=== PATIENT | female | born 1940 ===

== ENCOUNTER → 2020-07-09 09:04 | Outpatient (BNVA) | payer MEDICARE, SELFPAY | PROVIDERS: PCP Family Medicine; Visit Provider Urology | DX: N13.2 Hydronephrosis with renal and ureteral calculous obstruction (principal); Z96.0 Presence of urogenital implants | CPT/HCPCS: 99214 ==

== ENCOUNTER 2020-07-14 06:40 | Day surgery (SDC) | payer MEDICARE, SELFPAY ==
[2020-07-09 19:53] VITALS: BMI 22.3
[2020-07-14 06:57] VITALS: BP 135/74; PULSE 97; RESP 16; TEMP 37.4; O2SAT 96
--- NOTE | 2020-07-14 07:28 | MHC.SHP ---
Pre-Procedural Eval Section A The patient is an INPATIENT: No The History & Physical has been completed within 30 days and I have reviewed it.: Yes Section B Chief Complaint: right renal stone Allergies: Allergies Allergy/AdvReac Type Severity Reaction Status Date / Time alendronate sodium [Fosamax] Allergy Unknown unknown Verified 07/02/20 15:46 codeine [Codeine] AdvReac Mild STOMACH Verified 07/10/20 12:27 UPSET Codeine Phosphate Allergy Unknown unknown Uncoded 07/02/20 15:46 Plan Diagnosis/Plan: Unchanged Patient has been examined and remains a candidate for the planned procedure
[2020-07-14] MEDS: levoFLOXacin/D5W 500 MG/100 ML PIGGYBACK 100 MG IV (07:44)
[2020-07-14] MEDS: Gentamicin Sulfate/NaCl 80 MG/100 ML PIGGYBACK 100 MG IV (07:44)
--- NOTE | 2020-07-14 08:15 | HO.ANESPROP2 ---
[facility] Past Medical History Medical History Asthma Atrial fibrillation Deficient knowledge of open reduction and internal (ORIF) fixation of hip Discoid lupus GERD (gastroesophageal reflux disease) IBS (irritable bowel syndrome) Kidney stone Myasthenia gravis Postural vertigo Skin cancer Status post open reduction and internal fixation (ORIF) of fracture (~01/2020) Family History Family History Mother No problems noted. Father No problems noted. Surgical History Surgical History History of cataract extraction with lens replacement (~11/2019) Social History Social History Are you a primary healthcare social worker to a significant other at home: No Smoking Status: Never smoker Smoked in Last 30 Days: No Use of substances other than those prescribed or required for medical reasons: No Advance Directives: No (UKNOWN) Meds Allergies Allergy/AdvReac Type Severity Reaction Status Date / Time alendronate sodium [Fosamax] Allergy Unknown unknown Verified 07/02/20 15:46 codeine [Codeine] AdvReac Mild STOMACH Verified 07/10/20 12:27 UPSET Codeine Phosphate Allergy Unknown unknown Uncoded 07/02/20 15:46 Home Medications Medication Instructions Recorded Confirmed Type albuterol sulfate 2 puff INHALATION Q6H 07/09/20 07/09/20 History benzonatate 100 mg capsule 100 mg PO TID PRN 07/09/20 07/09/20 History cefuroxime axetil 250 mg tablet 250 mg PO Q12H 07/09/20 07/09/20 History diltiazem HCl 180 mg capsule,24 180 mg PO DAILY 07/09/20 07/09/20 History hr,extended release nystatin 100,000 unit/gram topical TOPICAL BID 07/09/20 History powder prednisone 2 mg PO DAILY 07/09/20 07/09/20 History pyridostigmine bromide 60 mg tablet 60 mg PO TID 07/09/20 07/09/20 History warfarin 1 tab PO DAILY 07/09/20 07/09/20 History Exam Exam Date and Time: July 14, 2020 0815 Height,Weight and Vital Signs: Height 5 ft 4 in Weight 58.967 kg Last Vital Signs Temp 99.3 F 07/14/20 06:57 Pulse 97 07/14/20 06:57 Resp 16 07/14/20 06:57 BP 135/74 07/14/20 06:57 Pulse Ox 96 07/14/20 06:57 Airway Mallampati Class: II TM Dist: >3cm Neck ROM: Limited Denture: Upper and Lower Loose/Missing/Broken Teeth: No Heart: irreg Lungs: cta Assessment and Plan Assessment Anesthesia Assessment: Anesthesia Plan Discussed and Chart Reviewed Final Anesthetic Review NPO: Yes ASA Class: III Final Preanesthetic Review: No Changes in Pt Med Stat, Meds/Allgs Chart Reviewed, Consent Obtained/Reviewed, Anes Risks/Benef Reviewed and DNR Form (If Appl.) Patient Risk: Intermediate Procedure Risk: Low Assessment/Block/Sedation in SS: Assess/Block/Sedation-SS Anesthetic Plan Anesthetic Plan: GA Disposition: Standard PACU
--- NOTE | 2020-07-14 08:47 | HO.ANESPROP2 ---
[facility] Past Medical History Medical History Asthma Atrial fibrillation Deficient knowledge of open reduction and internal (ORIF) fixation of hip Discoid lupus GERD (gastroesophageal reflux disease) IBS (irritable bowel syndrome) Kidney stone Myasthenia gravis Postural vertigo Skin cancer Status post open reduction and internal fixation (ORIF) of fracture (~01/2020) Family History Family History Mother No problems noted. Father No problems noted. Surgical History Surgical History History of cataract extraction with lens replacement (~11/2019) Social History Social History Are you a primary childcare center director to a significant other at home: No Smoking Status: Never smoker Smoked in Last 30 Days: No Use of substances other than those prescribed or required for medical reasons: No Advance Directives: No (UKNOWN) Meds Allergies Allergy/AdvReac Type Severity Reaction Status Date / Time alendronate sodium [Fosamax] Allergy Unknown unknown Verified 07/02/20 15:46 codeine [Codeine] AdvReac Mild STOMACH Verified 07/10/20 12:27 UPSET Codeine Phosphate Allergy Unknown unknown Uncoded 07/02/20 15:46 Home Medications Medication Instructions Recorded Confirmed Type albuterol sulfate 2 puff INHALATION Q6H 07/09/20 07/09/20 History benzonatate 100 mg capsule 100 mg PO TID PRN 07/09/20 07/09/20 History cefuroxime axetil 250 mg tablet 250 mg PO Q12H 07/09/20 07/09/20 History diltiazem HCl 180 mg capsule,24 180 mg PO DAILY 07/09/20 07/09/20 History hr,extended release nystatin 100,000 unit/gram topical TOPICAL BID 07/09/20 History powder prednisone 2 mg PO DAILY 07/09/20 07/09/20 History pyridostigmine bromide 60 mg tablet 60 mg PO TID 07/09/20 07/09/20 History warfarin 1 tab PO DAILY 07/09/20 07/09/20 History Exam Exam Date and Time: July 14, 2020 0847 Height,Weight and Vital Signs: Height 5 ft 4 in Weight 58.967 kg Last Vital Signs Temp 99.3 F 07/14/20 06:57 Pulse 97 07/14/20 06:57 Resp 16 07/14/20 06:57 BP 135/74 07/14/20 06:57 Pulse Ox 96 07/14/20 06:57 Airway Mallampati Class: II TM Dist: >3cm Neck ROM: Limited Partial: Upper and Lower Assessment and Plan Assessment Anesthesia Assessment: Anesthesia Plan Discussed and Chart Reviewed Final Anesthetic Review NPO: Yes ASA Class: III Final Preanesthetic Review: No Changes in Pt Med Stat, Meds/Allgs Chart Reviewed, Consent Obtained/Reviewed, Anes Risks/Benef Reviewed and DNR Form (If Appl.) Patient Risk: Intermediate Procedure Risk: Low Assessment/Block/Sedation in SS: Assess/Block/Sedation-SS Anesthetic Plan Anesthetic Plan: GA Disposition: Standard PACU
--- NOTE | 2020-07-14 09:13 | OP_ITS ---
SURGEON: Ugo Franco III, MD PREOPERATIVE DIAGNOSIS: POSTOPERATIVE DIAGNOSIS: PROCEDURE PERFORMED: 1. Cystoscopy with removal of right stent. 2. Ureteroscopy rigid. 3. Placement of ureteral sheath. 4. Flexible ureteroscopy. 5. Stone and clot extraction. 6. Placement of right ureteral stent. ESTIMATED BLOOD LOSS: None. COMPLICATIONS: None. ANESTHESIA: General. ASSISTANTS: SPECIMENS: PREOPERATIVE DIAGNOSES: Retained right ureteral stent and right renal stone. POSTOPERATIVE DIAGNOSES: Retained right ureteral stent and right renal stone. COMPLICATIONS: None. DRAINS: A 6-Togolese x 24 cm double-J stent. [facility] OPERATIVE REPORT PATIENT NAME: Allan Hargrove ? DATE OF : 1940 LOCATION: [facility] DATE OF SERVICE: 07/14/2020 PCP: OPERATIVE REPORT Page 2 DESCRIPTION OF PROCEDURE: The patient was taken to the operating room. After adequate anesthesia was obtained, she was prepped and draped in usual fashion and placed in dorsal lithotomy position. The patient underwent a time-out demonstrating correct patient, correct procedure, and correct site. Following this, the patient underwent cystoscopy, which demonstrated the right stent was grasped, removed to the meatus and subsequent wire was placed through this. The patient underwent rigid ureteroscopy. No stone was seen in the ureter. Therefore, the patient had a retrograde done, demonstrated mid-renal filling defect. The patient underwent flexible ureteroscopy, that area was encountered, mostly clot, although there were stones within the clot, but these broke up with grasping with basket. Golf Instructor samples were sent to pathology. The retrograde ureteroscopy demonstrated no further stones in the patient's kidney of any significance, there were some fine gravel which is too small to black pickler with a stone basket. The patient had a 6-Togolese x 24 cm double-J stent placed in good position with fluoroscopy and cystoscopy. She tolerated the procedure well without complications. SPECIMEN: Golf Instructor samples sent to pathology. MD EDDIE Bravo III/TERRELL / [id number] RICARDO
--- NOTE | 2020-07-14 09:17 | PM.OP ---
Brief Operative Note Date of procedure: 07/14/20 Pre-op diagnosis: right renl stone and stent Post-op diagnosis: same Procedure: cysto removal right stent ureteroscpy rigis and flexible, stone extraction stent Implants: right stent Surgeon: Ugo Franco III, MD Anesthesia: GLMA Pathology: other (stone/clot) Condition: stable Disposition: same day
[2020-07-14 09:20] VITALS: BP 112/51; PULSE 84; RESP 16; TEMP 36.2; O2SAT 95
[2020-07-14 09:25] VITALS: BP 113/60; PULSE 75; RESP 16; O2SAT 94
[2020-07-14 09:30] VITALS: BP 113/56; PULSE 74; RESP 16; O2SAT 94
[2020-07-14 09:35] VITALS: BP 112/62; PULSE 79; RESP 18; O2SAT 95
[2020-07-14 09:50] VITALS: BP 110/62; PULSE 77; RESP 18; TEMP 36.2; O2SAT 95
--- NOTE | 2020-07-14 10:18 | HO.POSTANES ---
Post Anesthesia Evaluation Post Anesthesia Evaluation Vital Signs: Vital Signs Temp Pulse Resp BP Pulse Ox 07/14/20 09:50 97.2 F 77 18 110/62 95 07/14/20 09:35 79 18 112/62 95 07/14/20 09:30 74 16 113/56 L 94 07/14/20 09:25 75 16 113/60 94 07/14/20 09:20 97.1 F 84 16 112/51 L 95 07/14/20 06:57 99.3 F 97 16 135/74 96 Anesthesia: Monitored Mental Status: Awake Pain Control: Satisfactory Nausea/Vomiting: None Hydration: Adequate Anesthesia-Related Issues: No Anes. Related Issues
== END 2020-07-14 10:37 | disposition home or self-care (01) ==
PROVIDERS: PCP Family Medicine; Visit Provider Urology
PROC: (CPT 52352; principal; 2020-07-14 08:10)
DX: N13.2 Hydronephrosis with renal and ureteral calculous obstruction (principal); Z96.0 Presence of urogenital implants; J45.909 Unspecified asthma, uncomplicated; K21.9 Gastro-esophageal reflux disease without esophagitis; I48.91 Unspecified atrial fibrillation; H01.129 Discoid lupus erythematosus of unspecified eye, unspecified eyelid; G70.00 Myasthenia gravis without (acute) exacerbation; Z79.01 Long term (current) use of anticoagulants; Z79.52 Long term (current) use of systemic steroids; Z79.899 Other long term (current) drug therapy; Z85.828 Personal history of other malignant neoplasm of skin; Z88.8 Allergy status to other drugs, medicaments and biological substances
CPT/HCPCS: 52352; 52332; 88300; C1769; C1894; C2617; J1100; J1580; J1956; J2405; J3010; Q9967

== ENCOUNTER → 2020-08-06 10:50 | Outpatient (BNVA) | payer MEDICARE, SELFPAY | PROVIDERS: PCP Family Medicine; Referring Provider Family Medicine; Visit Provider Urology | DX: Z48.816 Encounter for surgical aftercare following surgery on the genitourinary system (principal); Z87.442 Personal history of urinary calculi | CPT/HCPCS: 52000; 52310; 99212 ==

== ENCOUNTER 2020-09-10 09:47 | Outpatient (REF) | payer MEDICARE, SELFPAY ==
--- NOTE | 2020-09-10 10:06 | XR_ITS ---
EXAMINATION: XR HIP, LEFT CLINICAL INFORMATION: Follow-up fracture. COMPARISON: 01/11/2020 and 04/17/2020 TECHNIQUE: Two views of the left hip. FINDINGS: 04/17/2020 XR/XR hip LT min 2V IMPRESSION: Bones are diffusely osteoporotic. The left femoral head is well-positioned within the intact acetabulum. Old, healed, nondisplaced fracture of the left inferior pubic ramus. The long femoral intramedullary nail, distal interlocking screw and dynamic femoral neck screw are in satisfactory position. There is sclerosis/healing response along fracture lines of the comminuted fracture of the intertrochanteric area of the proximal femur. Persistent fracture lucency is noted in some areas of prior cortical disruption. No new fracture or osteonecrosis. IMPRESSION: * Diffuse osteoporosis. * Incomplete healing of the comminuted fracture in the intertrochanteric region of the proximal femur. The major fragments are reduced into near-anatomic position. No fixation hardware complication. * Old, healed fracture of the left inferior pubic ramus.
--- NOTE | 2020-09-10 10:06 | XR_ITS ---
EXAMINATION: XR KNEE, RIGHT CLINICAL INFORMATION: Knee pain. COMPARISON: 03/11/2020 TECHNIQUE: AP and lateral views of the right knee. FINDINGS: Bones are diffusely osteoporotic. An old, comminuted fracture of the proximal tibia involving the medial plateau is partially obscured by the tibial fixation hardware. There has been healing of the fracture. There is chronic, mild depression of the medial plateau surface. It is difficult to determine from the radiographic projections whether any of the tibial screws through the lateral buttress plate are in the subchondral bone or are penetrating into the articular surface of the medial plateau. If deemed clinically necessary, CT imaging of the knee could provide clarification of the screw position. No loosening of hardware. Chronic ossification in the region of femoral attachment of the medial collateral ligament from old ligament injury. Chondrocalcinosis of the knee. No knee joint effusion. Atherosclerotic calcification peripheral vessels. XR/XR knee RT 2V IMPRESSION: * There is evidence of healing of the comminuted fractures of proximal tibia. * Chronic, mild pression of the medial plateau surface. Note that it is difficult to determine whether any of the proximal tibial fixation screws are penetrating into the articular surface of the medial plateau.
== END 2020-09-10 09:48 | disposition home or self-care (01) ==
LOC: HO.HOSX 09:47
PROVIDERS: PCP Nurse Practitioner Family; Visit Provider Physician Assistant
DX: S72.002A Fracture of unspecified part of neck of left femur, initial encounter for closed fracture (principal); M17.11 Unilateral primary osteoarthritis, right knee
CPT/HCPCS: 73502; 73560; 99212

== ENCOUNTER 2020-12-08 09:49 | Outpatient (REF) | payer MEDICARE, SELFPAY ==
--- NOTE | ~2020-12-08 | US_ITS ---
EXAMINATION: US ABDOMEN COMPLETE CLINICAL INFORMATION: Abdominal distention. COMPARISON: CT abdomen and pelvis without contrast dated 06/24/2020. Renal only ultrasound dated 05/20/2019. KUB dated 08/11/2014. X-ray abdomen upright decubitus dated 10/08/2012. Bilateral renal ultrasound dated 08/18/2010. TECHNIQUE: Real-time imaging of the abdominal viscera. Technically difficult study secondary to body habitus. FINDINGS: PANCREAS: Normal. ABDOMINAL AORTA: The mid and distal segments are normal in caliber. The proximal segment is not visualized. INFERIOR VENA CAVA: The IVC is not seen. LIVER: The liver is homogeneous in echotexture without any focal lesion. GALLBLADDER: The gallbladder is not well visualized and is contracted. COMMON BILE DUCT: The common bile duct is not visualized. RIGHT KIDNEY: There is an echogenic stone lower pole measuring 0.6 x 0.6 cm. No additional echogenic stones seen. No hydronephrosis or focal parenchymal lesions. The kidney measures 10.8 cm in maximum dimension. LEFT KIDNEY: The left kidney is barely visible in between the ribs. The kidney measures 8.2 cm in maximum dimension. SPLEEN: The spleen measures 6.3 cm in maximum dimension. FREE FLUID: None. US/US abdomen complete IMPRESSION: Small echogenic stone lower pole right kidney. The proximal abdominal aorta, pancreas and CBD are not well visualized due to overlying gas.
== END 2020-12-08 09:50 | disposition home or self-care (01) ==
LOC: HO.US 09:49
PROVIDERS: PCP Nurse Practitioner Family; Visit Provider Nurse Practitioner Family
DX: R14.0 Abdominal distension (gaseous) (principal)
CPT/HCPCS: 76700

== ENCOUNTER → 2021-01-12 13:51 | Outpatient (REF) | payer MEDICARE, SELFPAY ==
--- NOTE | 2021-01-12 14:00 | CA_ITS ---
Transthoracic Echocardiogram Patient (Last, First, Middle): Allan Hargrove, Gender: Female Date of : 1940 Age: 80 Procedure Date: 01/12/2021 Procedure Type: Transthoracic Echocardiogram Location: OP Height: 162.56 cm Weight: 52.16 kg BSA: 1.55 m2 Heart Rate: bpm BP: 122 / 64 mmHg Pharmacy Delivery Driver: Referring MD: Tg Cooper NP Symptoms: KALPESH SMALL EFFUSION Study Quality: Good ECG Rhythm: Atrial Fibrillation Conclusions: - The left ventricular systolic function is normal. The visually estimated ejection fraction is between 55-60%. - Moderately increased right ventricular cavity size. - Severe biatrial enlargement. - There is mild mitral valve regurgitation. - There is moderate tricuspid valve regurgitation. - Mild pulmonary hypertension is present. Findings Left Ventricle Normal left ventricular cavity size. The left ventricular systolic function is normal. The visually estimated ejection fraction is between 55-60%. There is no evidence of regional wall motion abnormalities. Diastolic function is indeterminate on the basis of available data. Focal hypertrophy of the basal septum. Right Ventricle Moderately increased right ventricular cavity size. There is normal right ventricular systolic function. Atria Severe biatrial enlargement. Aortic Valve There is a normal trileaflet aortic valve. There is no aortic valve stenosis. There is trace (trivial) aortic valve regurgitation. Mitral Valve The mitral valve appears normal. There is mild mitral valve regurgitation. There is no mitral valve stenosis. Pulmonic Valve The pulmonic valve was not well visualized. There is trace to mild pulmonic valve regurgitation. Tricuspid Valve Normal tricuspid valve structure. There is moderate tricuspid valve regurgitation. The right ventricular systolic pressure is 46 mmHg. Mild pulmonary hypertension is present. Great Vessels The aortic annulus, sinuses of valsalva, asc aorta, and aortic arch are normal in size. Venous The inferior vena cava is mildly dilated and collapses greater than 50% with inspiration. Pericardium/Pleural There is no evidence of pericardial effusion. Prior Study Comparison Changes noted compared to prior study dated: 03/05/2005. Atria enlarged. Measurements 2D Linear Measurements RVIDd: 3.43 RVIDd Index: 2.21 IVSd: 0.65 0.6-0.9/0.6-1.0 cm LVIDd: 4.40 3.9-5.3/4.2-5.9 cm LVIDd Index: 2.84 2.4-3.2/2.2-3.1 cm/m2 LVIDs: 2.82 2.0-3.6 cm LVPWd: 0.90 0.7-1.1 cm Ao Root: 3.20 2.1-3.5 cm LA Diam: 5.00 2.7-3.8/3.0-4.0 cm LAIDs Index: 3.23 1.5-2.3 cm/m2 LV Mass: 130.59 67-162/88-224 g LV Mass Index: 84.25 43-95/49-115 g/m2 LVOT Diam: 2.00 3.0+(-)1.3 cm 2D Systolic Function EF 4C: 62.30 >55% EF 2C: 54.60 >55% EF BiP: 55.90 >55% Mitral Valve E'Lateral: 9.90 MR Vol - PW Dopp: 24.00 MR VTI: 1.60 MR ERO: 15.00 MR Alias Zachary: 0.35 MR RAD: 0.60 Aortic Valve AoV Pk Zachary: 1.22 AoV Mn Zachary: 0.82 AoV VTI: 0.22 AoV Pk Grad: 6.00 Aov Mn Grad: 3.00 SURYA Cont.VTI: 1.77 AI Pk Zachary: 3.85 AI [place]: 2.09 LVOT LVOT Pk Zachary: 0.63 LVOT Mn Zachary: 0.44 LVOT VTI: 0.12 LVOT Pk Grad: 2.00 LVOT Mn Grad: 1.00 LVOT Diam: 2.00 LVOT Area: 3.14 Diastolic Function E' Laterial: 9.90 Tricuspid Valve TR Pk Zachary: 3.02 TR Pk Grad: 36.00 RA Press: 8.00 RVSP: 46.00 Great Vessels Aorta Ao Root-2D: 3.20 2.0-3.7 cm Ao Asc: 2.80 2.1-3.4 cm Ao Arch: 2.80 Updated in Other Vendor System with Status of Final Guanakito David MD electronically signed on 01/14/2021 3:56:47 PM with status of Final
== END ==
LOC: HO.CARD 13:51
PROVIDERS: Visit Provider Nurse Practitioner Family
DX: J90 Pleural effusion, not elsewhere classified (principal)
CPT/HCPCS: 93306

== ENCOUNTER 2021-01-20 10:19 | Outpatient (REF) | payer MEDICARE, SELFPAY ==
--- NOTE | ~2021-01-20 | US_ITS ---
EXAMINATION: US RETROPERITONEAL LIMITED (RENAL ONLY) CLINICAL INFORMATION: Renal calculus. COMPARISON: Ultrasound abdomen 12/08/2020. Ultrasound renal 05/20/2019. CT abdomen pelvis 06/24/2020. X-ray KUB 08/11/2014. TECHNIQUE: Real-time imaging of the kidneys. FINDINGS: RIGHT KIDNEY: 10.9 x 5.2 x 6.5 cm (SAG x AP x TRV). The kidney is normal in size, contour, and echogenicity. Renal cortical thickness is normal. No hydronephrosis. There is anechoic cyst. An upper pole cyst measures 1.2 x 0.8 x 1.0 cm and a lower pole cyst measures 0.65 x 0.45 x 0.39 cm. There is an echogenic stone in lower pole measuring 0.98 x 0.84 x 1.0 cm. There is mild hydronephrosis. There is an echogenic stone in the mid ureter with shadowing measuring 0.58 x 0.74 x 0.9 cm. LEFT KIDNEY: 11 x 5.7 x 6.7 cm (SAG x AP x TRV). The kidney is normal in size, contour, and echogenicity. Renal cortical thickness is normal. No calculi or focal parenchymal lesions. No hydronephrosis. There is a small echogenic stone in lower pole measuring 0.69 x 0.68 x 1.0 cm. BLADDER: Bladder is empty. US/US renal BI IMPRESSION: Partially obstructive stone right mid ureter measuring 0.9 cm with mild hydronephrosis. There is a nonobstructive echogenic stone lower pole right kidney. Nonobstructive echogenic stone lower pole left kidney measuring 0.69 cm. Small right renal cyst.
== END 2021-01-20 10:20 | disposition home or self-care (01) ==
LOC: HO.US 10:19
PROVIDERS: PCP Nurse Practitioner Family; Visit Provider Urology
DX: N13.2 Hydronephrosis with renal and ureteral calculous obstruction (principal)
CPT/HCPCS: 76775

== ENCOUNTER 2021-02-03 14:26 | Inpatient (IN) | payer MEDICARE, SELFPAY ==
--- NOTE | ~2021-02-03 | FL_ITS ---
EXAMINATION: Intraoperative fluoroscopy CLINICAL INFORMATION: Right kidney stone COMPARISON: CT abdomen pelvis 02/03/2021 TECHNIQUE: Intraoperative fluoroscopy was provided for use by Dr. Maier. A total of 1 image was saved to PACS. A radiologist was not present during imaging. Today's dictation is only for administrative purposes to document intraoperative fluoroscopic usage. TOTAL FLUOROSCOPIC TIME: 26 seconds FL/FL guidance in OR FINDINGS~\^^ Intraoperative fluoroscopy provided for use by Dr. Maier. Please see operative note for detailed findings.
--- NOTE | ~2021-02-03 | CT_ITS ---
EXAMINATION: CT ABDOMEN AND PELVIS WITH CONTRAST CLINICAL INFORMATION: Abdominal distention and tenderness, rectal bleed. COMPARISON: CT scan of the abdomen and pelvis dated 06/24/2020. TECHNIQUE: Multidetector volumetric images were obtained from the superior aspect of the liver through the pubic symphysis following administration 85 mL of Omnipaque 350 intravenous contrast. Sagittal and coronal reformatted images were obtained on the technologist's workstation. Oral contrast: No This CT examination was performed using dose optimization techniques as appropriate, variously including the following: *Automated exposure control *Adjustment of mA and/or kV according to patient size (this includes techniques or standardized protocols for targeted exams where dose is matched to indication/reason for exam; i.e. extremities or head) *Use of iterative reconstruction technique DLP: 709 mGy-cm FINDINGS: LUNG BASES: The visualized lung bases are unremarkable. LIVER, GALLBLADDER, AND BILIARY TREE: Tiny cysts are seen in the hepatic dome. The gallbladder contains a calcified gallstone measuring 1.3 cm (image 47, series 3). PANCREAS: Unremarkable. SPLEEN: Unremarkable. ADRENAL GLANDS: Unremarkable. KIDNEYS AND URETERS: Mild to moderate right hydroureteronephrosis is seen caused by a 0.6 cm calculus (600 HU) in the proximal one third of the right ureter (image 42, series 5). The right lower pole intrarenal calculus measures 0.6 cm (image 50, series 5). The left kidney and ureter are unremarkable. BLADDER: Mild diffuse mural thickening without focal abnormality. GASTROINTESTINAL TRACT: The stomach, small bowel and appendix are unremarkable. Mild to moderate stool seen within the colon distally to the rectum. Mild diverticulosis is seen in the descending and sigmoid colon without surrounding abnormality. ABDOMINAL WALL: No significant hernia is appreciated. LYMPH NODES: No lymphadenopathy. VASCULAR: Asymmetric mild prominence of the left gonadal vein and associated left periuterine veins. PELVIC VISCERA: Unremarkable. OSSEOUS STRUCTURES: Generalized osteopenia. Multilevel vertebral body superior endplate compression deformities are seen at all visualized levels from T11 to L5 except that L2. CT/CT abdomen pelvis w con IMPRESSION: 1. Mild to moderate right hydronephrosis caused by a 0.6 cm calculus in the proximal one third of the right ureter. Nonobstructing right lower pole intrarenal calculus. 2. Tiny hepatic cysts demonstrate benign features. 3. Cholelithiasis without evidence for acute cholecystitis. 4. Mild diffuse mural thickening in the urinary bladder may be secondary to incomplete distention. Infectious/inflammatory cystitis would be less likely. 5. Mild descending/sigmoid diverticulosis without evidence for acute diverticulitis. 6. Mild left pelvic congestion secondary to a mildly dilated left gonadal vein. 7. Multilevel degenerative changes and vertebral body compression deformities in the visualized thoracolumbar spine do not demonstrate acute features.
[2021-02-03 14:55] VITALS: BP 127/74; PULSE 80; RESP 16; TEMP 37; O2SAT 98; BMI 19.0
--- NOTE | 2021-02-03 15:21 | ED.GIBLEED ---
HPI - GI Bleed General Chief complaint: GI Bleed Stated complaint: ?gi bleed, diarrhea Time Seen by Provider: 02/03/21 14:58 Source: patient, EMS, RN notes reviewed and old records reviewed Mode of arrival: EMS Limitations: no limitations and altered mental status History of Present Illness HPI Narrative: 80-year-old female with past medical history of AFib, on Coumadin, myasthenia gravis, urethral stone with hydronephrosis, status post ureteral stenting. Patient reports that she had bowel movement x3 today with irina blood in it. Patient also has a history of IBS and has been seen by her hop weigher in [place]. Patient reports that she was on stool softeners, however she recently stopped that as her stools were too soft. Patient denies any knowledge of any rectal fissures or hemorrhoids. Reports that the blood was bright red. Patient had a CT of abdomen and pelvis done in June of 2020 that showed cholelithiasis without cholecystitis and diverticulosis without diverticulitis. Denies any fever or chills. Complains of right mid quadrant pain. Denies any nausea, vomiting, diarrhea. Denies any fever or chills. Denies any exposure to COVID. Related Data Home Medications Medication Instructions Recorded Confirmed albuterol sulfate 2 puff INHALATION Q6H 07/09/20 07/09/20 benzonatate 100 mg capsule 100 mg PO TID PRN 07/09/20 07/09/20 cefuroxime axetil 250 mg tablet 250 mg PO Q12H 07/09/20 07/09/20 diltiazem HCl 180 mg capsule,24 180 mg PO DAILY 07/09/20 07/09/20 hr,extended release nystatin 100,000 unit/gram topical TOPICAL BID 07/09/20 powder prednisone 2 mg PO DAILY 07/09/20 07/09/20 pyridostigmine bromide 60 mg tablet 60 mg PO TID 07/09/20 07/09/20 warfarin 1 tab PO DAILY 07/09/20 07/09/20 prednisone 1 mg tablet mg PO 08/06/20 08/06/20 Allergies Allergy/AdvReac Type Severity Reaction Status Date / Time alendronate sodium [Fosamax] Allergy Unknown unknown Verified 02/04/21 04:24 codeine [Codeine] AdvReac Mild STOMACH Verified 05/06/21 04:24 UPSET Codeine Phosphate Allergy Unknown unknown Uncoded 02/04/21 04:24 Review of Systems Review of Systems: Constitutional : No Weight loss, No Fever, No Chills, No Night Sweats, No Fatigue, No Malaise ENT/Mouth : No Hearing loss, No Ear Pain, No Nasal Congestion, No Sinus Pain, No Hoarseness, No sore throat, No Rhinorrhea, No Swallowing Difficulty Eyes: No Eye Pain, No Swelling, No Redness, No Foreign Body, No Discharge, No Vision Changes Cardiovascular : No Chest Pain, No SOB, No Dyspnea on Exertion, No Orthopnea, No Edema, No Palpitations Respiratory : No Cough, No Sputum, No Wheezing, No Smoke Exposure, No Dyspnea Gastrointestinal : No Nausea, No Vomiting, No Diarrhea, Constipation, right mid abdominal Pain, Hematochezia with small clots, No Melena Genitourinary : no irregular bleeding, No Dysuria, No Urinary Frequency, No Hematuria, No Urinary Incontinence, No Urgency, No Flank Pain, No Urinary Flow Changes, No Hesitancy Musculoskeletal : No joint pain, No Myalgias, No Joint Swelling Skin : No Skin Lesions, No rash Neuro : No Weakness, No Numbness, No Paresthesias, No Loss of Consciousness, No Dizziness, No Headache Psych : No Anxiety/Panic, No Depression, No SI/HI/AH/VH, No Social Issues, Heme/Lymph: No Bruising, No Bleeding,No Lymphadenopathy Endocrine : No Polyuria, No Polydipsia, No Temperature Intolerance Yes all other systems are reviewed and are negative [facility] Past Medical History Medical History (Updated 02/04/21 @ 06:10 by Nathan Gloria MD) Asthma Atrial fibrillation Deficient knowledge of open reduction and internal (ORIF) fixation of hip Discoid lupus GERD (gastroesophageal reflux disease) IBS (irritable bowel syndrome) Kidney stone Myasthenia gravis Postural vertigo Skin cancer Status post open reduction and internal fixation (ORIF) of fracture (~01/2020) Surgical History History of cataract extraction with lens replacement (~11/2019) Family History Family History Mother No problems noted. Father No problems noted. Social History Social History Alcohol intake: never Smoking Status: Never smoker Use of substances other than those prescribed or required for medical reasons: No Advance Directives: No Advance Directives Information Provided: Yes service: No Current occupational status: retired Physical Exam Vital Signs: Vital Signs: Last Vital Signs Temp 97.8 F 02/04/21 02:00 Pulse 88 02/04/21 07:13 Resp 16 02/04/21 07:13 BP 116/73 02/04/21 07:13 Pulse Ox 95 02/04/21 07:13 Body Mass Index 19.0 Const: General: healthy appearing, no acute distress and well developed Nutritional Appearance: well nourished Orientation/consciousness: patient oriented x3 Neck: Neck: Yes normal visual inspection, Yes full ROM and Yes trachea midline Thyroid: Thyroid normal Resp: Auscultation: clear to auscultation bilaterally Cardio: Rate: regular rate Rhythm: regular rhythm GI: Inspection: Yes normal to inspection and No distended Palpation (GI): Tenderness to palpation present (GI) (Right mid area) not at McBurney's point and Bob's sign negative, No hepatosplenomegaly present and no hernias Auscultation: normal bowel sounds Skin: General skin exam: elasticity normal, turgor normal and dry skin Neuro: General: patient oriented x3 Course Course Course Narrative: 80-year-old female here with history of AFib and on Coumadin, myasthenia gravis status post ureteral stenting in August that was just recently removed. Reports 3 episodes of bowel movement with bright red blood. Denies diarrhea history of IBS with mostly constipation. CT from June 2020 showed diverticulosis without diverticulitis and cholelithiasis without cholecystitis. Rectal exam shows no fissures no hemorrhoids. Bright blood in the rectum. Right mid abdomen pain and tenderness mild, 3 are a 10. Will order blood work, CBC, CMP, PT and INR and abdominal CT. Will obtain urine to check for urinary infection. Patient was diagnosed previously with hydronephrosis. Will give her mild hydration. Patient is agreeable to plan of care. Reevaluation(s) Reevaluation #1: Lab work reviewed. Patient results are negative for leukocytosis, anemia. Mild dehydration with normal kidney functions. Her INR is therapeutic at 2.4. Patient re-examined after having bowel movement. Patient had few small pebble like hard stool with fresh bright red blood. Repeated rectal examination and small internal hemorrhoid noted at 2'o clock. Patient's urine shows 2+ blood, leukocytes, wbc's. Will medicate her with Ceftin. Awaiting for abdominal CT results. Reevaluation #2: Abdominal CT scan done following are the results IMPRESSION: 1. Mild to moderate right hydronephrosis caused by a 0.6 cm calculus in the proximal one third of the right ureter. Nonobstructing right lower pole intrarenal calculus. 2. Tiny hepatic cysts demonstrate benign features. 3. Cholelithiasis without evidence for acute cholecystitis. 4. Mild diffuse mural thickening in the urinary bladder may be secondary to incomplete distention. Infectious/inflammatory cystitis would be less likely. 5. Mild descending/sigmoid diverticulosis without evidence for acute diverticulitis. 6. Mild left pelvic congestion secondary to a mildly dilated left gonadal vein. 7. Multilevel degenerative changes and vertebral body compression deformities in the visualized thoracolumbar spine do not demonstrate acute features. Patient reports that she has a 2/10- 7/10 right sided abdominal pain that is intermittent. Denies nausea or vomiting. Call placed to Dr. Fuchs who is her urologist. Will admit patient for medical management, possible worsening hydronephrosis and partially obstructing renal stone 0.6 cm. Patient is at risk for developing pyelonephritis. She lives alone. Spoke with hospitalist who admitted patient. Dr. Fuchs will see patient in the morning. Reevaluation #3: Patient does not meet sepsis criteria. Negative leukocytosis, vital signs normal afebrile. MDM - GI Bleed Lab Data Result diagrams: 02/04/21 09:49 02/04/21 05:32 Labs: Lab Results 02/03/21 02/03/21 02/03/21 Range/Units 15:40 15:40 15:40 WBC 5.7 (4.8-10.8) X10*3/uL RBC 4.96 (4.20-5.50) X10*6/uL Hgb 14.3 (12.0-16.0) g/dl Hct 44.6 (37-47) % MCV 89.9 (80-98) fL MCH 28.8 (27.0-33.0) pg MCHC 32.1 (31.0-35.0) g/dl RDW 15.1 (11.0-16.0) % Plt Count 184 (160-400) X10*3/uL MPV 11.6 (9.4-12.3) fL Immature Gran % (Auto) 0.2 (0.0-0.4) % Neut % (Auto) 67.2 (45-73) % Lymph % (Auto) 21.7 (20-40) % [place] % (Auto) 10.0 (2-11) % Eos % (Auto) 0.4 (0-4) % Baso % (Auto) 0.5 (0-2) % Lymph # (Auto) 1.2 (1.2-4.9) X10*3/uL [place] # (Auto) 0.6 (0.1-1.2) X10*3/uL Eos # (Auto) 0.0 (0.0-0.4) X10*3/uL Baso # (Auto) 0.0 (0.0-0.2) X10*3/uL Abs Immat Gran (auto) 0.01 (0.00-0.03) X10*3/uL Absolute Neuts (auto) 3.8 (2.0-8.3) X10*3/uL Absolute Nucleated RBC 0.000 (0.0-0.012) X10*3/uL Nucleated RBC % (auto) 0.0 (0.0-0.2) /100WBC PT (10.8-13.0) SEC INR (0.9-1.1) Sodium 141 Cancelled (135-145) mmol/L Potassium 4.9 Cancelled (3.3-5.1) mmol/L Chloride 102 Cancelled (96-108) mmol/L Carbon Dioxide 32 H Cancelled (22-29) mmol/L Anion Gap 12 Cancelled (12-20) BUN 28 H Cancelled (9-16) mg/dL Creatinine 0.66 Cancelled (0.5-1.4) mg/dL Estim Creat Clear Calc 52.2 Cancelled Estimated GFR > 60 Cancelled Random Glucose 106 Cancelled (60-115) mg/dL Calcium 10.0 Cancelled (8.4-10.2) mg/dL Total Bilirubin 0.7 Cancelled (0.0-1.0) mg/dL Direct Bilirubin 0.3 (0.0-0.5) mg/dL AST 25 Cancelled (5-31) U/L ALT 19 Cancelled (0-31) U/L Alkaline Phosphatase 95 Cancelled (39-117) U/L Troponin I High Sens (<3.5-17.0) ng/L Total Protein 7.5 Cancelled (6.5-8.0) g/dL Albumin 4.3 Cancelled (3.5-5.0) g/dL Lipase 12 (8-78) U/L Urine Color Urine Appearance Urine pH (5.0-8.0) Ur Specific [place] (1.005-1.025) Urine Protein (NEG-TRACE) MG/DL Urine Glucose (UA) (NEG) MG/DL Urine Ketones (NEG) MG/DL Urine Blood (NEG) Urine Nitrite (NEG) Ur Leukocyte Esterase (NEG) Urine RBC (0) /HPF Urine WBC (0-4) /HPF Ur Squamous Epith Cells /LPF Calcium Oxalate Crystal /LPF Urine Bacteria /LPF Blood Type Antibody Screen 02/03/21 02/03/21 02/03/21 Range/Units 15:40 15:40 15:40 WBC (4.8-10.8) X10*3/uL RBC (4.20-5.50) X10*6/uL Hgb (12.0-16.0) g/dl Hct (37-47) % MCV (80-98) fL MCH (27.0-33.0) pg MCHC (31.0-35.0) g/dl RDW (11.0-16.0) % Plt Count (160-400) X10*3/uL MPV (9.4-12.3) fL Immature Gran % (Auto) (0.0-0.4) % Neut % (Auto) (45-73) % Lymph % (Auto) (20-40) % [place] % (Auto) (2-11) % Eos % (Auto) (0-4) % Baso % (Auto) (0-2) % Lymph # (Auto) (1.2-4.9) X10*3/uL [place] # (Auto) (0.1-1.2) X10*3/uL Eos # (Auto) (0.0-0.4) X10*3/uL Baso # (Auto) (0.0-0.2) X10*3/uL Abs Immat Gran (auto) (0.00-0.03) X10*3/uL Absolute Neuts (auto) (2.0-8.3) X10*3/uL Absolute Nucleated RBC (0.0-0.012) X10*3/uL Nucleated RBC % (auto) (0.0-0.2) /100WBC PT 28.7 H (10.8-13.0) SEC INR 2.4 H (0.9-1.1) Sodium (135-145) mmol/L Potassium (3.3-5.1) mmol/L Chloride (96-108) mmol/L Carbon Dioxide (22-29) mmol/L Anion Gap (12-20) BUN (9-16) mg/dL Creatinine (0.5-1.4) mg/dL Estim Creat Clear Calc Estimated GFR Random Glucose (60-115) mg/dL Calcium (8.4-10.2) mg/dL Total Bilirubin (0.0-1.0) mg/dL Direct Bilirubin (0.0-0.5) mg/dL AST (5-31) U/L ALT (0-31) U/L Alkaline Phosphatase (39-117) U/L Troponin I High Sens < 3.5 (<3.5-17.0) ng/L Total Protein (6.5-8.0) g/dL Albumin (3.5-5.0) g/dL Lipase (8-78) U/L Urine Color Urine Appearance Urine pH (5.0-8.0) Ur Specific [place] (1.005-1.025) Urine Protein (NEG-TRACE) MG/DL Urine Glucose (UA) (NEG) MG/DL Urine Ketones (NEG) MG/DL Urine Blood (NEG) Urine Nitrite (NEG) Ur Leukocyte Esterase (NEG) Urine RBC (0) /HPF Urine WBC (0-4) /HPF Ur Squamous Epith Cells /LPF Calcium Oxalate Crystal /LPF Urine Bacteria /LPF Blood Type A Positive Antibody Screen NEGATIVE 02/03/21 02/03/21 Range/Units 16:47 17:26 WBC (4.8-10.8) X10*3/uL RBC (4.20-5.50) X10*6/uL Hgb (12.0-16.0) g/dl Hct (37-47) % MCV (80-98) fL MCH (27.0-33.0) pg MCHC (31.0-35.0) g/dl RDW (11.0-16.0) % Plt Count (160-400) X10*3/uL MPV (9.4-12.3) fL Immature Gran % (Auto) (0.0-0.4) % Neut % (Auto) (45-73) % Lymph % (Auto) (20-40) % [place] % (Auto) (2-11) % Eos % (Auto) (0-4) % Baso % (Auto) (0-2) % Lymph # (Auto) (1.2-4.9) X10*3/uL [place] # (Auto) (0.1-1.2) X10*3/uL Eos # (Auto) (0.0-0.4) X10*3/uL Baso # (Auto) (0.0-0.2) X10*3/uL Abs Immat Gran (auto) (0.00-0.03) X10*3/uL Absolute Neuts (auto) (2.0-8.3) X10*3/uL Absolute Nucleated RBC (0.0-0.012) X10*3/uL Nucleated RBC % (auto) (0.0-0.2) /100WBC PT (10.8-13.0) SEC INR (0.9-1.1) Sodium 141 (135-145) mmol/L Potassium 3.9 D (3.3-5.1) mmol/L Chloride 105 (96-108) mmol/L Carbon Dioxide 31 H (22-29) mmol/L Anion Gap 9 L (12-20) BUN 25 H (9-16) mg/dL Creatinine 0.56 (0.5-1.4) mg/dL Estim Creat Clear Calc 61.5 Estimated GFR > 60 Random Glucose 85 (60-115) mg/dL Calcium 8.9 D (8.4-10.2) mg/dL Total Bilirubin 0.7 (0.0-1.0) mg/dL Direct Bilirubin (0.0-0.5) mg/dL AST 21 (5-31) U/L ALT 15 (0-31) U/L Alkaline Phosphatase 79 (39-117) U/L Troponin I High Sens (<3.5-17.0) ng/L Total Protein 6.1 L (6.5-8.0) g/dL Albumin 3.6 (3.5-5.0) g/dL Lipase (8-78) U/L Urine Color YELLOW Urine Appearance CLEAR Urine pH 6.0 (5.0-8.0) Ur Specific [place] 1.020 (1.005-1.025) Urine Protein TRACE (NEG-TRACE) MG/DL Urine Glucose (UA) NEG (NEG) MG/DL Urine Ketones NEG (NEG) MG/DL Urine Blood 2+ H (NEG) Urine Nitrite NEG (NEG) Ur Leukocyte Esterase 1+ H (NEG) Urine RBC 5-9 H (0) /HPF Urine WBC 10-14 H (0-4) /HPF Ur Squamous Epith Cells 2+ /LPF Calcium Oxalate Crystal 1+ /LPF Urine Bacteria NONE /LPF Blood Type Antibody Screen Imaging Data CT scan - abdomen: Radiologist's impression: FINDINGS: LUNG BASES: The visualized lung bases are unremarkable. LIVER, GALLBLADDER, AND BILIARY TREE: Tiny cysts are seen in the hepatic dome. The gallbladder contains a calcified gallstone measuring 1.3 cm (image 47, series 3). PANCREAS: Unremarkable. SPLEEN: Unremarkable. ADRENAL GLANDS: Unremarkable. KIDNEYS AND URETERS: Mild to moderate right hydroureteronephrosis is seen caused by a 0.6 cm calculus (600 HU) in the proximal one third of the right ureter (image 42, series 5). The right lower pole intrarenal calculus measures 0.6 cm (image 50, series 5). The left kidney and ureter are unremarkable. BLADDER: Mild diffuse mural thickening without focal abnormality. GASTROINTESTINAL TRACT: The stomach, small bowel and appendix are unremarkable. Mild to moderate stool seen within the colon distally to the rectum. Mild diverticulosis is seen in the descending and sigmoid colon without surrounding abnormality. ABDOMINAL WALL: No significant hernia is appreciated. LYMPH NODES: No lymphadenopathy. VASCULAR: Asymmetric mild prominence of the left gonadal vein and associated left periuterine veins. PELVIC VISCERA: Unremarkable. OSSEOUS STRUCTURES: Generalized osteopenia. Multilevel vertebral body superior endplate compression deformities are seen at all visualized levels from T11 to L5 except that L2. CT/CT abdomen pelvis w con IMPRESSION: 1. Mild to moderate right hydronephrosis caused by a 0.6 cm calculus in the proximal one third of the right ureter. Nonobstructing right lower pole intrarenal calculus. 2. Tiny hepatic cysts demonstrate benign features. 3. Cholelithiasis without evidence for acute cholecystitis. 4. Mild diffuse mural thickening in the urinary bladder may be secondary to incomplete distention. Infectious/inflammatory cystitis would be less likely. 5. Mild descending/sigmoid diverticulosis without evidence for acute diverticulitis. 6. Mild left pelvic congestion secondary to a mildly dilated left gonadal vein. 7. Multilevel degenerative changes and vertebral body compression deformities in the visualized thoracolumbar spine do not demonstrate acute features. Discharge Plan Discharge Clinical Impression: Ureteral stone with hydronephrosis Patient Disposition: Admitted As Inpatient
--- NOTE | 2021-02-03 15:26 | ECG_ITS ---
Test Reason : GI BLEED Blood Pressure : / mmHG Vent. Rate : 079 BPM Atrial Rate : 394 BPM P-R Int : 000 ms QRS Dur : 134 ms QT Int : 398 ms P-R-T Axes : 000 111 -13 degrees QTc Int : 456 ms Atrial fibrillation Right bundle branch block Abnormal ECG When compared with ECG of 11-JAN-2020 18:08, No significant changes seen Referred By: Terra Prescott Electronically Signed By:LUPILLO LOVE
[2021-02-03 16:03] LABS: MANUAL DIFF FLAG NO
[2021-02-03 16:05] LABS: Basophils Percent Auto 0.5 % (0-2); Eosinophils Percent Auto 0.4 % (0-4); Hematocrit 44.6 % (37-47); Hemoglobin 14.3 g/dl (12.0-16.0); Imm Gran Abs Auto 0.01 X10*3/uL (0.00-0.03); Imm Gran Pct Auto 0.2 % (0.0-0.4); Lymphocytes Absolute Auto 1.2 X10*3/uL (1.2-4.9); Lymphocytes Percent Auto 21.7 % (20-40); Mean Corpuscular HGB Conc 32.1 g/dl (31.0-35.0); Mean Corpuscular Hemoglobin 28.8 pg (27.0-33.0); Mean Corpuscular Volume 89.9 fL (80-98); Mean Platelet Volume 11.6 fL (9.4-12.3); Monocytes Absolute Auto 0.6 X10*3/uL (0.1-1.2); Neutrophils Absolute Auto 3.8 X10*3/uL (2.0-8.3); Neutrophils Percent Auto 67.2 % (45-73); Platelet Count 184 X10*3/uL (160-400); Red Blood Count 4.96 X10*6/uL (4.20-5.50); Red Cell Distribution Width 15.1 % (11.0-16.0); White Blood Count 5.7 X10*3/uL (4.8-10.8)
[2021-02-03] MEDS: Pantoprazole Sodium 40 MG/10 ML VIAL IVPUSH (16:05)
[2021-02-03] MEDS: 0.9 % Sodium Chloride 500 ML IV ×2 (16:07→19:36)
[2021-02-03 16:11] LABS: INTERNATIONAL NORM RATIO 2.4 (0.9-1.1); Prothrombin Time 28.7 SEC (10.8-13.0)
[2021-02-03 16:31] LABS: Alanine Aminotransferase 19 U/L (0-31); Albumin Level 4.3 g/dL (3.5-5.0); Alkaline Phosphatase 95 U/L (39-117); Anion Gap 12 (12-20); Aspartate Amino Transferase 25 U/L (5-31); Bilirubin Direct 0.3 mg/dL (0.0-0.5); Bilirubin Total 0.7 mg/dL (0.0-1.0); Blood Urea Nitrogen 28 mg/dL (9-16); Carbon Dioxide 32 mmol/L (22-29); Chloride 102 mmol/L (96-108); Creatinine Clr Calc Pharmacy 52.2; Estimated Glomerular Filt Rate > 60; Glucose Random 106 mg/dL (60-115); Lipase 12 U/L (8-78); Potassium 4.9 mmol/L (3.3-5.1); Sodium 141 mmol/L (135-145); Total Protein 7.5 g/dL (6.5-8.0); Troponin-I High Sensitivity < 3.5 ng/L (<3.5-17.0)
[2021-02-03 16:50] VITALS: BP 124/74; PULSE 74; RESP 19; TEMP 37; O2SAT 96
[2021-02-03 17:00] LABS: Appearance Urine CLEAR; Color Urine YELLOW; Glucose Urine UA NEG (NEG); Leukocyte Esterase Urine 1+ (NEG); Nitrite Urine NEG (NEG); UACC Culture Trigger YES; Urine Blood 2+ (NEG); Urine Ketones NEG (NEG); Urine Protein TRACE MG/DL (NEG-TRACE)
[2021-02-03 17:20] LABS: Calcium Oxalate Crystals Urine 1+ /LPF; Squamous Epithelial Cell Urine 2+ /LPF
[2021-02-03 17:59] VITALS: BP 130/72; PULSE 75; RESP 17; TEMP 36.6; O2SAT 97
[2021-02-03 18:03] LABS: Alanine Aminotransferase 15 U/L (0-31); Albumin Level 3.6 g/dL (3.5-5.0); Alkaline Phosphatase 79 U/L (39-117); Anion Gap 9 (12-20); Aspartate Amino Transferase 21 U/L (5-31); Bilirubin Total 0.7 mg/dL (0.0-1.0); Blood Urea Nitrogen 25 mg/dL (9-16); Calcium 8.9 mg/dL (8.4-10.2); Carbon Dioxide 31 mmol/L (22-29); Chloride 105 mmol/L (96-108); Creatinine Clr Calc Pharmacy 61.5; Estimated Glomerular Filt Rate > 60; Glucose Random 85 mg/dL (60-115); Potassium 3.9 mmol/L (3.3-5.1); Sodium 141 mmol/L (135-145); Total Protein 6.1 g/dL (6.5-8.0)
[2021-02-03] MEDS: iohexoL 350 MG/ML 100 ML INFUS..BTL IV (18:42)
[2021-02-03 19:51] VITALS: BP 132/77; PULSE 85; RESP 18; TEMP 36.4; O2SAT 97
[2021-02-03 22:54] VITALS: BP 130/77; PULSE 79; RESP 17; TEMP 36.4; O2SAT 95
--- NOTE | 2021-02-03 23:14 | P.HPHOSP_ITS ---
History of Present Illness Date of Service: 02/03/21 Chief Complaint: Bloody BM This is an 80-year-old female with past medical history of AFib on Coumadin, IBS currently constipated, a senior gravis on prednisone who presents to the hospital with complaints of bloody bowel movements. Patient reports that she ortiz s been constipated, had 3 bowel movements that were bloody, 1 of them witnessed by her physical therapist. She is also reporting middle quadrant abdominal pain, nonradiating, 5/10, no relieving or exacerbating factors. The pain started today. She denies nausea or vomiting, no previous similar episode of bloody bowel movements. Denies any melena. Denies any weakness, headache, change in vision. No chest pain, palpitation, no cough or shortness of breath. Patient reports that she follows with urologist for history of kidney stones. On arrival to the ED no significant abnormal vitals Labs are significant for hemoglobin 14.3, hematocrit 44.6, PT of 28.7, INR of 2.4, BUN of 28, creatinine of 0.66, UA that is positive for leukocyte Estrace, and WBC, COVID-[address] of the abdomen shows [id number] right hydronephrosis caused by 0.6 cm calculus in the proximal 1/3 of the right ureter, cholelithiasis without cholecystitis, mild diffuse mural thickening in the urinary bladder secondary to incomplete distension versus infectious cystitis. Diverticulosis with no diverticulitis. Past medical history as below and confirmed with patient Review of Systems Review of Systems: Yes all other systems are reviewed and are negative [facility] Medical History (Updated 02/04/21 @ 06:10 by Nathan Gloria MD) Asthma Atrial fibrillation Deficient knowledge of open reduction and internal (ORIF) fixation of hip Discoid lupus GERD (gastroesophageal reflux disease) IBS (irritable bowel syndrome) Kidney stone Myasthenia gravis Postural vertigo Skin cancer Status post open reduction and internal fixation (ORIF) of fracture (~01/2020) Family History Mother No problems noted. Father No problems noted. Surgical History History of cataract extraction with lens replacement (~11/2019) Social History Alcohol intake: never Smoking Status: Never smoker Use of substances other than those prescribed or required for medical reasons: No Advance Directives: No Advance Directives Information Provided: Yes Meds Allergies Allergy/AdvReac Type Severity Reaction Status Date / Time alendronate sodium [Fosamax] Allergy Unknown unknown Verified 02/04/21 04:24 codeine [Codeine] AdvReac Mild STOMACH Verified 02/04/21 04:24 UPSET Codeine Phosphate Allergy Unknown unknown Uncoded 02/04/21 04:24 Home Medications Medication Instructions Recorded Confirmed Last Taken Type albuterol sulfate 2 puff INHALATION Q6H 07/09/20 07/09/20 Unknown History benzonatate 100 mg capsule 100 mg PO TID PRN 07/09/20 07/09/20 Unknown History cefuroxime axetil 250 mg tablet 250 mg PO Q12H 07/09/20 07/09/20 Unknown History diltiazem HCl 180 mg capsule,24 180 mg PO DAILY 07/09/20 07/09/20 Unknown History hr,extended release nystatin 100,000 unit/gram topical TOPICAL BID 07/09/20 Unknown History powder prednisone 2 mg PO DAILY 07/09/20 07/09/20 Unknown History pyridostigmine bromide 60 mg tablet 60 mg PO TID 07/09/20 07/09/20 Unknown History warfarin 1 tab PO DAILY 07/09/20 07/09/20 Unknown History prednisone 1 mg tablet mg PO 08/06/20 08/06/20 Unknown History Physical Exam Vital Signs and Narrative: Vital Signs: Last Vital Signs Temp 97.6 F 02/03/21 22:54 Pulse 79 02/03/21 22:54 Resp 17 02/03/21 22:54 BP 130/77 02/03/21 22:54 Pulse Ox 95 02/03/21 22:54 Body Mass Index 19.0 Const: General: cooperative and no acute distress Orientation/consciousness: patient oriented x3 Eyes: General: appearance normal, both eyes and all related structures Resp: Effort & Inspection: normal respiratory effort and able to speak in complete sentences Cardio: Rate: regular rate Rhythm: regular rhythm GI: Other: Right quadrant tenderness mild, no guarding or rebound Palpation (GI): Soft to palpation Auscultation: normal bowel sounds : Other: Right CVA tenderness Skin: General skin exam: no rashes or lesions noted Neuro: General: patient oriented x3 Cognition (Neuro): normal cognition Extrem: General: Yes normal to inspection and Yes no pedal edema Results Labs CBC and Chem 7: 02/04/21 05:32 02/03/21 17:26 Labs: Laboratory Results - last 24 hr 02/03/21 02/03/21 02/03/21 15:40 15:40 15:40 MCV 89.9 MCH 28.8 MCHC 32.1 RDW 15.1 Plt Count 184 MPV 11.6 Immature Gran % (Auto) 0.2 Neut % (Auto) 67.2 Lymph % (Auto) 21.7 [place] % (Auto) 10.0 Eos % (Auto) 0.4 Baso % (Auto) 0.5 Lymph # (Auto) 1.2 [place] # (Auto) 0.6 Eos # (Auto) 0.0 Baso # (Auto) 0.0 Abs Immat Gran (auto) 0.01 Absolute Neuts (auto) 3.8 Absolute Nucleated RBC 0.000 Nucleated RBC % (auto) 0.0 PT INR Anion Gap 12 Cancelled Estim Creat Clear Calc 52.2 Cancelled Estimated GFR > 60 Cancelled Random Glucose 106 Cancelled Calcium 10.0 Cancelled Total Bilirubin 0.7 Cancelled Direct Bilirubin 0.3 AST 25 Cancelled ALT 19 Cancelled Alkaline Phosphatase 95 Cancelled Troponin I High Sens Total Protein 7.5 Cancelled Albumin 4.3 Cancelled Lipase 12 Urine Color Urine Appearance Urine pH Ur Specific [place] Urine Protein Urine Glucose (UA) Urine Ketones Urine Blood Urine Nitrite Ur Leukocyte Esterase Urine RBC Urine WBC Ur Squamous Epith Cells Calcium Oxalate Crystal Urine Bacteria Blood Type Antibody Screen 02/03/21 02/03/21 02/03/21 15:40 15:40 15:40 MCV MCH MCHC RDW Plt Count MPV Immature Gran % (Auto) Neut % (Auto) Lymph % (Auto) [place] % (Auto) Eos % (Auto) Baso % (Auto) Lymph # (Auto) [place] # (Auto) Eos # (Auto) Baso # (Auto) Abs Immat Gran (auto) Absolute Neuts (auto) Absolute Nucleated RBC Nucleated RBC % (auto) PT 28.7 H INR 2.4 H Anion Gap Estim Creat Clear Calc Estimated GFR Random Glucose Calcium Total Bilirubin Direct Bilirubin AST ALT Alkaline Phosphatase Troponin I High Sens < 3.5 Total Protein Albumin Lipase Urine Color Urine Appearance Urine pH Ur Specific [place] Urine Protein Urine Glucose (UA) Urine Ketones Urine Blood Urine Nitrite Ur Leukocyte Esterase Urine RBC Urine WBC Ur Squamous Epith Cells Calcium Oxalate Crystal Urine Bacteria Blood Type A Positive Antibody Screen NEGATIVE 02/03/21 02/03/21 16:47 17:26 MCV MCH MCHC RDW Plt Count MPV Immature Gran % (Auto) Neut % (Auto) Lymph % (Auto) [place] % (Auto) Eos % (Auto) Baso % (Auto) Lymph # (Auto) [place] # (Auto) Eos # (Auto) Baso # (Auto) Abs Immat Gran (auto) Absolute Neuts (auto) Absolute Nucleated RBC Nucleated RBC % (auto) PT INR Anion Gap 9 L Estim Creat Clear Calc 61.5 Estimated GFR > 60 Random Glucose 85 Calcium 8.9 D Total Bilirubin 0.7 Direct Bilirubin AST 21 ALT 15 Alkaline Phosphatase 79 Troponin I High Sens Total Protein 6.1 L Albumin 3.6 Lipase Urine Color YELLOW Urine Appearance CLEAR Urine pH 6.0 Ur Specific [place] 1.020 Urine Protein TRACE Urine Glucose (UA) NEG Urine Ketones NEG Urine Blood 2+ H Urine Nitrite NEG Ur Leukocyte Esterase 1+ H Urine RBC 5-9 H Urine WBC 10-14 H Ur Squamous Epith Cells 2+ Calcium Oxalate Crystal 1+ Urine Bacteria NONE Blood Type Antibody Screen Imaging Radiologist's Impressions: Impressions Abdomen/Pelvis CT 02/03/21 15:28 IMPRESSION: 1. Mild to moderate right hydronephrosis caused by a 0.6 cm calculus in the proximal one third of the right ureter. Nonobstructing right lower pole intrarenal calculus. 2. Tiny hepatic cysts demonstrate benign features. 3. Cholelithiasis without evidence for acute cholecystitis. 4. Mild diffuse mural thickening in the urinary bladder may be secondary to incomplete distention. Infectious/inflammatory cystitis would be less likely. 5. Mild descending/sigmoid diverticulosis without evidence for acute diverticulitis. 6. Mild left pelvic congestion secondary to a mildly dilated left gonadal vein. 7. Multilevel degenerative changes and vertebral body compression deformities in the visualized thoracolumbar spine do not demonstrate acute features. Assessment and Plan (1) Ureteral stone with hydronephrosis: Status: Acute (2) Lower GI bleed: Status: Acute (3) UTI (urinary tract infection): Status: Acute This is an 80-year-old female presents to the hospital with GI bleed found to have an obstructing ureteral stone as well as UTI # lower GI bleed - most likely secondary to hemorrhoid versus diverticular - hemodynamically stable, with no drop in hemoglobin - will consult GI - keep NPO # UTI - most likely secondary to urethral stone - will treat with ceftriaxone - follow cultures # ureteral stone with hydronephrosis - urology consulted - NPO # AFib - therapeutic INR - will continue diltiazem, hold Coumadin at this time given her GI bleed - telemetry # myasthenia gravis - continue prednisone DVT prophylaxis SCDs
[2021-02-04] VITALS (12 sets, daily range): BP systolic 105–138; BP diastolic 56–78; PULSE 84–116; RESP 14–18; TEMP 36.2–37.1; O2SAT 94–99; BMI 19.0
--- NOTE | 2021-02-04 03:45 | PC.NURSE ---
Patient's IV access noted to be leaking. New dressing applied to IV access. Pt out of bed to bedside commode with 1 assist by this RN. Blood noted to stool, aware. Awaiting admission bed. Pt requesting Tylenol PO.
[2021-02-04] MEDS: 0.9 % Sodium Chloride Flush 3 ML SYRINGE IVFLUSH ×4 (05:25→23:44)
[2021-02-04] MEDS: cefTRIAXone sodium 1 GM in 0.9 % Sodium Chloride 50 ML IV (05:26)
[2021-02-04] MEDS: Acetaminophen 325 MG TABLET 650 MG PO ×2 (05:26→18:46)
[2021-02-04 05:39] LABS: MANUAL DIFF FLAG NO
[2021-02-04 05:40] LABS: Basophils Percent Auto 0.6 % (0-2); Eosinophils Absolute Auto 0.1 X10*3/uL (0.0-0.4); Eosinophils Percent Auto 1.9 % (0-4); Hematocrit 35.5 % (37-47); Hemoglobin 11.6 g/dl (12.0-16.0); Imm Gran Abs Auto 0.01 X10*3/uL (0.00-0.03); Imm Gran Pct Auto 0.2 % (0.0-0.4); Lymphocytes Absolute Auto 1.3 X10*3/uL (1.2-4.9); Lymphocytes Percent Auto 24.3 % (20-40); Mean Corpuscular HGB Conc 32.7 g/dl (31.0-35.0); Mean Corpuscular Hemoglobin 29.6 pg (27.0-33.0); Mean Corpuscular Volume 90.6 fL (80-98); Monocytes Absolute Auto 0.8 X10*3/uL (0.1-1.2); Monocytes Percent Auto 15.4 % (2-11); Neutrophils Percent Auto 57.6 % (45-73); Platelet Count 145 X10*3/uL (160-400); Red Blood Count 3.92 X10*6/uL (4.20-5.50); Red Cell Distribution Width 15.2 % (11.0-16.0); White Blood Count 5.2 X10*3/uL (4.8-10.8)
[2021-02-04 05:53] LABS: COVID-19 Test Negative (Negative); IDNOW Serial# 9DD0AD1C
[2021-02-04 06:06] LABS: Anion Gap 8 (12-20); Blood Urea Nitrogen 17 mg/dL (9-16); Carbon Dioxide 26 mmol/L (22-29); Chloride 114 mmol/L (96-108); Creatinine Clr Calc Pharmacy 73.3; Estimated Glomerular Filt Rate > 60; Glucose Random 72 mg/dL (60-115); Potassium 3.5 mmol/L (3.3-5.1); Sodium 144 mmol/L (135-145)
--- NOTE | 2021-02-04 07:25 | PC.NURSE ---
sitting up in bed eating breakfast , plan for admission.
--- NOTE | 2021-02-04 08:56 | P.CNUR_ITS ---
History of Present Illness Consult details Consult date: 02/04/21 Narrative: Allan is a very pleasant female. Admission through the emergency room for right flank pain CT scan - 6 mm right, moderate hydronephrosis Will need stone intervention procedures starting Review of Systems Constitutional: Constitutional: Denies chills and Denies fever(s) Cardiovascular: Cardiovascular: Reports no additional cardiovascular complaints and Denies syncope Respiratory: Respiratory: Denies cough Gastrointestinal: Gastrointestinal: Denies abdominal pain and Denies heartburn Genitourinary: Genitourinary: Reports as per HPI and Denies change in libido Neurologic: Denies syncope Psychiatric: Psychiatric: Denies change in libido Endocrine: Endocrine: Denies change in libido [facility] Past Medical History Medical History Asthma Atrial fibrillation Deficient knowledge of open reduction and internal (ORIF) fixation of hip Discoid lupus GERD (gastroesophageal reflux disease) IBS (irritable bowel syndrome) Kidney stone Myasthenia gravis Postural vertigo Skin cancer Status post open reduction and internal fixation (ORIF) of fracture (~01/2020) Family History Family History Mother No problems noted. Father No problems noted. Surgical History Surgical History History of cataract extraction with lens replacement (~11/2019) Social History Social History Alcohol intake: never Smoking Status: Never smoker Use of substances other than those prescribed or required for medical reasons: No Advance Directives: No Advance Directives Information Provided: Yes service: No Current occupational status: retired Meds Allergies Allergy/AdvReac Type Severity Reaction Status Date / Time alendronate sodium [Fosamax] Allergy Unknown unknown Verified 02/04/21 04:24 codeine [Codeine] AdvReac Mild STOMACH Verified 02/04/21 04:24 UPSET Codeine Phosphate Allergy Unknown unknown Uncoded 02/04/21 04:24 Active Medications: Current Medications Generic Name Dose Route Start Last Admin Trade Name Freq PRN Reason Stop Dose Admin Acetaminophen 650 mg 02/04/21 04:02 02/04/21 05:26 Acetaminophen 325 Mg Tablet PO 650 mg Q6H PRN Administration Pain, Mild (Pain Scale 1-3) Ceftriaxone Sodium 1 gm/ 50 mls @ 100 mls/hr 02/05/21 06:00 Sodium Chloride IV Q24H [facility] Magnesium Hydroxide 30 ml 02/04/21 04:02 Milk Of Magnesia 30 Ml Oral.Susp PO DAILY PRN Constipation Ondansetron HCl 4 mg 02/04/21 04:02 Ondansetron Hcl 4 Mg/2 Ml Vial IVPUSH Q8H PRN Nausea and Vomiting Sodium Chloride 3 ml 02/04/21 04:02 02/04/21 07:45 0.9 % Sodium Chloride Flush 3 Ml Syringe IVFLUSH 3 ml QSHIFT [facility] Administration Home Medications Medication Instructions Recorded Confirmed Last Taken Type albuterol sulfate 2 puff INHALATION Q6H 07/09/20 02/04/21 Unknown History pyridostigmine bromide 60 mg tablet 60 mg PO TID 07/09/20 02/04/21 Unknown History warfarin 1 tab PO DAILY 07/09/20 02/04/21 Unknown History cephalexin 1 cap PO QID 02/04/21 02/04/21 Unknown History diltiazem HCl [Tiadylt ER] 1 cap PO DAILY 02/04/21 02/04/21 Unknown History gabapentin 200 mg PO DAILY 02/04/21 02/04/21 Unknown History prednisolone acetate 1 drp OPHTHALMIC-RIGHT QID 02/04/21 02/04/21 Unknown History prednisone 2 tab PO DAILY 02/04/21 02/04/21 Unknown History Physical Exam Vital Signs: Vital Signs: Last Vital Signs Temp 97.8 F 02/04/21 02:00 Pulse 88 02/04/21 07:13 Resp 16 02/04/21 07:13 BP 116/73 02/04/21 07:13 Pulse Ox 95 02/04/21 07:13 Body Mass Index 19.0 Const: General: cooperative, healthy appearing, comfortable and no acute distress Orientation/consciousness: patient oriented x3 HENMT: Face and sinus: Yes normal facial exam Mouth: moist mucous membranes Neck: Neck: Yes normal visual inspection, Yes full ROM and Yes trachea midline Chest: Chest palpation & inspection: normal inspection of the chest Resp: Effort & Inspection: normal respiratory effort, able to speak in complete sentences and no respiratory distress GI: Inspection: Yes normal to inspection Back/Spine/Pelvis: Cervical Spine: normal cervical lordosis Thoracic/Lumbar Spine: thoracic and lumbar spine normal to inspection Skin: General skin exam: no rashes or lesions noted Neuro: General: patient oriented x3, gait normal, tone normal and moves all extremities Extrem: General: Yes normal to inspection and Yes capillary refill normal Results Labs Result diagrams: 02/04/21 09:49 02/04/21 05:32 Labs: Abnormal lab results 02/03/21 02/03/21 02/03/21 Range/Units 15:40 15:40 16:47 RBC (4.20-5.50) X10*6/uL Hgb (12.0-16.0) g/dl Hct (37-47) % Plt Count (160-400) X10*3/uL [place] % (Auto) (2-11) % PT 28.7 H (10.8-13.0) SEC INR 2.4 H (0.9-1.1) Chloride (96-108) mmol/L Carbon Dioxide 32 H (22-29) mmol/L Anion Gap (12-20) BUN 28 H (9-16) mg/dL Creatinine (0.5-1.4) mg/dL Calcium (8.4-10.2) mg/dL Total Protein (6.5-8.0) g/dL Urine Blood 2+ H (NEG) Ur Leukocyte Esterase 1+ H (NEG) Urine RBC 5-9 H (0) /HPF Urine WBC 10-14 H (0-4) /HPF 02/03/21 02/04/21 02/04/21 Range/Units 17:26 05:32 05:32 RBC 3.92 L D (4.20-5.50) X10*6/uL Hgb 11.6 L (12.0-16.0) g/dl Hct 35.5 L D (37-47) % Plt Count 145 L (160-400) X10*3/uL [place] % (Auto) 15.4 H (2-11) % PT (10.8-13.0) SEC INR (0.9-1.1) Chloride 114 H (96-108) mmol/L Carbon Dioxide 31 H (22-29) mmol/L Anion Gap 9 L 8 L (12-20) BUN 25 H 17 H (9-16) mg/dL Creatinine 0.47 L (0.5-1.4) mg/dL Calcium 7.0 L D (8.4-10.2) mg/dL Total Protein 6.1 L (6.5-8.0) g/dL Urine Blood (NEG) Ur Leukocyte Esterase (NEG) Urine RBC (0) /HPF Urine WBC (0-4) /HPF Short CBC 02/03/21 02/04/21 Range/Units 15:40 05:32 WBC 5.7 5.2 (4.8-10.8) X10*3/uL Hgb 14.3 11.6 L (12.0-16.0) g/dl Hct 44.6 35.5 L D (37-47) % Plt Count 184 145 L (160-400) X10*3/uL BMP 02/03/21 02/03/21 02/03/21 15:40 15:40 17:26 Sodium 141 Cancelled 141 Potassium 4.9 Cancelled 3.9 D Chloride 102 Cancelled 105 Carbon Dioxide 32 H Cancelled 31 H BUN 28 H Cancelled 25 H Creatinine 0.66 Cancelled 0.56 Calcium 10.0 Cancelled 8.9 D 02/04/21 05:32 Sodium 144 Potassium 3.5 Chloride 114 H Carbon Dioxide 26 BUN 17 H Creatinine 0.47 L Calcium 7.0 L D Liver Function 02/03/21 02/03/21 02/03/21 Range/Units 15:40 15:40 17:26 Total Bilirubin 0.7 Cancelled 0.7 (0.0-1.0) mg/dL Direct Bilirubin 0.3 (0.0-0.5) mg/dL AST 25 Cancelled 21 (5-31) U/L ALT 19 Cancelled 15 (0-31) U/L Alkaline Phosphatase 95 Cancelled 79 (39-117) U/L Albumin 4.3 Cancelled 3.6 (3.5-5.0) g/dL Urine 02/03/21 Range/Units 16:47 Urine Color YELLOW Urine Appearance CLEAR Urine pH 6.0 (5.0-8.0) Ur Specific [place] 1.020 (1.005-1.025) Urine Protein TRACE (NEG-TRACE) MG/DL Urine Glucose (UA) NEG (NEG) MG/DL All other labs normal. Assessment and Plan (1) Ureteral stone with hydronephrosis: Status: Acute Ureteroscopy We discussed the nature of the decision and reasonable alternatives for performing the above surgery. Interventions include chemical dissolution, ESWL, ureteroscopy with laser lithotripsy and stent placement, PCNL. Options such as medical therapy were discussed. The relative uncertainties and benefits related to each alternate procedure were adequately discussed. General surgical risks including, but not limited to, pain, bleeding, infection, myocardial infarction, pulmonary embolus, deep vein thrombosis and cerebrovascular accident which may result in further hospitalization were discussed. Full disclosure of the procedure as well as all major risks, benefits and complications were discussed including but not limited to damage to the urethra, bladder and kidney infection, damage to the ureter, stent migration or malposition, scarring to the renal pelvis, remnant stone fragments, subsequent stone passage with need for secondary procedures. The overall secondary procedure rate is approximately 10-15%. The success rate of the procedure was discussed. Success of the procedure in the short-term does not necessarily guarantee that long-term success will be maintained. Suitable follow up will need to be maintained. The patient showed understanding of discussion and wishes to proceed with - cystoscopy, retrograde, stent on the right side
--- NOTE | 2021-02-04 09:29 | MHC.CM.PN ---
Attempted to meet with patient in regards to discharge planning. Nursing care currently being provided. Attempted to speak with patient's daughterMaggie via telephone at [phone]. Left message requesting return telephone call. Will attempt to meet with patient again. Continue to monitor for d/c needs.
[2021-02-04 09:56] LABS: Hematocrit 41.6 % (37-47); Hemoglobin 13.3 g/dl (12.0-16.0)
[2021-02-04 10:03] LABS: INTERNATIONAL NORM RATIO 2.2 (0.9-1.1); Prothrombin Time 26.5 SEC (10.8-13.0)
--- NOTE | 2021-02-04 10:04 | MHC.CM.PN ---
Received return telephone call from patient's HCP, Maggie. Patient lives alone, ambulates with a walker and is active with [facility]. PCP verified as Tg Cooper. HCP verified to be on file. Maggie is requesting BLS transport at d/c because patient will not be able to get in her apartment safely independently. IMM explained and left bedside. Per Maggie, when patient had surgery in December she had hallucinations for 3 weeks after anesthesia. Continue to monitor for d/c needs.
--- NOTE | 2021-02-04 11:55 | PC.NURSE ---
pt sleeping. this rn to defer exam until patient wakes.
--- NOTE | 2021-02-04 12:57 | PC.NURSE ---
UP TO COMMODE TO URINATE. UNLABROED RESP AND STEADY BUT VERY CAREFUL ON FEET. SCANT AMOUNT OF PAGE BLOOD ON TISSUE. PT ABLE TO STATE NEEDS. IS AWARE OF NPO STATUS. DID NOT TAKE COUMADIN TODAY OR YESTREDAY. AWAITS OR.
--- NOTE | 2021-02-04 14:57 | PC.NURSE ---
rn to rn lion eid in PACU. pt to transfer around 1530.
--- NOTE | 2021-02-04 15:03 | HO.PM.IMPN ---
Subjective Subjective Date of Service: 02/04/21 Interval History: seen and examined this Am denies abdominal pain denies flank pain at this time, but did have some yesterday reports lower GI bleeding almost resolved ROS General - no fevers or chills Cardiovascular - no chest pain Respiratory - no shortness of breath or cough Abdominal- no abdominal pain, nausea, vomiting, diarrhea Physical Exam Vital Signs: Vital Signs: Last Vital Signs Temp 97.5 F 02/04/21 12:54 Pulse 94 02/04/21 12:54 Resp 18 02/04/21 12:54 BP 132/67 02/04/21 12:54 Pulse Ox 94 02/04/21 12:54 Body Mass Index 19.0 Const: Other: General - no acute distress, appears comfortable Cardiovascular - regular rate and rhythm, S1-S2 Lungs - normal respiratory effort, clear to auscultation bilaterally, no wheezing Abdomen - soft, mildly distended without TTP, no rebound or guarding; R flank TTP mild Extremities - no edema bilaterally Neuro - awake and alert, no focal deficits Objective Data Current Medications Generic Name Dose Route Start Last Admin Trade Name Freq PRN Reason Stop Dose Admin Acetaminophen 650 mg 02/04/21 04:02 02/04/21 05:26 Acetaminophen 325 Mg Tablet PO 650 mg Q6H PRN Administration Pain, Mild (Pain Scale 1-3) Ceftriaxone Sodium 1 gm/ 50 mls @ 100 mls/hr 02/05/21 06:00 Sodium Chloride IV Q24H [facility] Magnesium Hydroxide 30 ml 02/04/21 04:02 Milk Of Magnesia 30 Ml Oral.Susp PO DAILY PRN Constipation Ondansetron HCl 4 mg 02/04/21 04:02 Ondansetron Hcl 4 Mg/2 Ml Vial IVPUSH Q8H PRN Nausea and Vomiting Pharmacy Consult 1 each 02/04/21 08:56 Consult Rx Perform Med Rec MISCELLANE ONCE PRN Consult order Sodium Chloride 3 ml 02/04/21 04:02 02/04/21 07:45 0.9 % Sodium Chloride Flush 3 Ml Syringe IVFLUSH 3 ml QSHIFT [facility] Administration Labs CBC & Chem 7: 02/04/21 09:49 02/04/21 05:32 Microbiology Microbiology Results: Microbiology 02/03/21 17:01 Urine clean catch - Clean Catch Midstream Urine Culture - Preliminary No growth to date. Assessment and Plan (1) Ureteral stone with hydronephrosis: Status: Acute (2) Lower GI bleed: Status: Acute (3) UTI (urinary tract infection): Status: Acute Assessment and Plan: This is an 80-year-old female presents to the hospital with GI bleed found to have an obstructing ureteral stone as well as UTI 1. R hydro due to obstructing stone 1a. UTI plan for removal by urology empiric rocephin f/u cultures 2. lower GI bleed appears self limited at this time, ? hemorrhoidal h/h stable she is not keen on a colonoscopy -- reports last one about 10 year ago will get GI to see her 3. A. Fib rates controlled, continue baseline meds INR 2.2 - will not reverse given stability of GI bleed. will reverse if requested by urology hold coumadin tday in light of planned procedure + gi bleed 4. myasthenia gravis - continue prednisone DNR/DNI dvt pptx, mechnical and ultimately coumadin
--- NOTE | 2021-02-04 15:37 | PC.NURSE ---
rn to rn with esther on [facility].
--- NOTE | 2021-02-04 16:17 | P.CONAN_ITS ---
HPI - Anesthesia Eval Consult details Narrative: renal calculi PMFSH Active Problems Active Problems: All Active Problems (Updated 02/04/21 @ 06:10 by Nathan Gloria MD) UTI (urinary tract infection) (Acute) Atrial fibrillation (Acute) Lower GI bleed (Acute) Primary osteoarthritis of right knee (Acute) Hip fracture (Acute) Ureteral stone with hydronephrosis (Acute) Retained ureteral stent (Acute) Past Medical History Medical History Asthma Atrial fibrillation Deficient knowledge of open reduction and internal (ORIF) fixation of hip Discoid lupus GERD (gastroesophageal reflux disease) IBS (irritable bowel syndrome) Kidney stone Myasthenia gravis Postural vertigo Skin cancer Status post open reduction and internal fixation (ORIF) of fracture (~01/2020) Family History Family History Mother No problems noted. Father No problems noted. Surgical History Surgical History History of cataract extraction with lens replacement (~11/2019) Social History Social History Alcohol intake: never Smoking Status: Never smoker Use of substances other than those prescribed or required for medical reasons: No Advance Directives: No Advance Directives Information Provided: Yes service: No Current occupational status: retired [employer] Allergies Allergy/AdvReac Type Severity Reaction Status Date / Time alendronate sodium [Fosamax] Allergy Unknown unknown Verified 02/04/21 04:24 codeine [Codeine] AdvReac Mild STOMACH Verified 02/04/21 04:24 UPSET Codeine Phosphate Allergy Unknown unknown Uncoded 02/04/21 04:24 Active Medications: Current Medications Generic Name Dose Route Start Last Admin Trade Name Freq PRN Reason Stop Dose Admin Acetaminophen 650 mg 02/04/21 04:02 02/04/21 05:26 Acetaminophen 325 Mg Tablet PO 650 mg Q6H PRN Administration Pain, Mild (Pain Scale 1-3) Ceftriaxone Sodium 1 gm/ 50 mls @ 100 mls/hr 02/05/21 06:00 Sodium Chloride IV Q24H [facility] Magnesium Hydroxide 30 ml 02/04/21 04:02 Milk Of Magnesia 30 Ml Oral.Susp PO DAILY PRN Constipation Ondansetron HCl 4 mg 02/04/21 04:02 Ondansetron Hcl 4 Mg/2 Ml Vial IVPUSH Q8H PRN Nausea and Vomiting Pharmacy Consult 1 each 02/04/21 08:56 Consult Rx Perform Med Rec MISCELLANE ONCE PRN Consult order Sodium Chloride 3 ml 02/04/21 04:02 02/04/21 07:45 0.9 % Sodium Chloride Flush 3 Ml [facility] Home Medications Medication Instructions Recorded Confirmed Last Taken Type albuterol sulfate 2 puff INHALATION Q6H 07/09/20 02/04/21 Unknown History pyridostigmine bromide 60 mg tablet 60 mg PO TID 07/09/20 02/04/21 Unknown History warfarin 1 tab PO DAILY 07/09/20 02/04/21 Unknown History cephalexin 1 cap PO QID 02/04/21 02/04/21 Unknown History diltiazem HCl [Tiadylt ER] 1 cap PO DAILY 02/04/21 02/04/21 Unknown History gabapentin 200 mg PO DAILY 02/04/21 02/04/21 Unknown History prednisolone acetate 1 drp OPHTHALMIC-RIGHT QID 02/04/21 02/04/21 Unknown History prednisone 2 tab PO DAILY 02/04/21 02/04/21 Unknown History Exam Exam Date and Time: February 04, 2021 1617 Height,Weight and Vital Signs: Height 5 ft 4 in Weight 50.349 kg Last Vital Signs Temp 97.5 F 02/04/21 12:54 Pulse 104 H 02/04/21 15:17 Resp 14 02/04/21 15:17 BP 137/78 02/04/21 15:17 Pulse Ox 94 02/04/21 12:54 Pertinent Lab Results Pertinent Lab Results: Laboratory Tests 02/03/21 02/03/21 02/03/21 15:40 15:40 15:40 WBC 5.7 RBC 4.96 Hgb 14.3 Hct 44.6 MCV 89.9 MCH 28.8 MCHC 32.1 RDW 15.1 Plt Count 184 MPV 11.6 Immature Gran % (Auto) 0.2 Neut % (Auto) 67.2 Lymph % (Auto) 21.7 [place] % (Auto) 10.0 Eos % (Auto) 0.4 Baso % (Auto) 0.5 Lymph # (Auto) 1.2 [place] # (Auto) 0.6 Eos # (Auto) 0.0 Baso # (Auto) 0.0 Abs Immat Gran (auto) 0.01 Absolute Neuts (auto) 3.8 Absolute Nucleated RBC 0.000 Nucleated RBC % (auto) 0.0 PT INR Sodium 141 Cancelled Potassium 4.9 Cancelled Chloride 102 Cancelled Carbon Dioxide 32 H Cancelled Anion Gap 12 Cancelled BUN 28 H Cancelled Creatinine 0.66 Cancelled Estim Creat Clear Calc 52.2 Cancelled Estimated GFR > 60 Cancelled Random Glucose 106 Cancelled Calcium 10.0 Cancelled Total Bilirubin 0.7 Cancelled Direct Bilirubin 0.3 AST 25 Cancelled ALT 19 Cancelled Alkaline Phosphatase 95 Cancelled Troponin I High Sens Total Protein 7.5 Cancelled Albumin 4.3 Cancelled Lipase 12 Urine Color Urine Appearance Urine pH Ur Specific [place] Urine Protein Urine Glucose (UA) Urine Ketones Urine Blood Urine Nitrite Ur Leukocyte Esterase Urine RBC Urine WBC Ur Squamous Epith Cells Calcium Oxalate Crystal Urine Bacteria COVID-19 (ROC) COVID-19 [place] Blood Type Antibody Screen 02/03/21 02/03/21 02/03/21 15:40 15:40 15:40 WBC RBC Hgb Hct MCV MCH MCHC RDW Plt Count MPV Immature Gran % (Auto) Neut % (Auto) Lymph % (Auto) [place] % (Auto) Eos % (Auto) Baso % (Auto) Lymph # (Auto) [place] # (Auto) Eos # (Auto) Baso # (Auto) Abs Immat Gran (auto) Absolute Neuts (auto) Absolute Nucleated RBC Nucleated RBC % (auto) PT 28.7 H INR 2.4 H Sodium Potassium Chloride Carbon Dioxide Anion Gap BUN Creatinine Estim Creat Clear Calc Estimated GFR Random Glucose Calcium Total Bilirubin Direct Bilirubin AST ALT Alkaline Phosphatase Troponin I High Sens < 3.5 Total Protein Albumin Lipase Urine Color Urine Appearance Urine pH Ur Specific [place] Urine Protein Urine Glucose (UA) Urine Ketones Urine Blood Urine Nitrite Ur Leukocyte Esterase Urine RBC Urine WBC Ur Squamous Epith Cells Calcium Oxalate Crystal Urine Bacteria COVID-19 (ROC) COVID-[place] Blood Type A Positive Antibody Screen NEGATIVE 02/03/21 02/03/21 02/04/21 16:47 17:26 05:27 WBC RBC Hgb Hct MCV MCH MCHC RDW Plt Count MPV Immature Gran % (Auto) Neut % (Auto) Lymph % (Auto) [place] % (Auto) Eos % (Auto) Baso % (Auto) Lymph # (Auto) [place] # (Auto) Eos # (Auto) Baso # (Auto) Abs Immat Gran (auto) Absolute Neuts (auto) Absolute Nucleated RBC Nucleated RBC % (auto) PT INR Sodium 141 Potassium 3.9 D Chloride 105 Carbon Dioxide 31 H Anion Gap 9 L BUN 25 H Creatinine 0.56 Estim Creat Clear Calc 61.5 Estimated GFR > 60 Random Glucose 85 Calcium 8.9 D Total Bilirubin 0.7 Direct Bilirubin AST 21 ALT 15 Alkaline Phosphatase 79 Troponin I High Sens Total Protein 6.1 L Albumin 3.6 Lipase Urine Color YELLOW Urine Appearance CLEAR Urine pH 6.0 Ur Specific [place] 1.020 Urine Protein TRACE Urine Glucose (UA) NEG Urine Ketones NEG Urine Blood 2+ H Urine Nitrite NEG Ur Leukocyte Esterase 1+ H Urine RBC 5-9 H Urine WBC 10-14 H Ur Squamous Epith Cells 2+ Calcium Oxalate Crystal 1+ Urine Bacteria NONE COVID-19 (ROC) Negative COVID-19 Clin Com See Note Blood Type Antibody Screen 02/04/21 02/04/21 02/04/21 05:32 05:32 09:49 WBC 5.2 RBC 3.92 L D Hgb 11.6 L 13.3 Hct 35.5 L D 41.6 MCV 90.6 MCH 29.6 MCHC 32.7 RDW 15.2 Plt Count 145 L MPV 11.0 Immature Gran % (Auto) 0.2 Neut % (Auto) 57.6 Lymph % (Auto) 24.3 [place] % (Auto) 15.4 H Eos % (Auto) 1.9 Baso % (Auto) 0.6 Lymph # (Auto) 1.3 [place] # (Auto) 0.8 Eos # (Auto) 0.1 Baso # (Auto) 0.0 Abs Immat Gran (auto) 0.01 Absolute Neuts (auto) 3.0 Absolute Nucleated RBC 0.000 Nucleated RBC % (auto) 0.0 PT INR Sodium 144 Potassium 3.5 Chloride 114 H Carbon Dioxide 26 Anion Gap 8 L BUN 17 H Creatinine 0.47 L Estim Creat Clear Calc 73.3 Estimated GFR > 60 Random Glucose 72 Calcium 7.0 L D Total Bilirubin Direct Bilirubin AST ALT Alkaline Phosphatase Troponin I High Sens Total Protein Albumin Lipase Urine Color Urine Appearance Urine pH Ur Specific [place] Urine Protein Urine Glucose (UA) Urine Ketones Urine Blood Urine Nitrite Ur Leukocyte Esterase Urine RBC Urine WBC Ur Squamous Epith Cells Calcium Oxalate Crystal Urine Bacteria COVID-19 (ROC) COVID-19 [facility] Com Blood Type Antibody Screen 02/04/21 09:49 WBC RBC Hgb Hct MCV MCH MCHC RDW Plt Count MPV Immature Gran % (Auto) Neut % (Auto) Lymph % (Auto) [place] % (Auto) Eos % (Auto) Baso % (Auto) Lymph # (Auto) [place] # (Auto) Eos # (Auto) Baso # (Auto) Abs Immat Gran (auto) Absolute Neuts (auto) Absolute Nucleated RBC Nucleated RBC % (auto) PT 26.5 H INR 2.2 H Sodium Potassium Chloride Carbon Dioxide Anion Gap BUN Creatinine Estim Creat Clear Calc Estimated GFR Random Glucose Calcium Total Bilirubin Direct Bilirubin AST ALT Alkaline Phosphatase Troponin I High Sens Total Protein Albumin Lipase Urine Color Urine Appearance Urine pH Ur Specific [place] Urine Protein Urine Glucose (UA) Urine Ketones Urine Blood Urine Nitrite Ur Leukocyte Esterase Urine RBC Urine WBC Ur Squamous Epith Cells Calcium Oxalate Crystal Urine Bacteria COVID-19 (ROC) COVID-19 [facility] Com Blood Type Antibody Screen Airway Mallampati Class: III TM Dist: <=3cm Neck ROM: Limited Loose/Missing/Broken Teeth: Yes Heart: irreg ireg s1s2 Lungs: +b/s bilaterally Assessment and Plan Assessment Anesthesia Assessment: Anesthesia Plan Discussed and Chart Reviewed Final Anesthetic Review NPO: Yes ASA Class: III Final Preanesthetic Review: No Changes in Pt Med Stat, Meds/Allgs Chart Reviewed, Consent Obtained/Reviewed and Anes Risks/Benef Reviewed Patient Risk: Intermediate Procedure Risk: Low Assessment/Block/Sedation in SS: Assess/Block/Sedation-SS Anesthetic Plan Anesthetic Plan: MAC: and Agree w/ Assess. and Plan Disposition: Standard PACU
--- NOTE | 2021-02-04 16:40 | PM.EVENT ---
Event Note Date of Service: 02/04/21 Event Note: GI Consult-Full note dictated Hx via patient and EMR. Patient is currently in PACU waiting for her cysto procedure. Imp: Limited lower GI Bleed in an 80 yo female on Coumadin. Most recent colonoscopy in 2012 was nonrevealing except for diverticulosis and hemorrhoids. She had a small tubular adenoma removed in 2006. She has been stable thus far without active bleeding. She denies abdominal pain and her abdominal exam is benign. Her Hgb has been stable. Diff dx: Her bleeding is most likely from a perianal source such as hemorrhoids. Other less likely possibilities would be from diverticulosis, ischemic colitis, polyps, or neoplasm. Rec: Observe. Hold Coumadin. I did review possible colonoscopy with her to make a definitive diagnosis to R/O any of the above diagnoses, especially that of neoplasm given that her last colonoscopy was in 2012. I think that would be important given that she has to stay on anticoagulation for the Afib, as well as the need to R/O any significant pathology. However, she is not sure if she wants to go through a colonoscopy, especially in regard to the prep. I told her that I will stop by on Monday, 02/05 to review things further with her. I would plan on doing the colonoscopy on Monday, 02/08, if she is agreeable. She can have a diet as tolerated in the meantime. If she has active and significant bleeding I would recommend a stat nuclear medicine scan. D/W patient in detail. D/W Dr. Rosas as well. Thanks.
[2021-02-04] MEDS: levoFLOXacin 500 MG TABLET PO (16:47)
--- NOTE | 2021-02-04 16:58 | MHC.SHP ---
Pre-Procedural Eval Section A The patient is an INPATIENT: Yes The History & Physical has been completed within 30 days and I have reviewed it.: Yes Section B Chief Complaint: Nephrolithiasis, UTI, GI Bleed Allergies: Allergies Allergy/AdvReac Type Severity Reaction Status Date / Time alendronate sodium [Fosamax] Allergy Unknown unknown Verified 02/04/21 04:24 codeine [Codeine] AdvReac Mild STOMACH Verified 02/04/21 04:24 UPSET Codeine Phosphate Allergy Unknown unknown Uncoded 02/04/21 04:24 Plan Diagnosis/Plan: Unchanged (Cystoscopy, right retrograde, stent) I have reviewed the history and physical and performed a pertinent physical examination on my patient. No changes have occurred unless specified.
--- NOTE | 2021-02-04 17:19 | W.PM.OPN ---
Operative Note Operative Note Date of Service: 02/04/21 Narrative: PreOperative Diagnosis: Right ureteric stone Post Operative Diagnosis: Right ureteric stone Procedure: - cystoscopy, retrograde - stent placement Surgeon: Dr Rodriguez Maier Anesthesia: General Indications for procedure: Came through emergency room right upper you tract stone Procedure: After informed consent was verified patient was brought to the operating placed in supine position. Anesthesia was administered per protocol. Patient was placed in modified dorsal lithotomy position and prepped and draped in a sterile fashion. Safety pause time-out and side of surgery confirmed. Antibiotics confirmed. Twenty-two [place] cystoscope post. Bladder was examined in its entirety. Right ureteric orifice was seen. Retrograde examination was performed. Filling defect seen in the proximal portion right uterus. Sensor guidewire was placed. The open-ended catheter was then used to extract a urine sample sent for culture A 6 [place] by 22 cm stent was placed without difficulty. A CT scan had indicated that she had a large postvoid residual. The catheter was placed and will be left for 24 hours to allow adequate drainage. She tolerated the procedure well and was transferred to operating room in stable condition . Pathology: [] Drains: 6 [place] by 22 cm stent placed
--- NOTE | 2021-02-05 00:33 | CONS_ITS ---
DATE OF SERVICE: 02/04/2021 REASON FOR CONSULTATION: Lower GI bleeding. HISTORY OF PRESENT ILLNESS: The patient is an 80-year-old female, on chronic Coumadin in relation to atrial fibrillation, who presents to the ER yesterday with painless hematochezia. She was in physical therapy and had the urge to have a bowel movement. She describes a fairly normal brown stool, but mixed with bright red blood both in the toilet bowl and on the toilet paper. This led her to go to the ER for evaluation. During this time, she did not have any particular abdominal pain, nausea, vomiting, nor melena. Prior to yesterday, she had been doing well without any particular GI complaints. She had a colonoscopy with me in 2006 with removal of a small tubular adenoma. She had a negative followup colonoscopy with me in 2012 other than some diverticulosis and hemorrhoids. Since admission here, she still describes some small amounts of bright red blood on the toilet paper and occasionally in the toilet bowl. However, there has been no significant bleeding. She still denies any abdominal pain, no rectal pain. Her hemoglobin in June 2020 was 11.7. Her hemoglobin yesterday when she got to the ER was 14.3. This subsequently dropped to 11.6, but a followup hemoglobin was 13.3 this morning. Her Coumadin has been on hold and her PT was 26.5 with INR 2.2 this morning. MEDICATIONS: At home, albuterol inhaler, cephalexin, , gabapentin, eyedrops, prednisone, pyridostigmine bromide, and warfarin. Her medications here include acetaminophen, IV ceftriaxone, milk of magnesia p.r.n., Zofran p.r.n. PAST MEDICAL HISTORY: Colonoscopies in 2006 and 2012 as above with the finding of a small tubular adenoma in 2006 and just diverticulosis in 2013. She has a history of atrial fibrillation. Arthritis. Asthma. Osteoporosis. Discoid lupus. Kidney stones. Small bowel obstruction that resolved without surgery in 2013. Asymptomatic gallstones. PAST SURGICAL HISTORY: Surgeries have included cataract surgery and a broken left hip and a broken right tibia. She has also had cataract surgery. FAMILY HISTORY: Noncontributory. SOCIAL HISTORY: She is a . She is a nonsmoker and does not use any significant amounts of alcohol. REVIEW OF SYSTEMS: CONSTITUTIONAL: Prior to yesterday, she was feeling fairly well with good energy and good appetite. SKIN: No rash. No pruritus. CARDIAC: No chest pain. PULMONARY: No cough. No hemoptysis. GASTROINTESTINAL: As above. URINARY: No dysuria. No hematuria. PHYSICAL EXAMINATION: GENERAL: The patient is a pleasant, alert female, in no distress. SKIN: Warm and dry. HEENT: Anicteric sclerae. ABDOMEN: Soft, nondistended, nontender without palpable mass. LABORATORY DATA: As above. White blood cell count 5.2, platelets 145,000. Normal electrolytes. BUN 17, creatinine 0.5. LFTs were normal yesterday including an albumin of 3.6. Lipase was 12. She did have a CAT scan of her abdomen and pelvis yesterday that described a [id number] right hydroureteronephrosis with a 0.6 cm calculus in the proximal 1/3 of the right ureter. There was some diverticulosis noted, but no evidence of any colitis. There was no evidence of any diverticulitis. IMPRESSION: Given the patient's clinical history, I suspect her bleeding was most likely related to a perianal source such as a hemorrhoid. Other less likely possibilities would include that of diverticular disease with bleeding, ischemic colitis, a significant polyp, or a neoplasm. However, given the relatively minimal amount of bleeding and what appears to be a stable hemoglobin, I would think the most likely source would be that from something such as a hemorrhoid and the fact that she is on Coumadin. At this point, she appears quite stable with a benign abdomen and stable hemoglobin. She does not appear to be having any active bleeding. At this point, I would recommend continuing observation and holding her Coumadin given that her PT and INR are still therapeutic. However, I did review a possible colonoscopy with her to make a definitive diagnosis to rule out any of the above-mentioned diagnoses, especially that of a neoplasm given that her last colonoscopy was back in 2012. I think it would obviously be important to assess the situation and make a definitive diagnosis, particularly if she has a neoplasm. The fact that she has to also go back on Coumadin or other anticoagulation long-term would make it important to try to make a definitive diagnosis of the source of bleeding as well. However, at this point, she is not sure she wants to go through a colonoscopy, particularly in regard to the bowel prep the night before. At this point, she is in the PACU and is about to have a cystoscopy for the right-sided kidney stone and hydronephrosis. I advised her that I would stop by tomorrow to see her again and review the colonoscopy with her. If she is agreeable, we could then plan to do the colonoscopy on Monday, February 08. In the meantime, she can have her diet as tolerated. I would hold Coumadin until we know if she wants to go through with the colonoscopy and to be sure she does have any further bleeding. If she has active and significant bleeding, I would then recommend a stat nuclear medicine bleeding scan in the meantime. This has all been discussed with the patient in detail. MD NATIVIDAD Barger/TERRELL / [id number] MTDD
[2021-02-05 04:00] VITALS: BP 116/66; PULSE 100; RESP 18; TEMP 36.5; O2SAT 96
[2021-02-05] MEDS: cefTRIAXone sodium 1 GM in 0.9 % Sodium Chloride 50 ML IV (06:26)
[2021-02-05] MEDS: 0.9 % Sodium Chloride Flush 3 ML SYRINGE IVFLUSH ×3 (06:26→20:10)
[2021-02-05 06:50] LABS: Hematocrit 39.2 % (37-47); Hemoglobin 12.7 g/dl (12.0-16.0); INTERNATIONAL NORM RATIO 1.8 (0.9-1.1); Mean Corpuscular HGB Conc 32.4 g/dl (31.0-35.0); Mean Corpuscular Hemoglobin 29.3 pg (27.0-33.0); Mean Corpuscular Volume 90.5 fL (80-98); Mean Platelet Volume 11.7 fL (9.4-12.3); Platelet Count 155 X10*3/uL (160-400); Prothrombin Time 21.5 SEC (10.8-13.0); Red Blood Count 4.33 X10*6/uL (4.20-5.50); Red Cell Distribution Width 14.8 % (11.0-16.0); White Blood Count 6.6 X10*3/uL (4.8-10.8)
[2021-02-05 07:07] LABS: Blood Urea Nitrogen 18 mg/dL (9-16); Carbon Dioxide 25 mmol/L (22-29); Chloride 106 mmol/L (96-108); Creatinine Clr Calc Pharmacy 62.6; Estimated Glomerular Filt Rate > 60; Glucose Random 73 mg/dL (60-115); Sodium 140 mmol/L (135-145)
[2021-02-05 07:13] LABS: Anion Gap 13 (12-20); Calcium 8.8 mg/dL (8.4-10.2); Potassium 4.3 mmol/L (3.3-5.1)
[2021-02-05 08:00] VITALS: BP 116/65; PULSE 109; RESP 18; TEMP 36.3; O2SAT 97
--- NOTE | 2021-02-05 08:05 | HO.POSTANES ---
Post Anesthesia Evaluation Post Anesthesia Evaluation Vital Signs: Vital Signs Temp Pulse Resp BP Pulse Ox 02/05/21 04:00 97.7 F 100 18 116/66 96 02/04/21 23:10 97.2 F 86 16 116/56 L 98 Anesthesia: Monitored Mental Status: Awake Pain Control: Satisfactory Nausea/Vomiting: None Hydration: Adequate Anesthesia-Related Issues: No Anes. Related Issues
[2021-02-05] MEDS: Acetaminophen 325 MG TABLET 650 MG PO ×3 (08:31→20:09)
[2021-02-05] MEDS: Gabapentin 100 MG CAPSULE 200 MG PO (08:31)
[2021-02-05] MEDS: dilTIAZem HCL CD 180 MG CAP.ER.24H PO (08:32)
[2021-02-05] MEDS: predniSONE 1 MG TABLET 2 MG PO (08:32)
--- NOTE | 2021-02-05 10:09 | HO.PM.IMPN ---
Subjective Subjective Date of Service: 02/05/21 Interval History: see and examined this AM no new issues requesting telemonitor to be discontinued still unsure if she wants a colonoscopy ROS General - no fevers or chills Cardiovascular - no chest pain Respiratory - no shortness of breath or cough Abdominal- no abdominal pain, nausea, vomiting, diarrhea Physical Exam Vital Signs: Vital Signs: Last Vital Signs Temp 97.4 F 02/05/21 08:00 Pulse 109 H 02/05/21 08:00 Resp 18 02/05/21 08:00 BP 116/65 02/05/21 08:00 Pulse Ox 97 02/05/21 08:00 Body Mass Index 19.0 Const: Other: General - no acute distress, appears comfortable Cardiovascular - regular rate and rhythm, S1-S2 Lungs - normal respiratory effort, clear to auscultation bilaterally, no wheezing Abdomen - soft, mildly distended without TTP, no rebound or guarding; R flank TTP mild Extremities - no edema bilaterally Neuro - awake and alert, no focal deficits General: cooperative and no acute distress Orientation/consciousness: patient oriented x3 Eyes: General: appearance normal, both eyes and all related structures Resp: Effort & Inspection: normal respiratory effort and able to speak in complete sentences Cardio: Rate: regular rate Rhythm: regular rhythm GI: Other: Right quadrant tenderness mild, no guarding or rebound Palpation (GI): Soft to palpation Auscultation: normal bowel sounds : Other: Right CVA tenderness Skin: General skin exam: no rashes or lesions noted Neuro: General: patient oriented x3 Cognition (Neuro): normal cognition Extrem: General: Yes normal to inspection and Yes no pedal edema Objective Data Current Medications Generic Name Dose Route Start Last Admin Trade Name Bryce PRN Reason Stop Dose Admin Acetaminophen 650 mg 02/04/21 04:02 02/05/21 08:31 Acetaminophen 325 Mg Tablet PO 650 mg Q6H PRN Administration Pain, Mild (Pain Scale 1-3) Acetaminophen 650 mg 02/04/21 16:18 Acetaminophen 325 Mg Tablet PO ONCE PRN Pain, Mild (Pain Scale 1-3) Diltiazem HCl 180 mg 02/05/21 09:00 02/05/21 08:32 Diltiazem Hcl Cd 180 Mg Cap.Er.24h PO 180 mg DAILY INÉS Administration Protocol Fentanyl 25 mcg 02/04/21 16:18 Fentanyl Citrate/Pf 100 Mcg/2 Ml Vial IVPUSH Q5M PRN Pain, Moderate (Pain Scale 4-6 Gabapentin 200 mg 02/05/21 09:00 02/05/21 08:31 Gabapentin 100 Mg Capsule PO 200 mg DAILY INÉS Administration Ceftriaxone Sodium 1 gm/ 50 mls @ 100 mls/hr 02/05/21 06:00 02/05/21 08:36 Sodium Chloride IV Infused Q24H INÉS Infusion Magnesium Hydroxide 30 ml 02/04/21 04:02 Milk Of Magnesia 30 Ml Oral.Susp PO DAILY PRN Constipation Ondansetron HCl 4 mg 02/04/21 04:02 Ondansetron Hcl 4 Mg/2 Ml Vial IVPUSH Q8H PRN Nausea and Vomiting Ondansetron HCl 4 mg 02/04/21 16:18 Ondansetron Hcl 4 Mg/2 Ml Vial IVPUSH ONCE PRN Nausea and Vomiting Pharmacy Consult 1 each 02/04/21 08:56 Consult Rx Perform Med Rec MISCELLANE ONCE PRN Consult order Prednisolone Acetate 1 drop 02/05/21 09:00 Prednisolone Acetate 1 % Oph Susp 5 Ml Drpbtl EYE-RIGHT QID INÉS Prednisone 2 mg 02/05/21 09:00 02/05/21 08:32 Prednisone 1 Mg Tablet PO 2 mg DAILY INÉS Administration Sodium Chloride 3 ml 02/04/21 04:02 02/05/21 08:32 0.9 % Sodium Chloride Flush 3 Ml Syringe IVFLUSH 3 ml QSHIFT INÉS Administration Labs CBC & Chem 7: 02/05/21 06:00 02/05/21 06:00 Microbiology Microbiology Results: Microbiology 02/04/21 18:00 Urine clean catch - Clean Catch Midstream Urine Culture - Preliminary No growth to date. 02/03/21 17:01 Urine clean catch - Clean Catch Midstream Urine Culture - Final No growth. Assessment and Plan (1) Lower GI bleed: Status: Acute (2) Ureteral stone with hydronephrosis: Status: Acute (3) UTI (urinary tract infection): Status: Acute Assessment and Plan: This is an 80-year-old female presents to the hospital with GI bleed found to have an obstructing ureteral stone as well as UTI 1. R hydro due to obstructing stone 1a. UTI s/p stone removal urine cx negative x 2 -- will d/c antibiotics and observe outpatient f/u with urology jay in place, will keep for now 2. lower GI bleed appears self limited at this time, ? hemorrhoidal h/h stable she is not keen on a colonoscopy but ideally she should have a colonopscy as she needs to be on coumadin 3. A. Fib continue rate control meds coumadin on hold 4. myasthenia gravis continue prednisone pyridostigmine DNR/DNI dvt pptx, mechnical and ultimately coumadin
[2021-02-05 11:37] VITALS: BP 104/65; PULSE 113; RESP 18; TEMP 36.8; O2SAT 96
[2021-02-05] MEDS: prednisoLONE Acetate 1 % Oph Susp 5 ML DRPBTL 1 DROP EYE-RIGHT ×3 (12:45→20:12)
--- NOTE | 2021-02-05 14:10 | MHC.CM.PN ---
EMR REVIEWED, PT HAS HAD TWO NEG URINES, WILL D/C ABX AND MONITOR PT, KEEP CRUZ FOR NOW AND OUTPT FOLLOW-UP W/UROLOGY, PT RESTARTED ON CARDIZEM TODAY, COUADIN ON HOLD, PT DOES NEED COLONOSCOPY UNSURE IF THAT WILL BE INPT, NO D/C PLAN FOR TODAY.
[2021-02-05 15:12] VITALS: BP 112/60; PULSE 89; RESP 12; TEMP 37.7; O2SAT 95
[2021-02-05 19:18] VITALS: BP 118/58; PULSE 101; RESP 12; TEMP 36.7; O2SAT 93
--- NOTE | 2021-02-05 20:24 | PM.GIPN ---
Subjective Subjective Date of Service: 02/06/21 Interval History: Hx via patient, RN, and EMR Patient feels well. There has been no further obvious rectal bleeding. Tolerated her cysto and right ureteral stent placement well yesterday. Denies abdominal pain, N/V. Eating fairly well. Physical Exam Vital Signs: Vital Signs: Last Vital Signs Temp 98.0 F 02/05/21 19:18 Pulse 101 H 02/05/21 19:18 Resp 12 02/05/21 19:18 BP 118/58 L 02/05/21 19:18 Pulse Ox 93 02/05/21 19:18 Body Mass Index 19.0 Const: General: cooperative, comfortable, no acute distress and alert GI: Other: Nontender, Nondistended Inspection: Yes normal to inspection Palpation (GI): Soft to palpation Percussion: Yes normal to percussion Auscultation: normal bowel sounds Objective Data Labs CBC & Chem 7: 02/05/21 06:00 02/05/21 06:00 Labs: Laboratory Results - last 24 hr 02/05/21 02/05/21 02/05/21 06:00 06:00 06:00 WBC 6.6 RBC 4.33 Hgb 12.7 Hct 39.2 MCV 90.5 MCH 29.3 MCHC 32.4 RDW 14.8 Plt Count 155 L MPV 11.7 Absolute Nucleated RBC 0.000 Nucleated RBC % (auto) 0.0 PT 21.5 H INR 1.8 H Sodium 140 Potassium 4.3 D Chloride 106 Carbon Dioxide 25 Anion Gap 13 BUN 18 H Creatinine 0.55 Estim Creat Clear Calc 62.6 Estimated GFR > 60 Random Glucose 73 Calcium 8.8 D Microbiology Microbiology Results: Microbiology 02/04/21 18:00 Urine clean catch - Clean Catch Midstream Urine Culture - Preliminary No growth to date. 02/03/21 17:01 Urine clean catch - Clean Catch Midstream Urine Culture - Final No growth. Progress Note: A&P Assessment and plan (1) Lower GI bleed: Problem details: Imp: Rectal bleed. Presently stable. Remains off Coumadin. Most likely etiology is a perianal source, but I advised her that other processes such as colon polyps or neoplasm should be excluded given that her last colonoscopy was in 2012 and she has to go back on Coumadin. Rec: Colonoscopy with MAC on 02/08/2021. Full consent has been obtained for this, including risks of bleeding and perforation. Follow labs , including PT/INR. Please give dose of Vit K over weekend if the INR remains > 1.4 off the Coumadin. D/W patient in detail and she is comfortable with this plan. Thanks Status: Acute Fall Risk Details Current Medications: Current Medications Generic Name Dose Route Start Last Admin Trade Name Delfinoq PRN Reason Stop Dose Admin Acetaminophen 650 mg 02/04/21 04:02 02/05/21 20:09 Acetaminophen 325 Mg Tablet PO 650 mg Q6H PRN Administration Pain, Mild (Pain Scale 1-3) Albuterol Sulfate 1.25 mg 02/05/21 12:25 Albuterol Sulfate (0.042%) 1.25 Mg/3 Ml Vial.Neb INHALE RQ4H PRN Shortness of Breath/Wheezing Diltiazem HCl 180 mg 02/05/21 09:00 02/05/21 08:32 Diltiazem Hcl Cd 180 Mg Cap.Er.24h PO 180 mg DAILY INÉS Administration Protocol Gabapentin 200 mg 02/05/21 09:00 02/05/21 08:31 Gabapentin 100 Mg Capsule PO 200 mg DAILY INÉS Administration Magnesium Hydroxide 30 ml 02/04/21 04:02 Milk Of Magnesia 30 Ml Oral.Susp PO DAILY PRN Constipation Ondansetron HCl 4 mg 02/04/21 04:02 Ondansetron Hcl 4 Mg/2 Ml Vial IVPUSH Q8H PRN Nausea and Vomiting Pharmacy Consult 1 each 02/04/21 08:56 Consult Rx Perform Med Rec MISCELLANE ONCE PRN Consult order Prednisolone Acetate 1 drop 02/05/21 09:00 02/05/21 20:12 Prednisolone Acetate 1 % Oph Susp 5 Ml Drpbtl EYE-RIGHT 1 drop QID INÉS Administration Prednisone 2 mg 02/05/21 09:00 02/05/21 08:32 Prednisone 1 Mg Tablet PO 2 mg DAILY INÉS Administration Sodium Chloride 3 ml 02/04/21 04:02 02/05/21 20:10 0.9 % Sodium Chloride Flush 3 Ml Syringe IVFLUSH 3 ml QSHIFT INÉS Administration Time Spent With Patient Time: Total time spent is greater than 50% in coordination of care (as documented) at patient's floor/unit and/or counseling patient: Time with patient: 15 - 24 minutes
--- NOTE | 2021-02-05 20:38 | MHC.SHP ---
Pre-Procedural Eval Section A The patient is an INPATIENT: Yes Changes since office visit: Yes Patient answered all questions The History & Physical has been completed within 30 days and I have reviewed it.: Yes Section B Chief Complaint: Nephrolithiasis, UTI, GI Bleed Allergies: Allergies Allergy/AdvReac Type Severity Reaction Status Date / Time alendronate sodium [Fosamax] Allergy Unknown unknown Verified 02/04/21 04:24 codeine [Codeine] AdvReac Mild STOMACH Verified 02/04/21 04:24 UPSET Codeine Phosphate Allergy Unknown unknown Uncoded 02/04/21 04:24 Plan I have reviewed the history and physical and performed a pertinent physical examination on my patient. No changes have occurred unless specified.
[2021-02-06] VITALS (7 sets, daily range): BP systolic 93–119; BP diastolic 53–73; PULSE 89–102; RESP 16–18; TEMP 36.5–37.2; O2SAT 92–97
[2021-02-06 06:42] LABS: INTERNATIONAL NORM RATIO 1.4 (0.9-1.1)
[2021-02-06] MEDS: Gabapentin 100 MG CAPSULE 200 MG PO (10:06)
[2021-02-06] MEDS: dilTIAZem HCL CD 180 MG CAP.ER.24H PO (10:06)
[2021-02-06] MEDS: prednisoLONE Acetate 1 % Oph Susp 5 ML DRPBTL 1 DROP EYE-RIGHT ×4 (10:07→20:33)
[2021-02-06] MEDS: predniSONE 1 MG TABLET 2 MG PO (10:07)
--- NOTE | 2021-02-06 10:12 | MHC.CM.PN ---
[facility] UPDATED WITH PATIENT PLANS. PATIENT HAS AGREED TO COLONOSCOPY SCHEDULED Monday02/08/21. PLAN WILL BE FOR RETURN HOME WITH RESUMPTION OF [facility].
[2021-02-06] MEDS: 0.9 % Sodium Chloride Flush 3 ML SYRINGE IVFLUSH ×3 (11:48→20:41)
--- NOTE | 2021-02-06 11:58 | P.PNIM_ITS ---
Subjective Subjective Date of Service: 02/06/21 Interval History: Patient feels better this am denies rt sided abd pain ,no fever chills,concern about colon prep requesting for lemon flavored drink ,no issues overnight. ros General no headache, no dizziness ,no fever chills. CVS no chest pain, no palpitation. Respiratory no cough, no sob. Gastrointestinal no nausea, no vomiting, no abdominal pain Physical Exam Vital Signs: Vital Signs: Last Vital Signs Temp 97.7 F 02/06/21 07:56 Pulse 102 H 02/06/21 10:06 Resp 17 02/06/21 07:56 BP 116/59 L 02/06/21 10:06 Pulse Ox 95 02/06/21 07:56 Body Mass Index 19.0 General resting comfortably in no acute distress. Neck supple no JVD. CVS regular rate rhythm, Respiratory lungs clear to auscultation, no respiratory distress Gastrointestinal abdomen soft, nontender, bowel sounds audible, no guarding , no rigidity. Extremities no edema. Neuro nonfocal , speech clear. Skin no rash Objective Data Current Medications Generic Name Dose Route Start Last Admin Trade Name Freq PRN Reason Stop Dose Admin Acetaminophen 650 mg 02/04/21 04:02 02/05/21 20:09 Acetaminophen 325 Mg Tablet PO 650 mg Q6H PRN Administration Pain, Mild (Pain Scale 1-3) Albuterol Sulfate 1.25 mg 02/05/21 12:25 Albuterol Sulfate (0.042%) 1.25 Mg/3 Ml Vial.Neb INHALE RQ4H PRN Shortness of Breath/Wheezing Bisacodyl 10 mg 02/07/21 18:00 Bisacodyl 5 Mg Tablet. PO ONCE@1800 IÉNS Diltiazem HCl 180 mg 02/05/21 09:00 02/06/21 10:06 Diltiazem Hcl Cd 180 Mg Cap.Er.24h PO 180 mg DAILY INÉS Administration Protocol Gabapentin 200 mg 02/05/21 09:00 02/06/21 10:06 Gabapentin 100 Mg Capsule PO 200 mg DAILY INÉS Administration Magnesium Hydroxide 30 ml 02/04/21 04:02 Milk Of Magnesia 30 Ml Oral.Susp PO DAILY PRN Constipation Ondansetron HCl 4 mg 02/04/21 04:02 Ondansetron Hcl 4 Mg/2 Ml Vial IVPUSH Q8H PRN Nausea and Vomiting Pharmacy Consult 1 each 02/04/21 08:56 Consult Rx Perform Med Rec MISCELLANE ONCE PRN Consult order Polyethylene Glycol/Electrolytes 4,000 ml 02/06/21 15:00 Peg 3350/Na Sulf,Bicarb,Cl/Kcl 4,000 Ml Soln.Recon PO 02/06/21 15:01 ONCE@1500 INÉS Prednisolone Acetate 1 drop 02/05/21 09:00 02/06/21 10:07 Prednisolone Acetate 1 % Oph Susp 5 Ml Drpbtl EYE-RIGHT 1 drop QID INÉS Administration Prednisone 2 mg 02/05/21 09:00 02/06/21 10:07 Prednisone 1 Mg Tablet PO 2 mg DAILY IÉNS Administration Sodium Chloride 3 ml 02/04/21 04:02 02/06/21 11:48 0.9 % Sodium Chloride Flush 3 Ml Syringe IVFLUSH 3 ml QSHIFT INÉS Administration Labs CBC & Chem 7: 02/05/21 06:00 02/05/21 06:00 Microbiology Microbiology Results: Microbiology 02/04/21 18:00 Urine clean catch - Clean Catch Midstream Urine Culture - Final No growth. 02/03/21 17:01 Urine clean catch - Clean Catch Midstream Urine Culture - Final No growth. Assessment and Plan (1) Lower GI bleed: Problem details: Imp: Rectal bleed. Presently stable. Remains off Coumadin. Most likely etiology is a perianal source, but I advised her that other processes such as colon polyps or neoplasm should be excluded given that her last colonoscopy was in 2012 and she has to go back on Coumadin. Rec: Colonoscopy with MAC on 02/08/2021. Full consent has been obtained for this, including risks of bleeding and perforation. Follow labs , including PT/INR. Please give dose of Vit K over weekend if the INR remains > 1.4 off the Coumadin. D/W patient in detail and she is comfortable with this plan. Thanks Status: Acute (2) Ureteral stone with hydronephrosis: Status: Acute (3) Atrial fibrillation: Status: Acute Assessment and Plan: 80-year-old female presents to the hospital with GI bleed found to have an obstr ucting ureteral stone as well as UTI 1. R hydro due to obstructing stone Patient underwent cystoscopy and had stent placement , urine cx negative x 2 ,no antibiotics ,outpatient f/u with urology 2. lower GI bleed no further episoeds of gi bleed,scheduled for colonoscopy on monday ,hct stable ,clear liq diet tomorrow,inr 1.4 hold vit k 3. A. Fib cont.diltiazem,stable vent rate rate,coumadin on hold due to gi bleed 4. myasthenia gravis continue prednisone and resume pyridostigmine upon dc. DNR/DNI dvt pptx, mechnical
[2021-02-07] VITALS (9 sets, daily range): BP systolic 98–134; BP diastolic 55–70; PULSE 80–114; RESP 14–20; TEMP 36.2–36.8; O2SAT 93–98
[2021-02-07 07:17] LABS: INTERNATIONAL NORM RATIO 1.1 (0.9-1.1); Prothrombin Time 13.2 SEC (10.8-13.0)
[2021-02-07] MEDS: 0.9 % Sodium Chloride Flush 3 ML SYRINGE IVFLUSH ×3 (07:59→23:52)
[2021-02-07] MEDS: predniSONE 1 MG TABLET 2 MG PO (08:55)
[2021-02-07] MEDS: Gabapentin 100 MG CAPSULE 200 MG PO (08:55)
[2021-02-07] MEDS: prednisoLONE Acetate 1 % Oph Susp 5 ML DRPBTL 1 DROP EYE-RIGHT ×4 (08:56→20:15)
--- NOTE | 2021-02-07 13:01 | P.PNIM_ITS ---
Subjective Subjective Date of Service: 02/07/21 Interval History: offer no acute complaints, no gi bleed noted ,asking for pyridostigmine since feeling weakness. ROS General no headache, no dizziness ,no fever chills. CVS no chest pain, no palpitation. Respiratory no cough, no sob. Gastrointestinal no nausea, no vomiting, no abdominal pain Physical Exam Vital Signs: Vital Signs: Last Vital Signs Temp 97.3 F 02/07/21 11:10 Pulse 80 02/07/21 11:10 Resp 18 02/07/21 11:10 BP 105/55 L 02/07/21 11:10 Pulse Ox 97 02/07/21 11:10 Body Mass Index 19.0 General resting comfortably in no acute distress. Neck supple no JVD. CVS regular rate rhythm, Respiratory lungs clear to auscultation, no respiratory distress Gastrointestinal abdomen soft, nontender, bowel sounds audible, no guarding , no rigidity. Extremities no edema. Neuro nonfocal , speech clear. Skin no rash Objective Data Current Medications Generic Name Dose Route Start Last Admin Trade Name Freq PRN Reason Stop Dose Admin Acetaminophen 650 mg 02/04/21 04:02 02/05/21 20:09 Acetaminophen 325 Mg Tablet PO 650 mg Q6H PRN Administration Pain, Mild (Pain Scale 1-3) Albuterol Sulfate 1.25 mg 02/05/21 12:25 Albuterol Sulfate (0.042%) 1.25 Mg/3 Ml Vial.Neb INHALE RQ4H PRN Shortness of Breath/Wheezing Albuterol Sulfate 2 puff 02/07/21 13:00 Albuterol Sulfate 90 Mcg 8 Gm Inhaler INHALE Q6H [facility] Bisacodyl 10 mg 02/07/21 18:00 Bisacodyl 5 Mg Tablet. PO ONCE@1800 INÉS Diltiazem HCl 180 mg 02/05/21 09:00 02/07/21 08:56 Diltiazem Hcl Cd 180 Mg Cap.Er.24h PO Not Given DAILY [facility] Protocol Gabapentin 200 mg 02/05/21 09:00 02/07/21 08:55 Gabapentin 100 Mg Capsule PO 200 mg DAILY INÉS Administration Magnesium Hydroxide 30 ml 02/04/21 04:02 Milk Of Magnesia 30 Ml Oral.Susp PO DAILY PRN Constipation Ondansetron HCl 4 mg 02/04/21 04:02 Ondansetron Hcl 4 Mg/2 Ml Vial IVPUSH Q8H PRN Nausea and Vomiting Pharmacy Consult 1 each 02/04/21 08:56 Consult Rx Perform Med Rec MISCELLANE ONCE PRN Consult order Polyethylene Glycol/Electrolytes 4,000 ml 02/07/21 15:00 Peg 3350/Na Sulf,Bicarb,Cl/Kcl 4,000 Ml Soln.Recon PO 02/07/21 15:01 ONCE@1500 INÉS Prednisolone Acetate 1 drop 02/05/21 09:00 02/07/21 12:47 Prednisolone Acetate 1 % Oph Susp 5 Ml Drpbtl EYE-RIGHT 1 drop QID INÉS Administration Prednisone 2 mg 02/05/21 09:00 02/07/21 08:55 Prednisone 1 Mg Tablet PO 2 mg DAILY INÉS Administration Pyridostigmine Daykin 60 mg 02/07/21 15:00 Pyridostigmine Daykin 60 Mg Tablet PO TID [facility] Sodium Chloride 3 ml 02/04/21 04:02 02/07/21 07:59 0.9 % Sodium Chloride Flush 3 Ml Syringe IVFLUSH 3 ml QSHIFT INÉS Administration Labs CBC & Chem 7: 02/05/21 06:00 02/05/21 06:00 Microbiology Microbiology Results: Microbiology 02/04/21 18:00 Urine clean catch - Clean Catch Midstream Urine Culture - Final No growth. 02/03/21 17:01 Urine clean catch - Clean Catch Midstream Urine Culture - Final No growth. Assessment and Plan (1) Ureteral stone with hydronephrosis: Status: Acute (2) UTI (urinary tract infection): Status: Acute (3) Atrial fibrillation: Status: Acute (4) Lower GI bleed: Problem details: Imp: Rectal bleed. Presently stable. Remains off Coumadin. Most likely etiology is a perianal source, but I advised her that other processes such as colon polyps or neoplasm should be excluded given that her last colonoscopy was in 2012 and she has to go back on Coumadin. Rec: Colonoscopy with MAC on 02/08/2021. Full consent has been obtained for this, including risks of bleeding and perforation. Follow labs , including PT/INR. Please give dose of Vit K over weekend if the INR remains > 1.4 off the Coumadin. D/W patient in detail and she is comfortable with this plan. Thanks Status: Acute (5) Primary osteoarthritis of right knee: Status: Acute Assessment and Plan: 80-year-old female presents to the hospital with GI bleed found to have an obstructing ureteral stone as well as UTI 1. R. hydro due to obstructing stone Patient underwent cystoscopy and had stent placement , urine cx negative x 2 ,no antibiotics ,outpatient f/u with urology 2. lower GI bleed no further episodes of gi bleed,scheduled for colonoscopy on monday ,hct stable ,clear liq diet today,inr 1.4 hold vit k 3. A. Fib noted to have low blood pressures, will reduce dose of diltiazem to 120 mg,stable vent rate rate,coumadin on hold due to gi bleed, resume Coumadin depending on GI workup. 4. myasthenia gravis continue prednisone and resume pyridostigmine today. DNR/DNI dvt pptx, mechnical
[2021-02-07] MEDS: PEG 3350/Na Sulf,Bicarb,Cl/KCL 4,000 ML SOLN.RECON 4000 ML PO (15:25)
[2021-02-07] MEDS: Albuterol Sulfate 90 MCG 8 GM INHALER 2 PUFF INHALE ×2 (17:09→23:28)
[2021-02-07] MEDS: bisacodyL 5 MG TABLET.DR 10 MG PO (18:09)
[2021-02-07] MEDS: Acetaminophen 325 MG TABLET 650 MG PO (21:48)
[2021-02-08] VITALS (9 sets, daily range): BP systolic 92–126; BP diastolic 43–71; PULSE 92–114; RESP 16–20; TEMP 36.7–37.1; O2SAT 94–100
[2021-02-08 06:22] LABS: MANUAL DIFF FLAG NO
[2021-02-08 06:51] LABS: Basophils Percent Auto 0.3 % (0-2); Eosinophils Absolute Auto 0.2 X10*3/uL (0.0-0.4); Eosinophils Percent Auto 3.5 % (0-4); Hematocrit 36.9 % (37-47); Imm Gran Abs Auto 0.02 X10*3/uL (0.00-0.03); Imm Gran Pct Auto 0.3 % (0.0-0.4); Lymphocytes Percent Auto 13.8 % (20-40); Mean Corpuscular HGB Conc 32.5 g/dl (31.0-35.0); Mean Corpuscular Hemoglobin 29.4 pg (27.0-33.0); Mean Corpuscular Volume 90.4 fL (80-98); Mean Platelet Volume 11.3 fL (9.4-12.3); Monocytes Absolute Auto 1.1 X10*3/uL (0.1-1.2); Monocytes Percent Auto 16.4 % (2-11); Neutrophils Absolute Auto 4.5 X10*3/uL (2.0-8.3); Neutrophils Percent Auto 65.7 % (45-73); Platelet Count 175 X10*3/uL (160-400); Red Blood Count 4.08 X10*6/uL (4.20-5.50); Red Cell Distribution Width 14.4 % (11.0-16.0); White Blood Count 6.9 X10*3/uL (4.8-10.8)
[2021-02-08 06:52] LABS: Anion Gap 13 (12-20); Blood Urea Nitrogen 9 mg/dL (9-16); Carbon Dioxide 31 mmol/L (22-29); Chloride 101 mmol/L (96-108); Creatinine Clr Calc Pharmacy 61.5; Estimated Glomerular Filt Rate > 60; Glucose Fasting 90 mg/dL (60-99); Potassium 3.9 mmol/L (3.3-5.1); Sodium 141 mmol/L (135-145)
[2021-02-08 07:05] LABS: INTERNATIONAL NORM RATIO 1.1 (0.9-1.1); Prothrombin Time 13.2 SEC (10.8-13.0)
[2021-02-08] MEDS: 0.9 % Sodium Chloride Flush 3 ML SYRINGE IVFLUSH ×2 (09:04→17:19)
[2021-02-08] MEDS: prednisoLONE Acetate 1 % Oph Susp 5 ML DRPBTL 1 DROP EYE-RIGHT ×4 (09:04→22:27)
[2021-02-08] MEDS: Gabapentin 100 MG CAPSULE 200 MG PO (09:06)
[2021-02-08] MEDS: predniSONE 1 MG TABLET 2 MG PO (09:07)
--- NOTE | 2021-02-08 10:35 | HO.ANESPROP2 ---
[facility] Active Problems Active Problems: All Active Problems (Updated 02/05/21 @ 20:32 by Dexter Sadler) UTI (urinary tract infection) (Acute) Atrial fibrillation (Acute) Lower GI bleed (Acute) Primary osteoarthritis of right knee (Acute) Hip fracture (Acute) Ureteral stone with hydronephrosis (Acute) Retained ureteral stent (Acute) Past Medical History Medical History Asthma Atrial fibrillation Deficient knowledge of open reduction and internal (ORIF) fixation of hip Discoid lupus GERD (gastroesophageal reflux disease) IBS (irritable bowel syndrome) Kidney stone Myasthenia gravis Postural vertigo Skin cancer Status post open reduction and internal fixation (ORIF) of fracture (~01/2020) Family History Family History Mother No problems noted. Father No problems noted. Surgical History Surgical History History of cataract extraction with lens replacement (~11/2019) Social History Social History Household Members: None Housing: Assisted Living Facility Do you presently have visiting nurse or other home services: Yes Alcohol intake: never Smoking Status: Former smoker Smoked in Last 30 Days: No Patient Interested in Nicotine Replacement: No Patient Given Instructions on How to Stop Smoking: No Second Hand Smoke Exposure: No Use of substances other than those prescribed or required for medical reasons: No Currently Displaying Signs/Symptoms of Drug Intoxication Withdrawal: No Have you been hit, kicked, punched, or otherwise hurt by someone within the past year? If so, by whom?: No Do you feel safe in your current relationship?: No Current Relationship Is there a partner from a previous relationship who is making you feel unsafe now?: No Are you made to feel afraid or neglected: No Advance Directives: No Advance Directives Information Provided: Yes Do you have thoughts of harming others: None Do you have a plan to hurt others: No Plan Recently lost weight without trying: No Nutrition Risks: No Nutritional Risk Patient : No : No Poor oral hygiene: No service: No Current occupational status: retired Meds Allergies Allergy/AdvReac Type Severity Reaction Status Date / Time alendronate sodium [Fosamax] Allergy Unknown unknown Verified 02/04/21 04:24 codeine [Codeine] AdvReac Mild STOMACH Verified 02/04/21 04:24 UPSET Codeine Phosphate Allergy Unknown unknown Uncoded 02/04/21 04:24 Active Medications: Current Medications Generic Name Dose Route Start Last Admin Trade Name Delfinoq PRN Reason Stop Dose Admin Acetaminophen 650 mg 02/04/21 04:02 02/07/21 21:48 Acetaminophen 325 Mg Tablet PO 650 mg Q6H PRN Administration Pain, Mild (Pain Scale 1-3) Albuterol Sulfate 1.25 mg 02/05/21 12:25 Albuterol Sulfate (0.042%) 1.25 Mg/3 Ml Vial.Neb INHALE RQ4H PRN Shortness of Breath/Wheezing Albuterol Sulfate 2 puff 02/07/21 13:00 02/08/21 05:36 Albuterol Sulfate 90 Mcg 8 Gm Inhaler INHALE Not Given RQ6H INÉS Bisacodyl 10 mg 02/07/21 18:00 02/07/21 18:09 Bisacodyl 5 Mg Tablet.Dr PO 10 mg ONCE@1800 INÉS Administration Diltiazem HCl 120 mg 02/08/21 09:00 02/08/21 09:15 Diltiazem Hcl Cd 120 Mg Cap.Er.Deg PO Not Given DAILY [facility] Protocol Gabapentin 200 mg 02/05/21 09:00 02/08/21 09:06 Gabapentin 100 Mg Capsule PO 200 mg DAILY INÉS Administration Magnesium Hydroxide 30 ml 02/04/21 04:02 Milk Of Magnesia 30 Ml Oral.Susp PO DAILY PRN Constipation Ondansetron HCl 4 mg 02/04/21 04:02 Ondansetron Hcl 4 Mg/2 Ml Vial IVPUSH Q8H PRN Nausea and Vomiting Pharmacy Consult 1 each 02/04/21 08:56 Consult Rx Perform Med Rec MISCELLANE ONCE PRN Consult order Prednisolone Acetate 1 drop 02/05/21 09:00 02/08/21 09:04 Prednisolone Acetate 1 % Oph Susp 5 Ml Drpbtl EYE-RIGHT 1 drop QID INÉS Administration Prednisone 2 mg 02/05/21 09:00 02/08/21 09:07 Prednisone 1 Mg Tablet PO 2 mg DAILY INÉS Administration Pyridostigmine [place] 60 mg 02/07/21 15:00 02/08/21 09:06 Pyridostigmine [place] 60 Mg Tablet PO 60 mg TID INÉS Administration Sodium Chloride 3 ml 02/04/21 04:02 02/08/21 09:04 0.9 % Sodium Chloride Flush 3 Ml Syringe IVFLUSH 3 ml QSHIFT INÉS Administration Home Medications Medication Instructions Recorded Confirmed Last Taken Type albuterol sulfate 2 puff INHALATION Q6H 07/09/20 02/04/21 Unknown History pyridostigmine bromide 60 mg tablet 60 mg PO TID 07/09/20 02/04/21 Unknown History warfarin 1 tab PO DAILY 07/09/20 02/04/21 Unknown History cephalexin 1 cap PO QID 02/04/21 02/04/21 Unknown History diltiazem HCl [Tiadylt ER] 1 cap PO DAILY 02/04/21 02/04/21 Unknown History gabapentin 200 mg PO DAILY 02/04/21 02/04/21 Unknown History prednisolone acetate 1 drp OPHTHALMIC-RIGHT QID 02/04/21 02/04/21 Unknown History prednisone 2 tab PO DAILY 02/04/21 02/04/21 Unknown History pyridostigmine bromide 1 tab PO TID 02/05/21 02/05/21 Unknown History Exam Exam Date and Time: February 08, 2021 1035 Height,Weight and Vital Signs: Height 5 ft 4 in Weight 50.349 kg Last Vital Signs Temp 98.2 F 02/08/21 07:52 Pulse 96 02/08/21 07:52 Resp 16 02/08/21 07:52 BP 100/60 02/08/21 07:52 Pulse Ox 97 02/08/21 07:52 Pertinent Lab Results Pertinent Lab Results: Laboratory Tests 02/03/21 02/03/21 02/03/21 15:40 15:40 15:40 WBC 5.7 RBC 4.96 Hgb 14.3 Hct 44.6 MCV 89.9 MCH 28.8 MCHC 32.1 RDW 15.1 Plt Count 184 MPV 11.6 Immature Gran % (Auto) 0.2 Neut % (Auto) 67.2 Lymph % (Auto) 21.7 Dickinson % (Auto) 10.0 Eos % (Auto) 0.4 Baso % (Auto) 0.5 Lymph # (Auto) 1.2 Dickinson # (Auto) 0.6 Eos # (Auto) 0.0 Baso # (Auto) 0.0 Abs Immat Gran (auto) 0.01 Absolute Neuts (auto) 3.8 Absolute Nucleated RBC 0.000 Nucleated RBC % (auto) 0.0 PT INR Sodium 141 Cancelled Potassium 4.9 Cancelled Chloride 102 Cancelled Carbon Dioxide 32 H Cancelled Anion Gap 12 Cancelled BUN 28 H Cancelled Creatinine 0.66 Cancelled Estim Creat Clear Calc 52.2 Cancelled Estimated GFR > 60 Cancelled Random Glucose 106 Cancelled Fasting Glucose Calcium 10.0 Cancelled Total Bilirubin 0.7 Cancelled Direct Bilirubin 0.3 AST 25 Cancelled ALT 19 Cancelled Alkaline Phosphatase 95 Cancelled Troponin I High Sens Total Protein 7.5 Cancelled Albumin 4.3 Cancelled Lipase 12 Urine Color Urine Appearance Urine pH Ur Specific [place] Urine Protein Urine Glucose (UA) Urine Ketones Urine Blood Urine Nitrite Ur Leukocyte Esterase Urine RBC Urine WBC Ur Squamous Epith Cells Calcium Oxalate Crystal Urine Bacteria COVID-19 (ROC) [employer] Com Blood Type Antibody Screen 02/03/21 02/03/21 02/03/21 15:40 15:40 15:40 WBC RBC Hgb Hct MCV MCH MCHC RDW Plt Count MPV Immature Gran % (Auto) Neut % (Auto) Lymph % (Auto) Dickinson % (Auto) Eos % (Auto) Baso % (Auto) Lymph # (Auto) Dickinson # (Auto) Eos # (Auto) Baso # (Auto) Abs Immat Gran (auto) Absolute Neuts (auto) Absolute Nucleated RBC Nucleated RBC % (auto) PT 28.7 H INR 2.4 H Sodium Potassium Chloride Carbon Dioxide Anion Gap BUN Creatinine Estim Creat Clear Calc Estimated GFR Random Glucose Fasting Glucose Calcium Total Bilirubin Direct Bilirubin AST ALT Alkaline Phosphatase Troponin I High Sens < 3.5 Total Protein Albumin Lipase Urine Color Urine Appearance Urine pH Ur Specific [place] Urine Protein Urine Glucose (UA) Urine Ketones Urine Blood Urine Nitrite Ur Leukocyte Esterase Urine RBC Urine WBC Ur Squamous Epith Cells Calcium Oxalate Crystal Urine Bacteria COVID-19 (ROC) COVID-[employer] Com Blood Type A Positive Antibody Screen NEGATIVE 02/03/21 02/03/21 02/04/21 16:47 17:26 05:27 WBC RBC Hgb Hct MCV MCH MCHC RDW Plt Count MPV Immature Gran % (Auto) Neut % (Auto) Lymph % (Auto) Dickinson % (Auto) Eos % (Auto) Baso % (Auto) Lymph # (Auto) Dickinson # (Auto) Eos # (Auto) Baso # (Auto) Abs Immat Gran (auto) Absolute Neuts (auto) Absolute Nucleated RBC Nucleated RBC % (auto) PT INR Sodium 141 Potassium 3.9 D Chloride 105 Carbon Dioxide 31 H Anion Gap 9 L BUN 25 H Creatinine 0.56 Estim Creat Clear Calc 61.5 Estimated GFR > 60 Random Glucose 85 Fasting Glucose Calcium 8.9 D Total Bilirubin 0.7 Direct Bilirubin AST 21 ALT 15 Alkaline Phosphatase 79 Troponin I High Sens Total Protein 6.1 L Albumin 3.6 Lipase Urine Color YELLOW Urine Appearance CLEAR Urine pH 6.0 Ur Specific [place] 1.020 Urine Protein TRACE Urine Glucose (UA) NEG Urine Ketones NEG Urine Blood 2+ H Urine Nitrite NEG Ur Leukocyte Esterase 1+ H Urine RBC 5-9 H Urine WBC 10-14 H Ur Squamous Epith Cells 2+ Calcium Oxalate Crystal 1+ Urine Bacteria NONE COVID-19 (ROC) Negative COVID-19 Clin Com See Note Blood Type Antibody Screen 02/04/21 02/04/21 02/04/21 05:32 05:32 09:49 WBC 5.2 RBC 3.92 L D Hgb 11.6 L 13.3 Hct 35.5 L D 41.6 MCV 90.6 MCH 29.6 MCHC 32.7 RDW 15.2 Plt Count 145 L MPV 11.0 Immature Gran % (Auto) 0.2 Neut % (Auto) 57.6 Lymph % (Auto) 24.3 Dickinson % (Auto) 15.4 H Eos % (Auto) 1.9 Baso % (Auto) 0.6 Lymph # (Auto) 1.3 Dickinson # (Auto) 0.8 Eos # (Auto) 0.1 Baso # (Auto) 0.0 Abs Immat Gran (auto) 0.01 Absolute Neuts (auto) 3.0 Absolute Nucleated RBC 0.000 Nucleated RBC % (auto) 0.0 PT INR Sodium 144 Potassium 3.5 Chloride 114 H Carbon Dioxide 26 Anion Gap 8 L BUN 17 H Creatinine 0.47 L Estim Creat Clear Calc 73.3 Estimated GFR > 60 Random Glucose 72 Fasting Glucose Calcium 7.0 L D Total Bilirubin Direct Bilirubin AST ALT Alkaline Phosphatase Troponin I High Sens Total Protein Albumin Lipase Urine Color Urine Appearance Urine pH Ur Specific [place] Urine Protein Urine Glucose (UA) Urine Ketones Urine Blood Urine Nitrite Ur Leukocyte Esterase Urine RBC Urine WBC Ur Squamous Epith Cells Calcium Oxalate Crystal Urine Bacteria COVID-19 (ROC) COVID-19 [employer] Com Blood Type Antibody Screen 02/04/21 02/05/21 02/05/21 09:49 06:00 06:00 WBC 6.6 RBC 4.33 Hgb 12.7 Hct 39.2 MCV 90.5 MCH 29.3 MCHC 32.4 RDW 14.8 Plt Count 155 L MPV 11.7 Immature Gran % (Auto) Neut % (Auto) Lymph % (Auto) [place] % (Auto) Eos % (Auto) Baso % (Auto) Lymph # (Auto) [place] # (Auto) Eos # (Auto) Baso # (Auto) Abs Immat Gran (auto) Absolute Neuts (auto) Absolute Nucleated RBC 0.000 Nucleated RBC % (auto) 0.0 PT 26.5 H 21.5 H INR 2.2 H 1.8 H Sodium Potassium Chloride Carbon Dioxide Anion Gap BUN Creatinine Estim Creat Clear Calc Estimated GFR Random Glucose Fasting Glucose Calcium Total Bilirubin Direct Bilirubin AST ALT Alkaline Phosphatase Troponin I High Sens Total Protein Albumin Lipase Urine Color Urine Appearance Urine pH Ur Specific [place] Urine Protein Urine Glucose (UA) Urine Ketones Urine Blood Urine Nitrite Ur Leukocyte Esterase Urine RBC Urine WBC Ur Squamous Epith Cells Calcium Oxalate Crystal Urine Bacteria COVID-19 (ROC) COVID-19 [employer] Com Blood Type Antibody Screen 02/05/21 02/06/21 02/07/21 06:00 06:21 06:38 WBC RBC Hgb Hct MCV MCH MCHC RDW Plt Count MPV Immature Gran % (Auto) Neut % (Auto) Lymph % (Auto) [place] % (Auto) Eos % (Auto) Baso % (Auto) Lymph # (Auto) [place] # (Auto) Eos # (Auto) Baso # (Auto) Abs Immat Gran (auto) Absolute Neuts (auto) Absolute Nucleated RBC Nucleated RBC % (auto) PT 17.0 H D 13.2 H D INR 1.4 H 1.1 Sodium 140 Potassium 4.3 D Chloride 106 Carbon Dioxide 25 Anion Gap 13 BUN 18 H Creatinine 0.55 Estim Creat Clear Calc 62.6 Estimated GFR > 60 Random Glucose 73 Fasting Glucose Calcium 8.8 D Total Bilirubin Direct Bilirubin AST ALT Alkaline Phosphatase Troponin I High Sens Total Protein Albumin Lipase Urine Color Urine Appearance Urine pH Ur Specific [place] Urine Protein Urine Glucose (UA) Urine Ketones Urine Blood Urine Nitrite Ur Leukocyte Esterase Urine RBC Urine WBC Ur Squamous Epith Cells Calcium Oxalate Crystal Urine Bacteria COVID-19 (ROC) COVID-19 Clin Com Blood Type Antibody Screen 02/08/21 02/08/21 02/08/21 06:00 06:00 06:00 WBC 6.9 RBC 4.08 L Hgb 12.0 Hct 36.9 L MCV 90.4 MCH 29.4 MCHC 32.5 RDW 14.4 Plt Count 175 MPV 11.3 Immature Gran % (Auto) 0.3 Neut % (Auto) 65.7 Lymph % (Auto) 13.8 L [place] % (Auto) 16.4 H Eos % (Auto) 3.5 Baso % (Auto) 0.3 Lymph # (Auto) 1.0 L [place] # (Auto) 1.1 Eos # (Auto) 0.2 Baso # (Auto) 0.0 Abs Immat Gran (auto) 0.02 Absolute Neuts (auto) 4.5 Absolute Nucleated RBC 0.000 Nucleated RBC % (auto) 0.0 PT 13.2 H INR 1.1 Sodium 141 Potassium 3.9 Chloride 101 Carbon Dioxide 31 H Anion Gap 13 BUN 9 Creatinine 0.56 Estim Creat Clear Calc 61.5 Estimated GFR > 60 Random Glucose Fasting Glucose 90 Calcium 9.0 Total Bilirubin Direct Bilirubin AST ALT Alkaline Phosphatase Troponin I High Sens Total Protein Albumin Lipase Urine Color Urine Appearance Urine pH Ur Specific [place] Urine Protein Urine Glucose (UA) Urine Ketones Urine Blood Urine Nitrite Ur Leukocyte Esterase Urine RBC Urine WBC Ur Squamous Epith Cells Calcium Oxalate Crystal Urine Bacteria COVID-19 (ROC) COVID-19 Clin Com Blood Type Antibody Screen Airway Mallampati Class: I (Edentulous) TM Dist: >3cm Neck ROM: Limited Loose/Missing/Broken Teeth: Yes, Upper and Lower Heart: jrreg irreg rhythm Lungs: CTA Assessment and Plan Assessment Anesthesia Assessment: Anesthesia Plan Discussed and Chart Reviewed Final Anesthetic Review NPO: Yes ASA Class: III Final Preanesthetic Review: Meds/Allgs Chart Reviewed, Consent Obtained/Reviewed and Anes Risks/Benef Reviewed Patient Risk: Intermediate Procedure Risk: Low Anesthetic Plan Anesthetic Plan: MAC: Disposition: Standard PACU
--- NOTE | 2021-02-08 12:13 | MHC.CM.PN ---
IMM 02/08, EMR REVIEWED, PER MULTIDISCIPLINARY ROUNDS PT WILL HAVE COLONOSCOPY TODAY AND ANTICIPATED D/C TOMORROW 02/09, CM RECEIVED MESSAGE FROM PT'S FRIEND/HCP EDGARDO RIVER, SANDRO CONTACTED HCP AT 11:56AM [phone] WHO HAD QUESTIONS ABOUT PT'S PLAN AND WHEN SHE MIGHT BE D/C'D. HCP UPDATED AND PLANS TO BE AT PTS HOME WHEN PT ARRIVES, PT WILL NEED TRANSPORT. PER HCP SHE IS [facility] TODAY TO DISCUSS PT'S [employer] HOURS AND REQUEST INCREASE IN HRS. HCP REPORTS PT HAS MINIMAL [employer] HRS AND HOUSEKEEPING HRS, HCP DOES SHOPING FOR PT AND ASSISTS W/APPT'S AND PAYING BILLS. D/C PLAN: ANTICIPATED 5/HOME W/RESUMP OF [facility] AND [facility] FOR [employer] HRS, WILL NEED TRANSPORT HOME. CM TO CONT TO FOLLOW D/C NEEDS
--- NOTE | 2021-02-08 12:23 | P.BOP_ITS ---
Brief Operative Note Date of Service: 02/08/21 Pre-op diagnosis: Lower GI bleed Post-op diagnosis: other (Diverticulosis, Internal hemorrhoids) Procedure: Colonoscopy to the cecum Surgeon: Dexter Sadler Anesthesia: MAC Was an Police Officer used for this Procedure?: No Estimated blood loss (mL): 0 Pathology: none sent Condition: stable Disposition: PACU
--- NOTE | 2021-02-08 12:24 | PM.EVENT ---
Event Note Date of Service: 02/08/21 Event Note: GI-Colonoscopy to the cecum-Full note dictated Findings: 1. Sigmoid diverticulosis 2. Internal hemorrhoids No fresh nor old blood, no active bleeding. Rec: Advance diet. No contraindication to resume her Coumadin from a GI standpoint. No F/U colonoscopies needed. D/W patient. I left a VM for Maggie Encinas, her HCP. Thanks
--- NOTE | 2021-02-08 13:31 | OP_ITS ---
SURGEON: Dexter Sadler MD INDICATIONS: The patient presents for evaluation of lower GI bleeding. Full consent has been obtained from her for this, including risks of bleeding and perforation. PREOPERATIVE DIAGNOSIS: Colorectal cancer screening. POSTOPERATIVE DIAGNOSIS: PROCEDURE PERFORMED: Colonoscopy to the cecum. ESTIMATED BLOOD LOSS: COMPLICATIONS: ANESTHESIA: Monitored anesthesia care. ASSISTANTS: SPECIMENS: POSTOPERATIVE DIAGNOSES: Colorectal cancer screening, diverticulosis, and internal hemorrhoids. DESCRIPTION OF PROCEDURE: The patient was placed in the left lateral decubitus position. The digital rectal exam revealed no abnormalities. The Olympus video pediatric colonoscope was entered into the rectum and advanced easily to the cecum. Once in the cecum, I did identify normal-appearing cecal pouch with appendiceal orifice and a normal-appearing ileocecal valve. There was transillumination of light deep in the right lower quadrant. The entire cecum and ileocecal valve appeared normal. The scope was slowly withdrawn assessing all mucosal surfaces carefully. Preparation was excellent. There was a moderate amount of sigmoid diverticulosis. I did not visualize any sign of polyps, colitis, nor angiodysplasias. In the rectum, scope was retroflexed visualizing small internal hemorrhoids, but no other pathology. The rectal mucosa appeared normal. The scope was straightened out and withdrawn from the patient. She tolerated the procedure well and was returned to the recovery area in stable condition. IMPRESSION: 1. Diverticulosis. 2. Internal hemorrhoids. PLAN: Given today's negative exam and no sign of any active bleeding, her diet will be advanced. I think she can resume her Coumadin as needed as per the hospitalist team. I do not see any contraindication from a GI standpoint in regard to resuming her Coumadin. I do not think she will need any further colonoscopies in the future. She will see me on a p.r.n. basis. MD NATIVIDAD Barger/TERRELL / [phone]
--- NOTE | 2021-02-08 16:25 | P.PNIM_ITS ---
Subjective Subjective Date of Service: 02/08/21 Interval History: flank pain resolved no further rectal bleeding no fever Physical Exam Vital Signs: Vital Signs: Last Vital Signs Temp 98.3 F 02/08/21 15:37 Pulse 101 H 02/08/21 15:37 Resp 17 02/08/21 15:37 BP 104/57 L 02/08/21 15:37 Pulse Ox 94 02/08/21 15:37 Body Mass Index 19.0 Gen: in no acute distress HEENT: sclera anicteric, moist mucus membranes Neck: supple Lungs: clear to auscultation bilaterally Heart: irregularly irregular, no murmurs Abd: soft, non-tender, non-distended Ext: no edema Skin: warm/well-perfused Neuro: alert and oriented x3, no focal findings Psych: appropriate affect Objective Data Current Medications Generic Name Dose Route Start Last Admin Trade Name Freq PRN Reason Stop Dose Admin Acetaminophen 650 mg 02/04/21 04:02 02/07/21 21:48 Acetaminophen 325 Mg Tablet PO 650 mg Q6H PRN Administration Pain, Mild (Pain Scale 1-3) Albuterol Sulfate 1.25 mg 02/05/21 12:25 Albuterol Sulfate (0.042%) 1.25 Mg/3 Ml Vial.Neb INHALE RQ4H PRN Shortness of Breath/Wheezing Albuterol Sulfate 2 puff 02/07/21 13:00 02/08/21 11:33 Albuterol Sulfate 90 Mcg 8 Gm Inhaler INHALE Not Given RQ6H INÉS Diltiazem HCl 120 mg 02/08/21 09:00 02/08/21 09:15 Diltiazem Hcl Cd 120 Mg Cap.Er.Deg PO Not Given DAILY [facility] Protocol Gabapentin 200 mg 02/05/21 09:00 02/08/21 09:06 Gabapentin 100 Mg Capsule PO 200 mg DAILY INÉS Administration Magnesium Hydroxide 30 ml 02/04/21 04:02 Milk Of Magnesia 30 Ml Oral.Susp PO DAILY PRN Constipation Ondansetron HCl 4 mg 02/04/21 04:02 Ondansetron Hcl 4 Mg/2 Ml Vial IVPUSH Q8H PRN Nausea and Vomiting Pharmacy Consult 1 each 02/04/21 08:56 Consult Rx Perform Med Rec MISCELLANE ONCE PRN Consult order Prednisolone Acetate 1 drop 02/05/21 09:00 02/08/21 14:16 Prednisolone Acetate 1 % Oph Susp 5 Ml Drpbtl EYE-RIGHT 1 drop QID INÉS Administration Prednisone 2 mg 02/05/21 09:00 02/08/21 09:07 Prednisone 1 Mg Tablet PO 2 mg DAILY INÉS Administration Pyridostigmine [place] 60 mg 02/07/21 15:00 02/08/21 14:16 Pyridostigmine [place] 60 Mg Tablet PO 60 mg TID INÉS Administration Sodium Chloride 3 ml 02/04/21 04:02 02/08/21 09:04 0.9 % Sodium Chloride Flush 3 Ml Syringe IVFLUSH 3 ml QSHIFT INÉS Administration Labs CBC & Chem 7: 02/08/21 06:00 02/08/21 06:00 Microbiology Microbiology Results: Microbiology 02/04/21 18:00 Urine clean catch - Clean Catch Midstream Urine Culture - Final No growth. 02/03/21 17:01 Urine clean catch - Clean Catch Midstream Urine Culture - F inal No growth. Assessment and Plan (1) Ureteral stone with hydronephrosis: Status: Acute (2) UTI (urinary tract infection): Status: Acute (3) Atrial fibrillation: Status: Acute (4) Lower GI bleed: Status: Acute (5) Primary osteoarthritis of right knee: Status: Acute Assessment and Plan: hospital d#6 80yo F with AF anticoagulated on warfarinm, myasthenia gravis admitted for hematochezia as well as obstructing ureteral stone with R hydronephrosis # ureteral stone with hydronephrosis - s/p cystocopy/stent placement 02/04/21, no evidence of infection- ABX stopped, outpt f/u with Urology # lower GIB - C-scope done today- no active bleeding; has sigmoid diverticulitis + internal hemorrhoids; no contraindication to resume warfarin # AF - resume warfarin, monitor INR, no bridging needed - diltiazem dose-reduced for soft BP # myasthenia gravis - continue prednisone, pyridostigmine # VTE ppx - SCDs, warfarin # dispo - likely home tomorrow
[2021-02-08 17:05] LABS: INTERNATIONAL NORM RATIO 1.1 (0.9-1.1); Prothrombin Time 12.9 SEC (10.8-13.0)
[2021-02-08] MEDS: Warfarin Sodium 2.5 MG TABLET PO (19:04)
[2021-02-09] VITALS (8 sets, daily range): BP systolic 102–114; BP diastolic 54–60; PULSE 77–101; RESP 16–18; TEMP 36–37.1; O2SAT 93–98
[2021-02-09] MEDS: 0.9 % Sodium Chloride Flush 3 ML SYRINGE IVFLUSH ×2 (00:17→07:47)
[2021-02-09] MEDS: Albuterol Sulfate 90 MCG 8 GM INHALER 2 PUFF INHALE ×2 (06:09→11:36)
[2021-02-09 06:41] LABS: Hematocrit 34.9 % (37-47); Hemoglobin 11.4 g/dl (12.0-16.0); Mean Corpuscular HGB Conc 32.7 g/dl (31.0-35.0); Mean Corpuscular Hemoglobin 29.5 pg (27.0-33.0); Mean Corpuscular Volume 90.2 fL (80-98); Mean Platelet Volume 12.3 fL (9.4-12.3); Platelet Count 182 X10*3/uL (160-400); Red Blood Count 3.87 X10*6/uL (4.20-5.50); Red Cell Distribution Width 14.4 % (11.0-16.0); White Blood Count 6.3 X10*3/uL (4.8-10.8)
[2021-02-09 06:53] LABS: INTERNATIONAL NORM RATIO 1.1 (0.9-1.1); Prothrombin Time 13.3 SEC (10.8-13.0)
--- NOTE | 2021-02-09 08:28 | HO.POSTANES ---
Post Anesthesia Evaluation Post Anesthesia Evaluation Vital Signs: Vital Signs Temp Pulse Resp BP Pulse Ox 02/09/21 07:28 96.9 F 101 H 18 102/57 L 94 02/09/21 06:09 95 02/09/21 04:00 98.7 F 87 16 105/59 L 94 02/09/21 00:44 98.0 F 95 16 113/56 L 95 02/09/21 00:00 98.0 F 101 H 16 113/56 L 95 Anesthesia: Monitored Mental Status: Awake Pain Control: Satisfactory Nausea/Vomiting: None Hydration: Adequate Anesthesia-Related Issues: No Anes. Related Issues
[2021-02-09] MEDS: dilTIAZem HCL CD 120 MG CAP.ER.DEG PO (10:15)
[2021-02-09] MEDS: Gabapentin 100 MG CAPSULE 200 MG PO (10:15)
[2021-02-09] MEDS: prednisoLONE Acetate 1 % Oph Susp 5 ML DRPBTL 1 DROP EYE-RIGHT (10:16)
[2021-02-09] MEDS: predniSONE 1 MG TABLET 2 MG PO (10:16)
--- NOTE | 2021-02-09 11:08 | P.DS_ITS ---
DS: Providers Provider Date of Service: 02/09/21 Date of admission: 02/03/21 22:38 Consults: 02/04/21 04:02 Consult to Gastroenterology Routine Consulting Provider: Dexter Sadler Reason for consultation: bright blood per rectum Has provider been notified: No Consult to Urology Routine Consulting Provider: Rodriguez Maier Reason for consultation: obstructing kidney stone Has provider been notified: Yes DS: Diagnosis Discharge Diagnosis (1) Ureteral stone with hydronephrosis: Status: Acute (2) Lower GI bleed: Status: Acute DS: Medications Discharge Medications Home Medications: Home Medications Medication Instructions Recorded Confirmed albuterol sulfate 2 puff INHALATION Q6H 07/09/20 02/04/21 pyridostigmine bromide 60 mg tablet 60 mg PO TID 07/09/20 02/04/21 warfarin 1 tab PO DAILY 07/09/20 02/04/21 gabapentin 200 mg PO DAILY 02/04/21 02/04/21 prednisolone acetate 1 drp OPHTHALMIC-RIGHT QID 02/04/21 02/04/21 prednisone 2 tab PO DAILY 02/04/21 02/04/21 pyridostigmine bromide 1 tab PO TID 02/05/21 02/05/21 Previous Rx's Medication Instructions Recorded diltiazem HCl [Cardizem CD] 120 mg PO DAILY #30 cap 02/09/21 DS: Summary Hospital Course Hospital Course: From the history and physical by the admitting hospitalist, Nathan Gloria MD, 02/03/21: This is an 80-year-old female with past medical history of AFib on Coumadin, IBS currently constipated, [myasthenia gravis] on prednisone who presents to the hospital with complaints of bloody bowel movements. Patient reports that she has been constipated, had 3 bowel movements that were bloody, 1 of them witnessed by her physical therapist. She is also reporting middle quadrant abdominal pain, nonradiating, 5/10, no relieving or exacerbating factors. The pain started today. She denies nausea or vomiting, no previous similar episode of bloody bowel movements. Denies any melena. Denies any weakness, headache, change in vision. No chest pain, palpitation, no cough or shortness of breath. Patient reports that she follows with urologist for history of kidney stones. On arrival to the ED no significant abnormal vitals Labs are significant for hemoglobin 14.3, hematocrit 44.6, PT of 28.7, INR of 2.4, BUN of 28, creatinine of 0.66, UA that is positive for leukocyte Estrace, and WBC, COVID-[address] of the abdomen shows [id number] right hydronephrosis caused by 0.6 cm calculus in the proximal 1/3 of the right ureter, cholelithiasis without cholecystitis, mild diffuse mural thickening in the urinary bladder secondary to incomplete distension versus infectious cystitis. Diverticulosis with no diverticulitis. The patient was admitted to medical-surgical floor for management of hematochezia as well as obstructing ureteral stone with right-sided hydronephrosis. She underwent cystoscopy with placement of right ureteral stent on 02/04/[address] Maier. Urine cultures were negative and antibiotic treatment was discontinued. She will need follow-up with her urologist in 2 weeks. Regarding the GI bleed, warfarin was held and Dr Sadler performed a colonoscopy on 02/08/21, which showed no active bleeding. There was sigmoid diverticulitis and internal hemorrhoids. It was felt safe to resume her warfarin, and there was no indication for bridging anticoagulation. Diltiazem was dose-reduced for soft blood pressure. She was discharged home with resumption of VNA services and will need an INR recheck on 02/11/2021. Time Spent with Patient Time attestation: Total time spent providing and/or coordinating discharge services: 35 Discharge coordination time: Greater than 30 minutes Physical Exam Vital Signs: Vital Signs: Last Vital Signs Temp 96.9 F 02/09/21 07:28 Pulse 101 H 02/09/21 07:28 Resp 18 02/09/21 07:28 BP 110/60 02/09/21 10:15 Pulse Ox 94 02/09/21 07:28 Body Mass Index 19.0 Gen: in no acute distress HEENT: sclera anicteric, moist mucus membranes Neck: supple Lungs: clear to auscultation bilaterally Heart: irregularly irregular, no murmurs Abd: soft, non-tender, non-distended Ext: no edema Skin: warm/well-perfused Neuro: alert and oriented x3, no focal findings Psych: appropriate affect DS: Data Data Completed and Pending Completed studies during hospitalization [Text1]: Laboratory Results WBC 6.3 X10*3/uL (4.8-10.8) 02/09/21 06:08 RBC 3.87 X10*6/uL (4.20-5.50) L 02/09/21 06:08 Hgb 11.4 g/dl (12.0-16.0) L 02/09/21 06:08 Hct 34.9 % (37-47) L 02/09/21 06:08 MCV 90.2 fL (80-98) 02/09/21 06:08 MCH 29.5 pg (27.0-33.0) 02/09/21 06:08 MCHC 32.7 g/dl (31.0-35.0) 02/09/21 06:08 RDW 14.4 % (11.0-16.0) 02/09/21 06:08 Plt Count 182 X10*3/uL (160-400) 02/09/21 06:08 MPV 12.3 fL (9.4-12.3) 02/09/21 06:08 Immature Gran % (Auto) 0.3 % (0.0-0.4) 02/08/21 06:00 Neut % (Auto) 65.7 % (45-73) 02/08/21 06:00 Lymph % (Auto) 13.8 % (20-40) L 02/08/21 06:00 [place] % (Auto) 16.4 % (2-11) H 02/08/21 06:00 Eos % (Auto) 3.5 % (0-4) 02/08/21 06:00 Baso % (Auto) 0.3 % (0-2) 02/08/21 06:00 Lymph # (Auto) 1.0 X10*3/uL (1.2-4.9) L 02/08/21 06:00 [place] # (Auto) 1.1 X10*3/uL (0.1-1.2) 02/08/21 06:00 Eos # (Auto) 0.2 X10*3/uL (0.0-0.4) 02/08/21 06:00 Baso # (Auto) 0.0 X10*3/uL (0.0-0.2) 02/08/21 06:00 Abs Immat Gran (auto) 0.02 X10*3/uL (0.00-0.03) 02/08/21 06:00 Absolute Neuts (auto) 4.5 X10*3/uL (2.0-8.3) 02/08/21 06:00 Absolute Nucleated RBC 0.000 X10*3/uL (0.0-0.012) 02/09/21 06:08 Nucleated RBC % (auto) 0.0 /100WBC (0.0-0.2) 02/09/21 06:08 PT 13.3 SEC (10.8-13.0) H 02/09/21 06:08 INR 1.1 (0.9-1.1) 02/09/21 06:08 Sodium 141 mmol/L (135-145) 02/08/21 06:00 Potassium 3.9 mmol/L (3.3-5.1) 02/08/21 06:00 Chloride 101 mmol/L (96-108) 02/08/21 06:00 Carbon Dioxide 31 mmol/L (22-29) H 02/08/21 06:00 Anion Gap 13 (12-20) 02/08/21 06:00 BUN 9 mg/dL (9-16) 02/08/21 06:00 Creatinine 0.56 mg/dL (0.5-1.4) 02/08/21 06:00 Estim Creat Clear Calc 61.5 02/08/21 06:00 Estimated GFR > 60 02/08/21 06:00 Random Glucose 73 mg/dL (60-115) 02/05/21 06:00 Fasting Glucose 90 mg/dL (60-99) 02/08/21 06:00 Calcium 9.0 mg/dL (8.4-10.2) 02/08/21 06:00 Total Bilirubin 0.7 mg/dL (0.0-1.0) 02/03/21 17:26 Direct Bilirubin 0.3 mg/dL (0.0-0.5) 02/03/21 15:40 AST 21 U/L (5-31) 02/03/21 17:26 ALT 15 U/L (0-31) 02/03/21 17:26 Alkaline Phosphatase 79 U/L (39-117) 02/03/21 17:26 Troponin I High Sens < 3.5 ng/L (<3.5-17.0) 02/03/21 15:40 Total Protein 6.1 g/dL (6.5-8.0) L 02/03/21 17:26 Albumin 3.6 g/dL (3.5-5.0) 02/03/21 17:26 Lipase 12 U/L (8-78) 02/03/21 15:40 Urine Color YELLOW 02/03/21 16:47 Urine Appearance CLEAR 02/03/21 16:47 Urine pH 6.0 (5.0-8.0) 02/03/21 16:47 Ur Specific Lewis 1.020 (1.005-1.025) 02/03/21 16:47 Urine Protein TRACE MG/DL (NEG-TRACE) 02/03/21 16:47 Urine Glucose (UA) NEG MG/DL (NEG) 02/03/21 16:47 Urine Ketones NEG MG/DL (NEG) 02/03/21 16:47 Urine Blood 2+ (NEG) H 02/03/21 16:47 Urine Nitrite NEG (NEG) 02/03/21 16:47 Ur Leukocyte Esterase 1+ (NEG) H 02/03/21 16:47 Urine RBC 5-9 /HPF (0) H 02/03/21 16:47 Urine WBC 10-14 /HPF (0-4) H 02/03/21 16:47 Ur Squamous Epith Cells 2+ /LPF 02/03/21 16:47 Calcium Oxalate Crystal 1+ /LPF 02/03/21 16:47 Urine Bacteria NONE /LPF 02/03/21 16:47 COVID-19 (ROC) Negative (Negative) 02/04/21 05:27 COVID-19 Clin Com See Note 02/04/21 05:27 Blood Type A Positive 02/03/21 15:40 Antibody Screen NEGATIVE 02/03/21 15:40 Impressions Abdomen/Pelvis CT 02/03/21 15:28 IMPRESSION: 1. Mild to moderate right hydronephrosis caused by a 0.6 cm calculus in the proximal one third of the right ureter. Nonobstructing right lower pole intrarenal calculus. 2. Tiny hepatic cysts demonstrate benign features. 3. Cholelithiasis without evidence for acute cholecystitis. 4. Mild diffuse mural thickening in the urinary bladder may be secondary to incomplete distention. Infectious/inflammatory cystitis would be less likely. 5. Mild descending/sigmoid diverticulosis without evidence for acute diverticulitis. 6. Mild left pelvic congestion secondary to a mildly dilated left gonadal vein. 7. Multilevel degenerative changes and vertebral body compression deformities in the visualized thoracolumbar spine do not demonstrate acute features. Guidance Fluoroscopy 02/04/21 14:59 FINDINGS~\^^ Intraoperative fluoroscopy provided for use by Dr. Maier. Please see operative note for detailed findings. Discharge Plan Discharge Anticipated Discharge Date/Time: 02/09/21 11:02 Patient Disposition: Home Health Service Discharge Diagnosis: ureterolithiasis, lower GI bleed Referrals: Tg Cooper, [employer] [Nurse Practitioner] - 1 Week Discharge Medications: New diltiazem HCl [Cardizem CD] 120 mg Capsule,Extended Release 24hr 120 mg PO DAILY Qty: 30 RF: 0 Continued warfarin 2.5 mg tablet 1 tab PO DAILY RF: 0 albuterol sulfate 90 mcg/actuation HFA aerosol inhaler 2 puff inhalation Q6H RF: 0 prednisolone acetate 1 % drops,suspension 1 drp ophthalmic-Right QID RF: 0 gabapentin 100 mg capsule 200 mg PO DAILY RF: 0 prednisone 1 mg tablet 2 tab PO DAILY RF: 0 pyridostigmine bromide 60 mg tablet 1 tab PO TID RF: 0 Discontinued cephalexin 250 mg capsule 1 cap PO QID RF: 0 diltiazem HCl [Tiadylt ER] 180 mg capsule,extended release 24 hr 1 cap PO DAILY RF: 0 Discharge Orders: Discharge Order (Routine); Ordered 02/09/21 Ordered By: Franco Tomas Diet: advance to usual diet and regular diet Activity on Discharge: As tolerated Stand Alone Forms: Patient Portal Discharge page Other Ambulatory Orders: Prothrombin Time INR (Routine) Timeframe: 2 Days Facility: [facility] - Location: Laboratory Ordered By: Franco Tomas Care Plan Goals: relief of pain from kidney stone prevention of strokes Health Concerns: ureteral stone lower GI bleeding atrial fibrillation, on warfarin Plan of Treatment: follow up with urologist, Dr Maier, in 2 weeks, for stent removal: [address] [place] [address] , [address] [place], [place] [id number] lower GI bleeding resolved; colonoscopy was negative decrease dose of diltiazem from 180 mg daily to 120 mg daily due to low blood pressure resume warfarin 2.5 mg daily. check INR on 02/11/21 with further dosing adjustments and INR checks per PCP. follow up with your primary care provider in 1 week Assessment: see above Patient Instructions: Ureteral Stent Placement (DC)
--- NOTE | 2021-02-09 11:36 | MHC.CM.PN ---
Patient has been medically cleared for dc to home today with VNA. A referral had been made to NA, who has been made aware of today's dc. Second IMM addressed with Patient and original will be left at bedside and a copy will be placed ion the chart.
--- NOTE | 2021-02-09 12:54 | MHC.CM.PN ---
Patient will be dc to home today at 1:30 PM, via [employer] van.
== END 2021-02-09 13:47 | disposition home health service (06) | DRG 659 ==
LOC: HO.ED 21:27 → HO.EDOVER 22:51 → HO.S3 02-04 12:28
PROVIDERS: Family Medicine; Internal Medicine; Nurse Practitioner Family; Urology; Admitting Provider Internal Medicine; Emergency Provider Internal Medicine; PCP Nurse Practitioner Family; Visit Provider Family Medicine
PROC: 0T768DZ Dilation of Right Ureter with Intraluminal Device, Via Natural or Artificial Opening Endoscopic (ICD-10-PCS; principal; 2021-02-04 16:30)
PROC: 0DJD8ZZ Inspection of Lower Intestinal Tract, Via Natural or Artificial Opening Endoscopic (ICD-10-PCS; CPT 45378; principal; 2021-02-08 11:20)
DX: N13.6 Pyonephrosis (principal); K57.31 Diverticulosis of large intestine without perforation or abscess with bleeding; I48.91 Unspecified atrial fibrillation; G70.00 Myasthenia gravis without (acute) exacerbation; M17.11 Unilateral primary osteoarthritis, right knee; K64.8 Other hemorrhoids; Z20.822 Contact with and (suspected) exposure to COVID-19; Z88.5 Allergy status to narcotic agent; Z79.01 Long term (current) use of anticoagulants; Z79.52 Long term (current) use of systemic steroids; Z79.899 Other long term (current) drug therapy; Z66 Do not resuscitate
CPT/HCPCS: 36415; 74177; 80048; 80053; 80076; 81001; 81003; 83690; 84484; 85014; 85018; 85025; 85027; 85610; 86850; 86900; 86901; 87086; 87635; 93005; 94640; 96361; 96374; 99285; C1769; C2617; J0696; J3010; Q9967

== ENCOUNTER → 2021-02-26 15:46 | Outpatient (BNVA) | payer MEDICARE, SELFPAY | PROVIDERS: PCP Nurse Practitioner Family; Visit Provider Urology | CPT/HCPCS: Q3014 ==

== ENCOUNTER 2021-04-12 10:51 | Day surgery (SDC) | payer MEDICARE, SELFPAY ==
--- NOTE | 2021-03-18 13:18 | P.CONAN_ITS ---
HPI - Anesthesia Eval Consult details Narrative: 80yo F for Right Cystoscopy, Ureteroroscopy, Retro, Laser s/p cysto, stent 01/2021 with TIVA Myesthenia gravis [facility] Active Problems Active Problems: All Active Problems (Updated 02/17/21 @ 00:02 by Sydney Zurita) Hip fracture (Acute) Ureteral stone with hydronephrosis (Acute) Retained ureteral stent (Acute) Past Medical History Medical History Asthma Atrial fibrillation Deficient knowledge of open reduction and internal (ORIF) fixation of hip Discoid lupus GERD (gastroesophageal reflux disease) IBS (irritable bowel syndrome) Kidney stone Myasthenia gravis Postural vertigo Primary osteoarthritis of right knee Skin cancer Status post open reduction and internal fixation (ORIF) of fracture (~01/2020) Family History Family History Mother No problems noted. Father No problems noted. Surgical History Surgical History History of cataract extraction with lens replacement (~11/2019) Social History Social History Household Members: None Housing: Assisted Living Facility Are you a primary day care assistant to a significant other at home: No Do you presently have visiting nurse or other home services: Yes Alcohol intake: never Second Hand Smoke Exposure: No service: No Current occupational status: retired Meds Allergies Allergy/AdvReac Type Severity Reaction Status Date / Time alendronate sodium [Fosamax] Allergy Unknown unknown Verified 02/04/21 04:24 codeine [Codeine] AdvReac Mild STOMACH Verified 02/04/21 04:24 UPSET Codeine Phosphate Allergy Unknown unknown Uncoded 02/04/21 04:24 Home Medications Medication Instructions Recorded Confirmed Last Taken Type albuterol sulfate 2 puff INHALATION Q6H 07/09/20 02/04/21 Unknown History pyridostigmine bromide 60 mg tablet 60 mg PO TID 07/09/20 02/04/21 Unknown History warfarin 1 tab PO DAILY 07/09/20 02/04/21 Unknown History gabapentin 200 mg PO DAILY 02/04/21 02/04/21 Unknown History prednisolone acetate 1 drp OPHTHALMIC-RIGHT QID 02/04/21 02/04/21 Unknown History prednisone 2 tab PO DAILY 02/04/21 02/04/21 Unknown History pyridostigmine bromide 1 tab PO TID 02/05/21 02/05/21 Unknown History Exam Exam Date and Time: March 18, 2021 1318 Pertinent Lab Results Pertinent Lab Results: Laboratory Tests 02/08/21 02/09/21 06:00 06:08 WBC 6.3 Hgb 11.4 L Hct 34.9 L Plt Count 182 Sodium 141 Potassium 3.9 Chloride 101 Carbon Dioxide 31 H BUN 9 Creatinine 0.56 Narrative Narrative: EKG 01/2021 Vent. Rate : 079 BPM Atrial Rate : 394 BPM P-R Int : 000 ms QRS Dur : 134 ms QT Int : 398 ms P-R-T Axes : 000 111 -13 degrees QTc Int : 456 ms Atrial fibrillation Right bundle branch block Abnormal ECG When compared with ECG of 11-JAN-2020 18:08, No significant changes seen ECHO 12/2020 Conclusions: - The left ventricular systolic function is normal. The visually estimated ejection fraction is between 55-60%. - Moderately increased right ventricular cavity size. - Severe biatrial enlargement. - There is mild mitral valve regurgitation. - There is moderate tricuspid valve regurgitation. - Mild pulmonary hypertension is present. Assessment and Plan Assessment Anesthesia Assessment: Chart Reviewed
--- NOTE | 2021-04-09 12:07 | P.CONAN_ITS ---
Documented by User: Ashlyn Sandoval 04/09/21 12:14 HPI - Anesthesia Eval Consult details Narrative: 80yo F for Right Cystoscopy, Ureteroroscopy, Retro, Laser s/p cysto, stent 01/2021 with TIVA Coumadin for afib Myesthenia Gravis [facility] Active Problems Active Problems: All Active Problems (Updated 02/17/21 @ 00:02 by Sydney Zurita) Hip fracture (Acute) Ureteral stone with hydronephrosis (Acute) Retained ureteral stent (Acute) Past Medical History Medical History Asthma Atrial fibrillation Deficient knowledge of open reduction and internal (ORIF) fixation of hip Discoid lupus GERD (gastroesophageal reflux disease) IBS (irritable bowel syndrome) Kidney stone Myasthenia gravis Postural vertigo Primary osteoarthritis of right knee Skin cancer Family History Family History Mother No problems noted. Father No problems noted. Surgical History Surgical History History of cataract extraction with lens replacement (~11/2019) Status post open reduction and internal fixation (ORIF) of fracture (~01/2020) Social History Social History Household Members: None Housing: Assisted Living Facility Are you a primary hospice home care coordinator to a significant other at home: No Do you presently have visiting nurse or other home services: Yes Alcohol intake: never Patient Tobacco Use Status: Former Tobacco user Tobacco use type: Cigarette Years Smoked: 10 Second Hand Smoke Exposure: No Use of substances other than those prescribed or required for medical reasons: No Are you DNR?: Yes Advance Directives: No Advance Directives Information Provided: Yes service: No Current occupational status: retired Meds Allergies Allergy/AdvReac Type Severity Reaction Status Date / Time alendronate sodium [Fosamax] Allergy Unknown unknown Verified 04/12/21 11:58 morphine Allergy Vomiting Verified 04/12/21 11:59 codeine [Codeine] AdvReac Mild STOMACH Verified 04/12/21 11:58 UPSET Codeine Phosphate Allergy Unknown unknown Uncoded 02/04/21 04:24 Home Medications Medication Instructions Recorded Confirmed Last Taken Type albuterol sulfate 2 puff INHALATION Q6H 07/09/20 02/04/21 Unknown History pyridostigmine bromide 60 mg tablet 60 mg PO TID 07/09/20 02/04/21 Unknown History warfarin 1 tab PO DAILY 07/09/20 02/04/21 04/05/21 History gabapentin 200 mg PO DAILY 02/04/21 02/04/21 Unknown History prednisolone acetate 1 drp OPHTHALMIC-RIGHT QID 02/04/21 02/04/21 Unknown History prednisone 2 tab PO DAILY 02/04/21 02/04/21 Unknown History pyridostigmine bromide 1 tab PO TID 02/05/21 02/05/21 04/12/21 06:00 History Exam Exam Date and Time: April 09, 2021 1207 Pertinent Lab Results Pertinent Lab Results: Laboratory Tests 02/08/21 02/09/21 06:00 06:08 WBC 6.3 Hgb 11.4 L Hct 34.9 L Plt Count 182 Sodium 141 Potassium 3.9 Chloride 101 Carbon Dioxide 31 H BUN 9 Creatinine 0.56 Narrative Narrative: EKG 01/2021 Vent. Rate : 079 BPM Atrial Rate : 394 BPM P-R Int : 000 ms QRS Dur : 134 ms QT Int : 398 ms P-R-T Axes : 000 111 -13 degrees QTc Int : 456 ms Atrial fibrillation Right bundle branch block Abnormal ECG When compared with ECG of 11-JAN-2020 18:08, No significant changes seen ECHO 12/2020 Conclusions: - The left ventricular systolic function is normal. The visually estimated ejection fraction is between 55-60%. - Moderately increased right ventricular cavity size. - Severe biatrial enlargement. - There is mild mitral valve regurgitation. - There is moderate tricuspid valve regurgitation. - Mild pulmonary hypertension is present. Assessment and Plan Assessment Anesthesia Assessment: Chart Reviewed Documented by User: Corrie Caicedo 04/12/21 13:54 [facility] Past Medical History Medical History Asthma Atrial fibrillation Deficient knowledge of open reduction and internal (ORIF) fixation of hip Discoid lupus GERD (gastroesophageal reflux disease) IBS (irritable bowel syndrome) Kidney stone Myasthenia gravis Postural vertigo Primary osteoarthritis of right knee Skin cancer Family History Family History Mother No problems noted. Father No problems noted. Surgical History Surgical History History of cataract extraction with lens replacement (~11/2019) Status post open reduction and internal fixation (ORIF) of fracture (~01/2020) Social History Social History Household Members: None Housing: Assisted Living Facility Are you a primary hospice home care coordinator to a significant other at home: No Do you presently have visiting nurse or other home services: Yes Alcohol intake: never Patient Tobacco Use Status: Former Tobacco user Tobacco use type: Cigarette Years Smoked: 10 Second Hand Smoke Exposure: No Use of substances other than those prescribed or required for medical reasons: No Are you DNR?: Yes Advance Directives: No Advance Directives Information Provided: Yes service: No Current occupational status: retired Meds Allergies Allergy/AdvReac Type Severity Reaction Status Date / Time alendronate sodium [Fosamax] Allergy Unknown unknown Verified 04/12/21 11:58 morphine Allergy Vomiting Verified 04/12/21 11:59 codeine [Codeine] AdvReac Mild STOMACH Verified 04/12/21 11:58 UPSET Codeine Phosphate Allergy Unknown unknown Uncoded 02/04/21 04:24 Home Medications Medication Instructions Recorded Confirmed Last Taken Type albuterol sulfate 2 puff INHALATION Q6H 07/09/20 02/04/21 Unknown History pyridostigmine bromide 60 mg tablet 60 mg PO TID 07/09/20 02/04/21 Unknown History warfarin 1 tab PO DAILY 07/09/20 02/04/21 04/05/21 History gabapentin 200 mg PO DAILY 02/04/21 02/04/21 Unknown History prednisolone acetate 1 drp OPHTHALMIC-RIGHT QID 02/04/21 02/04/21 Unknown History prednisone 2 tab PO DAILY 02/04/21 02/04/21 Unknown History pyridostigmine bromide 1 tab PO TID 02/05/21 02/05/21 04/12/21 06:00 History Exam Airway Mallampati Class: II TM Dist: <=3cm Neck ROM: Limited Denture: Upper and Lower Assessment and Plan Assessment Anesthesia Assessment: Anesthesia Plan Discussed and Chart Reviewed Final Anesthetic Review NPO: Yes ASA Class: III Final Preanesthetic Review: No Changes in Pt Med Stat, Meds/Allgs Chart Reviewed, Consent Obtained/Reviewed and Anes Risks/Benef Reviewed Patient Risk: Intermediate Procedure Risk: Low Assessment/Block/Sedation in SS: Assess/Block/Sedation-SS Anesthetic Plan Anesthetic Plan: GA Disposition: Standard PACU
[2021-04-12] VITALS (9 sets, daily range): BP systolic 119–135; BP diastolic 60–82; PULSE 71–84; RESP 16–18; TEMP 36.2–36.9; O2SAT 94–100; BMI 19.3
[2021-04-12] MEDS: levoFLOXacin 500 MG TABLET PO (13:25)
[2021-04-12] MEDS: Lactated Ringers 1,000 ML 50 ML IVCONT (13:33)
--- NOTE | 2021-04-12 13:36 | PC.NURSE ---
Patient states she is a DNR code status. HCP is her friend Maggie Encinas. HCP documentation on file.
--- NOTE | 2021-04-12 15:14 | MHC.SHP ---
Pre-Procedural Eval Section A Date of Service: 04/12/21 Section B Chief Complaint: kidney stone Details of Present Illness: Right renal stone with stent Relevant Family History (Specify if Yes): No Relevant Social History: None Present Medications: see Short Stay Collaborative assessment Medical History: No relevant PMH History of Previous Operations: Relevant previous surgery/procedure and date(s) Allergies: Allergies Allergy/AdvReac Type Severity Reaction Status Date / Time alendronate sodium [Fosamax] Allergy Unknown unknown Verified 04/12/21 11:58 morphine Allergy Vomiting Verified 04/12/21 11:59 codeine [Codeine] AdvReac Mild STOMACH Verified 04/12/21 11:58 UPSET Codeine Phosphate Allergy Unknown unknown Uncoded 02/04/21 04:24 Review of Systems Sugical H&P ROS: Negative: Constitution, Cardiovascular, Respiratory, Neurological, Psychiatric, Hem-Onc, Allergic/Immunologic, Gastrointestinal, Genitourinary, Musculoskeletal, Integumentary, Endocrine and Eyes/Ears/Nose/Throat Exam Surgical H&P Exam: Normal: HEENT, Normal: Heart, Normal: Lungs, Normal: Extremities, Normal: Abdomen, Normal: Skin and Normal: Neurological Plan Diagnosis/Plan: Unchanged (Cystoscopy, right stent removal, retrograde, ureteroscopy, laser lithotripsy,) I have reviewed the history and physical and performed a pertinent physical examination on my patient. No changes have occurred unless specified.
--- NOTE | 2021-04-12 16:30 | P.OP_ITS ---
Operative Note Operative Note Date of Service: 04/12/21 Narrative: PreOperative Diagnosis: right renal stone Post Operative Diagnosis: Right renal stone Procedure: - cystoscopy with removal of right stent - right ureteroscopy with stone basketing Surgeon: Dr Rodriguez Maier Anesthesia: General Indications for procedure: This is an 80-year-old female. Presented in January with a right-sided proximal obstructing stone. Stent was placed for allowing her to recover. Presents today for definitive procedure. Understands the risks of bleeding and inf ection. Procedure: After informed consent was verified patient was brought to the operating placed in supine position. Anesthesia was administered per protocol. Patient was placed in modified dorsal lithotomy position and prepped and draped in a sterile fashion. Safety pause time-out and side of surgery confirmed. Antibiotics confirmed. Cystoscopy was performed. Stent was seen coming from right ureteric orifice. Stent was grasped and removed. Wire was placed through the stent up to the level renal pelvis. Access sheath was placed without difficulty. Flexible ureteroscopy of the renal pelvis was performed. Three small stones were encountered in each of these were basketed and able to be removed. There was ooze as she is on anticoagulation. A decision was made not to leave a stent. She tolerated procedure well was extubated in the operating room transferred in stable condition to the recovery area Pathology: Stones Drains: None
[2021-04-12] MEDS: ondansetron HCL 4 MG/2 ML VIAL IVPUSH (16:54)
[2021-04-12] MEDS: Phenazopyridine HCL 100 MG TABLET PO (18:16)
[2021-04-12] MEDS: Acetaminophen 325 MG TABLET 650 MG PO (18:16)
[2021-04-17 21:46] LABS: Stone Source RIGHT URETERAL STONE
== END 2021-04-12 16:55 | disposition home or self-care (01) ==
PROVIDERS: PCP Nurse Practitioner Family; Visit Provider Urology
PROC: (CPT 52352; principal; 2021-04-12 13:00)
DX: N20.1 Calculus of ureter (principal); Z96.0 Presence of urogenital implants; Z87.442 Personal history of urinary calculi; J45.909 Unspecified asthma, uncomplicated; I48.91 Unspecified atrial fibrillation; G70.00 Myasthenia gravis without (acute) exacerbation; H81.10 Benign paroxysmal vertigo, unspecified ear; Z85.828 Personal history of other malignant neoplasm of skin; L93.0 Discoid lupus erythematosus; Z79.01 Long term (current) use of anticoagulants; Z79.899 Other long term (current) drug therapy; Z66 Do not resuscitate; Z88.8 Allergy status to other drugs, medicaments and biological substances; Z87.891 Personal history of nicotine dependence
CPT/HCPCS: 52352; 82365; 88300; C1769; C1894; J1100; J2405; J3010; Q9967

== ENCOUNTER 2021-05-27 11:19 | Outpatient (REF) | payer MEDICARE, SELFPAY ==
--- NOTE | ~2021-05-27 | US_ITS ---
EXAMINATION: US RETROPERITONEAL LIMITED (RENAL ONLY) CLINICAL INFORMATION: Calculus of kidney. COMPARISON: CT abdomen and pelvis 02/03/2021. Renal ultrasound 01/20/2021. Ultrasound abdomen complete 12/08/2020. KUB 08/10/2014. X-ray abdomen 10/08/2012. TECHNIQUE: Real-time imaging of the kidneys. Technically limited study secondary to body habitus. FINDINGS: RIGHT KIDNEY: 11.0 x 3.6 x 5.3 cm (SAG x AP x TRV). The kidney is normal in size, contour, and echogenicity. Renal cortical thickness is normal. There is a 1 cm cyst in the upper pole. There are two 4 mm stones in the lower pole. No hydronephrosis. LEFT KIDNEY: 10.1 x 4.7 x 3.3 cm (SAG x AP x TRV). The kidney is normal in size, contour, and echogenicity. Renal cortical thickness is normal. No focal parenchymal lesions or hydronephrosis. There is a linear 1 x 6 mm echogenic density in the lower pole of the left kidney probably representing vascular reflector versus stone. US/US renal BI IMPRESSION: Limited exam. Right renal stones. Small right renal cyst and.
== END 2021-05-27 11:20 | disposition home or self-care (01) ==
LOC: HO.US 11:19
PROVIDERS: Visit Provider Urology
DX: N20.0 Calculus of kidney (principal)
CPT/HCPCS: 76775

== ENCOUNTER → 2021-06-01 09:48 | Outpatient (BNVA) | payer MEDICARE, SELFPAY | PROVIDERS: PCP Nurse Practitioner Family; Visit Provider Urology | CPT/HCPCS: 99212 ==

== ENCOUNTER 2021-12-06 10:22 | Outpatient (REF) | payer MEDICARE, SELFPAY ==
--- NOTE | ~2021-12-06 | US_ITS ---
EXAMINATION: US RETROPERITONEAL LIMITED (RENAL ONLY) CLINICAL INFORMATION: Calculus of kidney. COMPARISON: Ultrasound renal 12/06/2021 and 05/27/2021. TECHNIQUE: Real-time imaging of the kidneys. FINDINGS: RIGHT KIDNEY: 9.2 x 3.4 x 4.4 cm (SAG x AP x TRV). The kidney is normal in size, contour, and echogenicity. There are 2 stones measuring 5 mm in the lower pole. There are 2 small cysts in the mid and lower pole, largest measuring 1 cm. Renal cortical thickness is normal. No renal hydronephrosis. LEFT KIDNEY: 10.2 x 5.1 x 5.4 cm (SAG x AP x TRV). The kidney is normal in size, contour, and echogenicity. Renal cortical thickness is normal. There are 2 stones in the midpole measuring 6 x 5 mm and 4 x 2 mm. No focal parenchymal lesions or hydronephrosis. There is a small left pleural effusion. US/US renal BI IMPRESSION: Small bilateral renal stones. Small right renal cysts..
== END 2021-12-06 10:23 | disposition home or self-care (01) ==
LOC: HO.US 10:22
PROVIDERS: Visit Provider Urology
DX: N13.2 Hydronephrosis with renal and ureteral calculous obstruction (principal)
CPT/HCPCS: 76775

== ENCOUNTER → 2021-12-09 11:53 | Outpatient (BNVA) | payer MEDICARE, SELFPAY | PROVIDERS: PCP Nurse Practitioner Family | DX: N20.0 Calculus of kidney (principal) | CPT/HCPCS: Q3014 ==

== ENCOUNTER 2022-02-23 16:52 | Inpatient (IN) | payer MEDICARE, SELFPAY ==
--- NOTE | ~2022-02-23 | XR_ITS ---
EXAMINATION: XR CHEST CLINICAL INFORMATION: Hypoxia COMPARISON: 02/27/2022 TECHNIQUE: Frontal view of the chest was obtained. FINDINGS: Moderate left pleural effusion noted, increased from prior. Associated airspace opacity. The right lung is clear. No pneumothorax. Limited evaluation of the left apex due to patient positioning. The cardiomediastinal silhouette is unchanged, with a calcified aorta. XR/XR chest 1V IMPRESSION: Moderate left pleural effusion with airspace opacity which could be atelectasis or pneumonia.
--- NOTE | ~2022-02-23 | XR_ITS ---
EXAMINATION: RIGHT TIB-FIB AND RIGHT FOOT CLINICAL INFORMATION: Dropped items on leg with foot pain COMPARISON: Right knee 09/10/2020, right tib-fib 01/13/2020 TECHNIQUE: 2 views tib-fib, 2 views foot FINDINGS: Tib-fib: There is generalized osteopenia. Plate and screw devices are present on either side of the tibia. No acute fractures are seen. Some dystrophic calcification is seen adjacent to the medial femoral condyle. Chondrocalcinosis is present with calcification in the lateral meniscus. No fracture is seen. Foot: There is generalized osteopenia. Pes planus is present. Vascular calcifications are seen. No definite acute fracture is seen. Mild degenerative changes seen at the interphalangeal joints. There is some mild deformity of the proximal phalanx of the third digit which may be secondary to an old fracture. XR/XR tibia fibula RT 2V IMPRESSION: Generalized osteopenia. No acute fracture is seen.
--- NOTE | ~2022-02-23 | XR_ITS ---
EXAMINATION: XR CHEST CLINICAL INFORMATION: Shortness breath COMPARISON: 03/07/2022 TECHNIQUE: Frontal view of the chest was obtained. FINDINGS: New subtotal collapse of the left lung with minimal aeration present within the left upper lung. Small right pleural effusion with accompanying atelectasis less conspicuous on the current exam. Leftward mediastinal shift. Cardiac silhouette incompletely assessed. XR/XR chest 1V IMPRESSION: * New near complete collapse of the left lung with leftward mediastinal shift. * Small right pleural effusion with accompanying atelectasis appears less conspicuous on the current exam, possibly technical.
--- NOTE | ~2022-02-23 | US_ITS ---
EXAMINATION: US VENOUS ULTRASOUND WITH DOPPLER LOWER EXTREMITY, BILATERAL CLINICAL INFORMATION: Lower extremity swelling, bruising right greater than left. COMPARISON: None TECHNIQUE: Ultrasound of the deep veins is performed from the hip to the calf with compression sonography and color and pulse Doppler assessment. Spectral analysis with color-flow imaging is performed. FINDINGS: RIGHT: There is normal venous compression and respiratory variation and augmented flow. The visualized common femoral vein, superficial femoral vein, profunda femoral vein, popliteal vein, and the trifurcation region shows no evidence of deep venous thrombosis. There is no significant popliteal fossa cyst. Patient unable to tolerate full compression. LEFT: There is normal venous compression and respiratory variation and augmented flow. The visualized common femoral vein, superficial femoral vein, profunda femoral vein, popliteal vein, and the trifurcation region shows no evidence of deep venous thrombosis. There is no significant popliteal fossa cyst. There is a proximal right thigh complex fluid collection with layering heterogeneity measuring up to 8.5 x 5.5 x 7.6 cm. There is bilateral lower extremity subcutaneous edema, right greater than left. US/US venous duplex LE BI IMPRESSION: No DVT demonstrated in the bilateral lower extremity. Complex right thigh collection measuring up to 8.5 cm in greatest dimension. Findings are nonspecific and could represent a hematoma or infectious process. Bilateral lower extremity subcutaneous edema, right greater than left.
--- NOTE | ~2022-02-23 | XR_ITS ---
EXAMINATION: RIGHT TIB-FIB AND RIGHT FOOT CLINICAL INFORMATION: Dropped items on leg with foot pain COMPARISON: Right knee 09/10/2020, right tib-fib 01/13/2020 TECHNIQUE: 2 views tib-fib, 2 views foot FINDINGS: Tib-fib: There is generalized osteopenia. Plate and screw devices are present on either side of the tibia. No acute fractures are seen. Some dystrophic calcification is seen adjacent to the medial femoral condyle. Chondrocalcinosis is present with calcification in the lateral meniscus. No fracture is seen. Foot: There is generalized osteopenia. Pes planus is present. Vascular calcifications are seen. No definite acute fracture is seen. Mild degenerative changes seen at the interphalangeal joints. There is some mild deformity of the proximal phalanx of the third digit which may be secondary to an old fracture. XR/XR foot RT min 3V IMPRESSION: Generalized osteopenia. No acute fracture is seen.
--- NOTE | ~2022-02-23 | CT_ITS ---
EXAMINATION: CT HEAD WITHOUT CONTRAST CLINICAL INFORMATION: Fall, anticoagulated COMPARISON: CT brain 01/11/2020 TECHNIQUE: Contiguous axial imaging was performed from the skull base to vertex without intravenous administration of contrast. This CT examination was performed using dose optimization techniques as appropriate, variously including the following: *Automated exposure control *Adjustment of mA and/or kV according to patient size (this includes techniques or standardized protocols for targeted exams where dose is matched to indication/reason for exam; i.e. extremities or head) *Use of iterative reconstruction technique DLP: 6516 mGy-cm FINDINGS: There is no evidence of acute intracranial hemorrhage or territorial infarction. No abnormal mass effect or midline shift is seen. Xiao to white matter differentiation is well preserved. No extra-axial fluid collections are identified. Commensurate prominence of the ventricles and sulci is compatible with generalized parenchymal volume loss. There is moderate periventricular and subcortical white matter hypoattenuation, most likely representing microangiopathic disease. There is diffuse increased density in the right orbital globe. This represents an interval change as compared to the prior CT of 01/10/2022. This is of uncertain etiology. No acute calvarial fracture.. Partial opacification of the frontal, ethmoid sinuses. Remainder of the paranasal sinuses are well-aerated. Mastoid air cells evaluated. CT/CT head/brain wo con IMPRESSION: 1. Diffuse increased density in the right globe, new as compared to the prior study of 01/11/2020. This of uncertain etiology. Correlate with clinical history, prior therapeutic procedure/surgical history. Differential considerations include posttraumatic etiology/hemorrhage within the globe. Close clinical correlation management is recommended. Ophthalmology consultation as clinically warranted. 2. No evidence of acute intracranial hemorrhage or edematous territorial infarction. 3. Sinus disease as above. This result was discussed with IKE Benavides at 1914 hours on 02/23/2022.
--- NOTE | ~2022-02-23 | XR_ITS ---
EXAMINATION: XR CHEST CLINICAL INFORMATION: Confusion and tachypnea. COMPARISON: CT imaging of chest from 02/23/2022. TECHNIQUE: Frontal view of the chest was obtained. FINDINGS: The patient is rotated into a left posterior oblique position. Lungs are mildly hypoinflated. The retrocardiac region of the left lower lobe is difficult to evaluate on this limited examination. There is likely atelectasis in the medial left lower lobe adjacent to the descending aorta, as observed on 02/23/2022. Cardiomegaly. No overt cephalization of venous flow or interstitial edema. No consolidation is seen. Unable to exclude any trace left pleural effusion on this limited exam. Bones are diffusely osteoporotic and thoracic spine is hyperkyphotic. XR/XR chest 1V IMPRESSION: * Cardiomegaly without acute pulmonary edema. * The left lower lobe is difficult to evaluate due to the patient rotation and kyphosis of thoracic spine. Otherwise, the visualized lungs are grossly clear.
--- NOTE | ~2022-02-23 | CT_ITS ---
EXAMINATION: CT CHEST, ABDOMEN AND PELVIS WITHOUT CONTRAST CLINICAL INFORMATION: Chest pain. Shortness of breath. Right-sided pelvic pain. COMPARISON: Multiple priors, most recent CT abdomen/pelvis dated 02/03/2021, chest radiograph dated 01/11/2020, and CTA chest dated 07/17/2011. TECHNIQUE: Contiguous axial thin section helical images of the chest, abdomen and pelvis were performed without IV contrast. The data set was reformatted in the coronal and sagittal planes and reviewed on an independent workstation. This CT examination was performed using dose optimization techniques as appropriate, variously including the following: *Automated exposure control *Adjustment of mA and/or kV according to patient size (this includes techniques or standardized protocols for targeted exams where dose is matched to indication/reason for exam; i.e. extremities or head) *Use of iterative reconstruction technique DLP: 1236 mGy-cm FINDINGS: LUNGS: Emphysematous changes are redemonstrated. No focal airspace consolidation. No concerning pulmonary nodule or mass. The central airways are patent. PLEURA: No pleural effusion or pneumothorax. No pleural mass or thickening. MEDIASTINUM: Stable cardiomegaly. No significant pericardial effusion. No thoracic aortic dilatation. Atherosclerotic calcifications. No significant mediastinal or hilar lymphadenopathy. CHEST WALL/AXILLA: No lymphadenopathy. THYROID: Atrophic. LIVER, GALLBLADDER, AND BILIARY TREE: Normal size, shape, and attenuation. No focal hepatic lesion. Mild left intrahepatic biliary ductal dilatation centrally, new when compared to the prior CT. Hepatic parenchyma evaluation limited without IV contrast. Cholelithiasis. No gallbladder wall thickening or inflammatory change to suggest acute cholecystitis. PANCREAS: Somewhat atrophic. SPLEEN: Unremarkable. ADRENAL GLANDS: Unremarkable. KIDNEYS AND URETERS: Normal size, shape, and attenuation. Redemonstration of probable simple renal cysts. There are small bilateral calcifications consistent with bilateral renal stones. The largest is within the lower pole of the left kidney measuring up to 0.5 cm and located 7.7 cm from the posterior axillary line. No hydronephrosis or hydroureter. No perinephric stranding. BLADDER: Partially distended and grossly unremarkable. GASTROINTESTINAL TRACT: Prominent sigmoid diverticulosis without evidence of acute diverticulitis. No bowel wall thickening or inflammatory change. No small or large bowel obstruction. The appendix is unremarkable. PERITONEAL CAVITY: No intra-abdominal free air or free fluid. No large mass or organized fluid collection within the abdomen. ABDOMINAL WALL: No significant abdominal wall hernia. Anterior to the right iliac and extending inferiorly along the right thigh there is a complex fluid collection with multiple, thick hyperdense components, most prominent dependently. There is mild adjacent stranding. This measures up to 5.3 x 7.3 cm in greatest axial dimension and extends from the level of the anterior inferior iliac spine to the mid femoral diaphysis. Findings likely represent a large soft tissue hematoma. LYMPH NODES: No significant lymphadenopathy, however, evaluation is limited without IV contrast. VASCULAR: No abdominal aortic dilatation. Atherosclerotic calcifications. The IVC is unremarkable. PELVIC VISCERA: The uterus appears atrophic. OSSEOUS STRUCTURES: Significant exaggeration of the thoracic kyphosis. There are multiple compression deformities throughout the thoracic and lumbar spine, involving T4, T5, T7, T9, T11, T12, L1, L3, and L4. Findings are new when compared to the CT from 2010. Lower thoracic and lumbar spine compression fractures were seen on the CT abdomen/pelvis dated 02/03/2021. CT/CT abdomen pelvis wo con IMPRESSION: 1. Large soft tissue hematoma along the anterior aspect of the right hip and thigh extending from the anterior inferior iliac spine to the mid femoral diaphysis. This measures up to 5.3 x 7.3 cm in greatest axial dimension. There is mild adjacent stranding. 2. Multiple bilateral nonobstructing renal stones. No hydronephrosis or hydroureter. Unremarkable urinary bladder. 3. Mild intrahepatic left-sided biliary ductal dilatation, new when compared to the CT from 2020. No discrete mass, however, evaluation is limited without IV contrast. 4. Diverticulosis without evidence of acute diverticulitis. 5. No airspace consolidation. No pleural effusion or pneumothorax. 6. Stable cardiomegaly. 7. Significant exaggeration of the thoracic kyphosis with multiple thoracic and lumbar spine compression fractures. The lower thoracic and lumbar spine compression fractures are unchanged when compared to the most recent abdominal CT and the thoracic spine compression fractures have a chronic appearance, however, were not seen on the CT from 2010.
--- NOTE | ~2022-02-23 | XR_ITS ---
EXAMINATION: XR CHEST CLINICAL INFORMATION: Follow-up left effusion COMPARISON: Previous chest x-ray most recent 03/03/2022 TECHNIQUE: Frontal view of the chest was obtained. FINDINGS: The cardiac silhouette is enlarged but stable. There are bilateral pleural effusions, left greater than right. Right pleural effusion may be slightly increased from previous exam. Left pleural effusion does not appear appreciably changed. There is loss of the left hemidiaphragm and question shift of the central mediastinal structures to the right questionable for increasing left lower lobe atelectasis or consolidation. The right lung is clear. Left lower rib fractures that appear similar to previous exam. XR/XR chest 1V IMPRESSION: Bilateral pleural effusions, left greater than right. Right pleural effusion is slightly increased compared to most recent chest x-ray. Increasing left lower lobe atelectasis/consolidation.
--- NOTE | 2022-02-23 17:03 | ED.GENADULT ---
HPI - General Adult General Chief complaint: Extremity Problem Stated complaint: Bruising Time Seen by Provider: 02/23/22 17:03 Source: patient and EMS Mode of arrival: EMS Limitations: no limitations History of Present Illness HPI narrative: This is a 81-year-old female past medical history significant for atrial fibrillation anticoagulated on warfarin, myasthenia gravis, urethral stone with hydronephrosis status post stenting, GERD, IBS, discoid lupus, postural vertigo, osteoporosis and osteopenia presenting to the emergency department with right lower extremity pain, swelling, bruising x2 days worsening. Patient tells me that she has had no trauma to the area she noted that 2 days ago she fell a discomfort/pain to her right lower extremity from the knee up to the right pelvis she tells me she feels pain/needles in the inner thigh and indurated area around her pelvic area. Patient tells me that she has not sustained any falls has not hit anything against her legs. She is currently anticoagulated on warfarin. This is never happened to her before. No history of DVT or PE. Patient also reports associated nausea. Denies chest pain, shortness of breath, fevers, chills, trauma, vomiting, abdominal pain, changes in bowel habits. Onset (ago): day(s) (2) Location: right and lower extremity Radiation: non-radiation Severity: moderate Quality: burning and other (pins and needles ) Pain Consistency: constant Relieving factors: none Exacerbating factors: none Associated symptoms: denies other symptoms Treatments prior to arrival: none Related Data Home Medications Medication Instructions Recorded Confirmed albuterol sulfate 90 mcg/actuation 2 puff INHALATION Q6H 07/09/20 02/23/22 aerosol inhaler pyridostigmine bromide 60 mg tablet 60 mg PO TID 07/09/20 02/23/22 warfarin 2.5 mg tablet 1 tab PO DAILY 07/09/20 02/23/22 gabapentin 100 mg capsule 200 mg PO DAILY 02/04/21 02/23/22 prednisolone acetate 1 % eye 1 drp OPHTHALMIC-RIGHT QID 02/04/21 02/23/22 drops,suspension prednisone 1 mg tablet 2 tab PO DAILY 02/04/21 02/23/22 brimonidine 0.2 % eye drops 1 drp OPHTHALMIC-RIGHT BID 12/09/21 02/23/22 budesonide-formoterol HFA 160 2 puff INHALATION BID 12/09/21 02/23/22 mcg-4.5 mcg/actuation aerosol inhaler (Symbicort) diltiazem HCl 180 mg capsule,24 180 mg PO DAILY 12/09/21 02/23/22 hr,extended release benzonatate 100 mg capsule 1 cap PO TID PRN 02/23/22 02/23/22 cholecalciferol (vitamin D3) 25 25 mcg PO DAILY 02/23/22 02/23/22 mcg (1,000 unit) tablet (Vitamin D3) nystatin 100,000 unit/mL oral 5 ml PO QID 02/23/22 02/23/22 suspension Previous Rx's Medication Instructions Recorded pyridoxine (vitamin B6) 100 mg 100 mg PO DAILY 90 Days #90 tab 11/17/21 tablet Allergies Allergy/AdvReac Type Severity Reaction Status Date / Time alendronate sodium [Fosamax] Allergy Unknown unknown Verified 12/09/21 11:54 morphine Allergy Vomiting Verified 12/09/21 11:54 codeine [Codeine] AdvReac Mild STOMACH Verified 12/09/21 11:54 UPSET Codeine Phosphate Allergy Unknown unknown Uncoded 12/09/21 11:54 Review of Systems Review of Systems: Constitutional : No Weight loss, No Fever, No Chills, No Fatigue, No Malaise ENT/Mouth : No sore throat, No Rhinorrhea Eyes: No Eye Pain, No Swelling, No Redness Cardiovascular : No Chest Pain, No SOB, No Dyspnea on Exertion, No Orthopnea, No Edema, No Palpitations Respiratory : No Cough, No Sputum, No Wheezing Gastrointestinal : + Nausea, No Vomiting, No Diarrhea, No Constipation, No abdominal Pain, No Hematochezia, No Melena Genitourinary : No Dysuria, No Urinary Frequency, No Hematuria, Musculoskeletal : + joint pain, No Myalgias, No Joint Swelling Skin : No Skin Lesions, No rash Neuro : No Weakness, No Numbness, No Dizziness, No Headache Psych : No Anxiety/Panic, No Depression All other systems reviewed and are negative Yes all other systems are reviewed and are negative [facility] Past Medical History Attestation statement: The following information was validated with the patient. Source: old records reviewed and nursing notes reviewed Medical History Asthma Atrial fibrillation Calcium nephrolithiasis Deficient knowledge of open reduction and internal (ORIF) fixation of hip Discoid lupus GERD (gastroesophageal reflux disease) IBS (irritable bowel syndrome) Kidney stone Myasthenia gravis Postural vertigo Primary osteoarthritis of right knee Skin cancer Surgical History History of cataract extraction with lens replacement (~11/2019) Status post open reduction and internal fixation (ORIF) of fracture (~01/2020) Family History Family History Mother No problems noted. Father No problems noted. Social History Social History Household Members: None Housing: Assisted Living Facility Are you a primary healthcare administration internship to a significant other at home: No Do you presently have visiting nurse or other home services: Yes Alcohol intake: never Patient Tobacco Use Status: Former Tobacco user Tobacco use type: Cigarette Years Smoked: 10 Second Hand Smoke Exposure: No Advance Directives: Yes Advance Directives on File: Yes Advance Directives Date on File: 02/04/21 service: No Current occupational status: retired Physical Exam ED Vital Signs: Vital Signs - 24 hr 02/23/22 17:05 02/23/22 19:26 Temperature 98.5 F Pulse Rate 81 95 Respiratory Rate 16 18 Blood Pressure 128/72 131/68 Pulse Oximetry 97 95 BMI result Body Mass Index 19.2 Appearance: Alert.? Oriented X3.? No acute distress.? Head: Normocephalic, atraumatic, no step-offs or deformities Eyes: Pupils equal, round and reactive to light.? Patient legally blind. ENT: Pharynx normal.? Neck: Normal inspection.? Neck supple.? CVS: Normal heart rate and rhythm.? Pulses normal.? Respiratory: No respiratory distress.? Breath sounds normal.? Abdomen: Soft and nontender.? Skin: Skin warm and dry.? Normal skin color.? Normal skin turgor.? Extremities: 1+ nonpitting edema to bilateral lower extremities No calf ttp. Global weakness. + right lower extremity appears to be slightly shorter than the left and externally rotated a little bit. 2+ dorsalis pedis, popliteal and posterior tibialis pulses. Sensory and motor intact . There is an indurated area noted in the right groin, and ecchymosis noted to the medial aspect of right thigh. Images attached below. Patient reports pain with palpation to the right SI joint. Back: No midline tenderness, no C-spine tenderness, full range of motion, no CVA tenderness bilaterally. Kyphosis noted Neuro: Oriented X 3.? No motor deficit.? No sensory deficit. CN 2-12 intact Course Course Course Narrative: 1899: Attempted to call patients facility where she came from for more information no answer x2. Reevaluation(s) Reevaluation #1: Patient tells me she has had eye surgery to the right eye, 2 partial corneal replacements, she tells me they replaced her vitreous humor to her right eye and she has had multiple retinal detachments. CBC noted for leukocytosis of 14.8, she is noted to have a normocytic anemia likely secondary to bleeding. No acute electrolyte abnormalities requiring intervention. Patient is noted to have a slightly elevated BUN however she will receive hydration. Patient's PT 107.1 INR 9.0. Urine positive for infection. Will treat with antibiotics. COVID negative. Discussed the ct results and lab results with Dr. Norman who recommends PCC spoke to who recommends vitamin K. Will Start both at this time. Educated patient on plan. She agrees. She has no questions. Time: 19:58 Reevaluation #2: Large soft tissue hematoma along the anterior aspect of the right hip and thigh extending from the anterior inferior iliac spine to the mid femoral diaphysis. Measuring 5.3 x 7.3 cm. TT surgery to make them aware of this patient. Time: 20:38 Reevaluation #3: Dr. Booker aware of patient case, tells me not surgical at this time. She tells me if she continues to bleed then she may require interventional radiology test embolized something. In the meantime and she tells me the correct INR. I will also reach out to Ophthalmology to discuss CT of the head results with them. I was also able to speak to patient's daughter who mentions to me that she may have dropped an item on her leg a week or 2 ago. However she is unsure if patient has fallen, some suspicion for fall. Confirms that patient has had multiple eye surgeries to the right eye. Time: 21:07 Additional Reevaluation(s): 2099 Spoke to hospitalist there is a concern for cellulitis ceftriaxone 1G has been ordered at this time. [address] Gonzalez who tells me can not rule out bleed however nothing needs to be done immediately. She should see her optho at discharge. Recommends pressures b/l if < 24-25 normal. Patient confirms that she is having no vision changes, and her vision is at baseline. 2119 Left eye pressure 7 right 16. Patient will be admitted to the hospital tem to Dr. Medina. Medical Decision Making MDM Narrative Medical decision making narrative: 1720 81-year-old female anticoagulated on warfarin presents with atraumatic bruising to the right medial aspect of thigh with an area of induration and pain with palpation. Patient denies falls or trauma. Physical examination significant for an indurated area to the right groin with overlying ecchymosis, pain with palpation, pain with palpation to the right SI joint. Intact pulses equal bilateral.. Lungs clear. Regular rate and rhythm. Abdomen soft nontender nondistended. Neuro exam nonfocal. Patient is noted to have global weakness along with kyphosis. Plan at this time is labs, urine, imaging, ultrasound bilateral lower extremities. Will rule out DVT. Also check patient's INR. Medical Records Medical records reviewed: Yes I reviewed the patient's medical records. Lab Data Lab results reviewed: Yes I reviewed the patient's lab results. Result diagrams: 02/23/22 18:15 02/23/22 18:15 Labs: Lab Results 02/23/22 02/23/22 02/23/22 Range/Units 18:15 18:15 18:15 WBC 14.8 H (4.8-10.8) X10*3/uL RBC 3.70 L (4.20-5.50) X10*6/uL Hgb 9.7 L (12.0-16.0) g/dl Hct 31.2 L (37.0-47.0) % MCV 84.3 (80.0-98.0) fL MCH 26.2 L (27.0-33.0) pg MCHC 31.1 (31.0-35.0) g/dl RDW 16.5 H (11.0-16.0) % Plt Count 215 (160-400) X10*3/uL MPV 11.4 (9.4-12.3) fL Immature Gran % (Auto) 0.5 H (0.0-0.4) % Neut % (Auto) 85.1 H (45-73) % Lymph % (Auto) 6.5 L (20-40) % [place] % (Auto) 7.7 (2-11) % Eos % (Auto) 0.1 (0-4) % Baso % (Auto) 0.1 (0-2) % Lymph # (Auto) 1.0 L (1.2-4.9) X10*3/uL [place] # (Auto) 1.2 (0.1-1.2) X10*3/uL Eos # (Auto) 0.0 (0.0-0.4) X10*3/uL Baso # (Auto) 0.0 (0.0-0.2) X10*3/uL Abs Immat Gran (auto) 0.07 H (0.00-0.03) X10*3/uL Absolute Neuts (auto) 12.6 H (2.0-8.3) x10*3/uL Absolute Nucleated RBC 0.000 (0.0-0.012) X10*3/uL Nucleated RBC % (auto) 0.0 (0.0-0.2) /100WBC PT 107.1 H (9.9-13.0) SEC INR 9.0 H* (0.9-1.1) Sodium 139 (135-145) mmol/L Potassium 5.1 D (3.3-5.1) mmol/L Chloride 103 (96-108) mmol/L Carbon Dioxide 30 H (22-29) mmol/L Anion Gap 11 L (12-20) BUN 21 H (9-16) mg/dL Creatinine 0.67 (0.5-1.4) mg/dL Estim Creat Clear Calc 51.0 Estimated GFR > 60 Random Glucose 133 H (60-115) mg/dL Calcium 9.4 (8.4-10.2) mg/dL Magnesium 1.6 (1.6-2.6) mg/dL Total Bilirubin 0.8 (0.0-1.0) mg/dL AST 22 (5-31) U/L ALT 16 (0-31) U/L Alkaline Phosphatase 70 (39-117) U/L B-Natriuretic Peptide (<100) pg/mL Total Protein 6.1 L (6.5-8.0) g/dL Albumin 3.3 L (3.5-5.0) g/dL COVID-19 (ROC) (Negative) COVID-19 Clin Com 02/23/22 02/23/22 Range/Units 18:15 18:25 WBC (4.8-10.8) X10*3/uL RBC (4.20-5.50) X10*6/uL Hgb (12.0-16.0) g/dl Hct (37.0-47.0) % MCV (80.0-98.0) fL MCH (27.0-33.0) pg MCHC (31.0-35.0) g/dl RDW (11.0-16.0) % Plt Count (160-400) X10*3/uL MPV (9.4-12.3) fL Immature Gran % (Auto) (0.0-0.4) % Neut % (Auto) (45-73) % Lymph % (Auto) (20-40) % [place] % (Auto) (2-11) % Eos % (Auto) (0-4) % Baso % (Auto) (0-2) % Lymph # (Auto) (1.2-4.9) X10*3/uL [place] # (Auto) (0.1-1.2) X10*3/uL Eos # (Auto) (0.0-0.4) X10*3/uL Baso # (Auto) (0.0-0.2) X10*3/uL Abs Immat Gran (auto) (0.00-0.03) X10*3/uL Absolute Neuts (auto) (2.0-8.3) x10*3/uL Absolute Nucleated RBC (0.0-0.012) X10*3/uL Nucleated RBC % (auto) (0.0-0.2) /100WBC PT (9.9-13.0) SEC INR (0.9-1.1) Sodium (135-145) mmol/L Potassium (3.3-5.1) mmol/L Chloride (96-108) mmol/L Carbon Dioxide (22-29) mmol/L Anion Gap (12-20) BUN (9-16) mg/dL Creatinine (0.5-1.4) mg/dL Estim Creat Clear Calc Estimated GFR Random Glucose (60-115) mg/dL Calcium (8.4-10.2) mg/dL Magnesium (1.6-2.6) mg/dL Total Bilirubin (0.0-1.0) mg/dL AST (5-31) U/L ALT (0-31) U/L Alkaline Phosphatase (39-117) U/L B-Natriuretic Peptide 63 (<100) pg/mL Total Protein (6.5-8.0) g/dL Albumin (3.5-5.0) g/dL COVID-19 (ROC) Negative (Negative) COVID-19 Clin Com See Note Critical Care Time Critical Care Time Critical Care Time: Yes Total Critical Care Time: 120 Attestation: I attest to this time spent taking care of the patient, obtaining history, physical, reviewing labs, imaging, speaking to my attending, speaking to specialist. Discharge Plan Discharge Clinical Impression: Hematoma, Cellulitis, Leg pain, right, Elevated INR Patient Disposition: Still a Patient Prescriptions: No Action pyridoxine (vitamin B6) 100 mg tablet 100 mg PO DAILY 90 Days Qty: 90 1RF warfarin 2.5 mg tablet 1 tab PO DAILY 0RF albuterol sulfate 90 mcg/actuation HFA aerosol inhaler 2 puff inhalation Q6H 0RF prednisolone acetate 1 % drops,suspension 1 drp ophthalmic-Right QID 0RF gabapentin 100 mg capsule 200 mg PO DAILY 0RF prednisone 1 mg tablet 2 tab PO DAILY 0RF nystatin 100,000 unit/mL suspension 5 ml PO QID 0RF benzonatate 100 mg capsule 1 cap PO TID PRN (Reason: Cough) 0RF cholecalciferol (vitamin D3) [Vitamin D3] 25 mcg (1,000 unit) Tablet 25 mcg PO DAILY 0RF budesonide-formoterol [Symbicort] 160-4.5 mcg/actuation HFA aerosol inhaler 2 puff inhalation BID 0RF brimonidine 0.2 % drops 1 drp ophthalmic-Right BID 0RF diltiazem HCl 180 mg capsule,extended release 24 hr 180 mg PO DAILY 0RF pyridostigmine bromide 60 mg tablet 60 mg PO TID 0RF
[2022-02-23 17:05] VITALS: BP 108/97; BP 128/72; PULSE 81; PULSE 83; RESP 16; TEMP 36.9; O2SAT 96; O2SAT 97; BMI 19.2
[2022-02-23 18:34] LABS: MANUAL DIFF FLAG NO
[2022-02-23 18:38] LABS: Basophils Percent Auto 0.1 % (0-2); Eosinophils Percent Auto 0.1 % (0-4); Hematocrit 31.2 % (37.0-47.0); Hemoglobin 9.7 g/dl (12.0-16.0); Imm Gran Abs Auto 0.07 X10*3/uL (0.00-0.03); Imm Gran Pct Auto 0.5 % (0.0-0.4); Lymphocytes Percent Auto 6.5 % (20-40); Mean Corpuscular HGB Conc 31.1 g/dl (31.0-35.0); Mean Corpuscular Hemoglobin 26.2 pg (27.0-33.0); Mean Corpuscular Volume 84.3 fL (80.0-98.0); Mean Platelet Volume 11.4 fL (9.4-12.3); Monocytes Absolute Auto 1.2 X10*3/uL (0.1-1.2); Monocytes Percent Auto 7.7 % (2-11); Neutrophils Absolute Auto 12.6 x10*3/uL (2.0-8.3); Neutrophils Percent Auto 85.1 % (45-73); Platelet Count 215 X10*3/uL (160-400); Red Cell Distribution Width 16.5 % (11.0-16.0); White Blood Count 14.8 X10*3/uL (4.8-10.8)
[2022-02-23 18:55] LABS: B Type Natriuretic Peptide 63 pg/mL (<100)
[2022-02-23 18:59] LABS: Alanine Aminotransferase 16 U/L (0-31); Albumin Level 3.3 g/dL (3.5-5.0); Alkaline Phosphatase 70 U/L (39-117); Anion Gap 11 (12-20); Aspartate Amino Transferase 22 U/L (5-31); Bilirubin Total 0.8 mg/dL (0.0-1.0); Blood Urea Nitrogen 21 mg/dL (9-16); Calcium 9.4 mg/dL (8.4-10.2); Carbon Dioxide 30 mmol/L (22-29); Chloride 103 mmol/L (96-108); Estimated Glomerular Filt Rate > 60; Glucose Random 133 mg/dL (60-115); Magnesium 1.6 mg/dL (1.6-2.6); Potassium 5.1 mmol/L (3.3-5.1); Sodium 139 mmol/L (135-145); Total Protein 6.1 g/dL (6.5-8.0)
[2022-02-23 19:08] LABS: Prothrombin Time 107.1 SEC (9.9-13.0)
[2022-02-23 19:24] LABS: COVID-19 Test Negative (Negative); IDNOW Serial# 9DB6401D
[2022-02-23 19:26] VITALS: BP 131/68; PULSE 95; RESP 18; O2SAT 95
--- NOTE | 2022-02-23 19:29 | PHA.MEDREC ---
Pharmacy Consult ? Medication Reconciliation Pharmacy has completed the medication reconciliation.
--- NOTE | 2022-02-23 20:09 | PC.NURSE ---
18g IV access established by Cat Medina RN in right forearm. 20g IV access established in left AC by Sandeep Flores RN. aware of elevated INR. Placed on continuous secured entrance monitor. Accurate weight obtained of 50.8 kg. Plan to administer KCentra & Vitamin K, being mixed currently by pharmacy. Awaiting arrival to ED to administer. button broacher (Elaine) aware.
[2022-02-23] MEDS: Phytonadione (Vit K1) 10 MG in 0.9 % Sodium Chloride 50 ML 51 MG IV (20:38)
[2022-02-23] MEDS: Hum Prothrombin Cplx(PCC)4Fact 2,500 UNIT in Container,Empty 0 ML 480 UNIT IV (20:38)
[2022-02-23] MEDS: ondansetron HCL 4 MG/2 ML VIAL IVPUSH (21:52)
[2022-02-23 21:56] VITALS: RESP 20
[2022-02-23] MEDS: cefTRIAXone sodium 1 GM in 0.9 % Sodium Chloride 50 ML IV (21:56)
[2022-02-23] MEDS: Morphine Sulfate 4 MG/ML CARTRIDGE IVPUSH (21:56)
[2022-02-23] MEDS: diphenhydrAMINE HCL 50 MG/ML VIAL 25 MG IVPUSH (21:57)
--- NOTE | 2022-02-23 22:07 | P.HPHOSP_ITS ---
History of Present Illness Date of Service: 02/23/22 Chief Complaint: right thigh pain 81-year-old female with a past medical history of AFib on Coumadin, myasthenic gravis, IBS, discoid lupus, GERD, vertigo, osteoporosis, history of urethral stone; presented to the hospital today with a chief complaint of right thigh pain for the past 2 days. Patient reports that for the past 2 days she has been having pain in her right thigh; also noted swelling in her right eye /ecchymosis; denies any falls or trauma. Reports 1 week ago she dropped an object on her foot, complains of pain in the foot; denies any numbness tingling or focal weakness. Denies any chest pain or palpitations. Denies any recent eye symptoms Denies any headaches. Patient reports that she had a history of retinal detachment and had surgery about any year ago in the eye; Denies any fever chills cough Denies any abdominal pain, urinary symptoms Review of all other systems is negative except mentioned above ER course: Per ER team patient noted to have supratherapeutic INR; CT head showed no acute intracranial process but noted to have change in her right eye globe was-concern for new versus old hemorrhage; discussed with ophthalmology -recommended no acute intervention, outpatient ophthalmology follow-up after discharge Noted to have thigh hematoma; hemoglobin slightly dropped from 11.5-9.5; discussed with general surgery who mentioned no acute intervention; thigh compartments are soft. Admitted for further management. [facility] Medical History Asthma Atrial fibrillation Calcium nephrolithiasis Deficient knowledge of open reduction and internal (ORIF) fixation of hip Discoid lupus GERD (gastroesophageal reflux disease) IBS (irritable bowel syndrome) Kidney stone Myasthenia gravis Postural vertigo Primary osteoarthritis of right knee Skin cancer Family History Mother No problems noted. Father No problems noted. Surgical History History of cataract extraction with lens replacement (~11/2019) Status post open reduction and internal fixation (ORIF) of fracture (~01/2020) Social History Household Members: None Housing: Other Housing Other:: independent living Are you a primary field care advocate to a significant other at home: No Do you presently have visiting nurse or other home services: Yes Alcohol intake: never Patient Tobacco Use Status: Former Tobacco user Tobacco use type: Cigarette Years Smoked: 10 Second Hand Smoke Exposure: No Advance Directives Date on File: 02/04/21 service: No Current occupational status: retired Meds Allergies Allergy/AdvReac Type Severity Reaction Status Date / Time alendronate sodium [Fosamax] Allergy Unknown unknown Verified 12/09/21 11:54 morphine Allergy Vomiting Verified 12/09/21 11:54 codeine [Codeine] AdvReac Mild STOMACH Verified 12/09/21 11:54 UPSET Codeine Phosphate Allergy Unknown unknown Uncoded 12/09/21 11:54 Active Medications: Current Medications Acetaminophen (Acetaminophen 325 Mg Tablet) 650 mg PO Q6H PRN PRN Reason: Pain, Mild (Pain Scale 1-3) Ceftriaxone Sodium 1 gm/ (Sodium Chloride) 50 mls @ 100 mls/hr IV Q24H [facility] Melatonin (Melatonin 3 Mg Tablet) 6 mg PO BEDTIME PRN PRN Reason: Insomnia Pharmacy Consult (Consult Rx Perform Med Rec) 1 each MISCELLANE ONCE PRN PRN Reason: Consult order Senna (Sennosides 8.6 Mg Tablet) 17.2 mg PO BEDTIME PRN PRN Reason: Constipation Sodium Chloride (0.9 % Sodium Chloride Flush 3 Ml Syringe) 3 ml IVFLUSH QSHIFT [facility] Home Medications Medication Instructions Recorded Confirmed Last Taken Type albuterol sulfate 90 mcg/actuation 2 puff inhalation Q6H 07/09/20 02/23/22 Unknown History aerosol inhaler pyridostigmine bromide 60 mg tablet 60 mg PO TID 07/09/20 02/23/22 02/23/22 History warfarin 2.5 mg tablet 1 tab PO DAILY 07/09/20 02/23/22 02/22/22 History gabapentin 100 mg capsule 200 mg PO DAILY 02/04/21 02/23/22 02/23/22 History prednisolone acetate 1 % eye 1 drp ophthalmic-Right QID 02/04/21 02/23/22 02/23/22 History drops,suspension prednisone 1 mg tablet 2 tab PO DAILY 02/04/21 02/23/22 02/23/22 History brimonidine 0.2 % eye drops 1 drp ophthalmic-Right BID 12/09/21 02/23/22 02/23/22 History budesonide-formoterol HFA 160 2 puff inhalation BID 12/09/21 02/23/22 02/23/22 History mcg-4.5 mcg/actuation aerosol inhaler (Symbicort) diltiazem HCl 180 mg capsule,24 180 mg PO DAILY 12/09/21 02/23/22 02/23/22 History hr,extended release benzonatate 100 mg capsule 1 cap PO TID PRN Cough 02/23/22 02/23/22 Unknown History cholecalciferol (vitamin D3) 25 25 mcg PO DAILY 02/23/22 02/23/22 02/22/22 History mcg (1,000 unit) tablet (Vitamin D3) nystatin 100,000 unit/mL oral 5 ml PO QID 02/23/22 02/23/22 02/23/22 History suspension Physical Exam Vital Signs and Narrative: Vital Signs: Last Vital Signs Temp 98.5 F 02/23/22 17:05 Pulse 95 02/23/22 19:26 Resp 20 02/23/22 21:56 BP 131/68 02/23/22 19:26 Pulse Ox 95 02/23/22 19:26 BMI result Body Mass Index 19.2 Gen: Appears be in no acute distress HEENT: NCAT, Moist mucosa. Pulmonary: Vesicular breath sounds, fair air entry CVS: Normal S1-S2 Abdomen: BS+, Soft, Nontender Extremities: Warm well perfused; right thigh has induration medially, compartments are soft; pulses are palpable; right leg has ecchymotic changes; warm and tender on the distal 3rd of the right leg as well as the dorsum of the right foot. Left leg has chronic skin changes; Neuro: Alert and awake. Results Labs CBC and Chem 7: 03/10/22 06:49 03/11/22 08:20 Labs: Laboratory Results - last 24 hr 02/23/22 02/23/22 02/23/22 18:15 18:15 18:15 MCV 84.3 MCH 26.2 L MCHC 31.1 RDW 16.5 H Plt Count 215 MPV 11.4 Immature Gran % (Auto) 0.5 H Neut % (Auto) 85.1 H Lymph % (Auto) 6.5 L [place] % (Auto) 7.7 Eos % (Auto) 0.1 Baso % (Auto) 0.1 Lymph # (Auto) 1.0 L [place] # (Auto) 1.2 Eos # (Auto) 0.0 Baso # (Auto) 0.0 Abs Immat Gran (auto) 0.07 H Absolute Neuts (auto) 12.6 H Absolute Nucleated RBC 0.000 Nucleated RBC % (auto) 0.0 PT 107.1 H INR 9.0 H* Anion Gap 11 L Estim Creat Clear Calc 51.0 Estimated GFR > 60 Random Glucose 133 H Calcium 9.4 Magnesium 1.6 Total Bilirubin 0.8 AST 22 ALT 16 Alkaline Phosphatase 70 B-Natriuretic Peptide Total Protein 6.1 L Albumin 3.3 L COVID-19 (ROC) COVID-19 Clin Com 02/23/22 02/23/22 18:15 18:25 MCV MCH MCHC RDW Plt Count MPV Immature Gran % (Auto) Neut % (Auto) Lymph % (Auto) [place] % (Auto) Eos % (Auto) Baso % (Auto) Lymph # (Auto) [place] # (Auto) Eos # (Auto) Baso # (Auto) Abs Immat Gran (auto) Absolute Neuts (auto) Absolute Nucleated RBC Nucleated RBC % (auto) PT INR Anion Gap Estim Creat Clear Calc Estimated GFR Random Glucose Calcium Magnesium Total Bilirubin AST ALT Alkaline Phosphatase B-Natriuretic Peptide 63 Total Protein Albumin COVID-19 (ROC) Negative COVID-19 Clin Com See Note Imaging Radiologist's Impressions: Impressions Venous Duplex 02/23/22 17:40 IMPRESSION: No DVT demonstrated in the bilateral lower extremity. Complex right thigh collection measuring up to 8.5 cm in greatest dimension. Findings are nonspecific and could represent a hematoma or infectious process. Bilateral lower extremity subcutaneous edema, right greater than left. Head CT 02/23/22 18:00 IMPRESSION: 1. Diffuse increased density in the right globe, new as compared to the prior study of 01/11/2020. This of uncertain etiology. Correlate with clinical history, prior therapeutic procedure/surgical history. Differential considerations include posttraumatic etiology/hemorrhage within the globe. Close clinical correlation management is recommended. Ophthalmology consultation as clinically warranted. 2. No evidence of acute intracranial hemorrhage or edematous territorial infarction. 3. Sinus disease as above. This result was discussed with IKE Benavides at 1914 hours on 02/23/2022. Abdomen/Pelvis CT 02/23/22 18:31 IMPRESSION: 1. Large soft tissue hematoma along the anterior aspect of the right hip and thigh extending from the anterior inferior iliac spine to the mid femoral diaphysis. This measures up to 5.3 x 7.3 cm in greatest axial dimension. There is mild adjacent stranding. 2. Multiple bilateral nonobstructing renal stones. No hydronephrosis or hydroureter. Unremarkable urinary bladder. 3. Mild intrahepatic left-sided biliary ductal dilatation, new when compared to the CT from 2020. No discrete mass, however, evaluation is limited without IV contrast. 4. Diverticulosis without evidence of acute diverticulitis. 5. No airspace consolidation. No pleural effusion or pneumothorax. 6. Stable cardiomegaly. 7. Significant exaggeration of the thoracic kyphosis with multiple thoracic and lumbar spine compression fractures. The lower thoracic and lumbar spine compression fractures are unchanged when compared to the most recent abdominal CT and the thoracic spine compression fractures have a chronic appearance, however, were not seen on the CT from 2010. Chest CT 02/23/22 18:31 IMPRESSION: 1. Large soft tissue hematoma along the anterior aspect of the right hip and thigh extending from the anterior inferior iliac spine to the mid femoral diaphysis. This measures up to 5.3 x 7.3 cm in greatest axial dimension. There is mild adjacent stranding. 2. Multiple bilateral nonobstructing renal stones. No hydronephrosis or hydroureter. Unremarkable urinary bladder. 3. Mild intrahepatic left-sided biliary ductal dilatation, new when compared to the CT from 2020. No discrete mass, however, evaluation is limited without IV contrast. 4. Diverticulosis without evidence of acute diverticulitis. 5. No airspace consolidation. No pleural effusion or pneumothorax. 6. Stable cardiomegaly. 7. Significant exaggeration of the thoracic kyphosis with multiple thoracic and lumbar spine compression fractures. The lower thoracic and lumbar spine compression fractures are unchanged when compared to the most recent abdominal CT and the thoracic spine compression fractures have a chronic appearance, however, were not seen on the CT from 2010. Foot X-Ray 02/23/22 21:26 IMPRESSION: Generalized osteopenia. No acute fracture is seen. Tibia/Fibula X-Ray 02/23/22 21:26 IMPRESSION: Generalized osteopenia. No acute fracture is seen. Assessment and Plan (1) Hematoma: Status: Acute (2) Cellulitis: Status: Acute (3) Leg pain, right: Status: Acute (4) Elevated INR: Status: Acute Plan 81-year-old female with a past medical history of AFib on Coumadin, myasthenic gravis, IBS, discoid lupus, GERD, vertigo, osteoporosis, history of urethral stone; presented to the hospital today with a chief complaint of right thigh pain for the past 2 days. Noted to have following conditions Thigh hematoma: Compartments are soft currently. General surgery was notified - recommended no surgery currently. Supportive care Serial H&H Supratherapeutic INR: CT head showed no acute intracranial process status post Kcentra and vitamin K IV Hold home Coumadin Monitor INR Question right eye hemorrhage versus postsurgical changes. Discussed with Dr. Hernandez from Ophthalmology - who mentioned no acute intervention, supportive care; per ER team tonometer showed normal eye pressures. recommended outpatient ophthalmology follow-up after discharge. Right leg cellulitis: UTI: Continue ceftriaxone follow-up cultures Leg x-ray/ foot x-ray showed no acute findings History of AFib: Coumadin on hold. rate controlled History of glaucoma/ history of retinal detachment status post surgery /legally blind: Continue home eye drops History of myasthenia gravis: Continue home pyridostigmine DVT prophylaxis: Unable to do SCD boots given pain in the leg; unable to use pharmacologic agent given supratherapeutic INR and hematoma Code status: DNR /DNI Quality Stroke Does the patient have a stroke diagnosis?: No VTE Prior VTE?: No VTE Risk Level:: Medical - moderate - high VTE Device Contraindication: Treatment Not Indicated VTE Drug Contraindication: Treatment Not Indicated
[2022-02-23 23:50] VITALS: BP 114/62; PULSE 102; RESP 13; TEMP 37.1; O2SAT 93
[2022-02-24] VITALS (7 sets, daily range): BP systolic 103–125; BP diastolic 54–73; PULSE 87–108; RESP 14–19; TEMP 36.8; O2SAT 95–100
[2022-02-24 00:41] LABS: INTERNATIONAL NORM RATIO 1.2 (0.9-1.1); Prothrombin Time 13.9 SEC (9.9-13.0)
[2022-02-24] MEDS: 0.9 % Sodium Chloride Flush 3 ML SYRINGE IVFLUSH ×3 (02:17→16:02)
[2022-02-24 07:30] LABS: Basophils Percent Auto 0.2 % (0-2); Eosinophils Percent Auto 0.1 % (0-4); Hemoglobin 9.2 g/dl (12.0-16.0); Imm Gran Pct Auto 0.8 % (0.0-0.4); Lymphocytes Absolute Auto 1.1 X10*3/uL (1.2-4.9); Lymphocytes Percent Auto 8.8 % (20-40); MANUAL DIFF FLAG SCAN; Mean Corpuscular HGB Conc 30.7 g/dl (31.0-35.0); Mean Corpuscular Hemoglobin 26.4 pg (27.0-33.0); Mean Corpuscular Volume 86.2 fL (80.0-98.0); Mean Platelet Volume 11.5 fL (9.4-12.3); Monocytes Absolute Auto 1.6 X10*3/uL (0.1-1.2); Monocytes Percent Auto 12.6 % (2-11); Neutrophils Absolute Auto 9.9 x10*3/uL (2.0-8.3); Neutrophils Percent Auto 77.5 % (45-73); Platelet Count 201 X10*3/uL (160-400); Red Blood Count 3.48 X10*6/uL (4.20-5.50); Red Cell Distribution Width 16.4 % (11.0-16.0); SCAN SMEAR FLAG 1; White Blood Count 12.8 X10*3/uL (4.8-10.8)
[2022-02-24 07:38] LABS: Magnesium 1.7 mg/dL (1.6-2.6)
[2022-02-24 07:41] LABS: Anion Gap 9 (12-20); Blood Urea Nitrogen 23 mg/dL (9-16); Carbon Dioxide 32 mmol/L (22-29); Chloride 102 mmol/L (96-108); Estimated Glomerular Filt Rate > 60; Glucose Random 119 mg/dL (60-115); Potassium 4.8 mmol/L (3.3-5.1); Sodium 138 mmol/L (135-145)
[2022-02-24 08:03] LABS: SLIDE REVIEW VERIFIED
[2022-02-24] MEDS: predniSONE 1 MG TABLET 2 MG PO (08:04)
[2022-02-24] MEDS: Pyridoxine HCl (Vitamin B6) 50 MG TABLET 100 MG PO (08:04)
[2022-02-24] MEDS: Gabapentin 100 MG CAPSULE 200 MG PO (08:05)
[2022-02-24] MEDS: dilTIAZem HCL CD 180 MG CAP.ER.24H PO (08:05)
[2022-02-24] MEDS: Nystatin Oral Susp 500,000 UNIT/5 ML ORAL.SUSP 500000 UNIT PO ×3 (08:05→21:50)
[2022-02-24] MEDS: Cholecalciferol (Vitamin D3) 25 MCG TABLET PO (08:05)
--- NOTE | 2022-02-24 08:32 | P.CONGS_ITS ---
History of Present Illness Consult details Consult date: 02/24/22 Narrative: 81-year-old female referred for a right thigh hematoma. The patient is on anticoagulation with Coumadin for atrial fibrillation. She complained of right thigh pain which she says started about 2 days ago. She had noticed a little bit of swelling and bruising. She denies all of any recent trauma to the area. She says she does remember hurting her right foot several days ago after a object fell on this. She was noted to be markedly supra therapeutic with her INR in the ER. Review of Systems Constitutional: Constitutional: Denies chills and Denies fever(s) Cardiovascular: Cardiovascular: Denies chest pain, Denies dyspnea and Denies dyspnea on exertion Respiratory: Respiratory: Denies cough, Denies dyspnea and Denies dyspnea on exertion Gastrointestinal: Gastrointestinal: Denies hematochezia and Denies change in bowel habits Genitourinary: Genitourinary: Denies hematuria Musculoskeletal: Musculoskeletal: Denies back pain and Denies limited range of motion Neurologic: Denies focal weakness and Denies convulsions Psychiatric: Psychiatric: Denies depression and Denies mood swings [facility] Past Medical History Medical History Asthma Atrial fibrillation Calcium nephrolithiasis Deficient knowledge of open reduction and internal (ORIF) fixation of hip Discoid lupus GERD (gastroesophageal reflux disease) IBS (irritable bowel syndrome) Kidney stone Myasthenia gravis Postural vertigo Primary osteoarthritis of right knee Skin cancer Family History Family History Mother No problems noted. Father No problems noted. Surgical History Surgical History History of cataract extraction with lens replacement (~11/2019) Status post open reduction and internal fixation (ORIF) of fracture (~01/2020) Social History Social History Household Members: None Housing: Other Housing Other:: independent living Are you a primary career resource specialist to a significant other at home: No Do you presently have visiting nurse or other home services: Yes Alcohol intake: never Patient Tobacco Use Status: Former Tobacco user Tobacco use type: Cigarette Years Smoked: 10 Second Hand Smoke Exposure: No Advance Directives Date on File: 02/04/21 service: No Current occupational status: retired Meds Allergies Allergy/AdvReac Type Severity Reaction Status Date / Time alendronate sodium [Fosamax] Allergy Unknown unknown Verified 12/09/21 11:54 morphine Allergy Vomiting Verified 12/09/21 11:54 codeine [Codeine] AdvReac Mild STOMACH Verified 12/09/21 11:54 UPSET Codeine Phosphate Allergy Unknown unknown Uncoded 12/09/21 11:54 Active Medications: Current Medications Acetaminophen (Acetaminophen 325 Mg Tablet) 650 mg PO Q6H PRN PRN Reason: Pain, Mild (Pain Scale 1-3) Albuterol Sulfate (Albuterol Sulfate 90 Mcg 8 Gm Inhaler) 2 puff INHALE RQ6H [facility] Last Admin: 02/24/22 05:27 Dose: Not Given Documented by: Benzonatate (Benzonatate 100 Mg Capsule) 100 mg PO TID PRN PRN Reason: Cough Brimonidine Tartrate (Brimonidine Tartrate 0.2% Oph 5 Ml Bottle) 1 drop EYE- RIGHT BID [facility] Last Admin: 02/24/22 08:17 Dose: Not Given Documented by: Diltiazem HCl (Diltiazem Hcl Cd 180 Mg Cap.Er.24h) 180 mg PO DAILY [facility]; Protocol Last Admin: 02/24/22 08:05 Dose: 180 mg Documented by: Fluticasone/Vilanterol (Fluticasone/Vilanterol 200/25 Blst.W.Dev) 1 puff INHALE RDAILY [facility] Last Admin: 02/24/22 08:21 Dose: Not Given Documented by: Gabapentin (Gabapentin 100 Mg Capsule) 200 mg PO DAILY [facility] Last Admin: 02/24/22 08:05 Dose: 200 mg Documented by: Ceftriaxone Sodium 1 gm/ (Sodium Chloride) 50 mls @ 100 mls/hr IV Q24H [facility] Melatonin (Melatonin 3 Mg Tablet) 6 mg PO BEDTIME PRN PRN Reason: Insomnia Nystatin (Nystatin Oral Susp 500,000 Unit/5 Ml Oral.Susp) 500,000 unit PO QID [facility]; Protocol Last Admin: 02/24/22 08:05 Dose: 500,000 unit Documented by: Pharmacy Consult (Consult Rx Perform Med Rec) 1 each MISCELLANE ONCE PRN PRN Reason: Consult order Prednisolone Acetate (Prednisolone Acetate 1 % Oph Susp 5 Ml Drpbtl) 1 drop EYE-RIGHT QID [facility] Last Admin: 02/24/22 08:17 Dose: Not Given Documented by: Prednisone (Prednisone 1 Mg Tablet) 2 mg PO DAILY [facility] Last Admin: 02/24/22 08:04 Dose: 2 mg Documented by: Pyridostigmine [place] (Pyridostigmine [place] 60 Mg Tablet) 60 mg PO TID [facility] Last Admin: 02/24/22 08:04 Dose: 60 mg Documented by: Pyridoxine HCl (Pyridoxine Hcl (Vitamin B6) 50 Mg Tablet) 100 mg PO DAILY [facility] Last Admin: 02/24/22 08:04 Dose: 100 mg Documented by: Senna (Sennosides 8.6 Mg Tablet) 17.2 mg PO BEDTIME PRN PRN Reason: Constipation Sodium Chloride (0.9 % Sodium Chloride Flush 3 Ml Syringe) 3 ml IVFLUSH QSHIFT [facility] Last Admin: 02/24/22 08:04 Dose: 3 ml Documented by: Vitamin D (Cholecalciferol (Vitamin D3) 25 Mcg Tablet) 25 mcg PO DAILY [facility] Last Admin: 02/24/22 08:05 Dose: 25 mcg Documented by: Home Medications Medication Instructions Recorded Confirmed Last Taken Type albuterol sulfate 90 mcg/actuation 2 puff INHALATION Q6H 07/09/20 02/23/22 Unknown History aerosol inhaler pyridostigmine bromide 60 mg tablet 60 mg PO TID 07/09/20 02/23/22 02/23/22 History warfarin 2.5 mg tablet 1 tab PO DAILY 07/09/20 02/23/22 02/22/22 History gabapentin 100 mg capsule 200 mg PO DAILY 02/04/21 02/23/22 02/23/22 History prednisolone acetate 1 % eye 1 drp OPHTHALMIC-RIGHT QID 02/04/21 02/23/22 02/23/22 History drops,suspension prednisone 1 mg tablet 2 tab PO DAILY 02/04/21 02/23/22 02/23/22 History brimonidine 0.2 % eye drops 1 drp OPHTHALMIC-RIGHT BID 12/09/21 02/23/22 02/23/22 History budesonide-formoterol HFA 160 2 puff INHALATION BID 12/09/21 02/23/22 02/23/22 History mcg-4.5 mcg/actuation aerosol inhaler (Symbicort) diltiazem HCl 180 mg capsule,24 180 mg PO DAILY 12/09/21 02/23/22 02/23/22 History hr,extended release benzonatate 100 mg capsule 1 cap PO TID PRN 02/23/22 02/23/22 Unknown History cholecalciferol (vitamin D3) 25 25 mcg PO DAILY 02/23/22 02/23/22 02/22/22 History mcg (1,000 unit) tablet (Vitamin D3) nystatin 100,000 unit/mL oral 5 ml PO QID 02/23/22 02/23/22 02/23/22 History suspension Physical Exam Vital Signs: Vital Signs: Last Vital Signs Temp 98.3 F 02/24/22 04:00 Pulse 108 H 02/24/22 07:23 Resp 15 02/24/22 07:23 BP 118/72 02/24/22 07:23 Pulse Ox 95 02/24/22 07:23 BMI result Body Mass Index 19.2 Const: Other: Appears her age General: comfortable and no acute distress Orientation/consciousness: patient oriented x3 Neck: Neck: Yes no lymphadenopathy Resp: Auscultation: clear to auscultation bilaterally Cardio: Rhythm: regular rhythm GI: Palpation (GI): Soft to palpation, nontender and no guarding Neuro: General: patient oriented x3 Extrem: Other: right thigh with significant ecchymosis, edema anterior and medially, no fluctuance, no tightness, no evidence of vascular compromise, right thigh soft Results Labs Result diagrams: 02/28/22 05:19 02/28/22 05:19 Labs: Abnormal lab results 02/23/22 02/23/22 02/23/22 Range/Units 18:15 18:15 18:15 WBC 14.8 H (4.8-10.8) X10*3/uL RBC 3.70 L (4.20-5.50) X10*6/uL Hgb 9.7 L (12.0-16.0) g/dl Hct 31.2 L (37.0-47.0) % MCH 26.2 L (27.0-33.0) pg MCHC (31.0-35.0) g/dl RDW 16.5 H (11.0-16.0) % Immature Gran % (Auto) 0.5 H (0.0-0.4) % Neut % (Auto) 85.1 H (45-73) % Lymph % (Auto) 6.5 L (20-40) % [place] % (Auto) (2-11) % Lymph # (Auto) 1.0 L (1.2-4.9) X10*3/uL [place] # (Auto) (0.1-1.2) X10*3/uL Abs Immat Gran (auto) 0.07 H (0.00-0.03) X10*3/uL Absolute Neuts (auto) 12.6 H (2.0-8.3) x10*3/uL PT 107.1 H (9.9-13.0) SEC INR 9.0 H* (0.9-1.1) Carbon Dioxide 30 H (22-29) mmol/L Anion Gap 11 L (12-20) BUN 21 H (9-16) mg/dL Random Glucose 133 H (60-115) mg/dL Total Protein 6.1 L (6.5-8.0) g/dL Albumin 3.3 L (3.5-5.0) g/dL 02/24/22 02/24/22 02/24/22 Range/Units 00:11 06:47 06:47 WBC 12.8 H (4.8-10.8) X10*3/uL RBC 3.48 L (4.20-5.50) X10*6/uL Hgb 9.2 L (12.0-16.0) g/dl Hct 30.0 L (37.0-47.0) % MCH 26.4 L (27.0-33.0) pg MCHC 30.7 L (31.0-35.0) g/dl RDW 16.4 H (11.0-16.0) % Immature Gran % (Auto) 0.8 H (0.0-0.4) % Neut % (Auto) 77.5 H (45-73) % Lymph % (Auto) 8.8 L (20-40) % [place] % (Auto) 12.6 H (2-11) % Lymph # (Auto) 1.1 L (1.2-4.9) X10*3/uL [place] # (Auto) 1.6 H (0.1-1.2) X10*3/uL Abs Immat Gran (auto) 0.10 H (0.00-0.03) X10*3/uL Absolute Neuts (auto) 9.9 H (2.0-8.3) x10*3/uL PT 13.9 H (9.9-13.0) SEC INR 1.2 H D (0.9-1.1) Carbon Dioxide 32 H (22-29) mmol/L Anion Gap 9 L (12-20) BUN 23 H (9-16) mg/dL Random Glucose 119 H (60-115) mg/dL Total Protein (6.5-8.0) g/dL Albumin (3.5-5.0) g/dL Short CBC 02/23/22 02/24/22 Range/Units 18:15 06:47 WBC 14.8 H 12.8 H (4.8-10.8) X10*3/uL Hgb 9.7 L 9.2 L (12.0-16.0) g/dl Hct 31.2 L 30.0 L (37.0-47.0) % Plt Count 215 201 (160-400) X10*3/uL BMP 02/23/22 02/24/22 18:15 06:47 Sodium 139 138 Potassium 5.1 D 4.8 Chloride 103 102 Carbon Dioxide 30 H 32 H BUN 21 H 23 H Creatinine 0.67 0.67 Calcium 9.4 9.0 Liver Function 02/23/22 Range/Units 18:15 Total Bilirubin 0.8 (0.0-1.0) mg/dL AST 22 (5-31) U/L ALT 16 (0-31) U/L Alkaline Phosphatase 70 (39-117) U/L Albumin 3.3 L (3.5-5.0) g/dL All other labs normal. Imaging Additional studies: Laboratory Results WBC 12.8 X10*3/uL (4.8-10.8) H 02/24/22 06:47 RBC 3.48 X10*6/uL (4.20-5.50) L 02/24/22 06:47 Hgb 9.2 g/dl (12.0-16.0) L 02/24/22 06:47 Hct 30.0 % (37.0-47.0) L 02/24/22 06:47 MCV 86.2 fL (80.0-98.0) 02/24/22 06:47 MCH 26.4 pg (27.0-33.0) L 02/24/22 06:47 MCHC 30.7 g/dl (31.0-35.0) L 02/24/22 06:47 RDW 16.4 % (11.0-16.0) H 02/24/22 06:47 Plt Count 201 X10*3/uL (160-400) 02/24/22 06:47 MPV 11.5 fL (9.4-12.3) 02/24/22 06:47 Immature Gran % (Auto) 0.8 % (0.0-0.4) H 02/24/22 06:47 Neut % (Auto) 77.5 % (45-73) H 02/24/22 06:47 Lymph % (Auto) 8.8 % (20-40) L 02/24/22 06:47 [place] % (Auto) 12.6 % (2-11) H 02/24/22 06:47 Eos % (Auto) 0.1 % (0-4) 02/24/22 06:47 Baso % (Auto) 0.2 % (0-2) 02/24/22 06:47 Lymph # (Auto) 1.1 X10*3/uL (1.2-4.9) L 02/24/22 06:47 [place] # (Auto) 1.6 X10*3/uL (0.1-1.2) H 02/24/22 06:47 Eos # (Auto) 0.0 X10*3/uL (0.0-0.4) 02/24/22 06:47 Baso # (Auto) 0.0 X10*3/uL (0.0-0.2) 02/24/22 06:47 Abs Immat Gran (auto) 0.10 X10*3/uL (0.00-0.03) H 02/24/22 06:47 Absolute Neuts (auto) 9.9 x10*3/uL (2.0-8.3) H 02/24/22 06:47 Absolute Nucleated RBC 0.000 X10*3/uL (0.0-0.012) 02/24/22 06:47 Nucleated RBC % (auto) 0.0 /100WBC (0.0-0.2) 02/24/22 06:47 Smear Tech's Comments VERIFIED 02/24/22 06:47 PT 13.9 SEC (9.9-13.0) H 02/24/22 00:11 INR 1.2 (0.9-1.1) H D 02/24/22 00:11 Sodium 138 mmol/L (135-145) 02/24/22 06:47 Potassium 4.8 mmol/L (3.3-5.1) 02/24/22 06:47 Chloride 102 mmol/L (96-108) 02/24/22 06:47 Carbon Dioxide 32 mmol/L (22-29) H 02/24/22 06:47 Anion Gap 9 (12-20) L 02/24/22 06:47 BUN 23 mg/dL (9-16) H 02/24/22 06:47 Creatinine 0.67 mg/dL (0.5-1.4) 02/24/22 06:47 Estim Creat Clear Calc 51.0 02/24/22 06:47 Estimated GFR > 60 02/24/22 06:47 Random Glucose 119 mg/dL (60-115) H 02/24/22 06:47 Calcium 9.0 mg/dL (8.4-10.2) 02/24/22 06:47 Magnesium 1.7 mg/dL (1.6-2.6) 02/24/22 06:47 Total Bilirubin 0.8 mg/dL (0.0-1.0) 02/23/22 18:15 AST 22 U/L (5-31) 02/23/22 18:15 ALT 16 U/L (0-31) 02/23/22 18:15 Alkaline Phosphatase 70 U/L (39-117) 02/23/22 18:15 B-Natriuretic Peptide 63 pg/mL (<100) 02/23/22 18:15 Total Protein 6.1 g/dL (6.5-8.0) L 02/23/22 18:15 Albumin 3.3 g/dL (3.5-5.0) L 02/23/22 18:15 COVID-19 (ROC) Negative (Negative) 02/23/22 18:25 COVID-19 Clin Com See Note 02/23/22 18:25 Impressions Venous Duplex 02/23/22 17:40 IMPRESSION: No DVT demonstrated in the bilateral lower extremity. Complex right thigh collection measuring up to 8.5 cm in greatest dimension. Findings are nonspecific and could represent a hematoma or infectious process. Bilateral lower extremity subcutaneous edema, right greater than left. Head CT 02/23/22 18:00 IMPRESSION: 1. Diffuse increased density in the right globe, new as compared to the prior study of 01/11/2020. This of uncertain etiology. Correlate with clinical history, prior therapeutic procedure/surgical history. Differential considerations include posttraumatic etiology/hemorrhage within the globe. Close clinical correlation management is recommended. Ophthalmology consultation as clinically warranted. 2. No evidence of acute intracranial hemorrhage or edematous territorial infarction. 3. Sinus disease as above. This result was discussed with IKE Benavides at 1914 hours on 02/23/2022. Abdomen/Pelvis CT 02/23/22 18:31 IMPRESSION: 1. Large soft tissue hematoma along the anterior aspect of the right hip and thigh extending from the anterior inferior iliac spine to the mid femoral diaphysis. This measures up to 5.3 x 7.3 cm in greatest axial dimension. There is mild adjacent stranding. 2. Multiple bilateral nonobstructing renal stones. No hydronephrosis or hydroureter. Unremarkable urinary bladder. 3. Mild intrahepatic left-sided biliary ductal dilatation, new when compared to the CT from 2020. No discrete mass, however, evaluation is limited without IV contrast. 4. Diverticulosis without evidence of acute diverticulitis. 5. No airspace consolidation. No pleural effusion or pneumothorax. 6. Stable cardiomegaly. 7. Significant exaggeration of the thoracic kyphosis with multiple thoracic and lumbar spine compression fractures. The lower thoracic and lumbar spine compression fractures are unchanged when compared to the most recent abdominal CT and the thoracic spine compression fractures have a chronic appearance, however, were not seen on the CT from 2010. Chest CT 02/23/22 18:31 IMPRESSION: 1. Large soft tissue hematoma along the anterior aspect of the right hip and thigh extending from the anterior inferior iliac spine to the mid femoral diaphysis. This measures up to 5.3 x 7.3 cm in greatest axial dimension. There is mild adjacent stranding. 2. Multiple bilateral nonobstructing renal stones. No hydronephrosis or hydroureter. Unremarkable urinary bladder. 3. Mild intrahepatic left-sided biliary ductal dilatation, new when compared to the CT from 2020. No discrete mass, however, evaluation is limited without IV contrast. 4. Diverticulosis without evidence of acute diverticulitis. 5. No airspace consolidation. No pleural effusion or pneumothorax. 6. Stable cardiomegaly. 7. Significant exaggeration of the thoracic kyphosis with multiple thoracic and lumbar spine compression fractures. The lower thoracic and lumbar spine compression fractures are unchanged when compared to the most recent abdominal CT and the thoracic spine compression fractures have a chronic appearance, however, were not seen on the CT from 2010. Foot X-Ray 02/23/22 21:26 IMPRESSION: Generalized osteopenia. No acute fracture is seen. Tibia/Fibula X-Ray 02/23/22 21:26 IMPRESSION: Generalized osteopenia. No acute fracture is seen. Assessment and Plan (1) Hematoma: Status: Acute She has a right thigh hematoma measuring about 8.5 cm in diameter. This extends into the anterior inferior iliac spine on CT scan. This likely s econdary to her being markedly supratherapeutic with her INR. Her INR should be corrected and she should be be on bedrest for now. She does not require surgical intervention at this point. Her hemoglobin should be followed as well. She otherwise appears to be hemodynamically stable. She there does not to be able to any vascular compromise to the right lower extremity otherwise. Procedures Date of Service Date of Service: 01/29/22
[2022-02-24] MEDS: Albuterol Sulfate 90 MCG 8 GM INHALER 2 PUFF INHALE (11:18)
--- NOTE | 2022-02-24 13:34 | MHC.CM.PN ---
Attempted to meet with patient in regards to discharge planning. Patient currently sleeping. Spoke with patient's primary contact, Maggie, via telephone at [phone]. Patient's HCP lists Heather as primary. Heather has stepped down from being a HCP. Maggie listed as the alternative proxy, but is now the primary. Patient lives alone, is essentially wheelchair bound, is active with [facility] for a home health aid and [facility]. PCP verified. Copy of HCP verified to be on file. Patient received 2 Pfizer vaccines. Not due for a booster until 04/24/2022. IMM explained and left bedside. Anticipate patient will return home with resumption of services via BLS when medically stable. Continue to monitor for d/c needs.
[2022-02-24] MEDS: prednisoLONE Acetate 1 % Oph Susp 5 ML DRPBTL 1 DROP EYE-RIGHT ×2 (16:02→21:49)
--- NOTE | 2022-02-24 16:53 | HO.PM.IMPN ---
Subjective Subjective Date of Service: 02/25/22 Interval History: Offers no acute complaints has significant kyphosis, cannot see from left eye, has chronic blurring right eye, denies eye discomfort, no dizziness no lightheadedness complaining of right thigh pain, no acute issues since admission. 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 HEENT normal conjunctiva, no bleeding noted both eyes Neck flexed/significant kyphosis CVS regular rate rhythm, Respiratory lungs clear to auscultation, no respiratory distress, no wheeze, no rhonchi. Gastrointestinal abdomen soft, nontender, bowel sounds audible Extremities right thigh significant bruising extending towards knee, induration medially,, significant bruising right foot Neuro nonfocal , speech clear. Skin multiple bruises lower extremity Objective Data Active Medications Acetaminophen (Acetaminophen 325 Mg Tablet) 650 mg PO Q6H PRN PRN Reason: Pain, Mild (Pain Scale 1-3) Albuterol Sulfate (Albuterol Sulfate 90 Mcg 8 Gm Inhaler) 2 puff INHALE RQ6H [facility] Last Admin: 02/24/22 11:18 Dose: 2 puff Documented by: JAIME Benzonatate (Benzonatate 100 Mg Capsule) 100 mg PO TID PRN PRN Reason: Cough Brimonidine Tartrate (Brimonidine Tartrate 0.2% Oph 5 Ml Bottle) 1 drop EYE-RIGHT BID [facility] Last Admin: 02/24/22 08:17 Dose: Not Given Documented by: SUPRIYA Non-Admin Reason: Med Not Available Diltiazem HCl (Diltiazem Hcl Cd 180 Mg Cap.Er.24h) 180 mg PO DAILY [facility]; Protocol Last Admin: 02/24/22 08:05 Dose: 180 mg Documented by: SUPRIYA Fluticasone/Vilanterol (Fluticasone/Vilanterol 200/25 Blst.W.Dev) 1 puff INHALE RDAILY [facility] Last Admin: 02/24/22 08:21 Dose: Not Given Documented by: JAIME Non-Admin Reason: Med Not Available Gabapentin (Gabapentin 100 Mg Capsule) 200 mg PO DAILY [facility] Last Admin: 02/24/22 08:05 Dose: 200 mg Documented by: SUPRIYA Ceftriaxone Sodium 1 gm/ (Sodium Chloride) 50 mls @ 100 mls/hr IV Q24H [facility] Melatonin (Melatonin 3 Mg Tablet) 6 mg PO BEDTIME PRN PRN Reason: Insomnia Nystatin (Nystatin Oral Susp 500,000 Unit/5 Ml Oral.Susp) 500,000 unit PO QID [facility]; Protocol Last Admin: 02/24/22 15:25 Dose: 500,000 unit Documented by: SUPRIYA Pharmacy Consult (Consult Rx Perform Med Rec) 1 each MISCELLANE ONCE PRN PRN Reason: Consult order Prednisolone Acetate (Prednisolone Acetate 1 % Oph Susp 5 Ml Drpbtl) 1 drop EYE-RIGHT QID [facility] Last Admin: 02/24/22 16:04 Dose: Not Given Documented by: SUPRIYA Non-Admin Reason: Previously Administered Prednisone (Prednisone 1 Mg Tablet) 2 mg PO DAILY [facility] Last Admin: 02/24/22 08:04 Dose: 2 mg Documented by: SUPRIYA Pyridostigmine [place] (Pyridostigmine [place] 60 Mg Tablet) 60 mg PO TID [facility] Last Admin: 02/24/22 15:24 Dose: 60 mg Documented by: SUPRIYA Pyridoxine HCl (Pyridoxine Hcl (Vitamin B6) 50 Mg Tablet) 100 mg PO DAILY [facility] Last Admin: 02/24/22 08:04 Dose: 100 mg Documented by: SUPRIYA Senna (Sennosides 8.6 Mg Tablet) 17.2 mg PO BEDTIME PRN PRN Reason: Constipation Sodium Chloride (0.9 % Sodium Chloride Flush 3 Ml Syringe) 3 ml IVFLUSH QSHIFT [facility] Last Admin: 02/24/22 16:02 Dose: 3 ml Documented by: SUPRIYA Vitamin D (Cholecalciferol (Vitamin D3) 25 Mcg Tablet) 25 mcg PO DAILY [facility] Last Admin: 02/24/22 08:05 Dose: 25 mcg Documented by: SUPRIYA Labs CBC & Chem 7: 02/25/22 06:20 02/24/22 06:47 Labs: Laboratory Results - last 24 hr 02/23/22 02/23/22 02/23/22 18:15 18:15 18:15 MCV 84.3 MCH 26.2 L MCHC 31.1 RDW 16.5 H Plt Count 215 MPV 11.4 Immature Gran % (Auto) 0.5 H Neut % (Auto) 85.1 H Lymph % (Auto) 6.5 L [place] % (Auto) 7.7 Eos % (Auto) 0.1 Baso % (Auto) 0.1 Lymph # (Auto) 1.0 L [place] # (Auto) 1.2 Eos # (Auto) 0.0 Baso # (Auto) 0.0 Abs Immat Gran (auto) 0.07 H Absolute Neuts (auto) 12.6 H Absolute Nucleated RBC 0.000 Nucleated RBC % (auto) 0.0 Smear Tech's Comments PT 107.1 H INR 9.0 H* Anion Gap 11 L Estim Creat Clear Calc 51.0 Estimated GFR > 60 Random Glucose 133 H Calcium 9.4 Magnesium 1.6 Total Bilirubin 0.8 AST 22 ALT 16 Alkaline Phosphatase 70 B-Natriuretic Peptide Total Protein 6.1 L Albumin 3.3 L COVID-19 (ROC) COVID-[employer] 02/23/22 02/23/22 02/24/22 18:15 18:25 00:11 MCV MCH MCHC RDW Plt Count MPV Immature Gran % (Auto) Neut % (Auto) Lymph % (Auto) [place] % (Auto) Eos % (Auto) Baso % (Auto) Lymph # (Auto) [place] # (Auto) Eos # (Auto) Baso # (Auto) Abs Immat Gran (auto) Absolute Neuts (auto) Absolute Nucleated RBC Nucleated RBC % (auto) Smear Tech's Comments PT 13.9 H INR 1.2 H D Anion Gap Estim Creat Clear Calc Estimated GFR Random Glucose Calcium Magnesium Total Bilirubin AST ALT Alkaline Phosphatase B-Natriuretic Peptide 63 Total Protein Albumin COVID-19 (ROC) Negative [facility] Com See Note 02/24/22 02/24/22 02/24/22 06:47 06:47 06:47 MCV 86.2 MCH 26.4 L MCHC 30.7 L RDW 16.4 H Plt Count 201 MPV 11.5 Immature Gran % (Auto) 0.8 H Neut % (Auto) 77.5 H Lymph % (Auto) 8.8 L [place] % (Auto) 12.6 H Eos % (Auto) 0.1 Baso % (Auto) 0.2 Lymph # (Auto) 1.1 L [place] # (Auto) 1.6 H Eos # (Auto) 0.0 Baso # (Auto) 0.0 Abs Immat Gran (auto) 0.10 H Absolute Neuts (auto) 9.9 H Absolute Nucleated RBC 0.000 Nucleated RBC % (auto) 0.0 Smear Tech's Comments VERIFIED PT INR Anion Gap 9 L Estim Creat Clear Calc 51.0 Estimated GFR > 60 Random Glucose 119 H Calcium 9.0 Magnesium 1.7 Total Bilirubin AST ALT Alkaline Phosphatase B-Natriuretic Peptide Total Protein Albumin COVID-19 (ROC) COVID-19 Clin Com Assessment and Plan (1) Hematoma: Status: Acute (2) Cellulitis: Status: Acute (3) Leg pain, right: Status: Acute (4) Elevated INR: Status: Acute Plan 81-year-old female with a past medical history of AFib on Coumadin, myasthenic gravis, IBS, discoid lupus, GERD, vertigo, osteoporosis, history of urethral stone; presented to the hospital today with a chief complaint of right thigh pain for the past 2 days.? Noted to have following conditions Right Thigh hematoma: No evidence of compartment syndrome, hematocrit dropped but stable, INR improved, continue supportive care Serial H&H, lower extremity ultrasound showed complex right thigh collection up to 8.5 cm in greatest dimension likely representing hematoma or infectious process. Right X-ray foot showed no acute fractures, tib-fib x-ray showed no fracture Supratherapeutic INR: CT head showed no acute intracranial process,status post Kcentra and vitamin K IV INR improved to 1.2, will continue to hold Coumadin to be resumed as outpatient as per PCP discretion. Question right eye hemorrhage versus postsurgical changes. CT head showed diffuse increased density in the right lobe of uncertain etiology differential diagnosis included posttraumatic etiology/hemorrhage within the globe Patient denies pain, no change in vision, nighttime physician Discussed with Dr. Hernandez from Ophthalmology - who mentioned no acute intervention, supportive care; per ER team tonometer showed normal eye pressures. recommended outpatient ophthalmology follow-up after discharge. Patient is status post treatment for detached retina x2 has chronic blurred right eye vision, continue eyedrops Right leg cellulitis: Doppler study showed no DVT on iv ceftriaxone day 2 Leg x-ray/ foot x-ray showed no acute findings History of chronic persistent AFib:? Coumadin on hold.? rate controlled on Cardizem CD History of myasthenia gravis: Continue home? pyridostigmine and prednisone Recurrent fall will obtain PT eval DVT prophylaxis:? Unable to do SCD boots given pain in the leg; unable to use pharmacologic agent given supratherapeutic INR and?hematoma, once leg pain is better will place on compression boots. Code status: DNR /DNI Patient will need continued inpatient hospitalization due to right thigh hematoma, pain with difficulty in ambulation and right leg cellulitis requiring IV antibiotics and monitoring of cyst hematocrit Quality Stroke Does the patient have a stroke diagnosis?: No VTE Prior VTE?: No VTE Risk Level:: Medical - moderate - high VTE Device Contraindication: Treatment Not Indicated VTE Drug Contraindication: Treatment Not Indicated
[2022-02-24] MEDS: Brimonidine Tartrate 0.2% Oph 5 ML BOTTLE 1 DROP EYE-RIGHT (21:49)
[2022-02-24] MEDS: cefTRIAXone sodium 1 GM in 0.9 % Sodium Chloride 50 ML IV (21:52)
[2022-02-25] VITALS (10 sets, daily range): BP systolic 100–121; BP diastolic 41–60; PULSE 80–104; RESP 14–23; TEMP 36.6–37.3; O2SAT 90–100
[2022-02-25] MEDS: 0.9 % Sodium Chloride Flush 3 ML SYRINGE IVFLUSH ×4 (00:28→20:25)
[2022-02-25 06:14] LABS: Appearance Urine CLEAR; Color Urine YELLOW; Glucose Urine UA 100 MG/DL (NEG); Leukocyte Esterase Urine NEG (NEG); Nitrite Urine NEG (NEG); Specific Gravity - Urine >= 1.030 (1.005-1.025); Urine Blood NEG (NEG); Urine Ketones NEG (NEG); Urine Protein NEG (NEG-TRACE)
[2022-02-25 06:58] LABS: Hematocrit 27.3 % (37.0-47.0); Hemoglobin 8.2 g/dl (12.0-16.0); Mean Corpuscular Hemoglobin 26.2 pg (27.0-33.0); Mean Corpuscular Volume 87.2 fL (80.0-98.0); Mean Platelet Volume 12.2 fL (9.4-12.3); Platelet Count 170 X10*3/uL (160-400); Red Blood Count 3.13 X10*6/uL (4.20-5.50); Red Cell Distribution Width 16.3 % (11.0-16.0); White Blood Count 12.5 X10*3/uL (4.8-10.8)
--- NOTE | 2022-02-25 07:22 | PC.NURSE ---
pt is caox4, offers no complaint. pt tolerating breakfast well. will reposition pt and medicate as ordered after breakfast. plan of care per report from previous shift is for a surgical consult today.
--- NOTE | 2022-02-25 07:51 | PM.PNGS ---
Subjective Subjective Date of Service: 02/26/22 Interval history: states she is comfortable describes some pain on the right thigh area with movement Physical Exam Vital Signs: Vital Signs: Last Vital Signs Temp 98.4 F 02/25/22 05:26 Pulse 83 02/25/22 05:26 Resp 15 02/25/22 05:26 BP 105/53 L 02/25/22 05:26 Pulse Ox 100 02/25/22 05:26 BMI result Body Mass Index 19.2 Const: Other: frail looking General: comfortable and no acute distress Resp: Effort & Inspection: normal respiratory effort Cardio: Rhythm: abnormal rhythm GI: Palpation (GI): Soft to palpation and nontender Extrem: Other: right thigh induration with ecchymosis anterior and medial, otherwise soft, no evidence of any vascular compromise Objective Data Active Medications Acetaminophen (Acetaminophen 325 Mg Tablet) 650 mg PO Q6H PRN PRN Reason: Pain, Mild (Pain Scale 1-3) Albuterol Sulfate (Albuterol Sulfate 90 Mcg 8 Gm Inhaler) 2 puff INHALE RQ6H [facility] Last Admin: 02/25/22 05:21 Dose: Not Given Documented by: PABLO Non-Admin Reason: Patient Asleep Benzonatate (Benzonatate 100 Mg Capsule) 100 mg PO TID PRN PRN Reason: Cough Brimonidine Tartrate (Brimonidine Tartrate 0.2% Oph 5 Ml Bottle) 1 drop EYE-RIGHT BID [facility] Last Admin: 02/24/22 21:49 Dose: 1 drop Documented by: SIMONE Diltiazem HCl (Diltiazem Hcl Cd 120 Mg Cap.Er.Deg) 120 mg PO DAILY [facility]; Protocol Fluticasone/Vilanterol (Fluticasone/Vilanterol 200/25 Blst.W.Dev) 1 puff INHALE RDAILY [facility] Last Admin: 02/25/22 07:29 Dose: Not Given Documented by: JAIME Non-Admin Reason: Med Not Available Gabapentin (Gabapentin 100 Mg Capsule) 200 mg PO DAILY [facility] Last Admin: 02/24/22 08:05 Dose: 200 mg Documented by: COOPEB Ceftriaxone Sodium 1 gm/ (Sodium Chloride) 50 mls @ 100 mls/hr IV Q24H [facility] Last Infusion: 02/24/22 22:22 Dose: 0 mls/hr Documented by: SIMONE Melatonin (Melatonin 3 Mg Tablet) 6 mg PO BEDTIME PRN PRN Reason: Insomnia Nystatin (Nystatin Oral Susp 500,000 Unit/5 Ml Oral.Susp) 500,000 unit PO QID [facility]; Protocol Last Admin: 02/24/22 21:50 Dose: 500,000 unit Documented by: SIMONE Pharmacy Consult (Consult Rx Perform Med Rec) 1 each MISCELLANE ONCE PRN PRN Reason: Consult order Prednisolone Acetate (Prednisolone Acetate 1 % Oph Susp 5 Ml Drpbtl) 1 drop EYE-RIGHT QID [facility] Last Admin: 02/24/22 21:49 Dose: 1 drop Documented by: SIMONE Prednisone (Prednisone 1 Mg Tablet) 2 mg PO DAILY [facility] Last Admin: 02/24/22 08:04 Dose: 2 mg Documented by: SUPRIYA Pyridostigmine [place] (Pyridostigmine [place] 60 Mg Tablet) 60 mg PO TID [facility] Last Admin: 02/24/22 21:52 Dose: 60 mg Documented by: SIMONE Pyridoxine HCl (Pyridoxine Hcl (Vitamin B6) 50 Mg Tablet) 100 mg PO DAILY [facility] Last Admin: 02/24/22 08:04 Dose: 100 mg Documented by: SUPRIYA Senna (Sennosides 8.6 Mg Tablet) 17.2 mg PO BEDTIME PRN PRN Reason: Constipation Sodium Chloride (0.9 % Sodium Chloride Flush 3 Ml Syringe) 3 ml IVFLUSH QSHIFT [facility] Last Admin: 02/25/22 00:28 Dose: 3 ml Documented by: SIMONE Vitamin D (Cholecalciferol (Vitamin D3) 25 Mcg Tablet) 25 mcg PO DAILY [facility] Last Admin: 02/24/22 08:05 Dose: 25 mcg Documented by: SUPRIYA Labs CBC & Chem 7: 02/25/22 06:20 02/24/22 06:47 Labs: Laboratory Results - last 24 hr 02/24/22 02/25/22 02/25/22 06:47 06:00 06:20 MCV 87.2 MCH 26.2 L MCHC 30.0 L RDW 16.3 H Plt Count 170 MPV 12.2 Immature Gran % (Auto) 0.8 H Neut % (Auto) 77.5 H Lymph % (Auto) 8.8 L [place] % (Auto) 12.6 H Eos % (Auto) 0.1 Baso % (Auto) 0.2 Lymph # (Auto) 1.1 L [place] # (Auto) 1.6 H Eos # (Auto) 0.0 Baso # (Auto) 0.0 Abs Immat Gran (auto) 0.10 H Absolute Neuts (auto) 9.9 H Absolute Nucleated RBC 0.000 0.000 Nucleated RBC % (auto) 0.0 0.0 Smear Tech's Comments VERIFIED Urine Color YELLOW Urine Appearance CLEAR Urine pH 6.0 Ur Specific [place] >= 1.030 H Urine Protein NEG Urine Glucose (UA) 100 H Urine Ketones NEG Urine Blood NEG Urine Nitrite NEG Ur Leukocyte Esterase NEG Procedures Date of Service Date of Service: 02/25/22 Progress Note: A&P Assessment and plan (1) Hematoma: Status: Acute Assessment and Plan: hemoglobin down INR now normal after correction with vitamin K anticipate hematoma to stabilize hold anticoagulation for now follow H&H - transfuse as needed hemodynamically stable Time Spent With Patient Time: Total time spent is greater than 50% in coordination of care (as documented) at patient's floor/unit and/or counseling patient: Quality Stroke Does the patient have a stroke diagnosis?: No VTE Prior VTE?: No VTE Risk Level:: Medical - moderate - high VTE Device Contraindication: Treatment Not Indicated VTE Drug Contraindication: Treatment Not Indicated
[2022-02-25] MEDS: Gabapentin 100 MG CAPSULE 200 MG PO (09:16)
[2022-02-25] MEDS: Cholecalciferol (Vitamin D3) 25 MCG TABLET PO (09:16)
[2022-02-25] MEDS: dilTIAZem HCL CD 120 MG CAP.ER.DEG PO (09:17)
[2022-02-25] MEDS: predniSONE 1 MG TABLET 2 MG PO (09:18)
[2022-02-25] MEDS: Pyridoxine HCl (Vitamin B6) 50 MG TABLET 100 MG PO (09:18)
--- NOTE | 2022-02-25 09:25 | PC.NURSE ---
pt has been ambulated with physical therapy. pt in hospitl bed. no mskin breakdown noted over bony prominences.
[2022-02-25] MEDS: Nystatin Oral Susp 500,000 UNIT/5 ML ORAL.SUSP 500000 UNIT PO ×2 (09:32→14:50)
[2022-02-25] MEDS: prednisoLONE Acetate 1 % Oph Susp 5 ML DRPBTL 1 DROP EYE-RIGHT ×2 (09:33→14:52)
[2022-02-25] MEDS: Brimonidine Tartrate 0.2% Oph 5 ML BOTTLE 1 DROP EYE-RIGHT (09:34)
--- NOTE | 2022-02-25 10:16 | PC.NURSE ---
hospitalist has evaluated, plan of care is for possible d/c
[2022-02-25] MEDS: Albuterol Sulfate 90 MCG 8 GM INHALER 2 PUFF INHALE ×2 (11:12→17:14)
--- NOTE | 2022-02-25 13:32 | HO.PM.IMPN ---
Subjective Subjective Date of Service: 02/25/22 Interval History: Complaining of right thigh pain not responding to Tylenol, denies fever chills no other acute issues overnight. 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 HEENT normal conjunctiva, no bleeding noted both eyes Neck flexed/significant kyphosis CVS? regular rate rhythm, Respiratory lungs clear to auscultation, no respiratory distress, no wheeze, no rhonchi. Gastrointestinal abdomen soft, nontender, bowel sounds audible Extremities right thigh significant bruising extending towards knee, induration medially,, significant bruising right foot (unchanged) Neuro nonfocal , speech clear. Skin multiple bruises lower extremity Objective Data Active Medications Acetaminophen (Acetaminophen 325 Mg Tablet) 650 mg PO Q6H PRN PRN Reason: Pain, Mild (Pain Scale 1-3) Albuterol Sulfate (Albuterol Sulfate 90 Mcg 8 Gm Inhaler) 2 puff INHALE RQ6H [facility] Last Admin: 02/25/22 11:12 Dose: 2 puff Documented by: JAIME Benzonatate (Benzonatate 100 Mg Capsule) 100 mg PO TID PRN PRN Reason: Cough Brimonidine Tartrate (Brimonidine Tartrate 0.2% Oph 5 Ml Bottle) 1 drop EYE-RIGHT BID [facility] Last Admin: 02/25/22 09:34 Dose: 1 drop Documented by: KHURRAM Diltiazem HCl (Diltiazem Hcl Cd 120 Mg Cap.Er.Deg) 120 mg PO DAILY [facility]; Protocol Last Admin: 02/25/22 09:17 Dose: 120 mg Documented by: KHURRAM Fluticasone/Vilanterol (Fluticasone/Vilanterol 200/25 Blst.W.Dev) 1 puff INHALE RDAILY [facility] Last Admin: 02/25/22 07:29 Dose: Not Given Documented by: JAIME Non-Admin Reason: Med Not Available Gabapentin (Gabapentin 100 Mg Capsule) 200 mg PO DAILY [facility] Last Admin: 02/25/22 09:16 Dose: 200 mg Documented by: KHURRAM Ceftriaxone Sodium 1 gm/ (Sodium Chloride) 50 mls @ 100 mls/hr IV Q24H [facility] Last Infusion: 02/24/22 22:22 Dose: 0 mls/hr Documented by: JULIA-JANINE Melatonin (Melatonin 3 Mg Tablet) 6 mg PO BEDTIME PRN PRN Reason: Insomnia Nystatin (Nystatin Oral Susp 500,000 Unit/5 Ml Oral.Susp) 500,000 unit PO QID [facility]; Protocol Last Admin: 02/25/22 09:32 Dose: 500,000 unit Documented by: KHURRAM Oxycodone HCl (Oxycodone Hcl Immed Release 5 Mg Tablet) 2.5 mg PO Q6H PRN PRN Reason: Pain, Severe (Pain Scale 7-10) Pharmacy Consult (Consult Rx Perform Med Rec) 1 each MISCELLANE ONCE PRN PRN Reason: Consult order Prednisolone Acetate (Prednisolone Acetate 1 % Oph Susp 5 Ml Drpbtl) 1 drop EYE-RIGHT QID [facility] Last Admin: 02/25/22 09:33 Dose: 1 drop Documented by: KHURRAM Prednisone (Prednisone 1 Mg Tablet) 2 mg PO DAILY [facility] Last Admin: 02/25/22 09:18 Dose: 2 mg Documented by: KHURRAM Pyridostigmine [place] (Pyridostigmine [place] 60 Mg Tablet) 60 mg PO TID [facility] Last Admin: 02/25/22 09:17 Dose: 60 mg Documented by: KHURRAM Pyridoxine HCl (Pyridoxine Hcl (Vitamin B6) 50 Mg Tablet) 100 mg PO DAILY [facility] Last Admin: 02/25/22 09:18 Dose: 100 mg Documented by: KHURRAM Senna (Sennosides 8.6 Mg Tablet) 17.2 mg PO BEDTIME PRN PRN Reason: Constipation Sodium Chloride (0.9 % Sodium Chloride Flush 3 Ml Syringe) 3 ml IVFLUSH QSHIFT [facility] Last Admin: 02/25/22 09:19 Dose: 3 ml Documented by: KHURRAM Vitamin D (Cholecalciferol (Vitamin D3) 25 Mcg Tablet) 25 mcg PO DAILY [facility] Last Admin: 02/25/22 09:16 Dose: 25 mcg Documented by: KHURRAM Labs CBC & Chem 7: 02/25/22 06:20 02/24/22 06:47 Labs: Laboratory Results - last 24 hr 02/25/22 02/25/22 06:00 06:20 MCV 87.2 MCH 26.2 L MCHC 30.0 L RDW 16.3 H Plt Count 170 MPV 12.2 Absolute Nucleated RBC 0.000 Nucleated RBC % (auto) 0.0 Urine Color YELLOW Urine Appearance CLEAR Urine pH 6.0 Ur Specific [place] >= 1.030 H Urine Protein NEG Urine Glucose (UA) 100 H Urine Ketones NEG Urine Blood NEG Urine Nitrite NEG Ur Leukocyte Esterase NEG Assessment and Plan (1) Hematoma: Status: Acute (2) Cellulitis: Status: Acute (3) Leg pain, right: Status: Acute (4) Elevated INR: Status: Acute Plan 81-year-old female with a past medical history of AFib on Coumadin, myasthenic gravis, IBS, discoid lupus, GERD, vertigo, osteoporosis, history of urethral stone; presented to the hospital today with a chief complaint of right thigh pain for the past 2 days.? Noted to have following conditions Right Thigh hematoma: Persistent thigh pain will add oxycodone and ice, hematocrit dropped but stable hold blood transfusion No evidence of compartment syndrome, hematocrit dropped but stable, INR improved, continue supportive care Serial H&H, lower extremity ultrasound showed complex right thigh collection up to 8.5 cm in greatest dimension likely representing hematoma or infectious process. Right X-ray foot showed no acute fractures, tib-fib x-ray showed no fracture Patient seen by physical therapy they recommend home services and PT Supratherapeutic INR: CT head showed no acute intracranial process,status post Kcentra and vitamin K IV INR improved to 1.2, will continue to hold Coumadin to be resumed as outpatient as per PCP discretion. Question right eye hemorrhage versus postsurgical changes. Normal bilateral eye examination no pain, no change in vision CT head showed diffuse increased density in the right lobe of uncertain etiology differential diagnosis included posttraumatic etiology/hemorrhage within the globe recommended outpatient ophthalmology follow-up after discharge. 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 Right leg cellulitis: Persistent redness and swelling, WBC trending down, no fevers Doppler study showed no DVT on iv ceftriaxone day 3 Leg x-ray/ foot x-ray showed no acute findings History of chronic persistent AFib:? Coumadin on hold.? rate controlled on Cardizem CD, noted to have soft blood pressure therefore dose of Cardizem reduced to 120 mg History of myasthenia gravis: Continue home? pyridostigmine and prednisone DVT prophylaxis:? Unable to do SCD boots given pain in the leg; unable to use pharmacologic agent given supratherapeutic INR and?hematoma, once leg pain is better will place on compression boots. Code status: DNR /DNI Patient will need continued inpatient hospitalization due to right thigh hematoma, pain with difficulty in ambulation and right leg cellulitis requiring IV antibiotics and monitoring of hematocrit Quality Stroke Does the patient have a stroke diagnosis?: No VTE Prior VTE?: No VTE Risk Level:: Medical - moderate - high VTE Device Contraindication: Treatment Not Indicated VTE Drug Contraindication: Treatment Not Indicated
--- NOTE | 2022-02-25 21:30 | PC.NURSE ---
Phone call received from Rosa TEIXEIRA who called 911 and stated she was in a supply closet.
[2022-02-26 03:37] VITALS: BP 120/58; PULSE 94; RESP 17; TEMP 36.4; O2SAT 92
[2022-02-26 08:00] VITALS: BP 101/47; PULSE 105; RESP 16; TEMP 36.9; O2SAT 93
[2022-02-26] MEDS: Nystatin Oral Susp 500,000 UNIT/5 ML ORAL.SUSP 500000 UNIT PO ×4 (09:07→20:00)
[2022-02-26] MEDS: Cholecalciferol (Vitamin D3) 25 MCG TABLET PO (09:07)
[2022-02-26] MEDS: Gabapentin 100 MG CAPSULE 200 MG PO (09:07)
[2022-02-26] MEDS: 0.9 % Sodium Chloride Flush 3 ML SYRINGE IVFLUSH ×3 (09:08→23:53)
--- NOTE | 2022-02-26 09:54 | P.PNGS_ITS ---
Subjective Subjective Date of Service: 02/26/22 Interval history: States she feels okay some pain on the right thigh but not severe no other complaints Physical Exam Vital Signs: Vital Signs: Last Vital Signs Temp 98.4 F 02/26/22 08:00 Pulse 105 H 02/26/22 08:00 Resp 16 02/26/22 08:00 BP 101/47 L 02/26/22 08:00 Pulse Ox 93 02/26/22 08:00 BMI result Body Mass Index 19.2 Const: Other: appears frail General: comfortable and no acute distress Resp: Effort & Inspection: normal respiratory effort Cardio: Rhythm: abnormal rhythm GI: Palpation (GI): Soft to palpation and nontender Extrem: Other: right thigh hematoma does not seem to be expanding, thigh remains soft, no evidence of vascular compromise Objective Data Active Medications Acetaminophen (Acetaminophen 325 Mg Tablet) 650 mg PO Q6H PRN PRN Reason: Pain, Mild (Pain Scale 1-3) Albuterol Sulfate (Albuterol Sulfate 90 Mcg 8 Gm Inhaler) 2 puff INHALE RQ6H WHILE AWAKE [facility] Benzonatate (Benzonatate 100 Mg Capsule) 100 mg PO TID PRN PRN Reason: Cough Brimonidine Tartrate (Brimonidine Tartrate 0.2% Oph 5 Ml Bottle) 1 drop EYE- RIGHT BID [facility] Last Admin: 02/25/22 20:28 Dose: Not Given Documented by: NURIA Non-Admin Reason: not available//refused Diltiazem HCl (Diltiazem Hcl Cd 120 Mg Cap.Er.Deg) 120 mg PO DAILY [facility]; Protocol Last Admin: 02/25/22 09:17 Dose: 120 mg Documented by: KHURRAM Fluticasone/Vilanterol (Fluticasone/Vilanterol 200/25 Blst.W.Dev) 1 puff INHALE RDAILY [facility] Last Admin: 02/25/22 07:29 Dose: Not Given Documented by: JAIME Non-Admin Reason: Med Not Available Gabapentin (Gabapentin 100 Mg Capsule) 200 mg PO DAILY [facility] Last Admin: 02/26/22 09:07 Dose: 200 mg Documented by: ANU Melatonin (Melatonin 3 Mg Tablet) 6 mg PO BEDTIME PRN PRN Reason: Insomnia Nystatin (Nystatin Oral Susp 500,000 Unit/5 Ml Oral.Susp) 500,000 unit PO QID [facility]; Protocol Last Admin: 02/26/22 09:07 Dose: 500,000 unit Documented by: ANU Pharmacy Consult (Consult Rx Perform Med Rec) 1 each MISCELLANE ONCE PRN PRN Reason: Consult order Prednisolone Acetate (Prednisolone Acetate 1 % Oph Susp 5 Ml Drpbtl) 1 drop EYE-RIGHT QID [facility] Last Admin: 02/25/22 20:26 Dose: Not Given Documented by: NURIA Non-Admin Reason: med not available Prednisone (Prednisone 1 Mg Tablet) 2 mg PO DAILY [facility] Last Admin: 02/25/22 09:18 Dose: 2 mg Documented by: KHURRAM Pyridostigmine [place] (Pyridostigmine [place] 60 Mg Tablet) 60 mg PO TID [facility] Last Admin: 02/26/22 09:07 Dose: 60 mg Documented by: ANU Pyridoxine HCl (Pyridoxine Hcl (Vitamin B6) 50 Mg Tablet) 100 mg PO DAILY [facility] Last Admin: 02/25/22 09:18 Dose: 100 mg Documented by: KHURRAM Senna (Sennosides 8.6 Mg Tablet) 17.2 mg PO BEDTIME PRN PRN Reason: Constipation Sodium Chloride (0.9 % Sodium Chloride Flush 3 Ml Syringe) 3 ml IVFLUSH QSHIFT [facility] Last Admin: 02/26/22 09:08 Dose: 3 ml Documented by: ANU Vitamin D (Cholecalciferol (Vitamin D3) 25 Mcg Tablet) 25 mcg PO DAILY [facility] Last Admin: 02/26/22 09:07 Dose: 25 mcg Documented by: ANU Labs CBC & Chem 7: 02/25/22 06:20 02/24/22 06:47 Procedures Date of Service Date of Service: 02/26/22 Progress Note: A&P Assessment and plan (1) Hematoma: Status: Acute Assessment and Plan: hematoma not expanding thigh remains soft no suggestion of vascular compromise follow hemoglobin hold anticoagulation for now Time Spent With Patient Time: Total time spent is greater than 50% in coordination of care (as documented) at patient's floor/unit and/or counseling patient: Quality Stroke Does the patient have a stroke diagnosis?: No VTE Prior VTE?: No VTE Risk Level:: Medical - moderate - high VTE Device Contraindication: Treatment Not Indicated VTE Drug Contraindication: Treatment Not Indicated
[2022-02-26] MEDS: predniSONE 1 MG TABLET 2 MG PO (11:07)
[2022-02-26] MEDS: Pyridoxine HCl (Vitamin B6) 50 MG TABLET 100 MG PO ×2 (11:07→16:44)
[2022-02-26 11:30] LABS: Appearance Urine CLEAR; Color Urine YELLOW; Glucose Urine UA NEG (NEG); Leukocyte Esterase Urine NEG (NEG); Nitrite Urine NEG (NEG); PH 5.5 (5.0-8.0); Specific Gravity - Urine >= 1.030 (1.005-1.025); Urine Blood NEG (NEG); Urine Ketones 15 MG/DL (NEG); Urine Protein TRACE MG/DL (NEG-TRACE)
[2022-02-26] MEDS: dilTIAZem HCL CD 120 MG CAP.ER.DEG PO (11:36)
[2022-02-26] MEDS: Albuterol Sulfate 90 MCG 8 GM INHALER 2 PUFF INHALE ×2 (14:05→19:04)
[2022-02-26 14:06] VITALS: PULSE 106; RESP 20; O2SAT 93
--- NOTE | 2022-02-26 14:48 | HO.PM.IMPN ---
Subjective Subjective Date of Service: 02/26/22 Interval History: Patient confused hallucinating this morning, seeing puppies on the floor, not aware of place or person, tele monitor showed atrial fibrillation ventricular rate around 115 Review of Systems Review of Systems: Yes Unobtainable due to mental status Physical Exam Vital Signs: Vital Signs: Last Vital Signs Temp 98.4 F 02/26/22 08:00 Pulse 106 H 02/26/22 14:06 Resp 20 02/26/22 14:06 BP 101/47 L 02/26/22 08:00 Pulse Ox 93 02/26/22 08:00 BMI result Body Mass Index 19.2 Const: Other: General awake alert pleasantly confused HEENT normal conjunctiva, no bleeding noted both eyes Neck flexed/significant kyphosis CVS? irregular rate rhythm, tachy Respiratory lungs clear to auscultation, no respiratory distress, no wheeze, no rhonchi. Gastrointestinal abdomen soft, nontender, bowel sounds audible Extremities right thigh significant bruising extending towards knee, induration improving , bruising right foot Neuro speech clear, moving all 4 extremities Skin multiple bruises lower extremity Psych poor insight Objective Data Active Medications Acetaminophen (Acetaminophen 325 Mg Tablet) 650 mg PO Q6H PRN PRN Reason: Pain, Mild (Pain Scale 1-3) Albuterol Sulfate (Albuterol Sulfate 90 Mcg 8 Gm Inhaler) 2 puff INHALE RQ6H WHILE AWAKE [facility] Last Admin: 02/26/22 14:05 Dose: 2 puff Documented by: BRESMARCE Benzonatate (Benzonatate 100 Mg Capsule) 100 mg PO TID PRN PRN Reason: Cough Brimonidine Tartrate (Brimonidine Tartrate 0.2% Oph 5 Ml Bottle) 1 drop EYE-RIGHT BID [facility] Last Admin: 02/26/22 10:56 Dose: Not Given Documented by: ANU Non-Admin Reason: Med Not Available Diltiazem HCl (Diltiazem Hcl Cd 120 Mg Cap.Er.Deg) 120 mg PO DAILY [facility]; Protocol Last Admin: 02/26/22 11:36 Dose: 120 mg Documented by: ANU Fluticasone/Vilanterol (Fluticasone/Vilanterol 200/25 Blst.W.Dev) 1 puff INHALE RDAILY [facility] Last Admin: 02/26/22 10:57 Dose: Not Given Documented by: ANU Non-Admin Reason: Med Not Available Gabapentin (Gabapentin 100 Mg Capsule) 200 mg PO DAILY [facility] Last Admin: 02/26/22 09:07 Dose: 200 mg Documented by: ANU Melatonin (Melatonin 3 Mg Tablet) 6 mg PO BEDTIME PRN PRN Reason: Insomnia Nystatin (Nystatin Oral Susp 500,000 Unit/5 Ml Oral.Susp) 500,000 unit PO QID [facility]; Protocol Last Admin: 02/26/22 09:07 Dose: 500,000 unit Documented by: ANU Pharmacy Consult (Consult Rx Perform Med Rec) 1 each MISCELLANE ONCE PRN PRN Reason: Consult order Prednisolone Acetate (Prednisolone Acetate 1 % Oph Susp 5 Ml Drpbtl) 1 drop EYE-RIGHT QID [facility] Last Admin: 02/26/22 10:58 Dose: Not Given Documented by: ANU Non-Admin Reason: Patient Refused Prednisone (Prednisone 1 Mg Tablet) 2 mg PO DAILY [facility] Last Admin: 02/26/22 11:07 Dose: 2 mg Documented by: ANU Pyridostigmine [place] (Pyridostigmine [place] 60 Mg Tablet) 60 mg PO TID [facility] Last Admin: 02/26/22 09:07 Dose: 60 mg Documented by: ANU Pyridoxine HCl (Pyridoxine Hcl (Vitamin B6) 50 Mg Tablet) 100 mg PO DAILY [facility] Last Admin: 02/26/22 11:07 Dose: 100 mg Documented by: ANU Senna (Sennosides 8.6 Mg Tablet) 17.2 mg PO BEDTIME PRN PRN Reason: Constipation Sodium Chloride (0.9 % Sodium Chloride Flush 3 Ml Syringe) 3 ml IVFLUSH QSHIFT [facility] Last Admin: 02/26/22 09:08 Dose: 3 ml Documented by: ANU Vitamin D (Cholecalciferol (Vitamin D3) 25 Mcg Tablet) 25 mcg PO DAILY [facility] Last Admin: 02/26/22 09:07 Dose: 25 mcg Documented by: ANU Labs CBC & Chem 7: 02/25/22 06:20 02/24/22 06:47 Labs: Laboratory Results - last 24 hr 02/26/22 11:23 Urine Color YELLOW Urine Appearance CLEAR Urine pH 5.5 Ur Specific [place] >= 1.030 H Urine Protein TRACE Urine Glucose (UA) NEG Urine Ketones 15 Urine Blood NEG Urine Nitrite NEG Ur Leukocyte Esterase NEG Assessment and Plan (1) Hematoma: Status: Acute (2) Cellulitis: Status: Acute (3) Leg pain, right: Status: Acute (4) Elevated INR: Status: Acute Plan 81-year-old female with a past medical history of AFib on Coumadin, myasthenic gravis, IBS, discoid lupus, GERD, vertigo, osteoporosis, history of urethral stone; presented to the hospital today with a chief complaint of right thigh pain for the past 2 days.? Noted to have following conditions Right Thigh hematoma: Patient pleasantly confused this morning not complaining of pain hematocrit dropped but stable hold blood transfusion No evidence of compartment syndrome, INR improved, continue supportive care Serial H&H, lower extremity ultrasound showed complex right thigh collection up to 8.5 cm in greatest dimension likely representing hematoma or infectious process. Right X-ray foot showed no acute fractures, tib-fib x-ray showed no fracture Patient seen by physical therapy they recommend home services and PT Acute toxic metabolic encephalopathy Patient noted to be pleasantly confused hallucinating likely due to narcotics, sundowning, UA checked and benign Moving all 4 extremities speech clear Will check electrolytes, magnesium, correct ventricular rate follow clinical course Supratherapeutic INR: CT head showed no acute intracranial process,status post Kcentra and vitamin K IV INR improved to 1.2, will continue to hold Coumadin to be resumed as outpatient as per PCP discretion. Question right eye hemorrhage versus postsurgical changes. Normal bilateral eye examination no pain, no change in vision CT head showed diffuse increased density in the right lobe of uncertain etiology differential diagnosis included posttraumatic etiology/hemorrhage within the globe recommended outpatient ophthalmology follow-up after discharge. 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 Right leg cellulitis: Persistent swelling, WBC trending down, no fevers, redness resolved Doppler study showed no DVT Will DC iv ceftriaxone Leg x-ray/ foot x-ray showed no acute findings History of chronic persistent AFib now with AFib with RVR Coumadin on hold.? Noted to have rapid ventricular rate, will place back on Cardizem CD 180 mg and give 1 dose of IV digoxin . History of myasthenia gravis: Continue home? pyridostigmine and prednisone DVT prophylaxis:? Will place on compression boots Code status: DNR /DNI Patient will need continued inpatient hospitalization due to acute toxic metabolic encephalopathy, right thigh hematoma, atrial fibrillation with RVR. Requiring further workup and intravenous medications. Quality Stroke Does the patient have a stroke diagnosis?: No VTE Prior VTE?: No VTE Risk Level:: Medical - moderate - high VTE Device Contraindication: Treatment Not Indicated VTE Drug Contraindication: Treatment Not Indicated
[2022-02-26 15:23] LABS: Hematocrit 28.4 % (37.0-47.0); Hemoglobin 8.7 g/dl (12.0-16.0); Mean Corpuscular HGB Conc 30.6 g/dl (31.0-35.0); Mean Corpuscular Hemoglobin 26.4 pg (27.0-33.0); Mean Corpuscular Volume 86.3 fL (80.0-98.0); Mean Platelet Volume 11.5 fL (9.4-12.3); Platelet Count 181 X10*3/uL (160-400); Red Blood Count 3.29 X10*6/uL (4.20-5.50); Red Cell Distribution Width 16.3 % (11.0-16.0); White Blood Count 15.6 X10*3/uL (4.8-10.8)
[2022-02-26 15:39] LABS: Anion Gap 14 (12-20); Blood Urea Nitrogen 24 mg/dL (9-16); Carbon Dioxide 29 mmol/L (22-29); Chloride 101 mmol/L (96-108); Creatinine Clr Calc Pharmacy 57.9; Estimated Glomerular Filt Rate > 60; Glucose Random 127 mg/dL (60-115); Magnesium 1.8 mg/dL (1.6-2.6); Potassium 5.2 mmol/L (3.3-5.1); Sodium 139 mmol/L (135-145)
[2022-02-26] MEDS: Digoxin 0.5 MG/2 ML AMPUL 0.25 MG IVPUSH (16:44)
--- NOTE | 2022-02-26 18:50 | PC.NURSE ---
pt very confused at different times during my shift, she does redirect but confusion is noted throughout shift.
[2022-02-26 19:05] VITALS: PULSE 101; RESP 19; O2SAT 93
[2022-02-26 19:56] VITALS: BP 131/68; PULSE 107; RESP 17; O2SAT 94
[2022-02-26] MEDS: prednisoLONE Acetate 1 % Oph Susp 5 ML DRPBTL 1 DROP EYE-RIGHT (20:31)
[2022-02-26] MEDS: Brimonidine Tartrate 0.2% Oph 5 ML BOTTLE 1 DROP EYE-RIGHT (20:31)
[2022-02-27] VITALS (8 sets, daily range): BP systolic 101–140; BP diastolic 50–70; PULSE 57–113; RESP 17–28; TEMP 36.2–36.9; O2SAT 20–95
[2022-02-27] MEDS: Digoxin 0.5 MG/2 ML AMPUL 0.25 MG IVPUSH (09:46)
[2022-02-27] MEDS: predniSONE 1 MG TABLET 2 MG PO (09:47)
[2022-02-27] MEDS: Gabapentin 100 MG CAPSULE 200 MG PO (09:47)
[2022-02-27] MEDS: Acetaminophen 325 MG TABLET 650 MG PO (09:47)
[2022-02-27] MEDS: Cholecalciferol (Vitamin D3) 25 MCG TABLET PO (09:47)
[2022-02-27] MEDS: 0.9 % Sodium Chloride Flush 3 ML SYRINGE IVFLUSH (09:47)
[2022-02-27] MEDS: Nystatin Oral Susp 500,000 UNIT/5 ML ORAL.SUSP 500000 UNIT PO ×4 (09:47→22:17)
[2022-02-27] MEDS: Brimonidine Tartrate 0.2% Oph 5 ML BOTTLE 1 DROP EYE-RIGHT ×2 (09:48→13:29)
[2022-02-27] MEDS: prednisoLONE Acetate 1 % Oph Susp 5 ML DRPBTL 1 DROP EYE-RIGHT ×4 (09:48→22:18)
--- NOTE | 2022-02-27 10:03 | PM.PNGS ---
Subjective Subjective Date of Service: 02/27/22 Interval history: Denies severe pain on the leg or thigh says she is okay states she has poor appetite Physical Exam Vital Signs: Vital Signs: Last Vital Signs Temp 97.3 F 02/27/22 07:01 Pulse 113 H 02/27/22 07:01 Resp 26 H 02/27/22 07:01 BP 122/61 02/27/22 07:01 Pulse Ox 20 L 02/27/22 07:01 BMI result Body Mass Index 19.2 Const: Other: very frail looking General: comfortable and no acute distress Resp: Effort & Inspection: normal respiratory effort Cardio: Rate: regular rate GI: Palpation (GI): Soft to palpation and nontender Extrem: Other: dependent ecchymosis, right thigh all the way to lower leg but no evidence of vascular compromise. Entire leg feels soft Objective Data Active Medications Acetaminophen (Acetaminophen 325 Mg Tablet) 650 mg PO Q6H PRN PRN Reason: Pain, Mild (Pain Scale 1-3) Last Admin: 02/27/22 09:47 Dose: 650 mg Documented by: GAMAL Albuterol Sulfate (Albuterol Sulfate 90 Mcg 8 Gm Inhaler) 2 puff INHALE RQ6H WHILE AWAKE [facility] Last Admin: 02/27/22 08:11 Dose: Not Given Documented by: SHAW Non-Admin Reason: Patient Refused Benzonatate (Benzonatate 100 Mg Capsule) 100 mg PO TID PRN PRN Reason: Cough Brimonidine Tartrate (Brimonidine Tartrate 0.2% Oph 5 Ml Bottle) 1 drop EYE-RIGHT BID [facility] Last Admin: 02/27/22 09:48 Dose: 1 drop Documented by: GAMAL Diltiazem HCl (Diltiazem Hcl Cd 180 Mg Cap.Er.24h) 180 mg PO DAILY [facility]; Protocol Fluticasone/Vilanterol (Fluticasone/Vilanterol 200/25 Blst.W.Dev) 1 puff INHALE RDAILY [facility] Last Admin: 02/27/22 08:11 Dose: Not Given Documented by: SHAW Non-Admin Reason: Patient Refused Gabapentin (Gabapentin 100 Mg Capsule) 200 mg PO DAILY [facility] Last Admin: 02/27/22 09:47 Dose: 200 mg Documented by: GAMAL Melatonin (Melatonin 3 Mg Tablet) 6 mg PO BEDTIME PRN PRN Reason: Insomnia Nystatin (Nystatin Oral Susp 500,000 Unit/5 Ml Oral.Susp) 500,000 unit PO QID [facility]; Protocol Last Admin: 02/27/22 09:47 Dose: 500,000 unit Documented by: GAMAL Pharmacy Consult (Consult Rx Perform Med Rec) 1 each MISCELLANE ONCE PRN PRN Reason: Consult order Prednisolone Acetate (Prednisolone Acetate 1 % Oph Susp 5 Ml Drpbtl) 1 drop EYE-RIGHT QID [facility] Last Admin: 02/27/22 09:48 Dose: 1 drop Documented by: GAMAL Prednisone (Prednisone 1 Mg Tablet) 2 mg PO DAILY [facility] Last Admin: 02/27/22 09:47 Dose: 2 mg Documented by: GAMAL Pyridostigmine [place] (Pyridostigmine [place] 60 Mg Tablet) 60 mg PO TID [facility] Last Admin: 02/27/22 09:48 Dose: 60 mg Documented by: GAMAL Pyridoxine HCl (Pyridoxine Hcl (Vitamin B6) 50 Mg Tablet) 100 mg PO DAILY [facility] Last Admin: 02/26/22 16:44 Dose: 50 mg Documented by: ANU Senna (Sennosides 8.6 Mg Tablet) 17.2 mg PO BEDTIME PRN PRN Reason: Constipation Sodium Chloride (0.9 % Sodium Chloride Flush 3 Ml Syringe) 3 ml IVFLUSH QSHIFT [facility] Last Admin: 02/27/22 09:47 Dose: 3 ml Documented by: GAMAL Vitamin D (Cholecalciferol (Vitamin D3) 25 Mcg Tablet) 25 mcg PO DAILY [facility] Last Admin: 02/27/22 09:47 Dose: 25 mcg Documented by: GAMAL Labs CBC & Chem 7: 02/26/22 15:15 02/26/22 15:15 Labs: Laboratory Results - last 24 hr 02/26/22 02/26/22 02/26/22 11:23 15:15 15:15 MCV 86.3 MCH 26.4 L MCHC 30.6 L RDW 16.3 H Plt Count 181 MPV 11.5 Absolute Nucleated RBC 0.000 Nucleated RBC % (auto) 0.0 Anion Gap 14 Estim Creat Clear Calc 57.9 Estimated GFR > 60 Random Glucose 127 H Calcium 9.0 Magnesium 1.8 Urine Color YELLOW Urine Appearance CLEAR Urine pH 5.5 Ur Specific [place] >= 1.030 H Urine Protein TRACE Urine Glucose (UA) NEG Urine Ketones 15 Urine Blood NEG Urine Nitrite NEG Ur Leukocyte Esterase NEG Procedures Date of Service Date of Service: 02/27/22 Progress Note: A&P Assessment and plan (1) Hematoma: Status: Acute Assessment and Plan: now has dependent ecchymosis hemoglobin stable hold anticoagulation for now hemodynamic stable follow white count - elevated today, etiology unclear Time Spent With Patient Time: Total time spent is greater than 50% in coordination of care (as documented) at patient's floor/unit and/or counseling patient: Quality Stroke Does the patient have a stroke diagnosis?: No VTE Prior VTE?: No VTE Risk Level:: Medical - moderate - high VTE Device Contraindication: Treatment Not Indicated VTE Drug Contraindication: Treatment Not Indicated
[2022-02-27] MEDS: dilTIAZem HCL CD 180 MG CAP.ER.24H PO (10:05)
--- NOTE | 2022-02-27 12:49 | P.PNIM_ITS ---
Subjective Subjective Date of Service: 02/27/22 Interval History: Remains pleasantly confused, complaining of neck pain requesting for BenGay, tele monitor showed persistent AFib with RVR no other acute issues overnight Review of Systems Review of Systems: Yes Unobtainable due to mental status Physical Exam Vital Signs: Vital Signs: Last Vital Signs Temp 97.3 F 02/27/22 07:01 Pulse 113 H 02/27/22 07:01 Resp 26 H 02/27/22 07:01 BP 122/61 02/27/22 07:01 Pulse Ox 20 L 02/27/22 07:01 BMI result Body Mass Index 19.2 Const: Other: General awake aler t pleasantly confu sed HEENT normal c onjunctiva, no ble eding noted both e yes Neck flexed/si gnificant kyphosis CVS? irregular ra te rhythm, tachy R espiratory lungs c lear to auscultati on, no respiratory distress, no whee ze, no rhonchi. Ga strointestinal abd omen soft, nontend er, bowel sounds a udible Extremities right thigh bruis ing and induration improving , bruis ing right foot Gerri ro speech clear, m oving all 4 extrem ities Skin multipl e bruises lower ex tremity Psych poor insight Objective Data Active Medications Acetaminophen (Acetaminophen 325 Mg Tablet) 650 mg PO Q6H PRN PRN Reason: Pain, Mild (Pain Scale 1-3) Last Admin: 02/27/22 09:47 Dose: 650 mg Documented by: GAMAL Albuterol Sulfate (Albuterol Sulfate 90 Mcg 8 Gm Inhaler) 2 puff INHALE RQ6H WHILE AWAKE [facility] Last Admin: 02/27/22 08:11 Dose: Not Given Documented by: SHAW Non-Admin Reason: Patient Refused Benzonatate (Benzonatate 100 Mg Capsule) 100 mg PO TID PRN PRN Reason: Cough Brimonidine Tartrate (Brimonidine Tartrate 0.2% Oph 5 Ml Bottle) 1 drop EYE- RIGHT BID [facility] Last Admin: 02/27/22 09:48 Dose: 1 drop Documented by: GAMAL Diltiazem HCl (Diltiazem Hcl Cd 180 Mg Cap.Er.24h) 180 mg PO DAILY [facility]; Protocol Last Admin: 02/27/22 10:05 Dose: 180 mg Documented by: GAMAL Fluticasone/Vilanterol (Fluticasone/Vilanterol 200/25 Blst.W.Dev) 1 puff INHALE RDAILY [facility] Last Admin: 02/27/22 08:11 Dose: Not Given Documented by: SHAW Non-Admin Reason: Patient Refused Gabapentin (Gabapentin 100 Mg Capsule) 200 mg PO DAILY [facility] Last Admin: 02/27/22 09:47 Dose: 200 mg Documented by: GAMAL Melatonin (Melatonin 3 Mg Tablet) 6 mg PO BEDTIME PRN PRN Reason: Insomnia Nystatin (Nystatin Oral Susp 500,000 Unit/5 Ml Oral.Susp) 500,000 unit PO QID [facility]; Protocol Last Admin: 02/27/22 09:47 Dose: 500,000 unit Documented by: GAMAL Pharmacy Consult (Consult Rx Perform Med Rec) 1 each MISCELLANE ONCE PRN PRN Reason: Consult order Prednisolone Acetate (Prednisolone Acetate 1 % Oph Susp 5 Ml Drpbtl) 1 drop EYE-RIGHT QID [facility] Last Admin: 02/27/22 09:48 Dose: 1 drop Documented by: GAMAL Prednisone (Prednisone 1 Mg Tablet) 2 mg PO DAILY [facility] Last Admin: 02/27/22 09:47 Dose: 2 mg Documented by: GAMAL Pyridostigmine [place] (Pyridostigmine [place] 60 Mg Tablet) 60 mg PO TID [facility] Last Admin: 02/27/22 09:48 Dose: 60 mg Documented by: GAMAL Pyridoxine HCl (Pyridoxine Hcl (Vitamin B6) 50 Mg Tablet) 100 mg PO DAILY [facility] Last Admin: 02/26/22 16:44 Dose: 50 mg Documented by: ANU Senna (Sennosides 8.6 Mg Tablet) 17.2 mg PO BEDTIME PRN PRN Reason: Constipation Sodium Chloride (0.9 % Sodium Chloride Flush 3 Ml Syringe) 3 ml IVFLUSH QSHIFT [facility] Last Admin: 02/27/22 09:47 Dose: 3 ml Documented by: GAMAL Vitamin D (Cholecalciferol (Vitamin D3) 25 Mcg Tablet) 25 mcg PO DAILY [facility] Last Admin: 02/27/22 09:47 Dose: 25 mcg Documented by: GAMAL Labs CBC & Chem 7: 02/26/22 15:15 02/26/22 15:15 Labs: Laboratory Results - last 24 hr 02/26/22 02/26/22 15:15 15:15 MCV 86.3 MCH 26.4 L MCHC 30.6 L RDW 16.3 H Plt Count 181 MPV 11.5 Absolute Nucleated RBC 0.000 Nucleated RBC % (auto) 0.0 Anion Gap 14 Estim Creat Clear Calc 57.9 Estimated GFR > 60 Random Glucose 127 H Calcium 9.0 Magnesium 1.8 Assessment and Plan (1) Hematoma: Status: Acute (2) Cellulitis: Status: Acute (3) Leg pain, right: Status: Acute (4) Elevated INR: Status: Acute Plan 81-year-old female with a past medical history of AFib on Coumadin, myasthenic gravis, IBS, discoid lupus, GERD, vertigo, osteoporosis, history of urethral stone; presented to the hospital today with a chief complaint of right thigh pain for the past 2 days.? Noted to have following conditions Right Thigh hematoma likely related to supratherapeutic INR Less swelling and bruising, Patient remains pleasantly confused since yesterday hematocrit dropped but stable No evidence of compartment syndrome, INR trended down to 1.2, january resume Coumadin as outpatient as per PCP discretion continue supportive care Serial H&H, lower extremity ultrasound showed complex right thigh collection up to 8.5 cm in greatest dimension likely representing hematoma or infectious process. Right X-ray foot showed no acute fractures, tib-fib x-ray showed no fracture Patient seen by physical therapy they recommend home services and PT per since patient pleasantly confused not stable for discharge home Acute toxic metabolic encephalopathy noted to be pleasantly confused hallucinating since yesterday likely due to narcotics, , UA checked and benign, chest x-ray negative, electrolytes magnesium within normal range CT head on admission showed no acute abnormality,Moving all 4 extremities speech clear will hold off on repeat head imaging Question right eye hemorrhage versus postsurgical changes. Normal bilateral eye examination no pain, no change in vision CT head showed diffuse increased density in the right lobe of uncertain etiology differential diagnosis included posttraumatic etiology/hemorrhage within the globe recommended outpatient ophthalmology follow-up after discharge. 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 Right leg cellulitis: Swelling improved, WBC fluctuating patient afebrile, redness resolved, stop antibiotic Doppler study showed no DVT Leg x-ray/ foot x-ray showed no acute findings History of chronic persistent AFib now with AFib with RVR Coumadin on hold.? Noted to have rapid ventricular rate, will place back on Cardizem CD 180 mg and give IV digoxin . History of myasthenia gravis: Continue home? pyridostigmine and prednisone DVT prophylaxis:? compression boots Code status: DNR /DNI Patient will need continued inpatient hospitalization due to acute toxic metabolic encephalopathy, right thigh hematoma, atrial fibrillation with RVR. Requiring further workup and intravenous medications. Quality Stroke Does the patient have a stroke diagnosis?: No VTE Prior VTE?: No VTE Risk Level:: Medical - moderate - high VTE Device Contraindication: Treatment Not Indicated VTE Drug Contraindication: Treatment Not Indicated
--- NOTE | 2022-02-27 19:32 | PC.NURSE ---
report taken from ED RN. pt arrived in hospital bed w/ meds at bedside. admission assessment completed. pt able to make needs known, follows commands. safety and fall precautions in place. call reyez within reach. pt repo'ed q2.
[2022-02-27] MEDS: Albuterol Sulfate 90 MCG 8 GM INHALER 2 PUFF INHALE (20:19)
[2022-02-28] MEDS: 0.9 % Sodium Chloride Flush 3 ML SYRINGE IVFLUSH ×3 (00:36→17:12)
[2022-02-28 03:21] VITALS: BP 110/58; PULSE 89; RESP 17; TEMP 36.8; O2SAT 93
[2022-02-28 06:25] LABS: Hematocrit 28.6 % (37.0-47.0); Hemoglobin 8.9 g/dl (12.0-16.0); Mean Corpuscular HGB Conc 31.1 g/dl (31.0-35.0); Mean Corpuscular Hemoglobin 26.9 pg (27.0-33.0); Mean Corpuscular Volume 86.4 fL (80.0-98.0); Mean Platelet Volume 11.4 fL (9.4-12.3); Platelet Count 260 X10*3/uL (160-400); Red Blood Count 3.31 X10*6/uL (4.20-5.50); Red Cell Distribution Width 17.5 % (11.0-16.0); White Blood Count 11.4 X10*3/uL (4.8-10.8)
[2022-02-28 06:39] LABS: Anion Gap 15 (12-20); Blood Urea Nitrogen 19 mg/dL (9-16); Calcium 9.4 mg/dL (8.4-10.2); Carbon Dioxide 28 mmol/L (22-29); Chloride 102 mmol/L (96-108); Creatinine Clr Calc Pharmacy 65.7; Estimated Glomerular Filt Rate > 60; Glucose Random 99 mg/dL (60-115); Potassium 5.1 mmol/L (3.3-5.1); Sodium 140 mmol/L (135-145)
[2022-02-28 07:47] VITALS: BP 131/68; PULSE 99; RESP 20; TEMP 36.9; O2SAT 95
--- NOTE | 2022-02-28 09:05 | P.PNGS_ITS ---
Subjective Subjective Date of Service: 02/28/22 Interval history: says she feels well denies severe pain on right thigh Physical Exam Vital Signs: Vital Signs: Last Vital Signs Temp 98.4 F 02/28/22 07:47 Pulse 99 02/28/22 07:47 Resp 20 02/28/22 07:47 BP 131/68 02/28/22 07:47 Pulse Ox 95 02/28/22 07:47 BMI result Body Mass Index 19.2 Const: General: comfortable and no acute distress Resp: Effort & Inspection: normal respiratory effort Cardio: Rhythm: abnormal rhythm GI: Palpation (GI): Soft to palpation, not firm and nontender Extrem: Other: right thigh with dependent ecchymosis, soft, no evidence of vascular compromise Objective Data Active Medications Acetaminophen (Acetaminophen 325 Mg Tablet) 650 mg PO Q6H PRN PRN Reason: Pain, Mild (Pain Scale 1-3) Last Admin: 02/27/22 09:47 Dose: 650 mg Documented by: GAMAL Albuterol Sulfate (Albuterol Sulfate 90 Mcg 8 Gm Inhaler) 2 puff INHALE RQ6H WHILE AWAKE [facility] Last Admin: 02/28/22 07:34 Dose: Not Given Documented by: JAIME Non-Admin Reason: Patient Refused Benzonatate (Benzonatate 100 Mg Capsule) 100 mg PO TID PRN PRN Reason: Cough Brimonidine Tartrate (Brimonidine Tartrate 0.2% Oph 5 Ml Bottle) 1 drop EYE- RIGHT BID [facility] Last Admin: 02/27/22 13:29 Dose: 1 drop Documented by: GAMAL Diltiazem HCl (Diltiazem Hcl Cd 180 Mg Cap.Er.24h) 180 mg PO DAILY [facility]; Protocol Last Admin: 02/27/22 10:05 Dose: 180 mg Documented by: GAMAL Fluticasone/Vilanterol (Fluticasone/Vilanterol 200/25 Blst.W.Dev) 1 puff INHALE RDAILY [facility] Last Admin: 02/28/22 07:35 Dose: Not Given Documented by: JAIME Non-Admin Reason: Patient Refused Gabapentin (Gabapentin 100 Mg Capsule) 200 mg PO DAILY [facility] Last Admin: 02/27/22 09:47 Dose: 200 mg Documented by: GAMAL Melatonin (Melatonin 3 Mg Tablet) 6 mg PO BEDTIME PRN PRN Reason: Insomnia Nystatin (Nystatin Oral Susp 500,000 Unit/5 Ml Oral.Susp) 500,000 unit PO QID [facility]; Protocol Last Admin: 02/27/22 22:17 Dose: 500,000 unit Documented by: WINTER Pharmacy Consult (Consult Rx Perform Med Rec) 1 each MISCELLANE ONCE PRN PRN Reason: Consult order Prednisolone Acetate (Prednisolone Acetate 1 % Oph Susp 5 Ml Drpbtl) 1 drop EYE-RIGHT QID [facility] Last Admin: 02/27/22 22:18 Dose: 1 drop Documented by: WINTER Prednisone (Prednisone 1 Mg Tablet) 2 mg PO DAILY [facility] Last Admin: 02/27/22 09:47 Dose: 2 mg Documented by: GAMAL Pyridostigmine [place] (Pyridostigmine [place] 60 Mg Tablet) 60 mg PO TID [facility] Last Admin: 02/27/22 22:17 Dose: 60 mg Documented by: WINTER Pyridoxine HCl (Pyridoxine Hcl (Vitamin B6) 50 Mg Tablet) 100 mg PO DAILY [facility] Last Admin: 02/26/22 16:44 Dose: 50 mg Documented by: ANU Senna (Sennosides 8.6 Mg Tablet) 17.2 mg PO BEDTIME PRN PRN Reason: Constipation Sodium Chloride (0.9 % Sodium Chloride Flush 3 Ml Syringe) 3 ml IVFLUSH QSHIFT [facility] Last Admin: 02/28/22 00:36 Dose: 3 ml Documented by: STEFANY Trolamine Salicylate (Trolamine Salicylate 10 % Cream 85 Gm Tube) 1 appl TOPICAL BID [facility]; Protocol Last Admin: 02/27/22 22:20 Dose: Not Given Documented by: WINTER Non-Admin Reason: Patient Refused Vitamin D (Cholecalciferol (Vitamin D3) 25 Mcg Tablet) 25 mcg PO DAILY [facility] Last Admin: 02/27/22 09:47 Dose: 25 mcg Documented by: GAMAL Labs CBC & Chem 7: 02/28/22 05:19 02/28/22 05:19 Labs: Laboratory Results - last 24 hr 02/28/22 02/28/22 05:19 05:19 MCV 86.4 MCH 26.9 L MCHC 31.1 RDW 17.5 H Plt Count 260 D MPV 11.4 Absolute Nucleated RBC 0.000 Nucleated RBC % (auto) 0.0 Anion Gap 15 Estim Creat Clear Calc 65.7 Estimated GFR > 60 Random Glucose 99 Calcium 9.4 Procedures Date of Service Date of Service: 02/28/22 Progress Note: A&P Assessment and plan (1) Hematoma: Status: Acute Assessment and Plan: hematoma not expanding labs ok today seems ready to be restarted on COumadin provided INR is monitored closely mental status seems much better Hg has been stable after initial drop Time Spent With Patient Time: Total time spent is greater than 50% in coordination of care (as documented) at patient's floor/unit and/or counseling patient: Quality Stroke Does the patient have a stroke diagnosis?: No VTE Prior VTE?: No VTE Risk Level:: Medical - moderate - high VTE Device Contraindication: Treatment Not Indicated VTE Drug Contraindication: Treatment Not Indicated
[2022-02-28] MEDS: Brimonidine Tartrate 0.2% Oph 5 ML BOTTLE 1 DROP EYE-RIGHT (09:44)
[2022-02-28] MEDS: prednisoLONE Acetate 1 % Oph Susp 5 ML DRPBTL 1 DROP EYE-RIGHT ×2 (09:44→17:12)
[2022-02-28 11:48] VITALS: BP 108/65; PULSE 88; RESP 20; TEMP 36.6; O2SAT 95
--- NOTE | 2022-02-28 14:52 | P.PNIM_ITS ---
Subjective Subjective Date of Service: 02/28/22 Interval History: Remains pleasantly confused refusing to eat breakfast, refusing medications. No acute events overnight. Review of Systems Review of Systems: Yes Unobtainable due to mental status Physical Exam Vital Signs: Vital Signs: Last Vital Signs Temp 97.9 F 02/28/22 11:48 Pulse 88 02/28/22 11:48 Resp 20 02/28/22 11:48 BP 108/65 02/28/22 11:48 Pulse Ox 95 02/28/22 11:48 BMI result Body Mass Index 19.2 Const: Other: General awake alert pleasantly confused HEENT normal conjunctiva, no bleeding noted both eyes Neck flexed/significant kyphosis CVS? irregular rate rhythm Respiratory lungs clear to auscultation, no respiratory?distress, no wheeze, no rhonchi. Gastrointestinal abdomen soft, nontender, bowel sounds audible Extremities?right thigh bruising and induration?improving , bruising right foot improving Neuro speech clear, moving all 4 extremities Skin multiple bruises lower extremity Psych poor?insight Objective Data Active Medications Acetaminophen (Acetaminophen 325 Mg Tablet) 650 mg PO Q6H PRN PRN Reason: Pain, Mild (Pain Scale 1-3) Last Admin: 02/27/22 09:47 Dose: 650 mg Documented by: GAMAL Albuterol Sulfate (Albuterol Sulfate 90 Mcg 8 Gm Inhaler) 2 puff INHALE RQ6H WHILE AWAKE [facility] Last Admin: 02/28/22 14:17 Dose: Not Given Documented by: JAIME Non-Admin Reason: Patient Refused Benzonatate (Benzonatate 100 Mg Capsule) 100 mg PO TID PRN PRN Reason: Cough Brimonidine Tartrate (Brimonidine Tartrate 0.2% Oph 5 Ml Bottle) 1 drop EYE- RIGHT BID [facility] Last Admin: 02/28/22 09:44 Dose: 1 drop Documented by: ADRIAN Diltiazem HCl (Diltiazem Hcl Cd 180 Mg Cap.Er.24h) 180 mg PO DAILY [facility]; Protocol Last Admin: 02/28/22 14:40 Dose: Not Given Documented by: ADRIAN Non-Admin Reason: Patient Refused Fluticasone/Vilanterol (Fluticasone/Vilanterol 200/25 Blst.W.Dev) 1 puff INHALE RDAILY [facility] Last Admin: 02/28/22 07:35 Dose: Not Given Documented by: JAIME Non-Admin Reason: Patient Refused Gabapentin (Gabapentin 100 Mg Capsule) 200 mg PO DAILY [facility] Last Admin: 02/28/22 13:01 Dose: Not Given Documented by: ADRIAN Non-Admin Reason: Patient Refused Melatonin (Melatonin 3 Mg Tablet) 6 mg PO BEDTIME PRN PRN Reason: Insomnia Nystatin (Nystatin Oral Susp 500,000 Unit/5 Ml Oral.Susp) 500,000 unit PO QID [facility]; Protocol Last Admin: 02/28/22 13:01 Dose: Not Given Documented by: ADRIAN Non-Admin Reason: Patient Refused Pharmacy Consult (Consult Rx Perform Med Rec) 1 each MISCELLANE ONCE PRN PRN Reason: Consult order Prednisolone Acetate (Prednisolone Acetate 1 % Oph Susp 5 Ml Drpbtl) 1 drop EYE-RIGHT QID [facility] Last Admin: 02/28/22 09:44 Dose: 1 drop Documented by: ADRIAN Prednisone (Prednisone 1 Mg Tablet) 2 mg PO DAILY [facility] Last Admin: 02/28/22 13:02 Dose: Not Given Documented by: ADRIAN Non-Admin Reason: Patient Refused Pyridostigmine [place] (Pyridostigmine [place] 60 Mg Tablet) 60 mg PO TID [facility] Last Admin: 02/28/22 13:02 Dose: Not Given Documented by: ADRIAN Non-Admin Reason: Patient Refused Pyridoxine HCl (Pyridoxine Hcl (Vitamin B6) 50 Mg Tablet) 100 mg PO DAILY [facility] Last Admin: 02/28/22 13:02 Dose: Not Given Documented by: ADRIAN Non-Admin Reason: Patient Refused Senna (Sennosides 8.6 Mg Tablet) 17.2 mg PO BEDTIME PRN PRN Reason: Constipation Sodium Chloride (0.9 % Sodium Chloride Flush 3 Ml Syringe) 3 ml IVFLUSH QSHIFT [facility] Last Admin: 02/28/22 09:38 Dose: 3 ml Documented by: ADRIAN Trolamine Salicylate (Trolamine Salicylate 10 % Cream 85 Gm Tube) 1 appl TOPICAL BID [facility]; Protocol Last Admin: 02/27/22 22:20 Dose: Not Given Documented by: WINTER Non-Admin Reason: Patient Refused Vitamin D (Cholecalciferol (Vitamin D3) 25 Mcg Tablet) 25 mcg PO DAILY [facility] Last Admin: 02/28/22 13:01 Dose: Not Given Documented by: ADRIAN Non-Admin Reason: Patient Refused Labs CBC & Chem 7: 02/28/22 05:19 02/28/22 05:19 Labs: Laboratory Results - last 24 hr 02/28/22 02/28/22 05:19 05:19 MCV 86.4 MCH 26.9 L MCHC 31.1 RDW 17.5 H Plt Count 260 D MPV 11.4 Absolute Nucleated RBC 0.000 Nucleated RBC % (auto) 0.0 Anion Gap 15 Estim Creat Clear Calc 65.7 Estimated GFR > 60 Random Glucose 99 Calcium 9.4 Assessment and Plan (1) Hematoma: Status: Acute (2) Cellulitis: Status: Acute (3) Leg pain, right: Status: Acute (4) Elevated INR: Status: Acute Plan 81-year-old female with a past medical history of AFib on Coumadin, myasthenic gravis, IBS, discoid lupus, GERD, vertigo, osteoporosis, history of urethral stone; presented to the hospital today with a chief complaint of right thigh pain for the past 2 days.? Noted to have following conditions Right Thigh hematoma likely related to supratherapeutic INR Significantly improved Less swelling and bruising, Patient remains pleasantly confused x 48hrs hematocrit dropped but stable INR trended down to 1.2, may resume Coumadin as outpatient as per PCP discretion continue supportive care Serial H&H, lower extremity ultrasound showed complex right thigh collection up to 8.5 cm in greatest dimension likely representing hematoma or infectious process. Right X-ray foot showed no acute fractures, tib-fib x-ray showed no fracture Patient seen by physical therapy they recommend home services and PT, since patient pleasantly confused not stable for discharge home Acute toxic metabolic encephalopathy noted to be pleasantly confused hallucinating since yesterday likely due to narcotics, , UA checked and benign, chest x-ray negative, electrolytes magnesium within normal range CT head on admission showed no acute abnormality,Moving all 4 extremities speech clear will hold off on repeat head imaging Continue supportive care/avoid anxiolytics Use as needed risperidone if symptoms persist Question right eye hemorrhage versus postsurgical changes. Normal bilateral eye examination no pain, no change in vision CT head showed diffuse increased density in the right lobe of uncertain etiology differential diagnosis included posttraumatic etiology/hemorrhage within the globe recommended outpatient ophthalmology follow-up after discharge. 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 Right leg cellulitis: Initially felt to have cellulitis on admission, on close monitoring redness likely related to hematoma antibiotic discontinued Doppler study showed no DVT Leg x-ray/ foot x-ray showed no acute findings History of chronic persistent AFib Noted to have rapid ventricular rate, treated with digoxin, ventricular rate improved, continue home dose of Cardizem CD 180 mg . History of myasthenia gravis: Continue home? pyridostigmine and prednisone. DVT prophylaxis:? compression boots Code status: DNR /DNI Patient will need continued inpatient hospitalization due to acute toxic metabolic encephalopathy, right thigh hematoma, atrial fibrillation with RVR. Requiring further workup and intravenous medications. Quality Stroke Does the patient have a stroke diagnosis?: No VTE Prior VTE?: No VTE Risk Level:: Medical - moderate - high VTE Device Contraindication: Treatment Not Indicated VTE Drug Contraindication: Treatment Not Indicated
[2022-02-28 15:47] VITALS: BP 110/86; PULSE 67; RESP 18; TEMP 37.1; O2SAT 97
[2022-02-28] MEDS: Nystatin Oral Susp 500,000 UNIT/5 ML ORAL.SUSP 500000 UNIT PO ×2 (17:12→21:50)
[2022-02-28 19:35] VITALS: BP 115/69; PULSE 106; RESP 18; TEMP 37.2; O2SAT 94
[2022-02-28 23:26] VITALS: BP 113/72; PULSE 102; RESP 18; TEMP 37; O2SAT 94
[2022-03-01] VITALS (8 sets, daily range): BP systolic 105–144; BP diastolic 55–86; PULSE 91–110; RESP 14–28; TEMP 36.4–37.4; O2SAT 90–96
[2022-03-01] MEDS: Fluticasone/Vilanterol 200/25 BLST.W.DEV 1 PUFF INHALE (07:48)
[2022-03-01] MEDS: Albuterol Sulfate 90 MCG 8 GM INHALER 2 PUFF INHALE ×2 (07:52→14:54)
[2022-03-01] MEDS: Pyridoxine HCl (Vitamin B6) 50 MG TABLET 100 MG PO (08:28)
[2022-03-01] MEDS: predniSONE 1 MG TABLET 2 MG PO (08:28)
[2022-03-01] MEDS: dilTIAZem HCL CD 180 MG CAP.ER.24H PO (08:28)
[2022-03-01] MEDS: prednisoLONE Acetate 1 % Oph Susp 5 ML DRPBTL 1 DROP EYE-RIGHT ×4 (08:29→21:54)
[2022-03-01] MEDS: Cholecalciferol (Vitamin D3) 25 MCG TABLET PO (08:29)
[2022-03-01] MEDS: Gabapentin 100 MG CAPSULE 200 MG PO (08:29)
[2022-03-01] MEDS: Brimonidine Tartrate 0.2% Oph 5 ML BOTTLE 1 DROP EYE-RIGHT ×2 (08:29→21:54)
[2022-03-01] MEDS: Nystatin Oral Susp 500,000 UNIT/5 ML ORAL.SUSP 500000 UNIT PO ×2 (08:29→13:48)
--- NOTE | 2022-03-01 13:28 | PC.NURSE ---
pt able to reposition self in bed. no acute issues this shift. safety and fall precautions in place. md assessed pt at bedside. call reyez within reach
--- NOTE | 2022-03-01 13:45 | P.PNIM_ITS ---
Subjective Subjective Date of Service: 03/01/22 Interval History: Patient awake alert this morning, confusion resolved, no hallucinations, feels weak, denies leg pain, no nausea no vomiting, decreased appetite no other acute events overnight. Review of Systems Review of Systems: Yes all other systems are reviewed and are negative Physical Exam Vital Signs: Vital Signs: Last Vital Signs Temp 97.6 F 03/01/22 07:26 Pulse 110 H 03/01/22 07:53 Resp 20 03/01/22 07:53 BP 121/76 03/01/22 07:26 Pulse Ox 96 03/01/22 07:26 BMI result Body Mass Index 19.2 Const: Other: General awake aler t to place and per son, confusion res olved HEENT normal conjunctiva, no b leeding noted both eyes Neck flexed/ significant kyphos is CVS? irregular rate rhythm Respir atory lungs clear to auscultation, n o respiratory?dist ress, no wheeze, n o rhonchi. Gastroi ntestinal abdomen soft, nontender, b owel sounds audibl e Extremities?righ t thigh bruising a nd induration?sign ificantly improved Neuro speech paty r, moving all 4 ex tremities Skin mul tiple bruises lowe r extremity Psych appropriate?insigh t ? Objective Data Active Medications Acetaminophen (Acetaminophen 325 Mg Tablet) 650 mg PO Q6H PRN PRN Reason: Pain, Mild (Pain Scale 1-3) Last Admin: 02/27/22 09:47 Dose: 650 mg Documented by: GAMAL Albuterol Sulfate (Albuterol Sulfate 90 Mcg 8 Gm Inhaler) 2 puff INHALE RQ6H WHILE AWAKE [facility] Last Admin: 03/01/22 07:52 Dose: 2 puff Documented by: JAIME Benzonatate (Benzonatate 100 Mg Capsule) 100 mg PO TID PRN PRN Reason: Cough Brimonidine Tartrate (Brimonidine Tartrate 0.2% Oph 5 Ml Bottle) 1 drop EYE- RIGHT BID [facility] Last Admin: 03/01/22 08:29 Dose: 1 drop Documented by: NAWAF Diltiazem HCl (Diltiazem Hcl Cd 180 Mg Cap.Er.24h) 180 mg PO DAILY [facility]; Protocol Last Admin: 03/01/22 08:28 Dose: 180 mg Documented by: NAWAF Fluticasone/Vilanterol (Fluticasone/Vilanterol 200/25 Blst.W.Dev) 1 puff INHALE RDAILY [facility] Last Admin: 03/01/22 07:48 Dose: 1 puff Documented by: JAIME Gabapentin (Gabapentin 100 Mg Capsule) 200 mg PO DAILY [facility] Last Admin: 03/01/22 08:29 Dose: 200 mg Documented by: NAWAF Melatonin (Melatonin 3 Mg Tablet) 6 mg PO BEDTIME PRN PRN Reason: Insomnia Nystatin (Nystatin Oral Susp 500,000 Unit/5 Ml Oral.Susp) 500,000 unit PO QID [facility]; Protocol Last Admin: 03/01/22 08:29 Dose: 500,000 unit Documented by: NAWAF Pharmacy Consult (Consult Rx Perform Med Rec) 1 each MISCELLANE ONCE PRN PRN Reason: Consult order Prednisolone Acetate (Prednisolone Acetate 1 % Oph Susp 5 Ml Drpbtl) 1 drop EYE-RIGHT QID [facility] Last Admin: 03/01/22 08:29 Dose: 1 drop Documented by: NAWAF Prednisone (Prednisone 1 Mg Tablet) 2 mg PO DAILY [facility] Last Admin: 03/01/22 08:28 Dose: 2 mg Documented by: NAWAF Pyridostigmine [place] (Pyridostigmine [place] 60 Mg Tablet) 60 mg PO TID [facility] Last Admin: 03/01/22 08:28 Dose: 60 mg Documented by: NAWAF Pyridoxine HCl (Pyridoxine Hcl (Vitamin B6) 50 Mg Tablet) 100 mg PO DAILY [facility] Last Admin: 03/01/22 08:28 Dose: 100 mg Documented by: NAWAF Senna (Sennosides 8.6 Mg Tablet) 17.2 mg PO BEDTIME PRN PRN Reason: Constipation Sodium Chloride (0.9 % Sodium Chloride Flush 3 Ml Syringe) 3 ml IVFLUSH QSHIFT [facility] Last Admin: 03/01/22 07:45 Dose: Not Given Documented by: NAWAF Non-Admin Reason: assessed Trolamine Salicylate (Trolamine Salicylate 10 % Cream 85 Gm Tube) 1 appl TOPICAL BID [facility]; Protocol Last Admin: 03/01/22 12:13 Dose: Not Given Documented by: NAWAF Non-Admin Reason: pt refusd Vitamin D (Cholecalciferol (Vitamin D3) 25 Mcg Tablet) 25 mcg PO DAILY [facility] Last Admin: 03/01/22 08:29 Dose: 25 mcg Documented by: NAWAF Labs CBC & Chem 7: 02/28/22 05:19 02/28/22 05:19 Assessment and Plan (1) Hematoma: Status: Acute (2) Cellulitis: Status: Acute (3) Leg pain, right: Status: Acute (4) Elevated INR: Status: Acute Plan 81-year-old female with a past medical history of AFib on Coumadin, myasthenic gravis, IBS, discoid lupus, GERD, vertigo, osteoporosis, history of urethral stone; presented to the hospital today with a chief complaint of right thigh pain for the past 2 days.? Noted to have following conditions Right Thigh hematoma likely related to supratherapeutic INR Significantly improved Less swelling and bruising, hematocrit dropped but stable INR trended down to 1.2, may resume Coumadin as outpatient as per PCP discretion Patient seen by physical therapy they recommend home services and PT, today patient appears weak, PT will reassess dispo plan Acute toxic metabolic encephalopathy Resolved, was likely due to narcotics, sundowning, UA benign, chest x-ray negative, electrolytes magnesium within normal range CT head showed no acute abnormality Question right eye hemorrhage versus postsurgical changes. Normal bilateral eye examination no pain, no change in vision CT head showed diffuse increased density in the right lobe of uncertain etiology differential diagnosis included posttraumatic etiology/hemorrhage within the globe recommended outpatient ophthalmology follow-up after discharge. 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 Right leg cellulitis: Initially felt to have cellulitis on admission, on close monitoring redness likely related to hematoma antibiotic discontinued Doppler study showed no DVT Leg x-ray/ foot x-ray showed no acute findings History of chronic persistent AFib Noted to have rapid ventricular rate, treated with digoxin, ventricular rate improved, continue home dose of Cardizem CD 180 mg . History of myasthenia gravis: Continue home? pyridostigmine and prednisone. DVT prophylaxis:? compression boots Code status: DNR /DNI Patient will need continued inpatient hospitalization due to generalized weakness, unable to participate with PT today, need safe discharge plan follow up with psychotherapist social worker and PT recommendation Quality Stroke Does the patient have a stroke diagnosis?: No VTE Prior VTE?: No VTE Risk Level:: Medical - moderate - high VTE Device Contraindication: Treatment Not Indicated VTE Drug Contraindication: Treatment Not Indicated
[2022-03-01] MEDS: 0.9 % Sodium Chloride Flush 3 ML SYRINGE IVFLUSH (13:49)
[2022-03-02] VITALS (9 sets, daily range): BP systolic 101–134; BP diastolic 57–68; PULSE 68–100; RESP 14–20; TEMP 35.7–37.2; O2SAT 90–94
[2022-03-02] MEDS: 0.9 % Sodium Chloride Flush 3 ML SYRINGE IVFLUSH ×3 (00:09→20:32)
[2022-03-02] MEDS: Albuterol Sulfate 90 MCG 8 GM INHALER 2 PUFF INHALE ×3 (07:47→19:59)
[2022-03-02] MEDS: Fluticasone/Vilanterol 200/25 BLST.W.DEV 1 PUFF INHALE (07:47)
[2022-03-02] MEDS: Brimonidine Tartrate 0.2% Oph 5 ML BOTTLE 1 DROP EYE-RIGHT ×2 (09:46→20:25)
[2022-03-02] MEDS: prednisoLONE Acetate 1 % Oph Susp 5 ML DRPBTL 1 DROP EYE-RIGHT ×3 (09:46→20:25)
[2022-03-02] MEDS: Trolamine Salicylate 10 % Cream 85 GM TUBE 1 APPL TOPICAL (09:46)
--- NOTE | 2022-03-02 11:18 | MHC.CM.PN ---
Home/resume services VS STR pending PT eval is the plan for dc. PT attempted to see Patient this morning but Patient was unable to participate r/t c/o Nausea. CM will continue to follow.
--- NOTE | 2022-03-02 12:25 | P.PNIM_ITS ---
Subjective Subjective Date of Service: 03/02/22 Interval History: Patient feeling nauseous this morning, refused to participate in physical therapy due to weakness and GI upset, no other acute issues stable blood pressure, no fever no chills, denies urinary symptoms denies chest pain, no shortness of breath no palpitation no lightheadedness or dizziness. Review of Systems Review of Systems: Yes all other systems are reviewed and are negative Physical Exam Vital Signs: Vital Signs: Last Vital Signs Temp 98.2 F 03/02/22 11:05 Pulse 100 03/02/22 11:05 Resp 20 03/02/22 11:05 BP 111/62 03/02/22 11:05 Pulse Ox 92 03/02/22 11:05 BMI result Body Mass Index 19.2 Const: Other: General awake alert , no distress HEENT normal?conjunctiva, no bleeding noted both?eyes Neck flexed/significant kyphosis CVS? irregular rate rhythm Respiratory lungs clear to auscultation, no respiratory?distress Gastrointestinal abdomen soft, non tender, bowel sounds audible Extremities?right thigh bruising significantly improved, no induration Neuro speech clear, moving all 4 extremities Skin multiple bruises lower extremity Psych appropriate?insight ? Objective Data Active Medications Acetaminophen (Acetaminophen 325 Mg Tablet) 650 mg PO Q6H PRN PRN Reason: Pain, Mild (Pain Scale 1-3) Last Admin: 02/27/22 09:47 Dose: 650 mg Documented by: GAMAL Albuterol Sulfate (Albuterol Sulfate 90 Mcg 8 Gm Inhaler) 2 puff INHALE RQ6H WHILE AWAKE [facility] Last Admin: 03/02/22 07:47 Dose: 2 puff Documented by: JAIME Benzonatate (Benzonatate 100 Mg Capsule) 100 mg PO TID PRN PRN Reason: Cough Brimonidine Tartrate (Brimonidine Tartrate 0.2% Oph 5 Ml Bottle) 1 drop EYE- RIGHT BID [facility] Last Admin: 03/02/22 09:46 Dose: 1 drop Documented by: PAWAN Diltiazem HCl (Diltiazem Hcl Cd 180 Mg Cap.Er.24h) 180 mg PO DAILY [facility]; Protocol Last Admin: 03/02/22 09:54 Dose: Not Given Documented by: PAWAN Non-Admin Reason: Nausea Fluticasone/Vilanterol (Fluticasone/Vilanterol 200/25 Blst.W.Dev) 1 puff INHALE RDAILY [facility] Last Admin: 03/02/22 07:47 Dose: 1 puff Documented by: JAIME Gabapentin (Gabapentin 100 Mg Capsule) 200 mg PO DAILY [facility] Last Admin: 03/02/22 09:54 Dose: Not Given Documented by: PAWAN Non-Admin Reason: Nausea Melatonin (Melatonin 3 Mg Tablet) 6 mg PO BEDTIME PRN PRN Reason: Insomnia Nystatin (Nystatin Oral Susp 500,000 Unit/5 Ml Oral.Susp) 500,000 unit PO QID [facility]; Protocol Last Admin: 03/02/22 09:54 Dose: Not Given Documented by: PAWAN Non-Admin Reason: Nausea Pharmacy Consult (Consult Rx Perform Med Rec) 1 each MISCELLANE ONCE PRN PRN Reason: Consult order Prednisolone Acetate (Prednisolone Acetate 1 % Oph Susp 5 Ml Drpbtl) 1 drop EYE-RIGHT QID [facility] Last Admin: 03/02/22 09:46 Dose: 1 drop Documented by: PAWAN Prednisone (Prednisone 1 Mg Tablet) 2 mg PO DAILY [facility] Last Admin: 03/02/22 09:54 Dose: Not Given Documented by: PAWAN Non-Admin Reason: Nausea Pyridostigmine [place] (Pyridostigmine [place] 60 Mg Tablet) 60 mg PO TID [facility] Last Admin: 03/02/22 09:54 Dose: Not Given Documented by: PAWAN Non-Admin Reason: Nausea Pyridoxine HCl (Pyridoxine Hcl (Vitamin B6) 50 Mg Tablet) 100 mg PO DAILY [facility] Last Admin: 03/02/22 09:54 Dose: Not Given Documented by: PAWAN Non-Admin Reason: Nausea Senna (Sennosides 8.6 Mg Tablet) 17.2 mg PO BEDTIME PRN PRN Reason: Constipation Sodium Chloride (0.9 % Sodium Chloride Flush 3 Ml Syringe) 3 ml IVFLUSH QSHIFT [facility] Last Admin: 03/02/22 09:46 Dose: 3 ml Documented by: PAWAN Trolamine Salicylate (Trolamine Salicylate 10 % Cream 85 Gm Tube) 1 appl TOPICAL BID [facility]; Protocol Last Admin: 03/02/22 09:46 Dose: 1 appl Documented by: PAWAN Vitamin D (Cholecalciferol (Vitamin D3) 25 Mcg Tablet) 25 mcg PO DAILY [facility] Last Admin: 03/02/22 09:54 Dose: Not Given Documented by: PAWAN Non-Admin Reason: Nausea Labs CBC & Chem 7: 02/28/22 05:19 02/28/22 05:19 Assessment and Plan (1) Hematoma: Status: Acute (2) Cellulitis: Status: Acute (3) Leg pain, right: Status: Acute (4) Elevated INR: Status: Acute Plan 81-year-old female with a past medical history of AFib on Coumadin, myasthenic gravis, IBS, discoid lupus, GERD, vertigo, osteoporosis, history of urethral stone; presented to the hospital today with a chief complaint of right thigh pain for the past 2 days.? Noted to have following conditions Right Thigh hematoma likely related to supratherapeutic INR Significantly improved , swelling resolved hematocrit dropped but stable INR trended down to 1.2, may resume Coumadin as outpatient as per PCP discretion Patient declined physical therapy due to nausea this a.m. PT will reassess patient later today Nausea/generalized weakness will add Pepcid 20 mg daily and as needed Maalox, since on prednisone likely mild gastritis stress related, continue supportive care, follow CBC electrolytes and renal function Acute toxic metabolic encephalopathy Resolved, was likely due to narcotics, sundowning, UA benign, chest x-ray negative, electrolytes magnesium within normal range CT head showed no acute abnormality Question right eye hemorrhage versus postsurgical changes. Normal bilateral eye examination no pain, no change in vision Right leg cellulitis: Initially felt to have cellulitis on admission, on close monitoring redness likely related to hematoma antibiotic discontinued Doppler study showed no DVT, Leg x-ray/ foot x-ray showed no acute findings History of chronic persistent AFib Noted to have rapid ventricular rate, treated with digoxin, ventricular rate improved, continue home dose of Cardizem CD 180 mg . History of myasthenia gravis: Continue home? pyridostigmine and prednisone. DVT prophylaxis:? compression boots Code status: DNR /DNI Patient will need continued inpatient hospitalization due to generalized weaknes s, unable to participate with PT today, need safe discharge plan follow up with social services coordinator and PT recommendation Quality Stroke Does the patient have a stroke diagnosis?: No VTE Prior VTE?: No VTE Risk Level:: Medical - moderate - high VTE Device Contraindication: Treatment Not Indicated VTE Drug Contraindication: Treatment Not Indicated
[2022-03-02 13:15] LABS: Hematocrit 29.7 % (37.0-47.0); Hemoglobin 9.2 g/dl (12.0-16.0); Mean Corpuscular Hemoglobin 26.7 pg (27.0-33.0); Mean Corpuscular Volume 86.1 fL (80.0-98.0); Mean Platelet Volume 10.8 fL (9.4-12.3); NRBC Pct Auto 0.1 /100WBC (0.0-0.2); Platelet Count 280 X10*3/uL (160-400); Red Blood Count 3.45 X10*6/uL (4.20-5.50); Red Cell Distribution Width 18.6 % (11.0-16.0)
[2022-03-02 13:31] LABS: Anion Gap 12 (12-20); Blood Urea Nitrogen 38 mg/dL (9-16); Calcium 9.8 mg/dL (8.4-10.2); Carbon Dioxide 28 mmol/L (22-29); Chloride 99 mmol/L (96-108); Estimated Glomerular Filt Rate > 60; Glucose Random 165 mg/dL (60-115); Potassium 4.7 mmol/L (3.3-5.1); Sodium 134 mmol/L (135-145)
[2022-03-02] MEDS: Nystatin Oral Susp 500,000 UNIT/5 ML ORAL.SUSP 500000 UNIT PO (20:24)
[2022-03-03] VITALS (10 sets, daily range): BP systolic 104–133; BP diastolic 58–63; PULSE 60–103; RESP 16–20; TEMP 36.2–37.2; O2SAT 86–98
[2022-03-03] MEDS: Fluticasone/Vilanterol 200/25 BLST.W.DEV 1 PUFF INHALE (07:44)
[2022-03-03] MEDS: Albuterol Sulfate 90 MCG 8 GM INHALER 2 PUFF INHALE ×2 (07:44→19:55)
--- NOTE | 2022-03-03 07:59 | P.CDIC_ITS ---
CDI Concurrent Query Documentation Clarification: PHYSICIAN'S DOCUMENTATION REQUEST Date of Query: 03/03/22 0759 Patient Name: Allan Hargrove Admit Date: 02/23/22 Dear Doctor, A review of the medical record indicates additional documentation may be needed. Please review below and update the documentation accordingly. Clinical Indicators: Is there a diagnosis that correlates with these BMI findings: Risk Factors/Clinical Indicators/Treatments BMI: 19.2 5' 4 in height. Generalized weakness with kyphosis, recurrent falls. If possible, please provide an associated diagnosis related to the abnormal BMI, such as: For a BMI <= 19: * Underweight * Cachexia * Anorexia Or: * BMI is not significant * Other (please specify) * Unable to determine Use of terms such as suspected, likely, concern for, or probable (associated with a specific diagnosis that is being evaluated, monitored, or treated as if it exists) are acceptable and can be coded in the inpatient setting, when documented at the time of discharge. Thank you, Claudette Mayen [facility], CDIS Extension: [phone] Please use your independent medical judgment in providing your response. THIS QUERY IS PART OF THE PERMANENT MEDICAL RECORD Provider Response: Other Other Diagnosis: No mal nutrition/BMI borderline normal , no weight loss, no cachexia
[2022-03-03] MEDS: Cholecalciferol (Vitamin D3) 25 MCG TABLET PO (08:49)
[2022-03-03] MEDS: Pyridoxine HCl (Vitamin B6) 50 MG TABLET 100 MG PO (08:50)
[2022-03-03] MEDS: predniSONE 1 MG TABLET 2 MG PO (08:50)
[2022-03-03] MEDS: Famotidine 20 MG TABLET PO (08:50)
[2022-03-03] MEDS: Nystatin Oral Susp 500,000 UNIT/5 ML ORAL.SUSP 500000 UNIT PO ×4 (08:51→21:04)
[2022-03-03] MEDS: 0.9 % Sodium Chloride Flush 3 ML SYRINGE IVFLUSH ×2 (08:51→16:50)
[2022-03-03] MEDS: Gabapentin 100 MG CAPSULE 200 MG PO (08:52)
[2022-03-03] MEDS: dilTIAZem HCL CD 180 MG CAP.ER.24H PO (08:52)
[2022-03-03] MEDS: Brimonidine Tartrate 0.2% Oph 5 ML BOTTLE 1 DROP EYE-RIGHT ×2 (08:56→21:04)
[2022-03-03] MEDS: prednisoLONE Acetate 1 % Oph Susp 5 ML DRPBTL 1 DROP EYE-RIGHT ×4 (08:56→21:05)
[2022-03-03 11:52] LABS: COVID-19 Test Positive (Negative); IDNOW Serial# 9DB6401D
--- NOTE | 2022-03-03 11:53 | MHC.CM.PN ---
Patient has been medically cleared for dc to SNF/STR today. Patient will dc to [facility] today at 2 PM, [facility]. CM discussed PT's new recommendation for STR with both Patient at bedside and Daughter/HCP/Maggie at [phone]. Per Patient's request, CM addressed IMM with Maggie and the original will be mailed certified letter to her and a copy has been placed on the chart.
--- NOTE | 2022-03-03 13:45 | MHC.CM.PN ---
Patient's scheduled dc for today has been canceled; Patient tested (+) for Covid. CM will follow.
--- NOTE | 2022-03-03 13:54 | HO.PM.IMPN ---
Subjective Subjective Date of Service: 03/03/22 Interval History: Patient feeling better this morning nausea resolved, tolerating diet noted to be hypoxic this morning room air finger oximetry 86% improved to high 90s with 1 L, patient denies shortness of breath noted dry cough, denies fever chills no lightheadedness or dizziness. Review of Systems [employer] no headache no dizziness Musculoskeletal chronic neck discomfort due to significant neck flexion and kyphosis, right leg pain improved CVS no chest pain, no palpitation GI no nausea, no vomiting, no diarrhea Physical Exam Vital Signs: Vital Signs: Last Vital Signs Temp 98.9 F 03/03/22 11:17 Pulse 103 H 03/03/22 11:17 Resp 19 03/03/22 11:17 BP 112/58 L 03/03/22 11:17 Pulse Ox 95 03/03/22 11:17 BMI result Body Mass Index 19.2 Const: Other: General awake alert , no distress HEENT normal?conjunctiva, no bleeding noted both?eyes Neck flexed/significant kyphosis CVS? irregular rate rhythm Respiratory lungs clear to auscultation, no respiratory?distress Gastrointestinal abdomen soft, non tender, bowel sounds audible Extremities?right thigh bruising significantly improved, no induration Neuro speech clear, moving all 4 extremities Skin multiple bruises lower extremity improving Psych appropriate?insight Objective Data Active Medications Acetaminophen (Acetaminophen 325 Mg Tablet) 650 mg PO Q6H PRN PRN Reason: Pain, Mild (Pain Scale 1-3) Last Admin: 02/27/22 09:47 Dose: 650 mg Documented by: GAMAL Al Hydroxide/Mg Hydroxide (Magnesium Hydrox/Alum Hydrox 30 Ml Oral.Susp) 15 ml PO Q6H PRN PRN Reason: Dyspepsia Albuterol Sulfate (Albuterol Sulfate 90 Mcg 8 Gm Inhaler) 2 puff INHALE RQ6H WHILE AWAKE [facility] Last Admin: 03/03/22 07:44 Dose: 2 puff Documented by: BRESNE Benzonatate (Benzonatate 100 Mg Capsule) 100 mg PO TID PRN PRN Reason: Cough Brimonidine Tartrate (Brimonidine Tartrate 0.2% Oph 5 Ml Bottle) 1 drop EYE-RIGHT BID [facility] Last Admin: 03/03/22 08:56 Dose: 1 drop Documented by: NICK Diltiazem HCl (Diltiazem Hcl Cd 180 Mg Cap.Er.24h) 180 mg PO DAILY [facility]; Protocol Last Admin: 03/03/22 08:52 Dose: 180 mg Documented by: NICK Famotidine (Famotidine 20 Mg Tablet) 20 mg PO DAILY [facility] Last Admin: 03/03/22 08:50 Dose: 20 mg Documented by: NICK Fluticasone/Vilanterol (Fluticasone/Vilanterol 200/25 Blst.W.Dev) 1 puff INHALE RDAILY [facility] Last Admin: 03/03/22 07:44 Dose: 1 puff Documented by: SHAW Gabapentin (Gabapentin 100 Mg Capsule) 200 mg PO DAILY [facility] Last Admin: 03/03/22 08:52 Dose: 200 mg Documented by: NICK Melatonin (Melatonin 3 Mg Tablet) 6 mg PO BEDTIME PRN PRN Reason: Insomnia Nystatin (Nystatin Oral Susp 500,000 Unit/5 Ml Oral.Susp) 500,000 unit PO QID [facility]; Protocol Last Admin: 03/03/22 13:39 Dose: 500,000 unit Documented by: NICK Pharmacy Consult (Consult Rx Perform Med Rec) 1 each MISCELLANE ONCE PRN PRN Reason: Consult order Prednisolone Acetate (Prednisolone Acetate 1 % Oph Susp 5 Ml Drpbtl) 1 drop EYE-RIGHT QID [facility] Last Admin: 03/03/22 13:39 Dose: 1 drop Documented by: NICK Prednisone (Prednisone 1 Mg Tablet) 2 mg PO DAILY [facility] Last Admin: 03/03/22 08:50 Dose: 2 mg Documented by: NICK Pyridostigmine [place] (Pyridostigmine [place] 60 Mg Tablet) 60 mg PO TID [facility] Last Admin: 03/03/22 08:49 Dose: 60 mg Documented by: NICK Pyridoxine HCl (Pyridoxine Hcl (Vitamin B6) 50 Mg Tablet) 100 mg PO DAILY [facility] Last Admin: 03/03/22 08:50 Dose: 100 mg Documented by: NICK Senna (Sennosides 8.6 Mg Tablet) 17.2 mg PO BEDTIME PRN PRN Reason: Constipation Sodium Chloride (0.9 % Sodium Chloride Flush 3 Ml Syringe) 3 ml IVFLUSH QSHIFT [facility] Last Admin: 03/03/22 08:51 Dose: 3 ml Documented by: NICK Trolamine Salicylate (Trolamine Salicylate 10 % Cream 85 Gm Tube) 1 appl TOPICAL BID [facility]; Protocol Last Admin: 03/03/22 08:57 Dose: Not Given Documented by: NICK Non-Admin Reason: Patient Refused Vitamin D (Cholecalciferol (Vitamin D3) 25 Mcg Tablet) 25 mcg PO DAILY [facility] Last Admin: 03/03/22 08:49 Dose: 25 mcg Documented by: NICK Labs CBC & Chem 7: 03/02/22 13:10 03/02/22 13:10 Labs: Laboratory Results - last 24 hr 03/03/22 11:35 COVID-19 (ROC) Positive A COVID-19 Clin Com See Note Assessment and Plan (1) Hematoma: Status: Acute (2) Cellulitis: Status: Acute (3) Leg pain, right: Status: Acute (4) Elevated INR: Status: Acute Plan 81-year-old female with a past medical history of AFib on Coumadin, myasthenic gravis, IBS, discoid lupus, GERD, vertigo, osteoporosis, history of urethral stone; presented to the hospital today with a chief complaint of right thigh pain for the past 2 days.? Noted to have following conditions Acute hypoxic respiratory failure due to COVID-19 infection Patient was noted to be nauseous, weak yesterday, today noted to have hypoxia with dry cough, rapid COVID-19 test positive, last test on admission was negative 02/23/[address] on oxygen, obtain chest x-ray Give Decadron IV 6 mg and Remdesivir patient is status post 2 pfizer vaccine and was supposed to receive a booster this month Right Thigh hematoma likely related to supratherapeutic INR Significantly improved , swelling resolved hematocrit dropped but stable INR trended down to 1.2, may resume Coumadin as outpatient as per PCP discretion , hold Coumadin due to high risk for fall Acute toxic metabolic encephalopathy Resolved, was likely due to narcotics, , UA benign, chest x-ray negative, electrolytes magnesium within normal range CT head showed no acute abnormality Question right eye hemorrhage versus postsurgical changes. Normal bilateral eye examination no pain, no change in vision. Right leg cellulitis: Initially felt to have cellulitis on admission, on close monitoring redness likely related to hematoma antibiotic discontinued Doppler study showed no DVT, Leg x-ray/ foot x-ray showed no acute findings History of chronic persistent AFib stable ventricular rate, continue home dose of Cardizem CD 180 mg . History of myasthenia gravis: Continue home? pyridostigmine and prednisone. Generalized weakness likely due to COVID-19 infection recent right thigh hematoma seen by physical therapy they recommend short-term rehab DVT prophylaxis:? compression boots Code status: DNR /DNI Patient will need continued inpatient hospitalization due to generalized weakness, acute hypoxic failure due to COVID-19 infection, placed on IV Decadron and remdesivir continue supportive care will need rehab upon discharge. Quality Stroke Does the patient have a stroke diagnosis?: No VTE Prior VTE?: No VTE Risk Level:: Medical - moderate - high VTE Device Contraindication: Treatment Not Indicated VTE Drug Contraindication: Treatment Not Indicated
[2022-03-03 16:39] LABS: Appearance Urine CLEAR; Color Urine DK YELLOW; Glucose Urine UA NEG (NEG); Leukocyte Esterase Urine NEG (NEG); Nitrite Urine NEG (NEG); Specific Gravity - Urine 1.025 (1.005-1.025); UACC Culture Trigger NO; Urine Blood NEG (NEG); Urine Ketones NEG (NEG); Urine Protein 1+ MG/DL (NEG-TRACE)
[2022-03-03 16:49] LABS: Bacteria Urine 1+ /LPF; Calcium Oxalate Crystals Urine 1+ /LPF; Hyaline Casts Urine 0-2 /LPF; Mucus Urine 1+ /LPF; RBC Urine 0-2 /HPF (0); Renal Epithelial Cells Urine TRACE /LPF; Squamous Epithelial Cell Urine 3+ /LPF; WBC Urine 0-2 /HPF (0-4)
[2022-03-03] MEDS: Remdesivir 200 MG in 0.9 % Sodium Chloride 210 ML 105 MG IV (16:49)
--- NOTE | 2022-03-03 18:11 | PC.NURSE ---
0745- Patient O2 86% on RA. Patient resting comfortably, encouraged to take deep breathes. Improved to 89%. Placed on 1 L via NC, 96%. Dr. Bravo made aware. No new orders at this time will attempt to wean down once patient awake more. 1130- O2 removed, patient 86-89% on RA. Placed back on 1L via NC, 94%. Dr. Bravo made aware. CXR ordered. Patient has no complaints at this time.
[2022-03-04] VITALS (8 sets, daily range): BP systolic 100–114; BP diastolic 53–64; PULSE 63–87; RESP 17–19; TEMP 36.1–37; O2SAT 91–96
[2022-03-04] MEDS: 0.9 % Sodium Chloride Flush 3 ML SYRINGE IVFLUSH ×4 (00:48→21:15)
[2022-03-04] MEDS: Fluticasone/Vilanterol 200/25 BLST.W.DEV 1 PUFF INHALE (09:01)
[2022-03-04] MEDS: Albuterol Sulfate 90 MCG 8 GM INHALER 2 PUFF INHALE ×2 (09:01→13:22)
[2022-03-04] MEDS: Cholecalciferol (Vitamin D3) 25 MCG TABLET PO (09:20)
[2022-03-04] MEDS: Pyridoxine HCl (Vitamin B6) 50 MG TABLET 100 MG PO (09:20)
[2022-03-04] MEDS: dexAMETHasone sod phosphate 4 MG/ML VIAL 6 MG IVPUSH (09:21)
[2022-03-04] MEDS: Nystatin Oral Susp 500,000 UNIT/5 ML ORAL.SUSP 500000 UNIT PO ×4 (09:21→21:14)
[2022-03-04] MEDS: Famotidine 20 MG TABLET PO (09:21)
[2022-03-04] MEDS: Gabapentin 100 MG CAPSULE 200 MG PO (09:21)
[2022-03-04] MEDS: dilTIAZem HCL CD 180 MG CAP.ER.24H PO (09:21)
[2022-03-04] MEDS: prednisoLONE Acetate 1 % Oph Susp 5 ML DRPBTL 1 DROP EYE-RIGHT ×4 (09:26→21:16)
[2022-03-04] MEDS: Brimonidine Tartrate 0.2% Oph 5 ML BOTTLE 1 DROP EYE-RIGHT ×2 (09:26→21:16)
--- NOTE | 2022-03-04 13:15 | P.PNIM_ITS ---
Subjective Subjective Date of Service: 03/04/22 Interval History: Patient feeling better this morning, tolerating diet, no nausea, no vomiting, is motivated want to do better exercises, and want to be out of bed to chair, requesting for PT . Review of Systems [employer] no headache no dizziness CVS no chest pain, no palpitation no urgency, no frequency Musculoskeletal no pain Review of Systems: Yes all other systems are reviewed and are negative Physical Exam Vital Signs: Vital Signs: Last Vital Signs Temp 98.5 F 03/04/22 11:22 Pulse 85 03/04/22 11:22 Resp 17 03/04/22 11:22 BP 110/60 03/04/22 11:22 Pulse Ox 95 03/04/22 11:22 BMI result Body Mass Index 19.2 Const: Other: General awake alert , no distress HEENT normal?conjunctiva, no bleeding noted both?eyes Neck flexed/significant kyphosis CVS? irregular rate rhythm Respiratory lungs clear to auscultation, no respiratory?distress Gastrointestinal abdomen soft, non tender, bowel sounds audible Extremities?right thigh bruising significantly improved, no induration Neuro speech clear, moving all 4 extremities Skin multiple bruises lower extremity improving Psych appropriate?insight Objective Data Active Medications Acetaminophen (Acetaminophen 325 Mg Tablet) 650 mg PO Q6H PRN PRN Reason: Pain, Mild (Pain Scale 1-3) Last Admin: 02/27/22 09:47 Dose: 650 mg Documented by: GAMAL Al Hydroxide/Mg Hydroxide (Magnesium Hydrox/Alum Hydrox 30 Ml Oral.Susp) 15 ml PO Q6H PRN PRN Reason: Dyspepsia Albuterol Sulfate (Albuterol Sulfate 90 Mcg 8 Gm Inhaler) 2 puff INHALE RQ6H WHILE AWAKE [facility] Last Admin: 03/04/22 09:01 Dose: 2 puff Documented by: BRESNE Benzonatate (Benzonatate 100 Mg Capsule) 100 mg PO TID PRN PRN Reason: Cough Brimonidine Tartrate (Brimonidine Tartrate 0.2% Oph 5 Ml Bottle) 1 drop EYE-RIGHT BID [facility] Last Admin: 03/04/22 09:26 Dose: 1 drop Documented by: ALYSON Dexamethasone Sodium Phosphate (Dexamethasone Sod Phosphate 4 Mg/Ml Vial) 6 mg IVPUSH DAILY [facility] Last Admin: 03/04/22 09:21 Dose: 6 mg Documented by: ALYSON Diltiazem HCl (Diltiazem Hcl Cd 180 Mg Cap.Er.24h) 180 mg PO DAILY [facility]; Protocol Last Admin: 03/04/22 09:21 Dose: 180 mg Documented by: ALYSON Famotidine (Famotidine 20 Mg Tablet) 20 mg PO DAILY [facility] Last Admin: 03/04/22 09:21 Dose: 20 mg Documented by: ALYSON Fluticasone/Vilanterol (Fluticasone/Vilanterol 200/25 Blst.W.Dev) 1 puff INHALE RDAILY [facility] Last Admin: 03/04/22 09:01 Dose: 1 puff Documented by: SHAW Gabapentin (Gabapentin 100 Mg Capsule) 200 mg PO DAILY [facility] Last Admin: 03/04/22 09:21 Dose: 200 mg Documented by: ALYSON Remdesivir 100 mg/ Sodium (Chloride) 230 mls @ 115 mls/hr IV Q24H [facility] Stop: 03/07/22 17:59 Melatonin (Melatonin 3 Mg Tablet) 6 mg PO BEDTIME PRN PRN Reason: Insomnia Nystatin (Nystatin Oral Susp 500,000 Unit/5 Ml Oral.Susp) 500,000 unit PO QID [facility]; Protocol Last Admin: 03/04/22 09:21 Dose: 500,000 unit Documented by: ALYSON Pharmacy Consult (Consult Rx Perform Med Rec) 1 each MISCELLANE ONCE PRN PRN Reason: Consult order Prednisolone Acetate (Prednisolone Acetate 1 % Oph Susp 5 Ml Drpbtl) 1 drop EYE-RIGHT QID [facility] Last Admin: 03/04/22 09:26 Dose: 1 drop Documented by: ALYSON Pyridostigmine [place] (Pyridostigmine [place] 60 Mg Tablet) 60 mg PO TID [facility] Last Admin: 03/04/22 09:20 Dose: 60 mg Documented by: ALYSON Pyridoxine HCl (Pyridoxine Hcl (Vitamin B6) 50 Mg Tablet) 100 mg PO DAILY [facility] Last Admin: 03/04/22 09:20 Dose: 100 mg Documented by: ALYSON Senna (Sennosides 8.6 Mg Tablet) 17.2 mg PO BEDTIME PRN PRN Reason: Constipation Sodium Chloride (0.9 % Sodium Chloride Flush 3 Ml Syringe) 3 ml IVFLUSH QSHIFT [facility] Last Admin: 03/04/22 09:24 Dose: 3 ml Documented by: ALYSON Trolamine Salicylate (Trolamine Salicylate 10 % Cream 85 Gm Tube) 1 appl TOPICAL BID [facility]; Protocol Last Admin: 03/03/22 21:01 Dose: Not Given Documented by: MEG Non-Admin Reason: Patient Refused Vitamin D (Cholecalciferol (Vitamin D3) 25 Mcg Tablet) 25 mcg PO DAILY [facility] Last Admin: 03/04/22 09:20 Dose: 25 mcg Documented by: ALYSON Labs CBC & Chem 7: 03/02/22 13:10 03/02/22 13:10 Labs: Laboratory Results - last 24 hr 03/03/22 16:26 Urine Color DK YELLOW Urine Appearance CLEAR Urine pH 6.0 Ur Specific [place] 1.025 Urine Protein 1+ H Urine Glucose (UA) NEG Urine Ketones NEG Urine Blood NEG Urine Nitrite NEG Ur Leukocyte Esterase NEG Urine RBC 0-2 Urine WBC 0-2 Ur Squamous Epith Cells 3+ Ur Renal Epithelial Cell TRACE Calcium Oxalate Crystal 1+ Urine Bacteria 1+ Hyaline Casts 0-2 Urine Mucus 1+ Urine Yeast TRACE Assessment and Plan (1) Hematoma: Status: Acute (2) Cellulitis: Status: Acute (3) Leg pain, right: Status: Acute (4) Elevated INR: Status: Acute Plan 81-year-old female with a past medical history of AFib on Coumadin, myasthenic gravis, IBS, discoid lupus, GERD, vertigo, osteoporosis, history of urethral stone; presented to the hospital today with a chief complaint of right thigh pain for the past 2 days.? Noted to have following conditions Acute hypoxic respiratory failure due to COVID-19 infection Feeling better this morning, stable oxygenation on 1 L chest x-ray showed moderate left pleural effusion increased from before associated airspace opacity which could be atelectasis or pneumonia Continue Decadron IV 6 mg and Remdesivir , added IV doxycycline for possible pne umonia, encourage incentive spirometry repeat chest x-ray in 48 hours patient is status post 2 pfizer vaccine and was supposed to receive a booster this month Right Thigh hematoma likely related to supratherapeutic INR Significantly improved , swelling resolved hematocrit dropped but stable INR trended down to 1.2, may resume Coumadin as outpatient as per PCP discretion , hold Coumadin due to high risk for fall Acute toxic metabolic encephalopathy Resolved, was likely due to narcotics, sundowning, UA benign, electrolytes magnesium within normal range CT head showed no acute abnormality, retrospectively could be related to COVID 19 Question right eye hemorrhage versus postsurgical changes. Normal bilateral eye examination no pain, no change in vision. Right leg cellulitis: Initially felt to have cellulitis on admission, on close monitoring redness likely related to hematoma antibiotic discontinued Doppler study showed no DVT, Leg x-ray/ foot x-ray showed no acute findings History of chronic persistent AFib stable ventricular rate, continue home dose of Cardizem CD 180 mg . History of myasthenia gravis: Continue home? pyridostigmine substituted by mouth prednisone to IV Decadron Generalized weakness likely due to COVID-19 infection recent right thigh hematoma seen by physical therapy they recommend short-term rehab DVT prophylaxis:? compression boots Code status: DNR /DNI Patient will need continued inpatient hospitalization due to generalized weakness, acute hypoxic failure due to COVID-19 infection, placed on IV Decadron and remdesivir continue supportive care will need rehab upon discharge. Quality Stroke Does the patient have a stroke diagnosis?: No VTE Prior VTE?: No VTE Risk Level:: Medical - moderate - high VTE Device Contraindication: Treatment Not Indicated VTE Drug Contraindication: Treatment Not Indicated
[2022-03-04] MEDS: Doxycycline Hyclate 100 MG in 0.9 % Sodium Chloride 250 ML 166.67 MG IV (13:59)
[2022-03-04] MEDS: Remdesivir 100 MG in 0.9 % Sodium Chloride 230 ML 115 MG IV (15:20)
[2022-03-05] VITALS (8 sets, daily range): BP systolic 96–113; BP diastolic 51–78; PULSE 70–96; RESP 16–20; TEMP 36.3–37; O2SAT 96–98
[2022-03-05] MEDS: Doxycycline Hyclate 100 MG in 0.9 % Sodium Chloride 250 ML 166.67 MG IV ×2 (02:24→13:47)
[2022-03-05] MEDS: Fluticasone/Vilanterol 200/25 BLST.W.DEV 1 PUFF INHALE (08:04)
[2022-03-05] MEDS: Albuterol Sulfate 90 MCG 8 GM INHALER 2 PUFF INHALE ×3 (08:04→20:19)
[2022-03-05] MEDS: dilTIAZem HCL CD 180 MG CAP.ER.24H PO (09:12)
[2022-03-05] MEDS: Famotidine 20 MG TABLET PO (09:12)
[2022-03-05] MEDS: Gabapentin 100 MG CAPSULE 200 MG PO (09:12)
[2022-03-05] MEDS: dexAMETHasone sod phosphate 4 MG/ML VIAL 6 MG IVPUSH (09:12)
[2022-03-05] MEDS: Pyridoxine HCl (Vitamin B6) 50 MG TABLET 100 MG PO (09:12)
[2022-03-05] MEDS: Cholecalciferol (Vitamin D3) 25 MCG TABLET PO (09:12)
[2022-03-05] MEDS: 0.9 % Sodium Chloride Flush 3 ML SYRINGE IVFLUSH ×3 (09:13→20:40)
[2022-03-05] MEDS: Nystatin Oral Susp 500,000 UNIT/5 ML ORAL.SUSP 500000 UNIT PO ×4 (09:13→20:39)
[2022-03-05] MEDS: Brimonidine Tartrate 0.2% Oph 5 ML BOTTLE 1 DROP EYE-RIGHT ×2 (09:13→20:39)
[2022-03-05] MEDS: prednisoLONE Acetate 1 % Oph Susp 5 ML DRPBTL 1 DROP EYE-RIGHT ×4 (09:14→20:39)
--- NOTE | 2022-03-05 13:31 | P.PNIM_ITS ---
Subjective Subjective Date of Service: 03/05/22 Interval History: complaining of dry cough and throat irritation, denies shortness of breath. feels good. no nausea. no vomiting. tolerating diet. no overnight fever chills, no chest pain, no acute events overnight. Review of Systems [employer] no headache no dizziness CVS no chest pain, no palpitation no urinary urgency, no frequency Review of Systems: Yes all other systems are reviewed and are negative Physical Exam Vital Signs: Vital Signs: Last Vital Signs Temp 97.3 F 03/05/22 11:17 Pulse 86 03/05/22 11:17 Resp 20 03/05/22 11:17 BP 106/63 03/05/22 11:17 Pulse Ox 98 03/05/22 11:17 BMI result Body Mass Index 19.2 Const: Other: General awake aler t , no distress HE ENT normal?conjunc tiva, no bleeding noted both?eyes Ne ck flexed/signific ant kyphosis CVS? irregular rate rhy thm Respiratory estefanía ngs clear to auscu ltation, diminishe d breath sounds, n o rhonchi, no resp iratory?distress G astrointestinal ab domen soft, non te nder, bowel sounds audible Extremiti es?right thigh bru ising significantl y improved, no swe lling, no indurati on Neuro speech cl ear, moving all 4 extremities Skin m ultiple bruises lo wer extremity impr oving Psych approp riate?insight Objective Data Active Medications Acetaminophen (Acetaminophen 325 Mg Tablet) 650 mg PO Q6H PRN PRN Reason: Pain, Mild (Pain Scale 1-3) Last Admin: 02/27/22 09:47 Dose: 650 mg Documented by: GAMAL Al Hydroxide/Mg Hydroxide (Magnesium Hydrox/Alum Hydrox 30 Ml Oral.Susp) 15 ml PO Q6H PRN PRN Reason: Dyspepsia Albuterol Sulfate (Albuterol Sulfate 90 Mcg 8 Gm Inhaler) 2 puff INHALE RQ6H WHILE AWAKE [facility] Last Admin: 03/05/22 08:04 Dose: 2 puff Documented by: JAIME Benzocaine (Throat Lozenge, Medicated Lozenge) 1 lozenge MUCOUS MEM Q2H PRN PRN Reason: Sore Throat Benzonatate (Benzonatate 100 Mg Capsule) 100 mg PO TID PRN PRN Reason: Cough Brimonidine Tartrate (Brimonidine Tartrate 0.2% Oph 5 Ml Bottle) 1 drop EYE- RIGHT BID [facility], [facility] Last Admin: 03/05/22 09:13 Dose: 1 drop Documented by: ISAIAS Dexamethasone Sodium Phosphate (Dexamethasone Sod Phosphate 4 Mg/Ml Vial) 6 mg IVPUSH DAILY [facility] Last Admin: 03/05/22 09:12 Dose: 6 mg Documented by: ISAIAS Diltiazem HCl (Diltiazem Hcl Cd 180 Mg Cap.Er.24h) 180 mg PO DAILY [facility], [facility]; Protocol Last Admin: 03/05/22 09:12 Dose: 180 mg Documented by: ISAIAS Famotidine (Famotidine 20 Mg Tablet) 20 mg PO DAILY [facility] Last Admin: 03/05/22 09:12 Dose: 20 mg Documented by: ISAISA Fluticasone/Vilanterol (Fluticasone/Vilanterol 200/25 Blst.W.Dev) 1 puff INHALE RDAILY [facility]1983 Last Admin: 03/05/22 08:04 Dose: 1 puff Documented by: JAIME Gabapentin (Gabapentin 100 Mg Capsule) 200 mg PO DAILY [facility] Last Admin: 03/05/22 09:12 Dose: 200 mg Documented by: ISAIAS Remdesivir 100 mg/ Sodium (Chloride) 230 mls @ 115 mls/hr IV Q24H [facility]1983 Stop: 03/07/22 17:59 Last Infusion: 03/04/22 17:32 Dose: 0 mls/hr Documented by: ALYSON Doxycycline Hyclate 100 mg/ (Sodium Chloride) 250 mls @ 166.67 mls/hr IV Q12H [facility] Last Infusion: 03/05/22 03:54 Dose: 0 mls/hr Documented by: JOSE Melatonin (Melatonin 3 Mg Tablet) 6 mg PO BEDTIME PRN PRN Reason: Insomnia Nystatin (Nystatin Oral Susp 500,000 Unit/5 Ml Oral.Susp) 500,000 unit PO QID [facility], [facility]; Protocol Last Admin: 03/05/22 09:13 Dose: 500,000 unit Documented by: ISAIAS Pharmacy Consult (Consult Rx Perform Med Rec) 1 each MISCELLANE ONCE PRN PRN Reason: Consult order Prednisolone Acetate (Prednisolone Acetate 1 % Oph Susp 5 Ml Drpbtl) 1 drop EYE-RIGHT QID [facility] Last Admin: 03/05/22 09:14 Dose: 1 drop Documented by: ISAIAS Pyridostigmine [place] (Pyridostigmine [place] 60 Mg Tablet) 60 mg PO TID [facility] Last Admin: 03/05/22 09:12 Dose: 60 mg Documented by: ISAIAS Pyridoxine HCl (Pyridoxine Hcl (Vitamin B6) 50 Mg Tablet) 100 mg PO DAILY [facility] Last Admin: 03/05/22 09:12 Dose: 100 mg Documented by: ISAIAS Senna (Sennosides 8.6 Mg Tablet) 17.2 mg PO BEDTIME PRN PRN Reason: Constipation Sodium Chloride (0.9 % Sodium Chloride Flush 3 Ml Syringe) 3 ml IVFLUSH QSHIFT [facility] Last Admin: 03/05/22 09:13 Dose: 3 ml Documented by: ISAIAS Trolamine Salicylate (Trolamine Salicylate 10 % Cream 85 Gm Tube) 1 appl TOPICAL BID [facility], [facility]; Protocol Last Admin: 03/05/22 09:33 Dose: Not Given Documented by: ISAIAS Non-Admin Reason: Patient Refused Vitamin D (Cholecalciferol (Vitamin D3) 25 Mcg Tablet) 25 mcg PO DAILY [facility] Last Admin: 03/05/22 09:12 Dose: 25 mcg Documented by: ISAIAS Labs CBC & Chem 7: 03/02/22 13:10 03/02/22 13:10 Assessment and Plan (1) Hematoma: Status: Acute (2) Cellulitis: Status: Acute (3) Leg pain, right: Status: Acute (4) Elevated INR: Status: Acute Plan 81-year-old female with a past medical history of AFib on Coumadin, myasthenic gravis, IBS, discoid lupus, GERD, vertigo, osteoporosis, history of urethral stone; presented to the hospital today with a chief complaint of right thigh pain for the past 2 days.? Noted to have following conditions Acute hypoxic respiratory failure due to COVID-19 infection Feeling better ,stable oxygenation on 1 L Add cough drops and as needed cough medication chest x-ray 03/03 showed moderate left pleural effusion increased from before associated airspace opacity which could be atelectasis or pneumonia Continue Decadron IV 6 mg,iv Remdesivir , IV doxycycline for possible pneumonia day 2, encourage incentive spirometry repeat chest x-ray in 48 hours patient status post 2 pfizer vaccine and was supposed to receive a booster this month Right Thigh hematoma likely related to supratherapeutic INR Significantly improved , swelling resolved hematocrit dropped but stable INR trended down to 1.2, may resume Coumadin as outpatient as per PCP discretion , hold Coumadin due to high risk for fall Acute toxic metabolic encephalopathy Resolved, was likely due to narcotics, sundowning, UA benign, electrolytes magnesium within normal range CT head showed no acute abnormality, retrospectively could be related to COVID 19 Question right eye hemorrhage versus postsurgical changes. Normal bilateral eye examination no pain, no change in vision. Right leg cellulitis: Initially felt to have cellulitis on admission, on close monitoring redness likely related to hematoma antibiotic discontinued Doppler study showed no DVT, Leg x-ray/ foot x-ray showed no acute findings History of chronic persistent AFib stable ventricular rate, continue home dose of Cardizem CD 180 mg . History of myasthenia gravis: Continue home? pyridostigmine substituted by mouth prednisone to IV Decadron Generalized weakness likely due to COVID-19 infection recent right thigh hematoma seen by physical therapy they recommend short-term rehab DVT prophylaxis:? compression boots Code status: DNR /DNI Patient will need continued inpatient hospitalization due to generalized weakness, acute hypoxic failure due to COVID-19 infection, on IV Decadron and remdesivir ,will need rehab upon discharge. Quality Stroke Does the patient have a stroke diagnosis?: No VTE Prior VTE?: No VTE Risk Level:: Medical - moderate - high VTE Device Contraindication: Treatment Not Indicated VTE Drug Contraindication: Treatment Not Indicated
[2022-03-05] MEDS: Remdesivir 100 MG in 0.9 % Sodium Chloride 230 ML 115 MG IV (16:41)
[2022-03-05] MEDS: Melatonin 3 MG TABLET 6 MG PO (20:38)
[2022-03-05] MEDS: Throat Lozenge, Medicated LOZENGE 1 LOZENGE MUCOUS MEM (20:39)
[2022-03-06] VITALS (8 sets, daily range): BP systolic 96–105; BP diastolic 48–65; PULSE 66–85; RESP 18–20; TEMP 35.6–37.1; O2SAT 93–98
[2022-03-06] MEDS: Doxycycline Hyclate 100 MG in 0.9 % Sodium Chloride 250 ML 166.67 MG IV ×2 (02:27→13:12)
[2022-03-06] MEDS: Nystatin Oral Susp 500,000 UNIT/5 ML ORAL.SUSP 500000 UNIT PO ×4 (09:51→22:33)
[2022-03-06] MEDS: Brimonidine Tartrate 0.2% Oph 5 ML BOTTLE 1 DROP EYE-RIGHT ×2 (09:51→22:54)
[2022-03-06] MEDS: Trolamine Salicylate 10 % Cream 85 GM TUBE 1 APPL TOPICAL (09:51)
[2022-03-06] MEDS: prednisoLONE Acetate 1 % Oph Susp 5 ML DRPBTL 1 DROP EYE-RIGHT ×4 (09:51→22:54)
[2022-03-06] MEDS: 0.9 % Sodium Chloride Flush 3 ML SYRINGE IVFLUSH ×3 (09:52→22:33)
[2022-03-06] MEDS: dexAMETHasone sod phosphate 4 MG/ML VIAL 6 MG IVPUSH (09:52)
[2022-03-06] MEDS: Gabapentin 100 MG CAPSULE 200 MG PO (09:53)
[2022-03-06] MEDS: Throat Lozenge, Medicated LOZENGE 1 LOZENGE MUCOUS MEM (09:53)
[2022-03-06] MEDS: Acetaminophen 325 MG TABLET 650 MG PO (09:53)
[2022-03-06] MEDS: Cholecalciferol (Vitamin D3) 25 MCG TABLET PO (09:54)
[2022-03-06] MEDS: dilTIAZem HCL CD 180 MG CAP.ER.24H PO (09:54)
[2022-03-06] MEDS: Famotidine 20 MG TABLET PO (09:54)
[2022-03-06] MEDS: Pyridoxine HCl (Vitamin B6) 50 MG TABLET 100 MG PO (09:54)
--- NOTE | 2022-03-06 14:01 | HO.PM.IMPN ---
Subjective Subjective Date of Service: 03/06/22 Interval History: feeling better this morning denies acute complaints, no neck pain, no shortness of breath cough is getting better, denies nausea, vomiting, no abdominal pain tolerating diet no acute events overnight. Review of Systems Review of Systems: Yes all other systems are reviewed and are negative Physical Exam Vital Signs: Vital Signs: Last Vital Signs Temp 97.8 F 03/06/22 12:00 Pulse 77 03/06/22 12:00 Resp 20 03/06/22 12:00 BP 102/51 L 03/06/22 12:00 Pulse Ox 93 03/06/22 12:00 BMI result Body Mass Index 19.2 Const: Other: General awake alert , no distress HEENT normal?conjunctiva, no bleeding noted both?eyes Neck flexed/significant kyphosis CVS? irregular rate rhythm Respiratory lungs clear to auscultation, Diminished breath sound at bases, no rhonchi, no respiratory?distress Gastrointestinal abdomen soft, non tender, bowel sounds audible Extremities?right thigh bruising significantly improved, no induration Neuro speech clear, moving all 4 extremities Skin multiple bruises lower extremity improving Psych appropriate?insight Objective Data Active Medications Acetaminophen (Acetaminophen 325 Mg Tablet) 650 mg PO Q6H PRN PRN Reason: Pain, Mild (Pain Scale 1-3) Last Admin: 03/06/22 09:53 Dose: 650 mg Documented by: NAPOLEON Al Hydroxide/Mg Hydroxide (Magnesium Hydrox/Alum Hydrox 30 Ml Oral.Susp) 15 ml PO Q6H PRN PRN Reason: Dyspepsia Albuterol Sulfate (Albuterol Sulfate 90 Mcg 8 Gm Inhaler) 2 puff INHALE RQ6H WHILE AWAKE [facility] Last Admin: 03/06/22 07:59 Dose: Not Given Documented by: JAIME Non-Admin Reason: Patient Refused Benzocaine (Throat Lozenge, Medicated Lozenge) 1 lozenge MUCOUS MEM Q2H PRN PRN Reason: Sore Throat Last Admin: 03/06/22 09:53 Dose: 1 lozenge Documented by: NAPOLEON Benzonatate (Benzonatate 100 Mg Capsule) 100 mg PO TID PRN PRN Reason: Cough Brimonidine Tartrate (Brimonidine Tartrate 0.2% Oph 5 Ml Bottle) 1 drop EYE-RIGHT BID [facility] Last Admin: 03/06/22 09:51 Dose: 1 drop Documented by: NAPOLEON Dexamethasone Sodium Phosphate (Dexamethasone Sod Phosphate 4 Mg/Ml Vial) 6 mg IVPUSH DAILY [facility] Last Admin: 03/06/22 09:52 Dose: 6 mg Documented by: NAPOLEON Diltiazem HCl (Diltiazem Hcl Cd 180 Mg Cap.Er.24h) 180 mg PO DAILY [facility]; Protocol Last Admin: 03/06/22 09:54 Dose: 180 mg Documented by: NAPOLEON Famotidine (Famotidine 20 Mg Tablet) 20 mg PO DAILY [facility] Last Admin: 03/06/22 09:54 Dose: 20 mg Documented by: NAPOLEON Fluticasone/Vilanterol (Fluticasone/Vilanterol 200/25 Blst.W.Dev) 1 puff INHALE RDAILY [facility] Last Admin: 03/06/22 07:59 Dose: Not Given Documented by: JAIME Non-Admin Reason: Patient Refused Gabapentin (Gabapentin 100 Mg Capsule) 200 mg PO DAILY [facility] Last Admin: 03/06/22 09:53 Dose: 200 mg Documented by: NAPOLEON Remdesivir 100 mg/ Sodium (Chloride) 230 mls @ 115 mls/hr IV Q24H [facility] Stop: 03/07/22 17:59 Last Infusion: 03/05/22 19:26 Dose: 0 mls/hr Documented by: ISAIAS Doxycycline Hyclate 100 mg/ (Sodium Chloride) 250 mls @ 166.67 mls/hr IV Q12H [facility] Last Admin: 03/06/22 13:12 Dose: 166.67 mls/hr Documented by: NAPOLEON Melatonin (Melatonin 3 Mg Tablet) 6 mg PO BEDTIME PRN PRN Reason: Insomnia Last Admin: 03/05/22 20:38 Dose: 6 mg Documented by: CYNTHIA Nystatin (Nystatin Oral Susp 500,000 Unit/5 Ml Oral.Susp) 500,000 unit PO QID [facility]; Protocol Last Admin: 03/06/22 13:13 Dose: 500,000 unit Documented by: NAPOLEON Pharmacy Consult (Consult Rx Perform Med Rec) 1 each MISCELLANE ONCE PRN PRN Reason: Consult order Prednisolone Acetate (Prednisolone Acetate 1 % Oph Susp 5 Ml Drpbtl) 1 drop EYE-RIGHT QID [facility] Last Admin: 03/06/22 09:51 Dose: 1 drop Documented by: NAPOLEON Pyridostigmine [place] (Pyridostigmine [place] 60 Mg Tablet) 60 mg PO TID [facility] Last Admin: 03/06/22 09:54 Dose: 60 mg Documented by: NAPOLEON Pyridoxine HCl (Pyridoxine Hcl (Vitamin B6) 50 Mg Tablet) 100 mg PO DAILY [facility] Last Admin: 03/06/22 09:54 Dose: 100 mg Documented by: NAPOLEON Senna (Sennosides 8.6 Mg Tablet) 17.2 mg PO BEDTIME PRN PRN Reason: Constipation Sodium Chloride (0.9 % Sodium Chloride Flush 3 Ml Syringe) 3 ml IVFLUSH QSHIFT [facility] Last Admin: 03/06/22 09:52 Dose: 3 ml Documented by: NAPOLEON Trolamine Salicylate (Trolamine Salicylate 10 % Cream 85 Gm Tube) 1 appl TOPICAL BID [facility]; Protocol Last Admin: 03/06/22 09:51 Dose: 1 appl Documented by: NAPOLEON Vitamin D (Cholecalciferol (Vitamin D3) 25 Mcg Tablet) 25 mcg PO DAILY [facility] Last Admin: 03/06/22 09:54 Dose: 25 mcg Documented by: NAPOLEON Labs CBC & Chem 7: 03/02/22 13:10 03/02/22 13:10 Assessment and Plan (1) Hematoma: Status: Acute (2) Cellulitis: Status: Acute (3) Leg pain, right: Status: Acute (4) Elevated INR: Status: Acute Plan 81-year-old female with a past medical history of AFib on Coumadin, myasthenic gravis, IBS, discoid lupus, GERD, vertigo, osteoporosis, history of urethral stone; presented to the hospital today with a chief complaint of right thigh pain for the past 2 days.? Noted to have following conditions Acute hypoxic respiratory failure due to COVID-19 infection Feeling better ,stable oxygenation on 1 L continue cough drops and as needed cough medication chest x-ray 03/03 showed moderate left pleural effusion increased from before associated airspace opacity which could be atelectasis or pneumonia Continue Decadron IV 6 mg,iv Remdesivir day 3/5 , IV doxycycline day 3 for possible pneumonia day 3, encourage incentive spirometry repeat chest x-ray in am patient status post 2 pfizer vaccine and was supposed to receive a booster this month Right Thigh hematoma likely related to supratherapeutic INR Significantly improved , swelling resolved hematocrit dropped but stable INR trended down to 1.2, may resume Coumadin as outpatient as per PCP discretion , hold Coumadin due to high risk for fall Acute toxic metabolic encephalopathy Resolved, was likely due to narcotics, sundowning, UA benign, electrolytes magnesium within normal range CT head showed no acute abnormality, retrospectively could be related to COVID 19 Question right eye hemorrhage versus postsurgical changes. Normal bilateral eye examination no pain, no change in vision. Right leg cellulitis: Initially felt to have cellulitis on admission, on close monitoring redness likely related to hematoma antibiotic discontinued Doppler study showed no DVT, Leg x-ray/ foot x-ray showed no acute findings History of chronic persistent AFib stable ventricular rate, continue home dose of Cardizem CD 180 mg . History of myasthenia gravis: Continue home? pyridostigmine substituted by mouth prednisone to IV Decadron Generalized weakness likely due to COVID-19 infection recent right thigh hematoma seen by physical therapy they recommend short-term rehab DVT prophylaxis:? compression boots Code status: DNR /DNI Patient will need continued inpatient hospitalization due to generalized weakness, acute hypoxic failure due to COVID-19 infection, on IV Decadron and remdesivir ,will need rehab upon discharge CM arranging for bed. Quality Stroke Does the patient have a stroke diagnosis?: No VTE Prior VTE?: No VTE Risk Level:: Medical - moderate - high VTE Device Contraindication: Treatment Not Indicated VTE Drug Contraindication: Treatment Not Indicated
[2022-03-06] MEDS: Albuterol Sulfate 90 MCG 8 GM INHALER 2 PUFF INHALE ×2 (14:49→21:08)
[2022-03-06] MEDS: Remdesivir 100 MG in 0.9 % Sodium Chloride 230 ML 115 MG IV (15:54)
[2022-03-06] MEDS: Melatonin 3 MG TABLET 6 MG PO (22:33)
[2022-03-07] VITALS (9 sets, daily range): BP systolic 101–117; BP diastolic 60–67; PULSE 60–83; RESP 14–24; TEMP 36.1–36.6; O2SAT 95–98
[2022-03-07] MEDS: Doxycycline Hyclate 100 MG in 0.9 % Sodium Chloride 250 ML 166.67 MG IV ×2 (02:02→13:21)
[2022-03-07] MEDS: Albuterol Sulfate 90 MCG 8 GM INHALER 2 PUFF INHALE (08:20)
[2022-03-07] MEDS: Nystatin Oral Susp 500,000 UNIT/5 ML ORAL.SUSP 500000 UNIT PO ×4 (11:03→22:07)
[2022-03-07] MEDS: Gabapentin 100 MG CAPSULE 200 MG PO (11:04)
[2022-03-07] MEDS: dilTIAZem HCL CD 180 MG CAP.ER.24H PO (11:04)
[2022-03-07] MEDS: Famotidine 20 MG TABLET PO (11:04)
[2022-03-07] MEDS: dexAMETHasone sod phosphate 4 MG/ML VIAL 6 MG IVPUSH (11:05)
[2022-03-07] MEDS: Brimonidine Tartrate 0.2% Oph 5 ML BOTTLE 1 DROP EYE-RIGHT ×2 (11:05→22:08)
[2022-03-07] MEDS: prednisoLONE Acetate 1 % Oph Susp 5 ML DRPBTL 1 DROP EYE-RIGHT ×4 (11:06→22:08)
[2022-03-07] MEDS: 0.9 % Sodium Chloride Flush 3 ML SYRINGE IVFLUSH ×3 (11:06→22:07)
[2022-03-07] MEDS: Cholecalciferol (Vitamin D3) 25 MCG TABLET PO (11:06)
[2022-03-07] MEDS: Trolamine Salicylate 10 % Cream 85 GM TUBE 1 APPL TOPICAL ×2 (11:11→22:07)
[2022-03-07] MEDS: Pyridoxine HCl (Vitamin B6) 50 MG TABLET 100 MG PO (11:11)
--- NOTE | 2022-03-07 11:23 | P.PNIM_ITS ---
Subjective Subjective Date of Service: 03/07/22 Interval History: feeling better less cough, offers no other acute complaints of neck pain shortness breath, no chest pain no abdominal pain nausea vomiting or diarrhea, no acute issues overnight. Review of Systems Review of Systems: Yes all other systems are reviewed and are negative Physical Exam Vital Signs: Vital Signs: Last Vital Signs Temp 97.0 F 03/07/22 08:00 Pulse 75 03/07/22 08:23 Resp 14 03/07/22 08:23 BP 110/63 03/07/22 08:00 Pulse Ox 97 03/07/22 08:00 BMI result Body Mass Index 19.2 Const: Other: General awake alert , no distress HEENT normal?conjunctiva, no bleeding noted both?eyes Neck flexed/significant kyphosis CVS? irregular rate rhythm Respiratory lungs clear to auscultation, Diminished at bases, no rhonchi, no respiratory?distress Gastrointestinal abdomen soft, non tender, bowel sounds audible Extremities?right thigh bruising significantly improved, no induration Neuro speech clear, moving all 4 extremities Skin multiple bruises lower extremity improving Psych appropriate?insight Objective Data Active Medications Acetaminophen (Acetaminophen 325 Mg Tablet) 650 mg PO Q6H PRN PRN Reason: Pain, Mild (Pain Scale 1-3) Last Admin: 03/06/22 09:53 Dose: 650 mg Documented by: NAPOLEON Al Hydroxide/Mg Hydroxide (Magnesium Hydrox/Alum Hydrox 30 Ml Oral.Susp) 15 ml PO Q6H PRN PRN Reason: Dyspepsia Albuterol Sulfate (Albuterol Sulfate 90 Mcg 8 Gm Inhaler) 2 puff INHALE RQ6H WHILE AWAKE PRN PRN Reason: sob Albuterol/Ipratropium (Albuterol/Iprat 2.5/0.5mg 3 Ml Ampul.Neb) 3 ml INHALE RTID INÉS Benzocaine (Throat Lozenge, Medicated Lozenge) 1 lozenge MUCOUS MEM Q2H PRN PRN Reason: Sore Throat Last Admin: 03/06/22 09:53 Dose: 1 lozenge Documented by: NAPOLEON Benzonatate (Benzonatate 100 Mg Capsule) 100 mg PO TID PRN PRN Reason: Cough Brimonidine Tartrate (Brimonidine Tartrate 0.2% Oph 5 Ml Bottle) 1 drop EYE- RIGHT BID INÉS Last Admin: 03/07/22 11:05 Dose: 1 drop Documented by: BERTIN Dexamethasone Sodium Phosphate (Dexamethasone Sod Phosphate 4 Mg/Ml Vial) 6 mg IVPUSH DAILY [facility] Last Admin: 03/07/22 11:05 Dose: 6 mg Documented by: BERTIN Diltiazem HCl (Diltiazem Hcl Cd 180 Mg Cap.Er.24h) 180 mg PO DAILY [facility]; Protocol Last Admin: 03/07/22 11:04 Dose: 180 mg Documented by: BERTIN Famotidine (Famotidine 20 Mg Tablet) 20 mg PO DAILY [facility] Last Admin: 03/07/22 11:04 Dose: 20 mg Documented by: BERTIN Fluticasone/Vilanterol (Fluticasone/Vilanterol 200/25 Blst.W.Dev) 1 puff INHALE RDAILY [facility] Last Admin: 03/07/22 08:22 Dose: Not Given Documented by: RALF Non-Admin Reason: Med Not Available Gabapentin (Gabapentin 100 Mg Capsule) 200 mg PO DAILY [facility] Last Admin: 03/07/22 11:04 Dose: 200 mg Documented by: BERTIN Remdesivir 100 mg/ Sodium (Chloride) 230 mls @ 115 mls/hr IV Q24H [facility] Stop: 03/07/22 17:59 Last Infusion: 03/06/22 19:00 Dose: 0 mls/hr Documented by: JAMES Doxycycline Hyclate 100 mg/ (Sodium Chloride) 250 mls @ 166.67 mls/hr IV Q12H [facility] Last Infusion: 03/07/22 05:25 Dose: 0 mls/hr Documented by: JAMES Melatonin (Melatonin 3 Mg Tablet) 6 mg PO BEDTIME PRN PRN Reason: Insomnia Last Admin: 03/06/22 22:33 Dose: 6 mg Documented by: JAMES Nystatin (Nystatin Oral Susp 500,000 Unit/5 Ml Oral.Susp) 500,000 unit PO QID [facility]; Protocol Last Admin: 03/07/22 11:03 Dose: 500,000 unit Documented by: BERTIN Pharmacy Consult (Consult Rx Perform Med Rec) 1 each MISCELLANE ONCE PRN PRN Reason: Consult order Prednisolone Acetate (Prednisolone Acetate 1 % Oph Susp 5 Ml Drpbtl) 1 drop EYE-RIGHT QID [facility] Last Admin: 03/07/22 11:06 Dose: 1 drop Documented by: BERTIN Pyridostigmine [place] (Pyridostigmine [place] 60 Mg Tablet) 60 mg PO TID [facility] Last Admin: 03/07/22 11:06 Dose: 60 mg Documented by: BERTIN Pyridoxine HCl (Pyridoxine Hcl (Vitamin B6) 50 Mg Tablet) 100 mg PO DAILY [facility] Last Admin: 03/07/22 11:11 Dose: 100 mg Documented by: BERTIN Senna (Sennosides 8.6 Mg Tablet) 17.2 mg PO BEDTIME PRN PRN Reason: Constipation Sodium Chloride (0.9 % Sodium Chloride Flush 3 Ml Syringe) 3 ml IVFLUSH QSHIFT [facility] Last Admin: 03/07/22 11:06 Dose: 3 ml Documented by: BERTIN Trolamine Salicylate (Trolamine Salicylate 10 % Cream 85 Gm Tube) 1 appl TOPICAL BID [facility]; Protocol Last Admin: 03/07/22 11:11 Dose: 1 appl Documented by: BERTIN Vitamin D (Cholecalciferol (Vitamin D3) 25 Mcg Tablet) 25 mcg PO DAILY [facility] Last Admin: 03/07/22 11:06 Dose: 25 mcg Documented by: BERTIN Labs CBC & Chem 7: 03/02/22 13:10 03/02/22 13:10 Assessment and Plan (1) Hematoma: Status: Acute (2) Cellulitis: Status: Acute (3) Leg pain, right: Status: Acute (4) Elevated INR: Status: Acute Plan 81-year-old female with a past medical history of AFib on Coumadin, myasthenic gravis, IBS, discoid lupus, GERD, vertigo, osteoporosis, history of urethral stone; presented to the hospital today with a chief complaint of right thigh pain for the past 2 days.? Noted to have following conditions Acute hypoxic respiratory failure due to COVID-19 infection Feeling better ,stable oxygenation on 1 L , not on home oxygen having difficult time bringing up phlegm, will add DuoNeb updraft, continue cough drops and cough medication repeat chest x-ray today showed bilateral pleural effusion, worsening of right pleural effusion from 03/03 study, likely atelectasis since patient clinically stable, leukocytosis due to steroid Continue Decadron IV 6 mg day01/09 ,iv Remdesivir day 02/03 , IV doxycycline day 4 for possible pneumonia , encourage incentive spirometry recommend out of bed to chair and incentive spirometry patient status post 2 pfizer vaccine and was supposed to receive a booster this month spoke with daughter she is concerned about confusion reassured that confusion has resolved, may be some underlying cognitive impairment, 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 follow CBC and clinical course Right Thigh hematoma likely related to supratherapeutic INR Significantly improved , swelling resolved hematocrit dropped but stable INR trended down to 1.2, may resume Coumadin as outpatient as per PCP di scretion , hold Coumadin due to high risk for fall Acute toxic metabolic encephalopathy Resolved, was likely due to narcotics, ing, UA benign, electrolytes magnesium within normal range CT head showed no acute abnormality, retrospectively could be related to COVID 19 Question right eye hemorrhage versus postsurgical changes. Normal bilateral eye examination no pain, no change in vision. Right leg cellulitis: Initially felt to have cellulitis on admission, on close monitoring redness likely related to hematoma antibiotic discontinued Doppler study showed no DVT, Leg x-ray/ foot x-ray showed no acute findings History of chronic persistent AFib stable ventricular rate, continue home dose of Cardizem CD 180 mg . History of myasthenia gravis: Continue home? pyridostigmine substituted by mouth prednisone to IV Decadron Generalized weakness likely due to COVID-19 infection recent right thigh hematoma seen by physical therapy they recommend short-term rehab DVT prophylaxis:? compression boots Code status: DNR /DNI Patient will need continued inpatient hospitalization due to generalized weakness, acute hypoxic failure due to COVID-19 infection, on IV Decadron and remdesivir ,will need rehab upon discharge CM arranging for bed. Quality Stroke Does the patient have a stroke diagnosis?: No VTE Prior VTE?: No VTE Risk Level:: Medical - moderate - high VTE Device Contraindication: Treatment Not Indicated VTE Drug Contraindication: Treatment Not Indicated
--- NOTE | 2022-03-07 14:11 | MHC.CM.PN ---
per rounds pt not ready for dc pt is hypoxic due to covid is on iv decodron and remdesavair
[2022-03-07] MEDS: Albuterol/Iprat 2.5/0.5MG 3 ML AMPUL.NEB INHALE ×2 (14:43→20:49)
[2022-03-07] MEDS: Remdesivir 100 MG in 0.9 % Sodium Chloride 230 ML 115 MG IV (16:20)
[2022-03-07] MEDS: Melatonin 3 MG TABLET 6 MG PO (22:07)
[2022-03-07] MEDS: guaiFENesin DM 100/10/5 ML 5 ML SYRUP PO (22:07)
[2022-03-08] VITALS (7 sets, daily range): BP systolic 110–139; BP diastolic 63–75; PULSE 53–78; RESP 15–20; TEMP 35.9–36.4; O2SAT 93–99
[2022-03-08] MEDS: Doxycycline Hyclate 100 MG in 0.9 % Sodium Chloride 250 ML 166.67 MG IV ×2 (02:00→12:18)
[2022-03-08 06:25] LABS: Hematocrit 32.3 % (37.0-47.0); Hemoglobin 9.7 g/dl (12.0-16.0); Mean Corpuscular Hemoglobin 26.9 pg (27.0-33.0); Mean Corpuscular Volume 89.5 fL (80.0-98.0); Mean Platelet Volume 10.9 fL (9.4-12.3); NRBC Pct Auto 0.5 /100WBC (0.0-0.2); Platelet Count 277 X10*3/uL (160-400); Red Blood Count 3.61 X10*6/uL (4.20-5.50); Red Cell Distribution Width 18.6 % (11.0-16.0); White Blood Count 4.1 X10*3/uL (4.8-10.8)
[2022-03-08 06:40] LABS: Anion Gap 7 (12-20); Blood Urea Nitrogen 28 mg/dL (9-16); Carbon Dioxide 37 mmol/L (22-29); Chloride 102 mmol/L (96-108); Estimated Glomerular Filt Rate > 60; Glucose Random 110 mg/dL (60-115); Potassium 5.4 mmol/L (3.3-5.1); Sodium 141 mmol/L (135-145)
[2022-03-08] MEDS: Albuterol/Iprat 2.5/0.5MG 3 ML AMPUL.NEB INHALE (08:24)
[2022-03-08] MEDS: Fluticasone/Vilanterol 200/25 BLST.W.DEV 1 PUFF INHALE (08:24)
[2022-03-08] MEDS: 0.9 % Sodium Chloride Flush 3 ML SYRINGE IVFLUSH ×3 (09:27→21:14)
[2022-03-08] MEDS: dilTIAZem HCL CD 180 MG CAP.ER.24H PO (09:27)
[2022-03-08] MEDS: Pyridoxine HCl (Vitamin B6) 50 MG TABLET 100 MG PO (09:27)
[2022-03-08] MEDS: Cholecalciferol (Vitamin D3) 25 MCG TABLET PO (09:27)
[2022-03-08] MEDS: Brimonidine Tartrate 0.2% Oph 5 ML BOTTLE 1 DROP EYE-RIGHT ×2 (09:27→21:15)
[2022-03-08] MEDS: dexAMETHasone sod phosphate 4 MG/ML VIAL 6 MG IVPUSH (09:27)
[2022-03-08] MEDS: Nystatin Oral Susp 500,000 UNIT/5 ML ORAL.SUSP 500000 UNIT PO ×3 (09:27→21:12)
[2022-03-08] MEDS: Gabapentin 100 MG CAPSULE 200 MG PO (09:27)
[2022-03-08] MEDS: prednisoLONE Acetate 1 % Oph Susp 5 ML DRPBTL 1 DROP EYE-RIGHT ×4 (09:28→21:15)
[2022-03-08] MEDS: Famotidine 20 MG TABLET PO (09:28)
[2022-03-08] MEDS: Trolamine Salicylate 10 % Cream 85 GM TUBE 1 APPL TOPICAL ×2 (09:29→21:16)
[2022-03-08] MEDS: guaiFENesin DM 100/10/5 ML 5 ML SYRUP PO ×3 (09:45→21:12)
[2022-03-08] MEDS: Benzonatate 100 MG CAPSULE PO ×3 (10:16→21:13)
--- NOTE | 2022-03-08 11:07 | P.PNIM_ITS ---
Subjective Subjective Date of Service: 03/08/22 Interval History: Decreased oxygen supplement Laying in bed, feels weak with increase cough and mucus secretions Denies any fever, chills or chest pain No reported other overnight events. Systemic review: No fever, chills or weakness No chest pain, palpitation Mainly complaining of excessive coughing and bringing thick mucus No abdominal pain, nausea or vomiting No urinary symptoms No any rash or wounds Physical Exam Vital Signs: Vital Signs: Last Vital Signs Temp 97.6 F 03/08/22 08:00 Pulse 53 03/08/22 08:27 Resp 18 03/08/22 08:27 BP 116/66 03/08/22 08:00 Pulse Ox 93 03/08/22 08:00 BMI result Body Mass Index 19.2 Const: Other: General awake alert , no distress HEENT normal?conjunctiva, no bleeding noted both?eyes Neck flexed/significant kyphosis CVS? irregular rate rhythm Respiratory chest wall moving bilaterally, no rhonchi, no respiratory?distress, on oxygen supplement Gastrointestinal abdomen soft, non tender, bowel sounds audible Extremities?right thigh bruising significantly improved, no induration Neuro speech clear, moving all 4 extremities Skin multiple bruises lower extremity improving Psych appropriate?insight Objective Data Active Medications Acetaminophen (Acetaminophen 325 Mg Tablet) 650 mg PO Q6H PRN PRN Reason: Pain, Mild (Pain Scale 1-3) Last Admin: 03/06/22 09:53 Dose: 650 mg Documented by: NAPOLEON Al Hydroxide/Mg Hydroxide (Magnesium Hydrox/Alum Hydrox 30 Ml Oral.Susp) 15 ml PO Q6H PRN PRN Reason: Dyspepsia Albuterol Sulfate (Albuterol Sulfate 90 Mcg 8 Gm Inhaler) 2 puff INHALE RQ6H WHILE AWAKE PRN PRN Reason: sob Albuterol/Ipratropium (Albuterol/Iprat 2.5/0.5mg 3 Ml Ampul.Neb) 3 ml INHALE RTID INÉS Last Admin: 03/08/22 08:24 Dose: 3 ml Documented by: SHAW Benzocaine (Throat Lozenge, Medicated Lozenge) 1 lozenge MUCOUS MEM Q2H PRN PRN Reason: Sore Throat Last Admin: 03/06/22 09:53 Dose: 1 lozenge Documented by: NAPOLEON Benzonatate (Benzonatate 100 Mg Capsule) 100 mg PO TID [facility] Last Admin: 03/08/22 10:16 Dose: 100 mg Documented by: TOD Brimonidine Tartrate (Brimonidine Tartrate 0.2% Oph 5 Ml Bottle) 1 drop EYE- RIGHT BID [facility] Last Admin: 03/08/22 09:27 Dose: 1 drop Documented by: TOD Dexamethasone Sodium Phosphate (Dexamethasone Sod Phosphate 4 Mg/Ml Vial) 6 mg IVPUSH DAILY [facility] Last Admin: 03/08/22 09:27 Dose: 6 mg Documented by: TOD Diltiazem HCl (Diltiazem Hcl Cd 180 Mg Cap.Er.24h) 180 mg PO DAILY [facility]; Protocol Last Admin: 03/08/22 09:27 Dose: 180 mg Documented by: TOD Famotidine (Famotidine 20 Mg Tablet) 20 mg PO DAILY [facility] Last Admin: 03/08/22 09:28 Dose: 20 mg Documented by: TOD Fluticasone/Vilanterol (Fluticasone/Vilanterol 200/25 Blst.W.Dev) 1 puff INHALE RDAILY [facility] Last Admin: 03/08/22 08:24 Dose: 1 puff Documented by: SHAW Gabapentin (Gabapentin 100 Mg Capsule) 200 mg PO DAILY [facility] Last Admin: 03/08/22 09:27 Dose: 200 mg Documented by: TOD Guaifenesin/Dextromethorphan (Guaifenesin Dm 100/10/5 Ml 5 Ml Syrup) 5 ml PO TID [facility] Last Admin: 03/08/22 09:45 Dose: 5 ml Documented by: TOD Doxycycline Hyclate 100 mg/ (Sodium Chloride) 250 mls @ 166.67 mls/hr IV Q12H [facility] Last Infusion: 03/08/22 04:35 Dose: 0 mls/hr Documented by: JAMES Melatonin (Melatonin 3 Mg Tablet) 6 mg PO BEDTIME PRN PRN Reason: Insomnia Last Admin: 03/07/22 22:07 Dose: 6 mg Documented by: JAMES Nystatin (Nystatin Oral Susp 500,000 Unit/5 Ml Oral.Susp) 500,000 unit PO QID [facility]; Protocol Last Admin: 03/08/22 09:27 Dose: 500,000 unit Documented by: TOD Pharmacy Consult (Consult Rx Perform Med Rec) 1 each MISCELLANE ONCE PRN PRN Reason: Consult order Prednisolone Acetate (Prednisolone Acetate 1 % Oph Susp 5 Ml Drpbtl) 1 drop EYE-RIGHT QID [facility] Last Admin: 03/08/22 09:28 Dose: 1 drop Documented by: TOD Pyridostigmine [place] (Pyridostigmine [place] 60 Mg Tablet) 60 mg PO TID [facility] Last Admin: 03/08/22 09:27 Dose: 60 mg Documented by: TOD Pyridoxine HCl (Pyridoxine Hcl (Vitamin B6) 50 Mg Tablet) 100 mg PO DAILY [facility] Last Admin: 03/08/22 09:27 Dose: 100 mg Documented by: TOD Senna (Sennosides 8.6 Mg Tablet) 17.2 mg PO BEDTIME PRN PRN Reason: Constipation Sodium Chloride (0.9 % Sodium Chloride Flush 3 Ml Syringe) 3 ml IVFLUSH QSHIFT [facility] Last Admin: 03/08/22 09:27 Dose: 3 ml Documented by: TOD Trolamine Salicylate (Trolamine Salicylate 10 % Cream 85 Gm Tube) 1 appl TOPIC AL BID [facility]; Protocol Last Admin: 03/08/22 09:29 Dose: 1 appl Documented by: TOD Vitamin D (Cholecalciferol (Vitamin D3) 25 Mcg Tablet) 25 mcg PO DAILY [facility] Last Admin: 03/08/22 09:27 Dose: 25 mcg Documented by: TOD Labs CBC & Chem 7: 03/08/22 06:15 03/08/22 06:15 Labs: Laboratory Results - last 24 hr 03/08/22 03/08/22 06:15 06:15 MCV 89.5 MCH 26.9 L MCHC 30.0 L RDW 18.6 H Plt Count 277 MPV 10.9 Absolute Nucleated RBC 0.020 H Nucleated RBC % (auto) 0.5 H Anion Gap 7 L Estim Creat Clear Calc 67.0 Estimated GFR > 60 Random Glucose 110 Calcium 9.0 D Assessment and Plan (1) Hematoma: Status: Acute (2) COVID-19 virus infection: Status: Acute Plan 81-year-old female with a past medical history of AFib on Coumadin, myasthenic gravis, IBS, discoid lupus, GERD, vertigo, osteoporosis, history of urethral stone; presented to the hospital today with a chief complaint of right thigh pain for the past 2 days.? Noted to have following conditions Acute hypoxic respiratory failure due to COVID-19 infection patient status post 2 pfizer vaccine and was supposed to receive a booster this month Improving, decrease oxygen need not on home oxygen Continue DuoNeb updraft, continue cough drops and cough medication Continue Decadron IV 6 mg day02/08 ,iv Remdesivir day 02/03 , IV doxycycline day 5 for possible pneumonia recommend out of bed to chair and incentive spirometry Mild cognitive impairment Age related, improved Seems to be worsened with change in place,with blindness Pending UA to rule out UTI follow CBC and clinical course Atelectasis CXR showing worsening left-sided atelectasis and bilateral effusions Incentive spirometry Lian Harrell Chest physical therapy Right Thigh hematoma likely related to supratherapeutic INR Significantly improved , swelling resolved hematocrit dropped but stable INR trended down to 1.2, may resume Coumadin as outpatient as per PCP discretion , hold Coumadin due to high risk for fall Acute toxic metabolic encephalopathy Resolved, was likely due to narcotics, sundowning, UA benign, electrolytes magnesium within normal range CT head showed no acute abnormality, retrospectively could be related to COVID 19 Question right eye hemorrhage versus postsurgical changes. Normal bilateral eye examination no pain, no change in vision. Right leg cellulitis: Initially felt to have cellulitis on admission, on close monitoring redness likely related to hematoma antibiotic discontinued Doppler study showed no DVT, Leg x-ray/ foot x-ray showed no acute findings History of chronic persistent AFib stable ventricular rate, continue home dose of Cardizem CD 180 mg . History of myasthenia gravis: Continue home? pyridostigmine substituted by mouth prednisone to IV Decadron Generalized weakness likely due to COVID-19 infection recent right thigh hematoma seen by physical therapy they recommend short-term rehab DVT prophylaxis:? compression boots Code status: DNR /DNI Patient will need continued inpatient hospitalization due to generalized weakness, acute hypoxic failure due to COVID-19 infection, on IV Decadron ,will need rehab upon discharge CM arranging for bed. Quality Stroke Does the patient have a stroke diagnosis?: No VTE Prior VTE?: No VTE Risk Level:: Medical - moderate - high VTE Device Contraindication: Treatment Not Indicated VTE Drug Contraindication: Treatment Not Indicated
[2022-03-08] MEDS: Sodium Polystyrene Sulfon/Sorb 15 GM/60 ML ORAL.SUSP 30 GM PO (12:18)
[2022-03-09] VITALS (8 sets, daily range): BP systolic 112–137; BP diastolic 55–72; PULSE 67–81; RESP 16–20; TEMP 36.3–37.1; O2SAT 91–96
[2022-03-09] MEDS: Doxycycline Hyclate 100 MG in 0.9 % Sodium Chloride 250 ML 166.67 MG IV ×2 (01:31→12:39)
[2022-03-09] MEDS: Albuterol/Iprat 2.5/0.5MG 3 ML AMPUL.NEB INHALE ×2 (08:16→14:48)
[2022-03-09] MEDS: Fluticasone/Vilanterol 200/25 BLST.W.DEV 1 PUFF INHALE (08:16)
[2022-03-09 08:26] LABS: Blood Urea Nitrogen 30 mg/dL (9-16); Creatinine Clr Calc Pharmacy 69.7; Estimated Glomerular Filt Rate > 60; Glucose Random 114 mg/dL (60-115)
[2022-03-09 08:34] LABS: Anion Gap 8 (12-20); Carbon Dioxide 34 mmol/L (22-29); Chloride 102 mmol/L (96-108); Sodium 140 mmol/L (135-145)
[2022-03-09] MEDS: Gabapentin 100 MG CAPSULE 200 MG PO (09:38)
[2022-03-09] MEDS: 0.9 % Sodium Chloride Flush 3 ML SYRINGE IVFLUSH ×3 (09:38→21:45)
[2022-03-09] MEDS: Pyridoxine HCl (Vitamin B6) 50 MG TABLET 100 MG PO (09:38)
[2022-03-09] MEDS: dexAMETHasone sod phosphate 4 MG/ML VIAL 6 MG IVPUSH (09:38)
[2022-03-09] MEDS: dilTIAZem HCL CD 180 MG CAP.ER.24H PO (09:39)
[2022-03-09] MEDS: Brimonidine Tartrate 0.2% Oph 5 ML BOTTLE 1 DROP EYE-RIGHT ×2 (09:39→21:47)
[2022-03-09] MEDS: Famotidine 20 MG TABLET PO (09:39)
[2022-03-09] MEDS: guaiFENesin DM 100/10/5 ML 5 ML SYRUP PO ×2 (09:39→21:48)
[2022-03-09] MEDS: Nystatin Oral Susp 500,000 UNIT/5 ML ORAL.SUSP 500000 UNIT PO ×4 (09:39→21:44)
[2022-03-09] MEDS: Benzonatate 100 MG CAPSULE PO ×3 (09:39→21:44)
[2022-03-09] MEDS: Cholecalciferol (Vitamin D3) 25 MCG TABLET PO (09:39)
[2022-03-09] MEDS: prednisoLONE Acetate 1 % Oph Susp 5 ML DRPBTL 1 DROP EYE-RIGHT ×4 (09:40→21:47)
[2022-03-09] MEDS: Trolamine Salicylate 10 % Cream 85 GM TUBE 1 APPL TOPICAL ×2 (09:40→21:47)
--- NOTE | 2022-03-09 10:23 | MHC.CM.PN ---
Female 81 DX Thigh hematoma Covid+ 03/03. Patient is being followed by [facility]. A new referral has been sent to Aniyah Martinez. Patient will be covid recovered 03/13/22. DP STR via BLS.
--- NOTE | 2022-03-09 10:39 | HO.PM.IMPN ---
Subjective Subjective Date of Service: 03/09/22 Interval History: Improving slowly Laying in bed, feels mild improvement in the cough and mucus secretions Reports eating well and drinking well Denies any fever, chills or chest pain No reported other overnight events. Systemic review: No fever, chills or weakness No chest pain, palpitation Mainly complaining of excessive coughing and bringing thick mucus No abdominal pain, nausea or vomiting No urinary symptoms No any rash or wounds Physical Exam Vital Signs: Vital Signs: Last Vital Signs Temp 98.0 F 03/09/22 08:00 Pulse 71 03/09/22 08:21 Resp 20 03/09/22 08:21 BP 115/66 03/09/22 08:00 Pulse Ox 94 03/09/22 08:00 O2 Del Method 03/09/22 08:00 O2 Flow Rate 1 03/09/22 08:00 BMI result Body Mass Index 19.2 Const: Other: General awake alert , no distress HEENT normal?conjunctiva, no bleeding noted both?eyes Neck flexed/significant kyphosis CVS? irregular rate rhythm Respiratory chest wall moving bilaterally, no rhonchi, no respiratory?distress, expiratory rhonchi, on oxygen supplement Gastrointestinal abdomen soft, non tender, bowel sounds audible Extremities?right thigh bruising significantly improved, no induration Neuro speech clear, moving all 4 extremities Skin multiple bruises lower extremity improving Psych appropriate?insight Objective Data Active Medications Acetaminophen (Acetaminophen 325 Mg Tablet) 650 mg PO Q6H PRN PRN Reason: Pain, Mild (Pain Scale 1-3) Last Admin: 03/06/22 09:53 Dose: 650 mg Documented By: NAPOLEON Al Hydroxide/Mg Hydroxide (Magnesium Hydrox/Alum Hydrox 30 Ml Oral.Susp) 15 ml PO Q6H PRN PRN Reason: Dyspepsia Albuterol Sulfate (Albuterol Sulfate 90 Mcg 8 Gm Inhaler) 2 puff INHALE RQ6H WHILE AWAKE PRN PRN Reason: sob Albuterol/Ipratropium (Albuterol/Iprat 2.5/0.5mg 3 Ml Ampul.Neb) 3 ml INHALE RTID INÉS Last Admin: 03/09/22 08:16 Dose: 3 ml Documented By: SHAW Benzocaine (Throat Lozenge, Medicated Lozenge) 1 lozenge MUCOUS MEM Q2H PRN PRN Reason: Sore Throat Last Admin: 03/06/22 09:53 Dose: 1 lozenge Documented By: NAPOLEON Benzonatate (Benzonatate 100 Mg Capsule) 100 mg PO TID [facility] Last Admin: 03/09/22 09:39 Dose: 100 mg Documented By: ADONIS Brimonidine Tartrate (Brimonidine Tartrate 0.2% Oph 5 Ml Bottle) 1 drop EYE-RIGHT BID [facility] Last Admin: 03/09/22 09:39 Dose: 1 drop Documented By: ADONIS Dexamethasone Sodium Phosphate (Dexamethasone Sod Phosphate 4 Mg/Ml Vial) 6 mg IVPUSH DAILY [facility] Last Admin: 03/09/22 09:38 Dose: 6 mg Documented By: ADONIS Diltiazem HCl (Diltiazem Hcl Cd 180 Mg Cap.Er.24h) 180 mg PO DAILY [facility]; Protocol Last Admin: 03/09/22 09:39 Dose: 180 mg Documented By: ADONIS Famotidine (Famotidine 20 Mg Tablet) 20 mg PO DAILY [facility] Last Admin: 03/09/22 09:39 Dose: 20 mg Documented By: ADONIS Fluticasone/Vilanterol (Fluticasone/Vilanterol 200/25 Blst.W.Dev) 1 puff INHALE RDAILY [facility] Last Admin: 03/09/22 08:16 Dose: 1 puff Documented By: SHAW Gabapentin (Gabapentin 100 Mg Capsule) 200 mg PO DAILY [facility] Last Admin: 03/09/22 09:38 Dose: 200 mg Documented By: ADONIS Guaifenesin/Dextromethorphan (Guaifenesin Dm 100/10/5 Ml 5 Ml Syrup) 5 ml PO TID [facility] Last Admin: 03/09/22 09:39 Dose: 5 ml Documented By: ADONIS Doxycycline Hyclate 100 mg/ (Sodium Chloride) 250 mls @ 166.67 mls/hr IV Q12H [facility] Last Infusion: 03/09/22 03:17 Dose: 0 mls/hr Documented By: DENIS Melatonin (Melatonin 3 Mg Tablet) 6 mg PO BEDTIME PRN PRN Reason: Insomnia Last Admin: 03/07/22 22:07 Dose: 6 mg Documented By: NAUMOC Nystatin (Nystatin Oral Susp 500,000 Unit/5 Ml Oral.Susp) 500,000 unit PO QID [facility]; Protocol Last Admin: 03/09/22 09:39 Dose: 500,000 unit Documented By: ADONIS Pharmacy Consult (Consult Rx Perform Med Rec) 1 each MISCELLANE ONCE PRN PRN Reason: Consult order Prednisolone Acetate (Prednisolone Acetate 1 % Oph Susp 5 Ml Drpbtl) 1 drop EYE-RIGHT QID [facility] Last Admin: 03/09/22 09:40 Dose: 1 drop Documented By: ADONIS Pyridostigmine [place] (Pyridostigmine [place] 60 Mg Tablet) 60 mg PO TID [facility] Last Admin: 03/09/22 09:38 Dose: 60 mg Documented By: ADONIS Pyridoxine HCl (Pyridoxine Hcl (Vitamin B6) 50 Mg Tablet) 100 mg PO DAILY [facility] Last Admin: 03/09/22 09:38 Dose: 100 mg Documented By: ADONIS Senna (Sennosides 8.6 Mg Tablet) 17.2 mg PO BEDTIME PRN PRN Reason: Constipation Sodium Chloride (0.9 % Sodium Chloride Flush 3 Ml Syringe) 3 ml IVFLUSH QSHIFT [facility] Last Admin: 03/09/22 09:38 Dose: 3 ml Documented By: ADONIS Trolamine Salicylate (Trolamine Salicylate 10 % Cream 85 Gm Tube) 1 appl TOPICAL BID [facility]; Protocol Last Admin: 03/09/22 09:40 Dose: 1 appl Documented By: ADONIS Vitamin D (Cholecalciferol (Vitamin D3) 25 Mcg Tablet) 25 mcg PO DAILY [facility] Last Admin: 03/09/22 09:39 Dose: 25 mcg Documented By: ADONIS Labs CBC & Chem 7: 03/08/22 06:15 03/09/22 07:47 Labs: Laboratory Results - last 24 hr 03/09/22 07:47 Anion Gap 8 L Estim Creat Clear Calc 69.7 Estimated GFR > 60 Random Glucose 114 Calcium 9.0 Assessment and Plan (1) COVID-19 virus infection: Status: Acute (2) Hematoma: Status: Acute Plan 81-year-old female with a past medical history of AFib on Coumadin, myasthenic gravis, IBS, discoid lupus, GERD, vertigo, osteoporosis, history of urethral stone; presented to the hospital today with a chief complaint of right thigh pain for the past 2 days.? Noted to have following conditions Acute hypoxic respiratory failure, resolved due to COVID-19 infection patient status post 2 pfizer vaccine and was supposed to receive a booster this month Improving, decrease oxygen need not on home oxygen Continue DuoNeb updraft, continue cough drops and cough medication Continue Decadron IV 6 mg day03/11 , finished iv Remdesivir day 02/03 , IV doxycycline day 03/08 for possible pneumonia recommend out of bed to chair and incentive spirometry Mild cognitive impairment Age related, improved back to baseline Seems to be worsened with change in place, infection Pending UA to rule out UTI follow CBC and clinical course Atelectasis CXR showing worsening left-sided atelectasis and bilateral effusions Incentive spirometry Lian Harrell Chest physical therapy Right Thigh hematoma likely related to supratherapeutic INR Significantly improved , swelling resolved hematocrit dropped but stable INR trended down to 1.2, may resume Coumadin as outpatient as per PCP discretion , hold Coumadin due to high risk for fall Acute toxic metabolic encephalopathy Resolved, was likely due to narcotics, ing, UA benign, electrolytes magnesium within normal range CT head showed no acute abnormality, retrospectively could be related to COVID 19 Question right eye hemorrhage versus postsurgical changes. Normal bilateral eye examination no pain, no change in vision. Right leg cellulitis: Initially felt to have cellulitis on admission, on close monitoring redness likely related to hematoma antibiotic discontinued Doppler study showed no DVT, Leg x-ray/ foot x-ray showed no acute findings History of chronic persistent AFib stable ventricular rate, continue home dose of Cardizem CD 180 mg . History of myasthenia gravis: Continue home? pyridostigmine substituted by mouth prednisone to IV Decadron Generalized weakness likely due to COVID-19 infection recent right thigh hematoma seen by physical therapy they recommend short-term rehab DVT prophylaxis:? compression boots Code status: DNR /DNI Patient will need continued inpatient hospitalization due to generalized weakness, atelectasis, COVID-19 infection, on IV Decadron pending safe discharge plan Quality Stroke Does the patient have a stroke diagnosis?: No VTE Prior VTE?: No VTE Risk Level:: Medical - moderate - high VTE Device Contraindication: Treatment Not Indicated VTE Drug Contraindication: Treatment Not Indicated
[2022-03-10] VITALS (11 sets, daily range): BP systolic 118–134; BP diastolic 67–83; PULSE 68–93; RESP 16–20; TEMP 36–37.4; O2SAT 91–96
[2022-03-10] MEDS: Doxycycline Hyclate 100 MG in 0.9 % Sodium Chloride 250 ML 166.67 MG IV (01:29)
[2022-03-10 07:22] LABS: Hematocrit 35.7 % (37.0-47.0); Hemoglobin 10.9 g/dl (12.0-16.0); Mean Corpuscular HGB Conc 30.5 g/dl (31.0-35.0); Mean Corpuscular Hemoglobin 26.7 pg (27.0-33.0); Mean Corpuscular Volume 87.3 fL (80.0-98.0); Mean Platelet Volume 10.9 fL (9.4-12.3); Platelet Count 368 X10*3/uL (160-400); Red Blood Count 4.09 X10*6/uL (4.20-5.50); White Blood Count 9.5 X10*3/uL (4.8-10.8)
[2022-03-10 07:30] LABS: C Reactive Protein 0.58 mg/dL (< or = 0.50)
[2022-03-10 07:32] LABS: Anion Gap 8 (12-20); Blood Urea Nitrogen 29 mg/dL (9-16); Calcium 9.2 mg/dL (8.4-10.2); Carbon Dioxide 32 mmol/L (22-29); Chloride 104 mmol/L (96-108); Creatinine Clr Calc Pharmacy 64.4; Estimated Glomerular Filt Rate > 60; Glucose Random 117 mg/dL (60-115); Potassium 5.2 mmol/L (3.3-5.1); Sodium 139 mmol/L (135-145)
[2022-03-10] MEDS: Albuterol/Iprat 2.5/0.5MG 3 ML AMPUL.NEB INHALE ×3 (08:12→20:41)
[2022-03-10] MEDS: Fluticasone/Vilanterol 200/25 BLST.W.DEV 1 PUFF INHALE (08:12)
[2022-03-10] MEDS: dexAMETHasone sod phosphate 4 MG/ML VIAL 6 MG IVPUSH (09:06)
[2022-03-10] MEDS: guaiFENesin DM 100/10/5 ML 5 ML SYRUP PO ×3 (09:06→20:32)
[2022-03-10] MEDS: Nystatin Oral Susp 500,000 UNIT/5 ML ORAL.SUSP 500000 UNIT PO ×4 (09:06→20:31)
[2022-03-10] MEDS: Benzonatate 100 MG CAPSULE PO ×3 (09:07→20:31)
[2022-03-10] MEDS: dilTIAZem HCL CD 180 MG CAP.ER.24H PO (09:07)
[2022-03-10] MEDS: Gabapentin 100 MG CAPSULE 200 MG PO (09:08)
[2022-03-10] MEDS: 0.9 % Sodium Chloride Flush 3 ML SYRINGE IVFLUSH ×3 (09:08→20:35)
[2022-03-10] MEDS: Cholecalciferol (Vitamin D3) 25 MCG TABLET PO (09:08)
[2022-03-10] MEDS: Pyridoxine HCl (Vitamin B6) 50 MG TABLET 100 MG PO (09:08)
[2022-03-10] MEDS: Famotidine 20 MG TABLET PO (09:08)
[2022-03-10] MEDS: Brimonidine Tartrate 0.2% Oph 5 ML BOTTLE 1 DROP EYE-RIGHT ×2 (09:09→20:35)
[2022-03-10] MEDS: prednisoLONE Acetate 1 % Oph Susp 5 ML DRPBTL 1 DROP EYE-RIGHT ×4 (09:09→20:35)
[2022-03-10] MEDS: Trolamine Salicylate 10 % Cream 85 GM TUBE 1 APPL TOPICAL ×2 (09:10→20:35)
[2022-03-10] MEDS: Doxycycline Hyclate 100 MG in 0.9 % Sodium Chloride 250 ML 250 MG IV (13:00)
--- NOTE | 2022-03-10 16:02 | PC.NURSE ---
Alert and responsive. Denies pain. VSS, afebrile, no acute resp. distress noted. Continue on IV ABT/steroids, no adverse reactions noted. A-fib on tele. Skin and fall precautions maintained. Call reyez within reach. Plan: d/c to short term rehab once medically stable. Will continue to monitor and treat per plan of care.
--- NOTE | 2022-03-10 16:12 | HO.PM.IMPN ---
Subjective Subjective Date of Service: 03/10/22 Interval History: seen and examined this morning Follow-up for COVID-19 reports ongoing cough, some shortness of breath No chest pain No overnight events Review of Systems Review of Systems: Yes all other systems are reviewed and are negative Constitutional Constitutional: Denies chills and Denies fever(s) Cardiovascular Cardiovascular: Denies chest pain, Denies palpitations and Reports dyspnea Respiratory Respiratory: Reports cough and Reports dyspnea Gastrointestinal Gastrointestinal: Denies abdominal pain Endocrine Endocrine: Denies palpitations Physical Exam Vital Signs: Vital Signs: Last Vital Signs Temp 98.5 F 03/10/22 11:53 Pulse 86 03/10/22 15:14 Resp 18 03/10/22 15:14 BP 134/69 03/10/22 11:53 Pulse Ox 91 L 03/10/22 11:53 O2 Del Method 03/10/22 11:53 O2 Flow Rate 1 03/10/22 11:53 BMI result Body Mass Index 19.2 Const: Other: severe cervical kyphosis General: cooperative, comfortable, alert and awake Nutritional Appearance: thin Orientation/consciousness: patient oriented x3 Resp: Effort & Inspection: normal respiratory effort Auscultation: diminished lung sounds Cardio: Rate: regular rate GI: Palpation (GI): Soft to palpation and nontender Neuro: General: patient oriented x3 Extrem: General: Yes no pedal edema Objective Data Active Medications Acetaminophen (Acetaminophen 325 Mg Tablet) 650 mg PO Q6H PRN PRN Reason: Pain, Mild (Pain Scale 1-3) Last Admin: 03/06/22 09:53 Dose: 650 mg Documented By: NAPOLEON Al Hydroxide/Mg Hydroxide (Magnesium Hydrox/Alum Hydrox 30 Ml Oral.Susp) 15 ml PO Q6H PRN PRN Reason: Dyspepsia Albuterol Sulfate (Albuterol Sulfate 90 Mcg 8 Gm Inhaler) 2 puff INHALE RQ6H WHILE AWAKE PRN PRN Reason: sob Albuterol/Ipratropium (Albuterol/Iprat 2.5/0.5mg 3 Ml Ampul.Neb) 3 ml INHALE RTID INÉS Last Admin: 03/10/22 15:12 Dose: 3 ml Documented By: JAIME Benzocaine (Throat Lozenge, Medicated Lozenge) 1 lozenge MUCOUS MEM Q2H PRN PRN Reason: Sore Throat Last Admin: 03/06/22 09:53 Dose: 1 lozenge Documented By: NAPOLEON Benzonatate (Benzonatate 100 Mg Capsule) 100 mg PO TID [facility] Last Admin: 03/10/22 09:07 Dose: 100 mg Documented By: CATRACHITO Brimonidine Tartrate (Brimonidine Tartrate 0.2% Oph 5 Ml Bottle) 1 drop EYE-RIGHT BID [facility] Last Admin: 03/10/22 09:09 Dose: 1 drop Documented By: CATRACHITO Dexamethasone Sodium Phosphate (Dexamethasone Sod Phosphate 4 Mg/Ml Vial) 6 mg IVPUSH DAILY [facility] Last Admin: 03/10/22 09:06 Dose: 6 mg Documented By: CATRACHITO Diltiazem HCl (Diltiazem Hcl Cd 180 Mg Cap.Er.24h) 180 mg PO DAILY [facility]; Protocol Last Admin: 03/10/22 09:07 Dose: 180 mg Documented By: CATRACHITO Famotidine (Famotidine 20 Mg Tablet) 20 mg PO DAILY [facility] Last Admin: 03/10/22 09:08 Dose: 20 mg Documented By: CATRACHITO Fluticasone/Vilanterol (Fluticasone/Vilanterol 200/25 Blst.W.Dev) 1 puff INHALE RDAILY [facility] Last Admin: 03/10/22 08:12 Dose: 1 puff Documented By: RALF Gabapentin (Gabapentin 100 Mg Capsule) 200 mg PO DAILY [facility] Last Admin: 03/10/22 09:08 Dose: 200 mg Documented By: CATRACHITO Guaifenesin/Dextromethorphan (Guaifenesin Dm 100/10/5 Ml 5 Ml Syrup) 5 ml PO TID [facility] Last Admin: 03/10/22 09:06 Dose: 5 ml Documented By: CATRACHITO Doxycycline Hyclate 100 mg/ (Sodium Chloride) 250 mls @ 166.67 mls/hr IV Q12H [facility] Last Admin: 03/10/22 13:00 Dose: 250 mls/hr Documented By: CATRACHITO Melatonin (Melatonin 3 Mg Tablet) 6 mg PO BEDTIME PRN PRN Reason: Insomnia Last Admin: 03/07/22 22:07 Dose: 6 mg Documented By: JAMES Nystatin (Nystatin Oral Susp 500,000 Unit/5 Ml Oral.Susp) 500,000 unit PO QID [facility]; Protocol Last Admin: 03/10/22 13:01 Dose: 500,000 unit Documented By: CATRACHITO Pharmacy Consult (Consult Rx Perform Med Rec) 1 each MISCELLANE ONCE PRN PRN Reason: Consult order Prednisolone Acetate (Prednisolone Acetate 1 % Oph Susp 5 Ml Drpbtl) 1 drop EYE-RIGHT QID [facility] Last Admin: 03/10/22 13:01 Dose: 1 drop Documented By: CATRACHITO Pyridostigmine [place] (Pyridostigmine [place] 60 Mg Tablet) 60 mg PO TID [facility] Last Admin: 03/10/22 09:08 Dose: 60 mg Documented By: CATRACHITO Pyridoxine HCl (Pyridoxine Hcl (Vitamin B6) 50 Mg Tablet) 100 mg PO DAILY [facility] Last Admin: 03/10/22 09:08 Dose: 100 mg Documented By: CATRACHITO Senna (Sennosides 8.6 Mg Tablet) 17.2 mg PO BEDTIME PRN PRN Reason: Constipation Sodium Chloride (0.9 % Sodium Chloride Flush 3 Ml Syringe) 3 ml IVFLUSH QSHIFT [facility] Last Admin: 03/10/22 09:08 Dose: 3 ml Documented By: CATRACHITO Trolamine Salicylate (Trolamine Salicylate 10 % Cream 85 Gm Tube) 1 appl TOPICAL BID [facility]; Protocol Last Admin: 03/10/22 09:10 Dose: 1 appl Documented By: CATRACHITO Vitamin D (Cholecalciferol (Vitamin D3) 25 Mcg Tablet) 25 mcg PO DAILY [facility] Last Admin: 03/10/22 09:08 Dose: 25 mcg Documented By: CATRACHITO Labs CBC & Chem 7: 03/10/22 06:49 03/10/22 06:49 Labs: Laboratory Results - last 24 hr 03/10/22 03/10/22 03/10/22 06:49 06:49 06:49 MCV 87.3 MCH 26.7 L MCHC 30.5 L RDW 19.0 H Plt Count 368 D MPV 10.9 Absolute Nucleated RBC 0.000 Nucleated RBC % (auto) 0.0 Anion Gap 8 L Estim Creat Clear Calc 64.4 Estimated GFR > 60 Random Glucose 117 H Calcium 9.2 C-Reactive Protein 0.58 H Assessment and Plan (1) COVID-19 virus infection: Status: Acute Plan 81-year-old female with a past medical history of AFib on Coumadin, myasthenic gravis, IBS, discoid lupus, GERD, vertigo, osteoporosis, history of urethral stone; presented to the hospital today with a chief complaint of right thigh pain for the past 2 days.? Noted to have following conditions Acute hypoxic respiratory failure, resolved due to COVID-19 infection patient status post 2 pfizer vaccine and was supposed to receive a booster this month Improving, decrease oxygen need not on home oxygen Continue DuoNeb updraft, continue cough drops and cough medication Continue Decadron IV 6 mg day 04/10 , finished iv Remdesivir day 02/03 , IV doxycycline day 03/08 for possible pneumonia recommend out of bed to chair and incentive spirometry Mild cognitive impairment Age related, improved back to baseline Seems to be worsened with change in place, infection UA neg for UTI follow CBC and clinical course Atelectasis CXR showing worsening left-sided atelectasis and bilateral effusions BNP negative Incentive spirometry Mucinex, Tessalon pearls Chest physical therapy Right Thigh hematoma likely related to supratherapeutic INR Significantly improved , swelling resolved hematocrit dropped but stable INR trended down to 1.2, may resume Coumadin as outpatient as per PCP discretion , hold Coumadin due to high risk for fall Acute toxic metabolic encephalopathy Resolved, was likely due to narcotics, sundowning, UA benign, electrolytes magnesium within normal range CT head showed no acute abnormality, retrospectively could be related to COVID 19 Question right eye hemorrhage versus postsurgical changes. Normal bilateral eye examination no pain, no change in vision. Right leg cellulitis: Initially felt to have cellulitis on admission, on close monitoring redness likely related to hematoma antibiotic discontinued Doppler study showed no DVT, Leg x-ray/ foot x-ray showed no acute findings History of chronic persistent AFib stable ventricular rate, continue home dose of Cardizem CD 180 mg . History of myasthenia gravis: Continue home? pyridostigmine substituted by mouth prednisone to IV Decadron Generalized weakness likely due to COVID-19 infection recent right thigh hematoma seen by physical therapy they recommend short-term rehab DVT prophylaxis:? compression boots Code status: DNR /DNI attending-Dr. Rosas Patient will need continued inpatient hospitalization due to generalized weakness, atelectasis, COVID-19 infection, on IV Decadron pending safe discharge plan Quality Stroke Does the patient have a stroke diagnosis?: No VTE Prior VTE?: No VTE Risk Level:: Medical - moderate - high VTE Device Contraindication: Treatment Not Indicated VTE Drug Contraindication: Treatment Not Indicated
[2022-03-11] VITALS (9 sets, daily range): BP systolic 92–133; BP diastolic 58–82; PULSE 72–100; RESP 14–18; TEMP 36.3–36.8; O2SAT 92–96
[2022-03-11] MEDS: Doxycycline Hyclate 100 MG in 0.9 % Sodium Chloride 250 ML 166.67 MG IV (02:02)
[2022-03-11] MEDS: Fluticasone/Vilanterol 200/25 BLST.W.DEV 1 PUFF INHALE (07:44)
[2022-03-11] MEDS: Albuterol/Iprat 2.5/0.5MG 3 ML AMPUL.NEB INHALE ×2 (07:44→18:48)
[2022-03-11] MEDS: 0.9 % Sodium Chloride Flush 3 ML SYRINGE IVFLUSH ×3 (08:20→20:22)
[2022-03-11] MEDS: Gabapentin 100 MG CAPSULE 200 MG PO (08:21)
[2022-03-11] MEDS: guaiFENesin DM 100/10/5 ML 5 ML SYRUP PO ×3 (08:21→20:22)
[2022-03-11] MEDS: Pyridoxine HCl (Vitamin B6) 50 MG TABLET 100 MG PO (08:22)
[2022-03-11] MEDS: Cholecalciferol (Vitamin D3) 25 MCG TABLET PO (08:22)
[2022-03-11] MEDS: Famotidine 20 MG TABLET PO (08:22)
[2022-03-11] MEDS: Benzonatate 100 MG CAPSULE PO ×3 (08:22→20:22)
[2022-03-11] MEDS: Brimonidine Tartrate 0.2% Oph 5 ML BOTTLE 1 DROP EYE-RIGHT ×2 (08:23→20:21)
[2022-03-11] MEDS: dexAMETHasone sod phosphate 4 MG/ML VIAL 6 MG IVPUSH (08:23)
[2022-03-11] MEDS: dilTIAZem HCL CD 180 MG CAP.ER.24H PO (08:23)
[2022-03-11] MEDS: Trolamine Salicylate 10 % Cream 85 GM TUBE 1 APPL TOPICAL ×2 (08:24→20:21)
[2022-03-11] MEDS: prednisoLONE Acetate 1 % Oph Susp 5 ML DRPBTL 1 DROP EYE-RIGHT ×4 (08:24→20:21)
[2022-03-11 09:19] LABS: Anion Gap 13 (12-20); Blood Urea Nitrogen 30 mg/dL (9-16); Calcium 9.3 mg/dL (8.4-10.2); Carbon Dioxide 31 mmol/L (22-29); Chloride 103 mmol/L (96-108); Estimated Glomerular Filt Rate > 60; Glucose Random 109 mg/dL (60-115); Potassium 4.8 mmol/L (3.3-5.1); Sodium 142 mmol/L (135-145)
--- NOTE | 2022-03-11 11:29 | HO.PM.IMPN ---
Subjective Subjective Date of Service: 03/11/22 Interval History: seen and examined this morning Follow-up for hematoma, COVID-19 Patient confused this morning, initially thought [place] store but remembered being at [facility] once she was redirected thinks her cough is starting to improve Review of Systems Review of Systems: Yes all other systems are reviewed and are negative Constitutional Constitutional: Denies chills and Denies fever(s) Cardiovascular Cardiovascular: Denies chest pain, Denies palpitations and Denies dyspnea Respiratory Respiratory: Reports cough and Denies dyspnea Gastrointestinal Gastrointestinal: Denies abdominal pain, Denies nausea and Denies vomiting Endocrine Endocrine: Denies palpitations Physical Exam Vital Signs: Vital Signs: Last Vital Signs Temp 97.3 F 03/11/22 03:31 Pulse 98 03/11/22 10:58 Resp 18 03/11/22 07:46 BP 114/82 03/11/22 03:31 Pulse Ox 92 03/11/22 07:34 O2 Del Method 03/11/22 07:34 O2 Flow Rate 1 03/11/22 07:34 BMI result Body Mass Index 19.2 Const: Other: severe cervical kyphosis General: cooperative, comfortable, alert and awake Nutritional Appearance: thin Orientation/consciousness: patient oriented x3 Resp: Effort & Inspection: normal respiratory effort and able to speak in complete sentences Auscultation: diminished lung sounds Cardio: Rate: regular rate GI: Palpation (GI): Soft to palpation and nontender Neuro: General: patient oriented x3 Extrem: General: Yes no pedal edema Objective Data Active Medications Acetaminophen (Acetaminophen 325 Mg Tablet) 650 mg PO Q6H PRN PRN Reason: Pain, Mild (Pain Scale 1-3) Last Admin: 03/06/22 09:53 Dose: 650 mg Documented By: NAPOLEON Al Hydroxide/Mg Hydroxide (Magnesium Hydrox/Alum Hydrox 30 Ml Oral.Susp) 15 ml PO Q6H PRN PRN Reason: Dyspepsia Albuterol Sulfate (Albuterol Sulfate 90 Mcg 8 Gm Inhaler) 2 puff INHALE RQ6H WHILE AWAKE PRN PRN Reason: sob Albuterol/Ipratropium (Albuterol/Iprat 2.5/0.5mg 3 Ml Ampul.Neb) 3 ml INHALE RTID [facility] Last Admin: 03/11/22 07:44 Dose: 3 ml Documented By: NOEL Benzocaine (Throat Lozenge, Medicated Lozenge) 1 lozenge MUCOUS MEM Q2H PRN PRN Reason: Sore Throat Last Admin: 03/06/22 09:53 Dose: 1 lozenge Documented By: NAPOLEON Benzonatate (Benzonatate 100 Mg Capsule) 100 mg PO TID [facility] Last Admin: 03/11/22 08:22 Dose: 100 mg Documented By: TOD Brimonidine Tartrate (Brimonidine Tartrate 0.2% Oph 5 Ml Bottle) 1 drop EYE-RIGHT BID [facility] Last Admin: 03/11/22 08:23 Dose: 1 drop Documented By: TOD Dexamethasone Sodium Phosphate (Dexamethasone Sod Phosphate 4 Mg/Ml Vial) 6 mg IVPUSH DAILY [facility] Stop: 03/14/22 08:59 Last Admin: 03/11/22 08:23 Dose: 6 mg Documented By: TOD Diltiazem HCl (Diltiazem Hcl Cd 180 Mg Cap.Er.24h) 180 mg PO DAILY [facility]; Protocol Last Admin: 03/11/22 08:23 Dose: 180 mg Documented By: TOD Famotidine (Famotidine 20 Mg Tablet) 20 mg PO DAILY [facility] Last Admin: 03/11/22 08:22 Dose: 20 mg Documented By: TOD Fluticasone/Vilanterol (Fluticasone/Vilanterol 200/25 Blst.W.Dev) 1 puff INHALE RDAILY [facility] Last Admin: 03/11/22 07:44 Dose: 1 puff Documented By: NOEL Gabapentin (Gabapentin 100 Mg Capsule) 200 mg PO DAILY [facility] Last Admin: 03/11/22 08:21 Dose: 200 mg Documented By: TOD Guaifenesin/Dextromethorphan (Guaifenesin Dm 100/10/5 Ml 5 Ml Syrup) 5 ml PO TID [facility] Last Admin: 03/11/22 08:21 Dose: 5 ml Documented By: TOD Doxycycline Hyclate 100 mg/ (Sodium Chloride) 250 mls @ 166.67 mls/hr IV Q12H [facility] Last Infusion: 03/11/22 04:28 Dose: 0 mls/hr Documented By: DENIS Melatonin (Melatonin 3 Mg Tablet) 6 mg PO BEDTIME PRN PRN Reason: Insomnia Last Admin: 03/07/22 22:07 Dose: 6 mg Documented By: JAMES Nystatin (Nystatin Oral Susp 500,000 Unit/5 Ml Oral.Susp) 500,000 unit PO QID [facility]; Protocol Last Admin: 03/11/22 08:23 Dose: Not Given Documented By: TOD Non-Admin Reason: Patient Refused Pharmacy Consult (Consult Rx Perform Med Rec) 1 each MISCELLANE ONCE PRN PRN Reason: Consult order Prednisolone Acetate (Prednisolone Acetate 1 % Oph Susp 5 Ml Drpbtl) 1 drop EYE-RIGHT QID [facility] Last Admin: 03/11/22 08:24 Dose: 1 drop Documented By: TOD Pyridostigmine [place] (Pyridostigmine [place] 60 Mg Tablet) 60 mg PO TID [facility] Last Admin: 03/11/22 08:22 Dose: 60 mg Documented By: TOD Pyridoxine HCl (Pyridoxine Hcl (Vitamin B6) 50 Mg Tablet) 100 mg PO DAILY [facility] Last Admin: 03/11/22 08:22 Dose: 100 mg Documented By: TOD Senna (Sennosides 8.6 Mg Tablet) 17.2 mg PO BEDTIME PRN PRN Reason: Constipation Sodium Chloride (0.9 % Sodium Chloride Flush 3 Ml Syringe) 3 ml IVFLUSH QSHIFT [facility] Last Admin: 03/11/22 08:20 Dose: 3 ml Documented By: TOD Trolamine Salicylate (Trolamine Salicylate 10 % Cream 85 Gm Tube) 1 appl TOPICAL BID [facility]; Protocol Last Admin: 03/11/22 08:24 Dose: 1 appl Documented By: TOD Vitamin D (Cholecalciferol (Vitamin D3) 25 Mcg Tablet) 25 mcg PO DAILY [facility] Last Admin: 03/11/22 08:22 Dose: 25 mcg Documented By: TOD Labs CBC & Chem 7: 03/10/22 06:49 03/11/22 08:20 Labs: Laboratory Results - last 24 hr 03/11/22 08:20 Anion Gap 13 Estim Creat Clear Calc 67.0 Estimated GFR > 60 Random Glucose 109 Calcium 9.3 Assessment and Plan (1) COVID-19 virus infection: Status: Acute (2) Hematoma: Status: Acute Plan 81-year-old female with a past medical history of AFib on Coumadin, myasthenic gravis, IBS, discoid lupus, GERD, vertigo, osteoporosis, history of urethral stone; presented to the hospital today with a chief complaint of right thigh pain for the past 2 days.? Noted to have following conditions Acute hypoxic respiratory failure due to COVID-19 infection patient status post 2 pfizer vaccine and was supposed to receive a booster this month Improving, wean o2 as tolerated Continue DuoNeb updraft, continue cough drops and cough medication Continue Decadron IV 6 mg day 05/11 , finished iv Remdesivir day 02/03 , IV doxycycline day 04/07 for possible pneumonia recommend out of bed to chair and incentive spirometry Atelectasis CXR from 03/07 showing worsening left-sided atelectasis and bilateral effusions BNP negative Incentive spirometry Mucinex, Lian arenas Chest physical therapy Right Thigh hematoma likely related to supratherapeutic INR improved , swelling resolved hematocrit stable INR trended down to 1.2, may resume Coumadin as outpatient as per PCP discretion but will continue to hold Coumadin for now due to high risk for fall Acute toxic metabolic encephalopathy likely age related cognitive impairment worsened by change in place, infection UA benign, electrolytes magnesium within normal range CT head showed no acute abnormality, retrospectively could be related to COVID 19 Question right eye hemorrhage versus postsurgical changes on imaging Normal bilateral eye examination no pain, no change in vision. Right leg cellulitis: Initially felt to have cellulitis on admission, on close monitoring redness likely related to hematoma antibiotic discontinued Doppler study showed no DVT, Leg x-ray/ foot x-ray showed no acute findings History of chronic persistent AFib stable ventricular rate, continue home dose of Cardizem CD 180 mg . History of myasthenia gravis: Continue home? pyridostigmine substituted by mouth prednisone to IV Decadron Generalized weakness likely due to COVID-19 infection recent right thigh hematoma seen by physical therapy they recommend short-term rehab - initially tested positive on 03/03, no bed until 03/13 until 10 days of quarantine completed DVT prophylaxis:? compression boots Code status: DNR /DNI attending-Dr. Rosas Patient will need continued inpatient hospitalization due to generalized weakness, atelectasis, COVID-19 infection, on IV Decadron pending safe discharge plan Quality Stroke Does the patient have a stroke diagnosis?: No VTE Prior VTE?: No VTE Risk Level:: Medical - moderate - high VTE Device Contraindication: Treatment Not Indicated VTE Drug Contraindication: Treatment Not Indicated
[2022-03-11] MEDS: Nystatin Oral Susp 500,000 UNIT/5 ML ORAL.SUSP 500000 UNIT PO ×3 (13:07→20:22)
[2022-03-12 03:35] VITALS: BP 119/76; PULSE 79; RESP 17; TEMP 36.2; O2SAT 94
[2022-03-12 08:00] VITALS: BP 119/68; PULSE 83; RESP 18; TEMP 36.4; O2SAT 94
--- NOTE | 2022-03-12 10:06 | HO.PM.IMPN ---
Subjective Subjective Date of Service: 03/12/22 Review of Systems Follow up Covid Feeling tired heel pain refusing morning medications Physical Exam Vital Signs: Vital Signs: Last Vital Signs Temp 97.5 F 03/12/22 08:00 Pulse 83 03/12/22 08:00 Resp 18 03/12/22 08:00 BP 119/68 03/12/22 08:00 Pulse Ox 94 03/12/22 08:00 O2 Del Method 03/12/22 08:00 O2 Flow Rate 1 03/12/22 03:35 BMI result Body Mass Index 19.2 Appearing in no acute distress, thin and frail lung sounds are clear to auscultation heart regular rate rhythm, clear S1, S2 positive bowel sounds, abdomen is soft, nontender neuro patient is alert x3, no focal deficits Objective Data Active Medications Acetaminophen (Acetaminophen 325 Mg Tablet) 650 mg PO Q6H PRN PRN Reason: Pain, Mild (Pain Scale 1-3) Last Admin: 03/06/22 09:53 Dose: 650 mg Documented By: NAPOLEON Al Hydroxide/Mg Hydroxide (Magnesium Hydrox/Alum Hydrox 30 Ml Oral.Susp) 15 ml PO Q6H PRN PRN Reason: Dyspepsia Albuterol Sulfate (Albuterol Sulfate 90 Mcg 8 Gm Inhaler) 2 puff INHALE RQ6H WHILE AWAKE PRN PRN Reason: sob Albuterol/Ipratropium (Albuterol/Iprat 2.5/0.5mg 3 Ml Ampul.Neb) 3 ml INHALE RTID [facility] Last Admin: 03/12/22 08:04 Dose: Not Given Documented By: SHAW Non-Admin Reason: Patient Refused Benzocaine (Throat Lozenge, Medicated Lozenge) 1 lozenge MUCOUS MEM Q2H PRN PRN Reason: Sore Throat Last Admin: 03/06/22 09:53 Dose: 1 lozenge Documented By: NAPOLEON Benzonatate (Benzonatate 100 Mg Capsule) 100 mg PO TID [facility] Last Admin: 03/12/22 09:54 Dose: Not Given Documented By: TOD Non-Admin Reason: Patient Refused Brimonidine Tartrate (Brimonidine Tartrate 0.2% Oph 5 Ml Bottle) 1 drop EYE-RIGHT BID [facility] Last Admin: 03/12/22 09:54 Dose: Not Given Documented By: TOD Non-Admin Reason: Patient Refused Dexamethasone Sodium Phosphate (Dexamethasone Sod Phosphate 4 Mg/Ml Vial) 6 mg IVPUSH DAILY [facility] Stop: 03/14/22 08:59 Last Admin: 03/12/22 09:55 Dose: Not Given Documented By: TOD Non-Admin Reason: Patient Refused Diltiazem HCl (Diltiazem Hcl Cd 180 Mg Cap.Er.24h) 180 mg PO DAILY [facility]; Protocol Last Admin: 03/12/22 09:55 Dose: Not Given Documented By: TOD Non-Admin Reason: Patient Refused Famotidine (Famotidine 20 Mg Tablet) 20 mg PO DAILY [facility] Last Admin: 03/12/22 09:55 Dose: Not Given Documented By: TOD Non-Admin Reason: Patient Refused Fluticasone/Vilanterol (Fluticasone/Vilanterol 200/25 Blst.W.Dev) 1 puff INHALE RDAILY [facility] Last Admin: 03/12/22 08:04 Dose: Not Given Documented By: SHAW Non-Admin Reason: Patient Refused Gabapentin (Gabapentin 100 Mg Capsule) 200 mg PO DAILY [facility] Last Admin: 03/12/22 09:55 Dose: Not Given Documented By: TOD Non-Admin Reason: Patient Refused Guaifenesin/Dextromethorphan (Guaifenesin Dm 100/10/5 Ml 5 Ml Syrup) 5 ml PO TID [facility] Last Admin: 03/12/22 09:55 Dose: Not Given Documented By: TOD Non-Admin Reason: Patient Refused Melatonin (Melatonin 3 Mg Tablet) 6 mg PO BEDTIME PRN PRN Reason: Insomnia Last Admin: 03/07/22 22:07 Dose: 6 mg Documented By: LYNNEUMERNIE Nystatin (Nystatin Oral Susp 500,000 Unit/5 Ml Oral.Susp) 500,000 unit PO QID [facility]; Protocol Last Admin: 03/12/22 09:55 Dose: Not Given Documented By: TOD Non-Admin Reason: Patient Refused Pharmacy Consult (Consult Rx Perform Med Rec) 1 each MISCELLANE ONCE PRN PRN Reason: Consult order Prednisolone Acetate (Prednisolone Acetate 1 % Oph Susp 5 Ml Drpbtl) 1 drop EYE-RIGHT QID [facility] Last Admin: 03/12/22 09:55 Dose: Not Given Documented By: TOD Non-Admin Reason: Patient Refused Pyridostigmine [place] (Pyridostigmine [place] 60 Mg Tablet) 60 mg PO TID [facility] Last Admin: 03/12/22 09:55 Dose: Not Given Documented By: TOD Non-Admin Reason: Patient Refused Pyridoxine HCl (Pyridoxine Hcl (Vitamin B6) 50 Mg Tablet) 100 mg PO DAILY [facility] Last Admin: 03/12/22 09:55 Dose: Not Given Documented By: TOD Non-Admin Reason: Patient Refused Senna (Sennosides 8.6 Mg Tablet) 17.2 mg PO BEDTIME PRN PRN Reason: Constipation Sodium Chloride (0.9 % Sodium Chloride Flush 3 Ml Syringe) 3 ml IVFLUSH QSHIFT [facility] Last Admin: 03/12/22 09:54 Dose: Not Given Documented By: TOD Non-Admin Reason: Patient Refused Trolamine Salicylate (Trolamine Salicylate 10 % Cream 85 Gm Tube) 1 appl TOPICAL BID [facility]; Protocol Last Admin: 03/12/22 09:55 Dose: Not Given Documented By: TOD Non-Admin Reason: Patient Refused Vitamin D (Cholecalciferol (Vitamin D3) 25 Mcg Tablet) 25 mcg PO DAILY [facility] Last Admin: 03/12/22 09:54 Dose: Not Given Documented By: TOD Non-Admin Reason: Patient Refused Labs CBC & Chem 7: 03/10/22 06:49 03/11/22 08:20 Assessment and Plan (1) COVID-19 virus infection: Status: Acute (2) Hematoma: Status: Acute Plan 81-year-old female with a past medical history of AFib on Coumadin, myasthenic gravis, IBS, discoid lupus, GERD, vertigo, osteoporosis, history of urethral stone; presented to the hospital today with a chief complaint of right thigh pain for the past 2 days.? Noted to have following conditions Acute hypoxic respiratory failure due to COVID-19 infection patient status post 2 pfizer vaccine and was supposed to receive a booster this month wean o2 as tolerated Continue DuoNeb updraft, continue cough drops and cough medication Continue Decadron IV 6 mg total 10 day dose ,completed Remdesivir day 02/03 , IV doxycycline day 04/07 for possible pneumonia recommend out of bed to chair and incentive spirometry Atelectasis CXR from 03/07 showing worsening left-sided atelectasis and bilateral effusions BNP negative Incentive spirometry Lian Harrell Chest physical therapy Right Thigh hematoma likely related to supratherapeutic INR improved , swelling resolved hematocrit stable may resume Coumadin as outpatient as per PCP discretion but will continue to hold Coumadin for now due to high risk for fall Acute toxic metabolic encephalopathy likely age related cognitive impairment worsened by change in place, infection UA benign, electrolytes magnesium within normal range CT head showed no acute abnormality, retrospectively could be related to COVID 19 Question right eye hemorrhage versus postsurgical changes on imaging Normal bilateral eye examination no pain, no change in vision. Right leg cellulitis Initially felt to have cellulitis on admission, on close monitoring redness likely related to hematoma antibiotic discontinued Doppler study showed no DVT, Leg x-ray/ foot x-ray showed no acute findings History of chronic persistent AFib stable ventricular rate, continue home dose of Cardizem CD 180 mg . History of myasthenia gravis Continue home? pyridostigmine substituted by mouth prednisone to IV Decadron for covid Generalized weakness likely due to COVID-19 infection recent right thigh hematoma seen by physical therapy they recommend short-term rehab initially tested positive on 03/03, no bed until 03/13 until 10 days of quarantine completed DVT prophylaxis:? compression boots Code status: DNR /DNI attending-Dr. Morales Patient will need continued inpatient hospitalization due to generalized weakness, atelectasis, COVID-19 infection, on IV Decadron pending safe discharge plan Quality Stroke Does the patient have a stroke diagnosis?: No VTE Prior VTE?: No VTE Risk Level:: Medical - moderate - high VTE Device Contraindication: Treatment Not Indicated VTE Drug Contraindication: Treatment Not Indicated
[2022-03-12 11:32] LABS: INTERNATIONAL NORM RATIO 1.1 (0.9-1.1); Prothrombin Time 12.3 SEC (9.9-13.0)
[2022-03-12 12:00] VITALS: TEMP 36.5
[2022-03-12 15:26] VITALS: BP 112/68; PULSE 89; RESP 16; TEMP 36.2; O2SAT 96
[2022-03-12] MEDS: prednisoLONE Acetate 1 % Oph Susp 5 ML DRPBTL 1 DROP EYE-RIGHT (19:44)
[2022-03-12] MEDS: Nystatin Oral Susp 500,000 UNIT/5 ML ORAL.SUSP 500000 UNIT PO (19:45)
[2022-03-12] MEDS: 0.9 % Sodium Chloride Flush 3 ML SYRINGE IVFLUSH (19:45)
[2022-03-12] MEDS: Trolamine Salicylate 10 % Cream 85 GM TUBE 1 APPL TOPICAL (19:45)
[2022-03-12] MEDS: Brimonidine Tartrate 0.2% Oph 5 ML BOTTLE 1 DROP EYE-RIGHT (19:45)
[2022-03-12] MEDS: Benzonatate 100 MG CAPSULE PO (19:45)
[2022-03-12 20:00] VITALS: BP 116/66; PULSE 94; RESP 18; TEMP 36.6; O2SAT 90
[2022-03-12 23:38] VITALS: BP 124/74; PULSE 50; RESP 17; TEMP 36
[2022-03-13] MEDS: guaiFENesin DM 100/10/5 ML 5 ML SYRUP PO ×2 (01:01→21:59)
[2022-03-13] MEDS: Throat Lozenge, Medicated LOZENGE 1 LOZENGE MUCOUS MEM ×2 (01:04→02:04)
[2022-03-13 03:33] VITALS: BP 127/75; PULSE 100; RESP 17; TEMP 36.1; O2SAT 94
[2022-03-13] MEDS: Melatonin 3 MG TABLET 6 MG PO (03:55)
[2022-03-13] MEDS: Albuterol/Iprat 2.5/0.5MG 3 ML AMPUL.NEB INHALE (07:36)
[2022-03-13] MEDS: Fluticasone/Vilanterol 200/25 BLST.W.DEV 1 PUFF INHALE (07:36)
[2022-03-13 07:37] VITALS: PULSE 93; RESP 22; O2SAT 95
[2022-03-13 07:43] VITALS: BP 121/77; PULSE 95; RESP 26; TEMP 36.2; O2SAT 91
[2022-03-13] MEDS: Brimonidine Tartrate 0.2% Oph 5 ML BOTTLE 1 DROP EYE-RIGHT ×2 (09:41→21:59)
[2022-03-13] MEDS: Trolamine Salicylate 10 % Cream 85 GM TUBE 1 APPL TOPICAL (09:41)
[2022-03-13] MEDS: 0.9 % Sodium Chloride Flush 3 ML SYRINGE IVFLUSH ×3 (09:41→22:00)
[2022-03-13] MEDS: Famotidine 20 MG TABLET PO (09:42)
[2022-03-13] MEDS: Pyridoxine HCl (Vitamin B6) 50 MG TABLET 100 MG PO (09:42)
[2022-03-13] MEDS: Cholecalciferol (Vitamin D3) 25 MCG TABLET PO (09:42)
[2022-03-13] MEDS: prednisoLONE Acetate 1 % Oph Susp 5 ML DRPBTL 1 DROP EYE-RIGHT ×4 (09:43→21:59)
[2022-03-13] MEDS: Benzonatate 100 MG CAPSULE PO ×3 (09:43→21:59)
[2022-03-13] MEDS: Gabapentin 100 MG CAPSULE 200 MG PO (09:43)
[2022-03-13] MEDS: dilTIAZem HCL CD 180 MG CAP.ER.24H PO (09:43)
[2022-03-13] MEDS: dexAMETHasone sod phosphate 4 MG/ML VIAL 6 MG IVPUSH (09:45)
[2022-03-13 11:36] VITALS: BP 115/69; PULSE 103; RESP 26; TEMP 36.9; O2SAT 89
--- NOTE | 2022-03-13 12:14 | HO.PM.IMPN ---
Subjective Subjective Date of Service: 03/13/22 Review of Systems Follow up Covid Feeling tired heel pain requesting hospice Physical Exam Vital Signs: Vital Signs: Last Vital Signs Temp 98.5 F 03/13/22 11:36 Pulse 103 H 03/13/22 11:36 Resp 26 H 03/13/22 11:36 BP 115/69 03/13/22 11:36 Pulse Ox 89 L 03/13/22 11:36 O2 Del Method 03/13/22 11:36 O2 Flow Rate 3 03/13/22 11:36 BMI result Body Mass Index 19.2 Appearing in no acute distress, thin and frail lung sounds are clear to auscultation heart regular rate rhythm, clear S1, S2 positive bowel sounds, abdomen is soft, nontender neuro patient is alert x3, no focal deficits Objective Data Active Medications Acetaminophen (Acetaminophen 325 Mg Tablet) 650 mg PO Q6H PRN PRN Reason: Pain, Mild (Pain Scale 1-3) Last Admin: 03/06/22 09:53 Dose: 650 mg Documented By: NAPOLEON Al Hydroxide/Mg Hydroxide (Magnesium Hydrox/Alum Hydrox 30 Ml Oral.Susp) 15 ml PO Q6H PRN PRN Reason: Dyspepsia Albuterol Sulfate (Albuterol Sulfate 90 Mcg 8 Gm Inhaler) 2 puff INHALE RQ6H WHILE AWAKE PRN PRN Reason: sob Albuterol/Ipratropium (Albuterol/Iprat 2.5/0.5mg 3 Ml Ampul.Neb) 3 ml INHALE RTID [facility] Last Admin: 03/13/22 07:36 Dose: 3 ml Documented By: SHAW Benzocaine (Throat Lozenge, Medicated Lozenge) 1 lozenge MUCOUS MEM Q2H PRN PRN Reason: Sore Throat Last Admin: 03/13/22 02:04 Dose: 1 lozenge Documented By: BROOKLYN Benzonatate (Benzonatate 100 Mg Capsule) 100 mg PO TID [facility] Last Admin: 03/13/22 09:43 Dose: 100 mg Documented By: TOD Brimonidine Tartrate (Brimonidine Tartrate 0.2% Oph 5 Ml Bottle) 1 drop EYE-RIGHT BID [facility] Last Admin: 03/13/22 09:41 Dose: 1 drop Documented By: TOD Dexamethasone Sodium Phosphate (Dexamethasone Sod Phosphate 4 Mg/Ml Vial) 6 mg IVPUSH DAILY [facility] Stop: 03/14/22 08:59 Last Admin: 03/13/22 09:45 Dose: 6 mg Documented By: TOD Diltiazem HCl (Diltiazem Hcl Cd 180 Mg Cap.Er.24h) 180 mg PO DAILY [facility]; Protocol Last Admin: 03/13/22 09:43 Dose: 180 mg Documented By: TOD Famotidine (Famotidine 20 Mg Tablet) 20 mg PO DAILY [facility] Last Admin: 03/13/22 09:42 Dose: 20 mg Documented By: TOD Fluticasone/Vilanterol (Fluticasone/Vilanterol 200/25 Blst.W.Dev) 1 puff INHALE RDAILY [facility] Last Admin: 03/13/22 07:36 Dose: 1 puff Documented By: SHAW Gabapentin (Gabapentin 100 Mg Capsule) 200 mg PO DAILY [facility] Last Admin: 03/13/22 09:43 Dose: 200 mg Documented By: TOD Guaifenesin/Dextromethorphan (Guaifenesin Dm 100/10/5 Ml 5 Ml Syrup) 5 ml PO TID [facility] Last Admin: 03/13/22 09:43 Dose: Not Given Documented By: TOD Non-Admin Reason: Patient Refused Melatonin (Melatonin 3 Mg Tablet) 6 mg PO BEDTIME PRN PRN Reason: Insomnia Last Admin: 03/13/22 03:55 Dose: 6 mg Documented By: BROOKLYN Nystatin (Nystatin Oral Susp 500,000 Unit/5 Ml Oral.Susp) 500,000 unit PO QID [facility]; Protocol Last Admin: 03/13/22 09:43 Dose: Not Given Documented By: TOD Non-Admin Reason: Patient Refused Pharmacy Consult (Consult Rx Perform Med Rec) 1 each MISCELLANE ONCE PRN PRN Reason: Consult order Prednisolone Acetate (Prednisolone Acetate 1 % Oph Susp 5 Ml Drpbtl) 1 drop EYE-RIGHT QID [facility] Last Admin: 03/13/22 09:43 Dose: 1 drop Documented By: TOD Pyridostigmine [place] (Pyridostigmine [place] 60 Mg Tablet) 60 mg PO TID [facility] Last Admin: 03/13/22 09:43 Dose: 60 mg Documented By: TOD Pyridoxine HCl (Pyridoxine Hcl (Vitamin B6) 50 Mg Tablet) 100 mg PO DAILY [facility] Last Admin: 03/13/22 09:42 Dose: 100 mg Documented By: TOD Senna (Sennosides 8.6 Mg Tablet) 17.2 mg PO BEDTIME PRN PRN Reason: Constipation Sodium Chloride (0.9 % Sodium Chloride Flush 3 Ml Syringe) 3 ml IVFLUSH QSHIFT [facility] Last Admin: 03/13/22 09:41 Dose: 3 ml Documented By: TOD Trolamine Salicylate (Trolamine Salicylate 10 % Cream 85 Gm Tube) 1 appl TOPICAL BID [facility]; Protocol Last Admin: 03/13/22 09:41 Dose: 1 appl Documented By: TOD Vitamin D (Cholecalciferol (Vitamin D3) 25 Mcg Tablet) 25 mcg PO DAILY [facility] Last Admin: 03/13/22 09:42 Dose: 25 mcg Documented By: TOD Labs CBC & Chem 7: 03/10/22 06:49 03/11/22 08:20 Assessment and Plan (1) COVID-19 virus infection: Status: Acute (2) Hematoma: Status: Acute Plan 81-year-old female with a past medical history of AFib on Coumadin, myasthenic gravis, IBS, discoid lupus, GERD, vertigo, osteoporosis, history of urethral stone; presented to the hospital today with a chief complaint of right thigh pain for the past 2 days.? Noted to have following conditions Adult FTT Patient is requesting to be hospice will discuss with CM to arrange to start, likely will have to be in facility Acute hypoxic respiratory failure due to COVID-19 infection patient status post 2 pfizer vaccine and was supposed to receive a booster this month wean o2 as tolerated Continue DuoNeb updraft, continue cough drops and cough medication Continue Decadron IV 6 mg total 10 day dose ,completed Remdesivir day 02/03 , IV doxycycline day 04/07 for possible pneumonia recommend out of bed to chair and incentive spirometry Atelectasis CXR from 03/07 showing worsening left-sided atelectasis and bilateral effusions BNP negative Incentive spirometry Mucinex, Tessalon pearls Chest physical therapy Right Thigh hematoma likely related to supratherapeutic INR improved , swelling resolved hematocrit stable may resume Coumadin as outpatient as per PCP discretion but will continue to hold Coumadin for now due to high risk for fall Acute toxic metabolic encephalopathy likely age related cognitive impairment worsened by change in place, infection UA benign, electrolytes magnesium within normal range CT head showed no acute abnormality, retrospectively could be related to COVID 19 Question right eye hemorrhage versus postsurgical changes on imaging Normal bilateral eye examination no pain, no change in vision. Right leg cellulitis Initially felt to have cellulitis on admission, on close monitoring redness likely related to hematoma antibiotic discontinued Doppler study showed no DVT, Leg x-ray/ foot x-ray showed no acute findings History of chronic persistent AFib stable ventricular rate, continue home dose of Cardizem CD 180 mg . History of myasthenia gravis Continue home? pyridostigmine substituted by mouth prednisone to IV Decadron for covid Generalized weakness likely due to COVID-19 infection recent right thigh hematoma seen by physical therapy they recommend short-term rehab initially tested positive on 03/03, no bed until 03/13 until 10 days of quarantine completed DVT prophylaxis:? compression boots Code status: DNR /DNI attending-Dr. Morales Patient will need continued inpatient hospitalization due to generalized weakness, atelectasis, COVID-19 infection, on IV Decadron pending safe discharge plan Quality Stroke Does the patient have a stroke diagnosis?: No VTE Prior VTE?: No VTE Risk Level:: Medical - moderate - high VTE Device Contraindication: Treatment Not Indicated VTE Drug Contraindication: Treatment Not Indicated
--- NOTE | 2022-03-13 12:17 | MHC.CM.PN ---
Patient's nurse indicated patient verbalizing request for hospice at home, informed her that hospice consults come directly from hospice companies. Reported to MD. Attempted to phone family to hold conversation RE question of support/coverage of patient at home (as required per hospice), as well as functional safety for patient, etc given patient functionally not able to manage at home at this time w/out support. Additionally, should hospice in facility be chosen, patient's insurance would require out of pocket expenses given lack of skill. This would need to be reviewed with family (details should come directly from facility and/or hospice company chosen, but prep to be discussed at hospital level to adequately prepare patient/family). This RNCM called family in an attempt to inquire RE support and discuss next steps for patient's requested hospice in either home or facility level, had to leave a . LVM w/return call requested.
[2022-03-13] MEDS: Nystatin Oral Susp 500,000 UNIT/5 ML ORAL.SUSP 500000 UNIT PO ×3 (13:24→21:59)
--- NOTE | 2022-03-13 14:08 | MHC.CM.PN ---
Contact/Maggie called back; had lengthy discussion RE plan. Patient has already recently had a hospice consult w/[facility]. Per contact, D/T unforseen staffing issues, the organization was not able to sign patient on at the last minute and re-referred patient to [facility] that never reached out to patient/contact (Maggie). In discussion w/Maggie, the final goal is for patient to end at [facility]. However first, STR is desired. Maggie was abundantly clear that there is definitely not enough support for patient to be able to go home, even on hospice, she is not functionally safe (there is a privately hired woman whop helps, but still not enough even if hours were increased). The plan is STR to maximize functionality, and then to [facility] (or the slight chance patient goes home from there; unlikely per Maggie). Maggie indicates that patient to go to [facility] and from there she will work w/director social service to get patient in to [facility] as her final destination. Maggie has worked at [facility] for a number of years and has contacts available to her. RE SNF for STR: she is very much not in agreement w/[facility] or [facility]. Maggie requesting [facility]: [facility], [facility] then [facility]. Referrals placed. [facility] offered a bed. Will call Maggie to let her know and discuss plan w/patient.
[2022-03-13 15:26] LABS: COVID-19 Test Positive (Negative)
[2022-03-13 15:37] VITALS: BP 111/63; PULSE 84; RESP 16; TEMP 36.8; O2SAT 89
[2022-03-13 19:51] VITALS: BP 120/76; PULSE 89; RESP 16; TEMP 36.1; O2SAT 91
[2022-03-14] VITALS (7 sets, daily range): BP systolic 106–133; BP diastolic 63–72; PULSE 81–91; RESP 18–24; TEMP 36.4–36.9; O2SAT 87–91
--- NOTE | 2022-03-14 06:26 | PM.EVENT ---
Event Note Date of Service: 03/14/22 Event Note: Acute hypoxic respiratory failure: In the setting of left lung collapse with mediastinal shift. Patient became acutely hypoxic, RR 20, oxygenation increased from 3 L nasal cannula O2 15 L on hurts on-saturating at 90-93%. Per RN patient took her medications without any difficulty, denies having any coughing spell, denies any sputum production. Patient is alert and awake and able to communicate. Patient able to understand the conversation. Does not appear to be in distress. Chest x-ray showed near complete collapse of the left lung with mediastinal shift. Spoke to the patient, patient's daughter over the phone; patient and patient's daughter both mentioned no aggressive intervention, denied bronchoscopy, mentioned if no improvement would be inclined to comfort measures. But the day hospitalist note plan was to transition care to hospice at the facility Will notify the day hospitalist Pattie mares
[2022-03-14] MEDS: Fluticasone/Vilanterol 200/25 BLST.W.DEV 1 PUFF INHALE (07:39)
[2022-03-14] MEDS: Albuterol/Iprat 2.5/0.5MG 3 ML AMPUL.NEB INHALE (07:39)
--- NOTE | 2022-03-14 09:42 | P.PNIM_ITS ---
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 Physical Exam Vital Signs: Vital Signs: Last Vital Signs Temp 97.5 F 03/14/22 07:55 Pulse 91 03/14/22 07:55 Resp 20 03/14/22 07:55 BP 120/63 03/14/22 07:55 Pulse Ox 89 L 03/14/22 07:55 O2 Del Method 03/14/22 07:55 O2 Flow Rate 03/14/22 07:55 BMI result Body Mass Index 19.2 Appearing in no acute distress, lung sounds rhonchi heart regular rate rhythm, clear S1, S2 positive bowel sounds, abdomen is soft, nontender neuro patient is alert Objective Data Active Medications Acetaminophen (Acetaminophen 325 Mg Tablet) 650 mg PO Q6H PRN PRN Reason: Pain, Mild (Pain Scale 1-3) Last Admin: 03/06/22 09:53 Dose: 650 mg Documented By: NAPOLEON Morphine Sulfate (Morphine Sulfate 2 Mg/Ml Cartridge) 2 mg IVPUSH Q4H PRN PRN Reason: Discomfort/Shortness of breath Ondansetron HCl (Ondansetron Hcl 4 Mg/2 Ml Vial) 4 mg IVPUSH Q8H PRN PRN Reason: Nausea and Vomiting Pharmacy Consult (Consult Rx Perform Med Rec) 1 each MISCELLANE ONCE PRN PRN Reason: Consult order Scopolamine (Scopolamine 1.5 Mg Patch.Td.3) 1.5 mg TRANSDERMA Q72H [facility] Sodium Chloride (0.9 % Sodium Chloride Flush 3 Ml Syringe) 3 ml IVFLUSH QSHIFT [facility] Last Admin: 03/13/22 22:00 Dose: 3 ml Documented By: DORIS Labs CBC & Chem 7: 03/10/22 06:49 03/11/22 08:20 Labs: Laboratory Results - last 24 hr 03/13/22 15:12 COVID-19 (ROC) Positive A COVID-19 Clin Com See Note Assessment and Plan (1) COVID-19 virus infection: Status: Acute (2) Hematoma: Status: Acute Plan 81-year-old female with a past medical history of AFib on Coumadin, myasthenic gravis, IBS, discoid lupus, GERD, vertigo, osteoporosis, history of urethral stone; presented to the hospital today with a chief complaint of right thigh pain for the past 2 days.? 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 hypoxia overnight, chest x-ray showed left lung collapse with mediastinal shift Patient had not wanted any aggressive treatments all medications, labs or diagnostic tests Scopolamine, morphine added Adult FTT Patient is requesting to be hospice will discuss with CM to arrange to start, likely will have to be in facility Acute hypoxic respiratory failure due to COVID-19 infection patient status post 2 pfizer vaccine and was supposed to receive a booster this month wean o2 as tolerated Continue DuoNeb updraft, continue cough drops and cough medication Continue Decadron IV 6 mg total 10 day dose ,completed Remdesivir day 02/03 , IV doxycycline day 04/07 for possible pneumonia recommend out of bed to chair and incentive spirometry Atelectasis CXR from 03/07 showing worsening left-sided atelectasis and bilateral effusions BNP negative Incentive spirometry Mucinex, Tessalon pearls Chest physical therapy Right Thigh hematoma likely related to supratherapeutic INR improved , swelling resolved hematocrit stable may resume Coumadin as outpatient as per PCP discretion but will continue to hold Coumadin for now due to high risk for fall Acute toxic metabolic encephalopathy likely age related cognitive impairment worsened by change in place, infection UA benign, electrolytes magnesium within normal range CT head showed no acute abnormality, retrospectively could be related to COVID 19 Question right eye hemorrhage versus postsurgical changes on imaging Normal bilateral eye examination no pain, no change in vision. Right leg cellulitis Initially felt to have cellulitis on admission, on close monitoring redness likely related to hematoma antibiotic discontinued Doppler study showed no DVT, Leg x-ray/ foot x-ray showed no acute findings History of chronic persistent AFib stable ventricular rate, continue home dose of Cardizem CD 180 mg . History of myasthenia gravis Continue home? pyridostigmine substituted by mouth prednisone to IV Decadron for covid Generalized weakness likely due to COVID-19 infection recent right thigh hematoma seen by physical therapy they recommend short-term rehab initially tested positive on 03/03, no bed until 03/13 until 10 days of quarantine completed DVT prophylaxis:? compression boots Code status: DNR /DNI attending-Dr. 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
[2022-03-14] MEDS: Scopolamine 1.5 MG PATCH.TD.3 TRANSDERMA (10:29)
[2022-03-14] MEDS: 0.9 % Sodium Chloride Flush 3 ML SYRINGE IVFLUSH ×2 (10:30→13:27)
--- NOTE | 2022-03-14 12:02 | MHC.CM.PN ---
FEMALE 81 DX THIGH HEMATOMA COVID+ THIS AM SHE HAD A HYPOXIC EPISODE. IMAGING REVEALED LEFT LUNG COLLAPSE 03/14/22. THE PATIENT DECIDED TO DECLINE FURTHER TREATMENT. 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
[2022-03-14] MEDS: Morphine Sulfate 2 MG/ML CARTRIDGE IVPUSH (13:27)
--- NOTE | 2022-03-14 13:36 | PC.NURSE ---
Pt complained of shortness of breath. O2 Saturation 89 on 13L via [place] .PRN Morphine administered. Humidifier added to NC. Pt stated start of mild relief. Will reassess in one hour.
[2022-03-15] VITALS (8 sets, daily range): RESP 13–36; O2SAT 91–99
[2022-03-15] MEDS: Morphine Sulfate 2 MG/ML CARTRIDGE IVPUSH ×2 (09:08→17:29)
[2022-03-15] MEDS: 0.9 % Sodium Chloride Flush 3 ML SYRINGE IVFLUSH ×2 (10:15→17:26)
--- NOTE | 2022-03-15 11:37 | MHC.CM.PN ---
Addendum entered by Yenifer Bryant 03/15/22 14:32: Spoke with Arturo chapa patient's admission. She stated that there is a wait list. May be a month until a bed is available. Spoke with Dtr, Maggie. She stated that they can private pay at a SNF until a bed at [facility]. Balwinder Castañeda is the pt's HCP. [phone]. Maggie will get info thru him. 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 Spoke with the patient's daughter, Maggie. Preference for Hospice is the [facility]. A referral has been sent through [facility]. A phone call has been made to the facility. A VM was left for Arturo Lazo, Clinical Director. A request for a return call was made. The patients name was provided.
--- NOTE | 2022-03-15 11:49 | HO.PM.IMPN ---
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 Physical Exam Vital Signs: Vital Signs: Last Vital Signs Temp 97.5 F 03/14/22 07:55 Pulse 91 03/14/22 07:55 Resp 20 03/15/22 11:28 BP 120/63 03/14/22 07:55 Pulse Ox 99 03/15/22 11:28 O2 Del Method 03/15/22 11:28 O2 Flow Rate 14 03/15/22 11:28 BMI result Body Mass Index 19.2 Appearing in no acute distress lung sounds are clear to auscultation heart regular rate rhythm, clear S1, S2 positive bowel sounds, abdomen is soft, nontender neuro patient is alert x3, no focal deficits Objective Data Active Medications Acetaminophen (Acetaminophen 325 Mg Tablet) 650 mg PO Q6H PRN PRN Reason: Pain, Mild (Pain Scale 1-3) Last Admin: 03/06/22 09:53 Dose: 650 mg Documented By: NAPOLEON Morphine Sulfate (Morphine Sulfate 2 Mg/Ml Cartridge) 2 mg IVPUSH Q4H PRN PRN Reason: Discomfort/Shortness of breath Last Admin: 03/15/22 09:08 Dose: 2 mg Documented By: MIKE Ondansetron HCl (Ondansetron Hcl 4 Mg/2 Ml Vial) 4 mg IVPUSH Q8H PRN PRN Reason: Nausea and Vomiting Pharmacy Consult (Consult Rx Perform Med Rec) 1 each MISCELLANE ONCE PRN PRN Reason: Consult order Scopolamine (Scopolamine 1.5 Mg Patch.Td.3) 1.5 mg TRANSDERMA Q72H [facility] Last Admin: 03/14/22 10:29 Dose: 1.5 mg Documented By: MEHNAZ Sodium Chloride (0.9 % Sodium Chloride Flush 3 Ml Syringe) 3 ml IVFLUSH QSHIFT [facility] Last Admin: 03/15/22 10:15 Dose: 3 ml Documented By: MIKE Labs CBC & Chem 7: 03/10/22 06:49 03/11/22 08:20 Assessment and Plan (1) COVID-19 virus infection: Status: Acute (2) Hematoma: Status: Acute Plan 81-year-old female with a past medical history of AFib on Coumadin, myasthenic gravis, IBS, discoid lupus, GERD, vertigo, osteoporosis, history of urethral stone; presented to the hospital today with a chief complaint of right thigh pain for the past 2 days.? 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 hypoxia overnight, chest x-ray showed left lung collapse with mediastinal shift Patient had not wanted any aggressive treatments all medications, labs or diagnostic tests Scopolamine, morphine added Adult FTT Patient initially requested hospice, now INSTRUCTIONAL MEDIA SERVICES TECHNICIAN will discuss with CM to arrange to start, likely will have to be in facility Acute hypoxic respiratory failure due to COVID-19 infection patient status post 2 pfizer vaccine and was supposed to receive a booster this month wean o2 as tolerated Continue DuoNeb updraft, continue cough drops and cough medication Continue Decadron IV 6 mg total 10 day dose ,completed Remdesivir day 02/03 , IV doxycycline day 04/07 for possible pneumonia recommend out of bed to chair and incentive spirometry Atelectasis CXR from 03/07 showing worsening left-sided atelectasis and bilateral effusions BNP negative Incentive spirometry Lian Harrell Chest physical therapy Right Thigh hematoma likely related to supratherapeutic INR improved , swelling resolved hematocrit stable may resume Coumadin as outpatient as per PCP discretion but will continue to hold Coumadin for now due to high risk for fall Acute toxic metabolic encephalopathy likely age related cognitive impairment worsened by change in place, infection UA benign, electrolytes magnesium within normal range CT head showed no acute abnormality, retrospectively could be related to COVID 19 Question right eye hemorrhage versus postsurgical changes on imaging Normal bilateral eye examination no pain, no change in vision. Right leg cellulitis Initially felt to have cellulitis on admission, on close monitoring redness likely related to hematoma antibiotic discontinued Doppler study showed no DVT, Leg x-ray/ foot x-ray showed no acute findings History of chronic persistent AFib stable ventricular rate, continue home dose of Cardizem CD 180 mg . History of myasthenia gravis Continue home? pyridostigmine substituted by mouth prednisone to IV Decadron for covid Generalized weakness likely due to COVID-19 infection recent right thigh hematoma seen by physical therapy they recommend short-term rehab initially tested positive on 03/03, no bed until 03/13 until 10 days of quarantine completed DVT prophylaxis:? compression boots Code status: DNR /DNI attending-Dr. 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
[2022-03-15] MEDS: LORazepam 2 MG/ML VIAL 1 MG IVPUSH (18:08)
--- NOTE | 2022-03-15 18:28 | PC.NURSE ---
Patient has been experiencing increased shortness of breath this evening. O2 sats 80% on 15 L via [place]. IKE Garber aware. Orders for ativan prn and morphine gtt ordered. Ativan given and awaiting morphine gtt from pharmacy. Patient's son Jorge A was called by this RN and notified re change of condition. Jorge A states he will call his sister to let her know. Presently patient is expressing shortness of breath and dyspnea. She is tachypneic. Her lungs are diminished bilaterally. She exhibits increased work of breathing. She continues with a congested non-productive cough. Respiratory rate was 36 prior to ativan and is currently 26 after administration. Reassurance given to patient; she is aware of the change in her status and agrees with her plan of care. Patient remains LIDDER.
[2022-03-15] MEDS: Morphine Sulfate/NS 100 MG/100 ML PLAST..BAG IVCONT (22:50)
[2022-03-16 04:00] VITALS: RESP 13; O2SAT 96
[2022-03-16 08:00] VITALS: BP 96/61; PULSE 105; RESP 16; TEMP 36.3; O2SAT 97
--- NOTE | 2022-03-16 11:44 | HO.PM.IMPN ---
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 Review of Systems Review of Systems: Yes Unobtainable due to mental status Physical Exam Vital Signs: Vital Signs: Last Vital Signs Temp 97.4 F 03/16/22 08:00 Pulse 105 H 03/16/22 08:00 Resp 16 03/16/22 08:00 BP 96/61 03/16/22 08:00 Pulse Ox 97 03/16/22 08:00 O2 Del Method 03/16/22 08:00 O2 Flow Rate 15 03/16/22 08:00 BMI result Body Mass Index 19.2 Const: Other: resting comfortably, no moaning, no restlessness, not responding to verbal stimuli heart tachy irregular stable respiratory rate extremities no edema Objective Data Active Medications Acetaminophen (Acetaminophen 325 Mg Tablet) 650 mg PO Q6H PRN PRN Reason: Pain, Mild (Pain Scale 1-3) Last Admin: 03/06/22 09:53 Dose: 650 mg Documented By: NAPOLEON Morphine Sulfate () 100 mg in 100 mls @ 0 mls/hr IVCONT .Q0M INÉS; Protocol Last Infusion: 03/16/22 11:01 Dose: 1 mg/hr, 1 mls/hr Documented By: NAWAF Lorazepam (Lorazepam 2 Mg/Ml Vial) 1 mg IVPUSH Q4H PRN PRN Reason: anxiety Last Admin: 03/15/22 18:08 Dose: 1 mg Documented By: MIKE Morphine Sulfate (Morphine Sulfate 2 Mg/Ml Cartridge) 2 mg IVPUSH Q1H PRN PRN Reason: Discomfort/Shortness of breath Ondansetron HCl (Ondansetron Hcl 4 Mg/2 Ml Vial) 4 mg IVPUSH Q8H PRN PRN Reason: Nausea and Vomiting Pharmacy Consult (Consult Rx Perform Med Rec) 1 each MISCELLANE ONCE PRN PRN Reason: Consult order Scopolamine (Scopolamine 1.5 Mg Patch.Td.3) 1.5 mg TRANSDERMA Q72H [facility] Last Admin: 03/14/22 10:29 Dose: 1.5 mg Documented By: MEHNAZ Sodium Chloride (0.9 % Sodium Chloride Flush 3 Ml Syringe) 3 ml IVFLUSH QSHIFT [facility] Last Admin: 03/16/22 07:58 Dose: Not Given Documented By: JULIA-THOMAS Non-Admin Reason: assessed Labs CBC & Chem 7: 03/10/22 06:49 03/11/22 08:20 Assessment and Plan (1) COVID-19 virus infection: Status: Acute (2) Hematoma: Status: Acute Plan 81-year-old female with a past medical history of AFib on Coumadin, myasthenic gravis, IBS, discoid lupus, GERD, vertigo, osteoporosis, history of urethral stone; presented to the hospital today with a chief complaint of right thigh pain and admitted to [facility] with a diagnosis of right thigh hematoma likely related to supratherapeutic INR, during course of hospitalization patient developed acute toxic metabolic encephalopathy likely related to age related cognitive impairment, CT head showed no acute abnormality , patient was scheduled to leave for rehab but a COVID test came back positive, likely COVID infection also contributed to encephalopathy therefore patient remained in patient, noted to be in acute hypoxic respiratory failure, patient treated with 10 days of IV Decadron, 5 days of remdesivir and 7 days of IV doxycycline for possible pneumonia, subsequently on March 07 patient developed shortness of breath that showed left-sided atelectasis and bilateral effusion patient was treated with chest physical therapy , incentive spirometry and expectorant however patient became hypoxic on March 15, repeat chest x-ray showed left lung collapse with mediastinal shift required 15 L of oxygen, patient declined aggressive treatment and requested for comfort care. 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 will continue with Scopolamine, morphine and Ativan. 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
[2022-03-16 12:00] VITALS: PULSE 104; RESP 10
--- NOTE | 2022-03-16 13:27 | MHC.CM.PN ---
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 Patient will likely pass here. Notified facilities following that no dischage is planned for today.
[2022-03-16 15:56] VITALS: RESP 13; O2SAT 92
--- NOTE | 2022-03-16 16:02 | PC.NURSE ---
Morphine drip maintained. Pt resting in bed. 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 Minimal care provided to maintain pt comfort. safety and fall precautions in place. call reyez within reach. Isolation precautions maintained.
--- NOTE | 2022-03-16 21:31 | P.DS_ITS ---
DS: Providers Provider Date of Service: 03/16/22 Date of admission: 02/23/22 22:03 Primary care physician: Tg Cooper NP Consults: 02/23/22 22:03 Consult to General Surgery Routine Consulting Provider: Josie Booker Reason for consultation: thigh hematoma DS: Diagnosis Discharge Diagnosis (1) COVID-19 virus infection: Status: Acute (2) Hematoma: Status: Resolved DS: Summary Hospital Course Hospital Course: History of Presenting illness: Chief Complaint: ? right thigh pain ?81-year-old female with a past medical history of AFib on Coumadin, myasthenic gravis, IBS, discoid lupus, GERD, vertigo, osteoporosis, history of urethral stone; presented to the hospital today with a chief complaint of right thigh pain for the past 2 days.? Patient reports that for the past 2 days she has been having pain in her right thigh; also noted swelling in her right eye /ecchymosis; denies any falls or trauma.? Reports 1 week ago she dropped an object on her foot, complains of pain in the foot; denies any numbness tingling or focal weakness.? Denies any chest pain or palpitations.? Denies any recent eye symptoms Denies any headaches.? Patient reports that she had a history of retinal detachment and had surgery about any year ago in the eye; Denies any fever chills cough Denies any abdominal pain, urinary symptoms Review of all other systems is negative except mentioned above ER course: Per ER team patient noted to have supratherapeutic INR; CT head showed no acute intracranial process but noted to have change in her right eye globe was-concern for new versus old hemorrhage; discussed with ophthalmology -recommended no acute intervention, outpatient ophthalmology follow-up after discharge Noted to have thigh hematoma; hemoglobin slightly dropped from 11.5-9.5; discussed with general surgery who mentioned no acute intervention; thigh compartments are soft.? Admitted for further management. Hospital course 81-year-old female with a past medical history of AFib on Coumadin, myasthenic gravis, IBS, discoid lupus, GERD, vertigo, osteoporosis, history of urethral stone; presented to the hospital with a chief complaint of right thigh pain? and admitted to [facility] with a diagnosis of right thigh hematoma likely related to supratherapeutic INR, during course of hospitalization patient developed acute toxic metabolic encephalopathy likely related to age related cognitive impairment, CT head showed no acute abnormality , UA benign, normal electrolytes, questions , patient was scheduled to leave for rehab but a COVID test came back positive, likely COVID infection also contributed to encephalopathy therefore patient remained inpatient, also noted to be in acute hypoxic respiratory failure, patient treated with 10 days of IV Decadron, 5 days of remdesivir and 7 days of IV doxycycline for possible pneumonia, subsequently on March 07 patient developed shortness of breath that showed left-sided atelec tasis and bilateral effusion patient was treated with chest physical therapy , incentive spirometry and expectorant however patient became hypoxic on March 15, repeat chest x-ray showed left lung collapse with mediastinal shift required 15 L of oxygen, patient declined aggressive treatment and requested for comfort care. On March 16 at 8:30 pm patient no pulse, no heart sounds, no lung sounds, pupils dilated and non-reactive. Cause of Acute hypoxic respiratory failure COVID-19 infection left lung collapse Right Thigh hematoma likely related to supratherapeutic INR toxic metabolic encephalopathy Adult FTT Question right eye hemorrhage versus postsurgical changes on imaging, with Normal bilateral eye examination and no change in vision History of chronic persistent AFib? History of myasthenia gravis Time Spent with Patient Time attestation: Total time spent providing and/or coordinating discharge services: Discharge coordination time: Greater than 30 minutes Quality: Safe Use of Opioids Does Pt have an Active Cancer Diagnosis on the Problem List?: No Quality: Stroke Does the patient have a stroke diagnosis?: No Physical Exam Vital Signs: Vital Signs: Last Vital Signs Temp 97.4 F 03/16/22 08:00 Pulse 104 H 03/16/22 12:00 Resp 13 03/16/22 15:56 BP 96/61 03/16/22 08:00 Pulse Ox 92 03/16/22 15:56 O2 Del Method 03/16/22 15:56 O2 Flow Rate 15 03/16/22 15:56 BMI result Body Mass Index 19.2 DS: Data Data Completed and Pending Completed studies during hospitalization [Text1]: Procedures Dilation of Right Ureter with Intraluminal Device, Via Natural or Artificial Opening Endoscopic (02/03/21) Fluoroscopy of Right Kidney, Ureter and Bladder (02/03/21) Inspection of Lower Intestinal Tract, Via Natural or Artificial Opening Endoscopic (02/03/21) Introduction of Remdesivir Anti-infective into Peripheral Vein, Percutaneous Approach, [employer] (02/23/22) Discharge Plan Discharge Date/Time: 03/16/22 20:30 Patient Disposition: Discharge Diagnosis: Right leg hematoma Supratherapeutic INR Acute toxic metabolic encephalopathy Chronic persistent AFib Referrals: [facility] [Outside] - 1 Week Tg Cooper [employer] [Primary Care Provider] - 1 Week Discharge Medications: Discontinued pyridoxine (vitamin B6) 100 mg tablet 100 mg PO DAILY 90 Days Qty: 90 1RF warfarin 2.5 mg tablet 1 tab PO DAILY albuterol sulfate 90 mcg/actuation HFA aerosol inhaler 2 puff inhalation Q6H prednisolone acetate 1 % drops,suspension 1 drp ophthalmic-Right QID gabapentin 100 mg capsule 200 mg PO DAILY prednisone 1 mg tablet 2 tab PO DAILY nystatin 100,000 unit/mL suspension 5 ml PO QID benzonatate 100 mg capsule 1 cap PO TID PRN (Reason: Cough) cholecalciferol (vitamin D3) [Vitamin D3] 25 mcg (1,000 unit) Tablet 25 mcg PO DAILY budesonide-formoterol [Symbicort] 160-4.5 mcg/actuation HFA aerosol inhaler 2 puff inhalation BID brimonidine 0.2 % drops 1 drp ophthalmic-Right BID diltiazem HCl 180 mg capsule,extended release 24 hr 180 mg PO DAILY pyridostigmine bromide 60 mg tablet 60 mg PO TID Activity on Discharge: As tolerated Care Plan Goals: Right thigh hematoma/supratherapeutic INR Health Concerns: Plan of Treatment: Assessment: As per discharge summary Discharge Date/Time: 03/16/22 20:30
--- NOTE | 2022-03-16 21:47 | PM.EVENT ---
Event Note Date of Service: 03/16/22 Event Note: Pt at 8:30 pm no pulse, no heart sounds, no lung sounds, pupils dilated and non-reactive
== END 2022-03-16 20:30 | disposition expired | DRG 813 ==
LOC: HO.ED 21:25 → HO.EDOVER 22:08 → HO.IMC 02-27 13:40
PROVIDERS: Physician Assistant; Physician Assistant Medical; Student in an Organized Health Care Education/Training Program; Admitting Provider Hospitalist; Emergency Provider Emergency Medicine; PCP Nurse Practitioner Family; Responsible Provider Nurse Practitioner Acute Care; Visit Provider Hospitalist
DX: D68.32 Hemorrhagic disorder due to extrinsic circulating anticoagulants (principal); M79.81 Nontraumatic hematoma of soft tissue; U07.1 COVID-19; G92.8 Other toxic encephalopathy; J96.01 Acute respiratory failure with hypoxia; J18.9 Pneumonia, unspecified organism; I48.19 Other persistent atrial fibrillation; L03.115 Cellulitis of right lower limb; F05 Delirium due to known physiological condition; J91.8 Pleural effusion in other conditions classified elsewhere; J98.11 Atelectasis; J98.19 Other pulmonary collapse; Z68.1 Body mass index [BMI] 19.9 or less, adult; Z66 Do not resuscitate; Z51.5 Encounter for palliative care; T45.515A Adverse effect of anticoagulants, initial encounter; Z87.442 Personal history of urinary calculi; H54.8 Legal blindness, as defined in USA; L93.0 Discoid lupus erythematosus; H57.89 Other specified disorders of eye and adnexa; R41.81 Age-related cognitive decline; M54.2 Cervicalgia; Z87.891 Personal history of nicotine dependence; R62.7 Adult failure to thrive; K21.9 Gastro-esophageal reflux disease without esophagitis; G70.00 Myasthenia gravis without (acute) exacerbation; Z88.5 Allergy status to narcotic agent; Z88.8 Allergy status to other drugs, medicaments and biological substances; Z79.01 Long term (current) use of anticoagulants; Z79.52 Long term (current) use of systemic steroids; Z79.899 Other long term (current) drug therapy
CPT/HCPCS: 36415; 70450; 71045; 71250; 73590; 73630; 74176; 80048; 80053; 81001; 81003; 83735; 83880; 85025; 85027; 85610; 86140; 87635; 93970; 94640; 94664; 96365; 96367; 96375; 97110; 97162; 97530; 99285; J0248; J0696; J1100; J1160; J1200; J2060; J2270; J2405; J3430; J7168